=== PATIENT | male | born 1940 | race Caucasian/White ===

== ENCOUNTER → 2017-04-15 | Outpatient (CLI) | payer MEDICARE, BC | END | disposition home or self-care (01) | LOC: LABWHC1 12:54 | PROVIDERS: ATTEND Physical Medicine & Rehabilitation | DX: M48.06 Spinal stenosis, lumbar region (principal); M47.817 Spondylosis without myelopathy or radiculopathy, lumbosacral region; R20.2 Paresthesia of skin; M54.5 Low back pain | CPT/HCPCS: 36415; 82565; 84520 ==

== ENCOUNTER 2017-09-17 17:57 | Inpatient (IN) | payer MEDICARE, BC ==
[2017-09-17] MEDS ORDERED: MORPHINE SULFATE 2 MG/ML SYRINGE IVP STA (18:45)
[2017-09-17] MEDS ORDERED: ONDANSETRON 4 MG/2 ML VIAL IVP STA (18:45)
[2017-09-17] MEDS ORDERED: ASPIRIN 81 MG PO STA (18:45)
[2017-09-17] MEDS ORDERED: NITROGLYCERIN OINT 1 INCH/GM PACKET TOPICAL STA (18:45)
[2017-09-17] MEDS ORDERED: SODIUM CHLORIDE 0.9% 1,000 ML IV STA (18:45)
[2017-09-17 19:10] LABS: Calcium 9.7 mg/dL (8.4-10.2); Magnesium 2.2 mg/dL (1.6-2.3); Potassium 4.5 mmol/L (3.5-5.1); Total Bilirubin 0.5 mg/dL (0.2-1.3)
--- NOTE | 2017-09-17 19:13 | XR ---
EXAMINATION TYPE: XR chest 2V DATE OF EXAM: 09/17/2017 COMPARISON: NONE HISTORY: Chest pain TECHNIQUE: Frontal and lateral views of the chest are obtained. FINDINGS: Heart and mediastinum are within normal limits. There is slight coarsening of interstitial markings. There are no hilar masses. There is no pleural effusion. Bony thorax is intact. There is s ignificant deformity of the right humeral head that could relate to old trauma. IMPRESSION: Mild pulmonary fibrotic changes. No acute lung disease. Normal heart.
[2017-09-17 19:17] LABS: Partial Thromboplastin Time 23.9 sec (22.0-30.0); Prothrombin Time 10.1 sec (9.0-12.0)
[2017-09-17 19:24] LABS: Aty Lym Flag Moderate; CH 31.5; CHCM 33.5; HCT 47.3 % (39.0-53.0); HDW 2.98; HGB 15.4 gm/dL (13.0-17.5); MCH 30.8 pg (25.0-35.0); MCHC 32.6 g/dL (31.0-37.0); MCV 94.5 fL (80.0-100.0); RBC 5.01 m/uL (4.30-5.90); RDW 14.1 % (11.5-15.5); WBC 9.3 k/uL (3.8-10.6); WBC (Perox) 9.08
[2017-09-17 19:36] LABS: Creatine Kinase MB 3.4 ng/mL (0.0-2.4)
[2017-09-17 19:37] LABS: Troponin I 0.042 ng/mL (0.000-0.034)
[2017-09-17 19:43] LABS: Add Differential Manual Differential
[2017-09-17 19:44] LABS: Nucleated Red Blood Cells 0 /100 WBC (0-0); Polychromasia Present; Total Cells Counted 100
--- NOTE | 2017-09-17 20:06 | ED ---
Chest Pain HPI - General Chief Complaint: Chest Pain Stated Complaint: CHEST PAIN Time Seen by Provider: 09/17/17 18:26 Source: patient Mode of arrival: ambulatory Limitations: no limitations - History of Present Illness Initial Comments: 76 years old male had a chest pain episode 9 AM today and it lasted for about 2 hours he went to bed he felt great. This afternoon around 4 PM he had another episode of chest pain him according to the patient he do not have any history of ischemic heart disease no stent placement or any surgeries great nail no shortness of breath no peripheral pleuritic chest pain no fever no chills he is not coughing up any phlegm no abdominal pain no frequency urgency dysuria - Related Data Home Medications Medication Instructions Recorded Confirmed ALPRAZolam [Xanax] 0.25 mg PO BID 06/08/16 09/17/17 Lovastatin [Mevacor] 10 mg PO HS 06/08/16 09/17/17 Multivitamins, Thera [Multivitamin 1 tab PO DAILY 06/08/16 09/17/17 (formulary)] Ranitidine HCl [Zantac] 300 mg PO DAILY 06/08/16 09/17/17 Tamsulosin HCl [Flomax] 0.4 mg PO DAILY 06/08/16 09/17/17 glipiZIDE [Glucotrol] 10 mg PO DAILY 06/08/16 09/17/17 metFORMIN HCL [Glucophage] 1,500 mg PO AC-SUPPER 06/08/16 09/17/17 Aspirin 325 mg PO DAILY 07/25/16 09/17/17 Latanoprost [Xalatan 0.005%] 1 drop BOTH EYES HS 08/04/16 09/17/17 Naproxen Sodium [Aleve] 220 mg PO BID 08/04/16 09/17/17 Fish Oil 1600mg 1,600 mg PO DAILY 09/17/17 09/17/17 Glucosam/Jeffrey-Msm1/C/Everette/Bosw 1 tab PO DAILY 09/17/17 09/17/17 [Glucosamine-Chondroitin Tablet] Linagliptin [Tradjenta] 5 mg PO DAILY 09/17/17 09/17/17 Vitamin B Complex 1 cap PO DAILY 09/17/17 09/17/17 Allergies Allergy/AdvReac Type Severity Reaction Status Date / Time clarithromycin [From Biaxin] AdvReac Nausea & Verified 09/17/17 18:58 Vomiting Review of Systems ROS Statement: Those systems with pertinent positive or pertinent negative responses have been documented in the HPI. ROS Other: All systems not noted in ROS Statement are negative. Past Medical History Past Medical History: Coronary Artery Disease (CAD), Cancer, Diabetes Mellitus Additional Past Medical History / Comment(s): AAA, renal CA with removal of part of kidney and removal of rib, left posterior hernia, chronic pain History of Any Multi-Drug Resistant Organisms: None Reported Past Surgical History: Hernia Repair Additional Past Surgical History / Comment(s): CAROTID END., AAA REPAIR, removal of part of left kidney Past Anesthesia/Blood Transfusion Reactions: Postoperative Nausea & Vomiting ( PONV) Past Psychological History: No Psychological Hx Reported Smoking Status: Former smoker Past Alcohol Use History: Rare Past Drug Use History: None Reported - Past Family History Mother Family Medical History: Diabetes Mellitus Father Family Medical History: COPD, Hypertension Brother(s) Family Medical History: Diabetes Mellitus Sister(s) Family Medical History: Coronary Artery Disease (CAD), Diabetes Mellitus Son(s) Family Medical History: No Reported History Daughter(s) Family Medical History: No Reported History General Exam - General Exam Comments Initial Comments: General: The patient is awake and alert, in no distress, and does not appear acutely ill. Skin: Skin is warm and dry and no rashes or lesions are noted. Eye: Pupils are equal, round and reactive to light, extra-ocular movements are intact; there is normal conjunctiva bilaterally. Ears, nose, mouth and throat: There are moist mucous membranes and no oral lesions. Neck: The neck is supple, there is no tenderness or JVD. Cardiovascular: There is a regular rate and rhythm. No murmur, rub or gallop is appreciated. Respiratory: To auscultation bilateral, no wheezing no rhonchi no distress respiratory rosen noticed Gastrointestinal: Soft, non-distended, non-tender abdomen without masses or organomegaly noted. There is no rebound or guarding present. Bowel sounds are unremarkable. Back: There is no tenderness to palpation in the midline. There is no obvious deformity. Musculoskeletal: Normal ROM, no tenderness, There is no pedal edema. There is no calf tenderness or swelling. No cords were appreciated. Neurological: CN II-XII intact, Cranial nerves III through XII are intact. There are no obvious motor or sensory deficits. Coordination appears grossly intact. Speech is normal. Psychiatric: Cooperative, appropriate mood & affect, normal judgment. Limitations: no limitations Course Vital Signs 09/17/17 09/17/17 09/17/17 18:00 18:17 19:14 Temperature 98.1 F Pulse Rate 76 84 76 Respiratory 18 16 16 Rate Blood Pressure 181/80 159/76 153/86 O2 Sat by Pulse 98 99 98 Oximetry EKG is normal sinus rhythm ventricular rate is 82 CT interval is 170 QRS duration is 96 QT/QTc is 366/4:30 degree of this EKG does not reveal any ST elevation or ST depression Critical Care Time Total Critical Care Time: 45 Critical Care Time: 6 years old male has a history of diabetes hypertension Episodes of chest pain today on arrival he was chest pain-free him EKG is unremarkable but his troponin is elevated considering his age has other risk factors like diabetes hypertension and [facility] go ahead and heparinize him [address] Farrar's croup and cardiology be consulted will be going to [facility] Disposition Clinical Impression: Chest pain, Myocardial infarction Disposition: ADMITTED IP TO THIS HOSP Condition: Good Referrals: Angel Luis Ramon DO [Primary Care Provider] - 1-2 days
[2017-09-17] MEDS ORDERED: ACETAMINOPHEN TAB 325 MG TAB PO PRN (20:09)
[2017-09-17] MEDS ORDERED: MORPHINE SULFATE 10 MG/ML SYRINGE IVP PRN (20:09)
[2017-09-17] MEDS ORDERED: HEPARIN SODIUM,PORCINE 5,000 UNIT/ML 1 ML VIAL IV ONE (20:09)
[2017-09-17] MEDS: HEPARIN SODIUM,PORCINE/D5W PMX 25,000 UNIT in DEXTROSE/WATER 1 500ML.BAG IV SCH (22:04)
[2017-09-17 22:48] VITALS: BMI 25.5
[2017-09-18] MEDS: NITROGLYCERIN OINT 1 INCH/GM PACKET TOPICAL SCH ×4 (00:15→17:38)
[2017-09-18 01:05] LABS: Creatine Kinase MB 3.2 ng/mL (0.0-2.4); Troponin I 0.045 ng/mL (0.000-0.034)
[2017-09-18 05:23] LABS: Creatine Kinase MB 3.4 ng/mL (0.0-2.4); Troponin I 0.052 ng/mL (0.000-0.034)
[2017-09-18 05:57] LABS: Cholesterol 149 mg/dL (<200); HDL Cholesterol 33 mg/dL (40-60)
[2017-09-18 06:14] LABS: Glucose,Whole Blood 163 mg/dL (75-99)
[2017-09-18] MEDS: INSULIN LISPRO (humaLOG) 300 UNIT/3 ML VIAL SQ SCH ×4 (06:14→21:18)
[2017-09-18] MEDS: glipiZIDE 10 MG TAB PO SCH (06:30)
[2017-09-18] MEDS: FISH OIL PO SCH (08:09)
[2017-09-18] MEDS: ALPRAZolam 0.25 MG TAB PO SCH ×2 (08:13→21:12)
[2017-09-18] MEDS: B COMPLEX-VIT C-VIT E-ZINC 1 EACH TAB PO SCH (08:13)
[2017-09-18] MEDS: TAMSULOSIN 0.4 MG CAP.ER.24H PO SCH (08:13)
[2017-09-18] MEDS: FAMOTIDINE 20 MG TAB PO SCH (08:13)
[2017-09-18] MEDS: ASPIRIN 325 MG TAB PO SCH (08:13)
[2017-09-18] MEDS: MULTIVITAMINS, THERA 1 EACH TAB PO SCH (08:13)
[2017-09-18 10:24] LABS: Glucose,Whole Blood 129 mg/dL (75-99)
[2017-09-18 11:27] LABS: Glucose,Whole Blood 135 mg/dL (75-99)
--- NOTE | 2017-09-18 11:55 | ECHOF ---
Referral Reason:Myocardial infarction MEASUREMENTS -------- HEIGHT: 175.3 cm WEIGHT: 75.3 kg BP: 126/87 RVIDd: 2.4 cm (< 3.3) IVSd: 1.0 cm (0.6 - 1.1) LVIDd: 4.4 cm (3.9 - 5.3) LVPWd: 1.3 cm (0.6 - 1.1) IVSs: 1.7 cm LVIDs: 3.0 cm LVPWs: 1.6 cm LA Diam: 3.3 cm (2.7 - 3.8) LAESV Index (A-L): 15.61 ml/m Ao Diam: 3.0 cm (2.0 - 3.7) AV Cusp: 1.5 cm (1.5 - 2.6) MV EXCURSION: 11.714 mm (> 18.000) MV EF SLOPE: 56 mm/s (70 - 150) EPSS: 0.7 cm MV E Mic: 0.96 m/s MV DecT: 190 ms MV A Mic: 1.04 m/s MV E/A Ratio: 0.92 RAP: 5.00 mmHg RVSP: 23.95 mmHg FINDINGS -------- Sinus rhythm. This was a technically difficult study with suboptimal apical views. The left ventricular size is normal. There is mild concentric left ventricular hypertrophy. Overa ll left ventricular systolic function is low-normal with, an EF between 50 - 55 %. The right ventricle is normal in size. Normal LA size by volume 22+/-6 ml/m2. The right atrium is normal in size. 1.5mg of Definity was utilized for enhancement of images There is moderate aortic valve sclerosis. Mild mitral annular calcification present. Mild mitral regurgitation is present. Mild tricuspid regurgitation present. Right ventricular systolic pressure is normal at < 35 mmHg. The pulmonic valve was not well visualized. There is no pulmonic regurgitation present. The aortic root size is normal. Normal inferior vena cava with normal inspiratory collapse consistent with estimated right atrial pre ssure of 5 mmHg. There is no pericardial effusion. CONCLUSIONS -------- 1. Sinus rhythm. 2. This was a technically difficult study with suboptimal apical views. 3. There is mild concentric left ventricular hypertrophy. 4. Overall left ventricular systolic function is low-normal with, an EF between 50 - 55 %. 5. Normal LA size by volume 22+/-6 ml/m2. 6. 1.5mg of Definity was utilized for enhancement of images 7. There is moderate aortic valve sclerosis. 8. Mild mitral annular calcification present. 9. Mild mitral regurgitation is present. 10. Mild tricuspid regurgitation present. 11. Right ventricular systolic pressure is normal at < 35 mmHg. 12. There is no pulmonic regurgitation present. 13. The aortic root size is normal. 14. Normal inferior vena cava with normal inspiratory collapse consistent with estimated right atrial pressure of 5 mmHg. 15. There is no pericardial effusion. CONSTRUCTION EQUIPMENT TECHNICIAN: Dorothy Pichardo RDCS
[2017-09-18] MEDS: LINAGLIPTIN 5 MG TABLET PO SCH (12:37)
[2017-09-18] MEDS ORDERED: ALPRAZolam 0.5 MG TAB PO PRN (12:44)
[2017-09-18] MEDS ORDERED: ALPRAZolam 0.25 MG TAB PO PRN (12:44)
[2017-09-18] MEDS ORDERED: SODIUM CHLORIDE 0.9% 1,000 ML in EMPTY BAG 1 BAG IV ONE (12:44)
[2017-09-18] MEDS ORDERED: ASPIRIN 325 MG TAB PO STA (12:44)
[2017-09-18] MEDS ORDERED: ATORVASTATIN 80 MG TAB PO STA (12:44)
[2017-09-18] MEDS ORDERED: NITROGLYCERIN SL TABS 0.4 MG TAB SUBLINGUAL PRN (12:44)
--- NOTE | 2017-09-18 12:49 | P.CRDCN ---
History of Present Illness Consult date: 09/18/17 Requesting physician: Dora Farrar Reason for Consult (text): This is a pleasant 76-year-old gentleman who follows with Dr. Santoro in the office. Has a known history of diabetes, previous CVA, history of smoking, partial nephrectomy, history of left carotid stenosis status post endarterectomy and subsequent stent grafting. Presented to the emergency department with complaints of chest discomfort. Initially experience chest discomfort after eating breakfast midsternal and radiated to bilateral arms. Patient laid back down and rested for a while and that pain subsided. Shortly after waking the second time, patient experienced the same chest discomfort with radiation to bilateral arms and subsequently presented to the emergency department. EKG on admission shows sinus rhythm with possible old inferior infarct, poor R-wave progression and nonspecific ST-T wave abnormalities, similar to previous. Chest x-ray showed mild pulmonary fibrotic changes, no acute lung disease. Laboratory values showed a BUN of 29 and creatinine 1.5 with previous creatinine of 1.57. A mild troponin elevation of 0.042, 0.045, and 0.052. Upon examination, patient is resting comfortably in bed. He denies further complaints of chest discomfort. He complains of shortness of breath with activity that is stable for him. No complaints of nausea, diaphoresis, dizziness, lightheadedness, palpitations or edema. Past Medical History Past Medical History: Coronary Artery Disease (CAD), Cancer, Diabetes Mellitus Additional Past Medical History / Comment(s): AAA, renal CA with removal of part of kidney and removal of rib, left posterior hernia, chronic pain History of Any Multi-Drug Resistant Organisms: None Reported Past Surgical History: Hernia Repair Additional Past Surgical History / Comment(s): CAROTID END., AAA REPAIR, removal of part of left kidney Past Anesthesia/Blood Transfusion Reactions: Postoperative Nausea & Vomiting ( PONV) Past Psychological History: No Psychological Hx Reported Smoking Status: Former smoker Past Alcohol Use History: Rare Past Drug Use History: None Reported - Past Family History Mother Family Medical History: Diabetes Mellitus Father Family Medical History: COPD, Hypertension Brother(s) Family Medical History: Diabetes Mellitus Sister(s) Family Medical History: Coronary Artery Disease (CAD), Diabetes Mellitus Son(s) Family Medical History: No Reported History Daughter(s) Family Medical History: No Reported History Medications and Allergies Home Medications Medication Instructions Recorded Confirmed Type ALPRAZolam [Xanax] 0.25 mg PO BID 06/08/16 09/17/17 History Lovastatin [Mevacor] 10 mg PO HS 06/08/16 09/17/17 History Multivitamins, Thera [Multivitamin 1 tab PO DAILY 06/08/16 09/17/17 History (formulary)] Ranitidine HCl [Zantac] 300 mg PO DAILY 06/08/16 09/17/17 History Tamsulosin HCl [Flomax] 0.4 mg PO DAILY 06/08/16 09/17/17 History glipiZIDE [Glucotrol] 10 mg PO DAILY 06/08/16 09/17/17 History metFORMIN HCL [Glucophage] 1,500 mg PO AC-SUPPER 06/08/16 09/17/17 History Aspirin 325 mg PO DAILY 07/25/16 09/17/17 History Latanoprost [Xalatan 0.005%] 1 drop BOTH EYES HS 08/04/16 09/17/17 History Naproxen Sodium [Aleve] 220 mg PO BID 08/04/16 09/17/17 History Fish Oil 1600mg 1,600 mg PO DAILY 09/17/17 09/17/17 History Glucosam/Jeffrey-Msm1/C/Everette/Bosw 1 tab PO DAILY 09/17/17 09/17/17 History [Glucosamine-Chondroitin Tablet] Linagliptin [Tradjenta] 5 mg PO DAILY 09/17/17 09/17/17 History Vitamin B Complex 1 cap PO DAILY 09/17/17 09/17/17 History Allergies Allergy/AdvReac Type Severity Reaction Status Date / Time clarithromycin [From Biaxin] AdvReac Nausea & Verified 09/17/17 18:58 Vomiting Physical Exam Vitals: Vital Signs Temp Pulse Pulse Resp BP BP Pulse Ox 09/18/17 08:00 97.5 F L 83 16 160/78 95 09/18/17 04:00 97.1 F L 89 16 126/87 95 09/18/17 00:00 97.0 F L 92 16 145/71 99 09/17/17 21:00 92 16 09/17/17 20:34 96.4 F L 82 16 183/84 98 09/17/17 20:15 70 20 134/73 94 L 09/17/17 19:14 76 16 153/86 98 09/17/17 18:17 84 16 159/76 99 09/17/17 18:00 98.1 F 76 18 181/80 98 Intake and Output 09/17/17 09/18/17 09/18/17 22:59 06:59 14:59 Intake Total 800 1072.358 Balance 800 1072.358 Intake: IV 144 Heparin Sodium,Porcine/ 144 D5w Pmx 25,000 unit In Dextrose/Water 1 500ml. bag @ 12 UNITS/KG/HR 18. 83 mls/hr IV .Q24H [facility] Rx #:[id number] Intake, IV Titration 800 928.358 Amount Heparin Sodium,Porcine/ 128.358 D5w Pmx 25,000 unit In Dextrose/Water 1 500ml. bag @ 12 UNITS/KG/HR 18. 83 mls/hr IV .Q24H [facility] Rx #:[id number] Sodium Chloride 0.9% 1, 800 800 000 ml @ 100 mls/hr IV . Q10H [facility] Rx#:[id number] Other: Voiding Method Toilet Toilet Weight 78.471 kg 75.3 kg PHYSICAL EXAMINATION: HEENT: Head is atraumatic, normocephalic. Pupils equal, round. Neck is supple. There is no elevated jugular venous pressure. HEART EXAMINATION: Heart sounds regular, S1 and S2 normal. No murmur or gallop heard. CHEST EXAMINATION: Lungs reveal diminished air entry bilaterally. No chest wall tenderness is noted on palpation or with deep breathing. ABDOMEN: Soft, nontender. Bowel sounds are heard. No organomegaly noted. EXTREMITIES: 2+ peripheral pulses with no evidence of peripheral edema and no calf tenderness noted. NEUROLOGIC patient is awake, alert and oriented x3. . Results 09/17/17 18:15 09/17/17 18:15 Cardiac Enzymes 09/17/17 09/17/17 09/18/17 Range/Units 18:15 18:15 00:10 AST 29 (17-59) U/L CK-MB (CK-2) 3.4 H* 3.2 H* (0.0-2.4) ng/mL Troponin I 0.042 H* 0.045 H* (0.000-0.034) ng/mL 09/18/17 Range/Units 04:17 AST (17-59) U/L CK-MB (CK-2) 3.4 H* (0.0-2.4) ng/mL Troponin I 0.052 H* (0.000-0.034) ng/mL Coagulation 09/17/17 09/18/17 Range/Units 18:15 04:17 PT 10.1 (9.0-12.0) sec APTT 23.9 44.7 H (22.0-30.0) sec Lipids 09/18/17 Range/Units 04:17 Triglycerides 209 H (<150) mg/dL Cholesterol 149 (<200) mg/dL HDL Cholesterol 33 L (40-60) mg/dL CBC 09/17/17 Range/Units 18:15 WBC 9.3 (3.8-10.6) k/uL RBC 5.01 (4.30-5.90) m/uL Hgb 15.4 (13.0-17.5) gm/dL Hct 47.3 (39.0-53.0) % Plt Count 205 (150-450) k/uL Comprehensive Metabolic Panel 09/17/17 Range/Units 18:15 Sodium 141 (137-145) mmol/L Potassium 4.5 (3.5-5.1) mmol/L Chloride 107 (98-107) mmol/L Carbon Dioxide 21 L (22-30) mmol/L BUN 29 H (9-20) mg/dL Creatinine 1.50 H (0.66-1.25) mg/dL Glucose 184 H (74-99) mg/dL Calcium 9.7 (8.4-10.2) mg/dL AST 29 (17-59) U/L ALT 43 (21-72) U/L Alkaline Phosphatase 75 (38-126) U/L Total Protein 7.0 (6.3-8.2) g/dL Albumin 4.2 (3.5-5.0) g/dL Current Medications Generic Name Dose Route Start Last Admin Trade Name Freq PRN Reason Stop Dose Admin Acetaminophen 650 mg 09/17/17 20:09 Tylenol Tab PO Q4HR PRN Mild Pain Alprazolam 0.25 mg 09/18/17 09:00 09/18/17 08:13 Xanax PO 0.25 mg BID [facility] Administration Aspirin 325 mg 09/18/17 09:00 09/18/17 08:13 Aspirin PO 325 mg DAILY [facility] Administration Atorvastatin Calcium 10 mg 09/18/17 21:00 Lipitor PO HS [facility] Famotidine 40 mg 09/18/17 09:00 09/18/17 08:13 Pepcid PO 40 mg DAILY [facility] Administration Glipizide 10 mg 09/18/17 07:30 09/18/17 06:30 Glucotrol PO 10 mg AC-BRKFST [facility] Administration Heparin Sodium/Dextrose 25,000 500 mls @ 18.83 mls/hr 09/17/17 20:15 04:53 unit/ IV Solution IV 14 units/kg/hr .Q24H [facility] 21.97 mls/hr Protocol Titration 12 UNITS/KG/HR Insulin Human Lispro 0 unit 09/18/17 07:30 09/18/17 06:14 Humalog SQ Not Given ACHS [facility] Protocol Latanoprost 1 drops 09/18/17 21:00 Xalatan 0.005% BOTH EYES HS [facility] Linagliptin 5 mg 09/18/17 09:00 Tradjenta PO DAILY [facility] Morphine Sulfate 2 mg 09/17/17 20:09 Morphine Sulfate (Inj) IVP Q5M PRN Chest Pain Multivitamins 1 each 09/18/17 09:00 09/18/17 08:13 Theragran PO 1 each DAILY [facility] Administration Nitroglycerin 1 inch 09/18/17 00:00 09/18/17 06:12 Nitro-Bid Oint TOPICAL Not Given Q6HR [facility] Non-Formulary Medication 1,600 mg 09/18/17 09:00 09/18/17 08:09 Fish Oil 1600mg PO Not Given DAILY [facility] Tamsulosin HCl 0.4 mg 09/18/17 09:00 09/18/17 08:13 Flomax PO 0.4 mg DAILY [facility] Administration Vitamin B Complex/Vit C/Vit E/Zinc 1 each 09/18/17 09:00 09/18/17 08:13 Z-Bec PO 1 each DAILY [facility] Administration Intake and Output 09/17/17 09/18/17 09/18/17 22:59 06:59 14:59 Intake Total 800 1072.358 Balance 800 1072.358 Intake: IV 144 Heparin Sodium,Porcine/ 144 D5w Pmx 25,000 unit In Dextrose/Water 1 500ml. bag @ 12 UNITS/KG/HR 18. 83 mls/hr IV .Q24H [facility] Rx #:[id number] Intake, IV Titration 800 928.358 Amount Heparin Sodium,Porcine/ 128.358 D5w Pmx 25,000 unit In Dextrose/Water 1 500ml. bag @ 12 UNITS/KG/HR 18. 83 mls/hr IV .Q24H [facility] Rx #:[id number] Sodium Chloride 0.9% 1, 800 800 000 ml @ 100 mls/hr IV . Q10H [facility] Rx#:[id number] Other: Voiding Method Toilet Toilet Weight 78.471 kg 75.3 kg 09/17/17 18:15 09/17/17 18:15 Assessment and Plan Assessment: #1 chest pain with minimally elevated troponins, symptoms concerning for acute coronary syndrome #2 diabetes mellitus type 2 #3 history of left carotid endarterectomy and subsequent stent grafting #4 history of AAA repair #5 renal insufficiency #6 history of partial nephrectomy Plan: From Cardiology's perspective, patient's symptoms are concerning for acute coronary syndrome. We'll obtain a 2-D echo with Doppler. Patient will be scheduled to undergo cardiac catheterization by Dr. Archer in the morning. Further recommendations to follow depending on findings of cardiac catheterization. L[employer]ER note has been reviewed, I agree with a documented findings and plan of care. Patient was seen and examined.
--- NOTE | 2017-09-18 13:48 | P.HPIM ---
History of Present Illness H&P Date: 09/18/17 Chief Complaint: Chest pain This is a 76-year-old pleasant gentleman one of Dr. Ramon with a previous medical history significant for coronary artery disease, hypertension and hypertensive cardio vascular disease, hyperlipidemia, diabetes mellitus type 2, renal cell cancer status post partial nephrectomy on the left, carotid artery disease status post left carotid endarterectomy and restenosis of the left carotid artery status post CT angiography of the carotids that was done in March 2015 and that showed 80% stenosis of the left carotid artery done, history of abdominal aortic aneurysm status post repair patient was brought into the emergency department at [facility] because chest discomfort that occurred a few hours prior to admission. This was resting in nature, midsternal, not accompanied by any regurgitation, no respiratory events. Patient decided to lie down or after the chest discomfort weaned off. When the patient woke up, chest discomfort return again in the spring occurring until his emergency room visits requiring an admission for unstable angina. In emergency room, EKG shows T-wave inversion in the leads V1 through V3, no acute changes were seen, patient had an elevated troponin at 0.042, 0.045 and 0.052. Patient was started on IV heparin, Nitropaste, consult was made with cardiology. Echocardiogram exam was performed showing sinus rhythm with mild concentric LVH , EF of 50-55%, moderate aortic valve sclerosis, mild MR and mild TR, no pericardial effusion, normal right ventricular systolic pressure Cardiology Dr. Archer we will plan on performing a cardiac cath in the morning, creatinine would be closely monitored, patient currently is receiving IV hydration. Metformin on hold since admission, Mucomyst started Review of Systems Constitutional: Reports as per HPI, Denies anorexia, Denies chills, Denies chronic headaches, Denies chronic pain, Denies daytime sleepiness, Denies fatigue, Denies fever, Denies lethargy, Denies malaise, Denies night sweats, Denies poor appetite, Denies sweats, Denies weakness, Denies weight gain, Denies weight loss Ears, nose, mouth and throat: Reports as per HPI Cardiovascular: Reports as per HPI, Reports chest pain, Reports decreased exercise tolerance, Denies claudication, Denies dyspnea on exertion, Denies edema, Denies high blood pressure, Denies irregular heart beat, Denies leg edema , Denies lightheadedness, Denies orthopnea, Denies palpitations, Denies paroxysmal nocturnal dyspnea, Denies phlebitis, Denies rapid heart beat, Denies shortness of breath, Denies syncope Respiratory: Reports as per HPI, Denies congestion, Denies cough, Denies cough with sputum, Denies dyspnea, Denies excessive sputum, Denies hemoptysis, Denies home oxygen, Denies pain, Denies pain on inspiration, Denies pleurisy, Denies respiratory infections, Denies sleep apnea, Denies snoring, Denies wheezing Gastrointestinal: Reports as per HPI, Denies abdominal pain, Denies belching, Denies bloating, Denies BRBPR, Denies change in bowel habits, Denies coffee ground emesis, Denies constipation, Denies diarrhea, Denies dyspepsia, Denies early satiety, Denies excessive gas, Denies heartburn, Denies hematemesis, Denies hematochezia, Denies indigestion, Denies jaundice, Denies lactose intolerance, Denies loss of appetite, Denies melena, Denies nausea, Denies vomiting Genitourinary: Reports as per HPI, Denies decreased libido, Denies difficulties fathering child, Denies discharge, Denies dysuria, Denies erectile dysfunction, Denies flank pain, Denies genital pain, Denies genital sores, Denies hematuria, Denies impotence, Denies incontinence, Denies kidney stones, Denies nocturia, Denies polyuria, Denies testicular lump, Denies testicular pain, Denies urinary frequency, Denies urinary hesitancy, Denies urinary retention Musculoskeletal: Reports as per HPI Integumentary: Reports as per HPI, Denies acne, Denies boils, Denies brittle nails, Denies change in hair/nails, Denies color changes, Denies darkening of skin, Denies depigmentation, Denies dryness, Denies foot/leg ulcers, Denies growths, Denies hirsutism, Denies lesions, Denies onychomycosis, Denies pruritus , Denies rash, Denies sores, Denies striae, Denies unusual bruising, Denies wounds Neurological: Reports as per HPI, Denies aphasia, Denies ataxia, Denies balance difficulties, Denies burning pain, Denies change in mentation, Denies change in smell/taste, Denies change in speech, Denies confusion, Denies convulsions, Denies double vision, Denies gait dysfunction, Denies head injury, Denies headaches, Denies hearing difficulties, Denies lack of coordination, Denies loss of vision, Denies memory loss, Denies migraines, Denies motor disturbance, Denies numbness, Denies paralysis, Denies paresthesias, Denies seizures, Denies sensory deficit, Denies spasticity, Denies syncope, Denies tic, Denies tingling , Denies transient paralysis, Denies tremors, Denies vertigo, Denies weakness, Denies visual changes Psychiatric: Reports as per HPI Endocrine: Reports as per HPI Hematologic/Lymphatic: Reports as per HPI, Denies easy bleeding, Denies easy bruising, Denies lymphadenopathy, Denies lymphedema, Denies thrombophilia Allergic/Immunologic: Reports as per HPI Past Medical History Past Medical History: Coronary Artery Disease (CAD), Cancer, Diabetes Mellitus Additional Past Medical History / Comment(s): AAA, renal CA with removal of part of kidney and removal of rib, left posterior hernia, chronic pain History of Any Multi-Drug Resistant Organisms: None Reported Past Surgical History: Hernia Repair Additional Past Surgical History / Comment(s): CAROTID END., AAA REPAIR, removal of part of left kidney Past Anesthesia/Blood Transfusion Reactions: Postoperative Nausea & Vomiting ( PONV) Past Psychological History: No Psychological Hx Reported Smoking Status: Former smoker Past Alcohol Use History: Rare Past Drug Use History: None Reported - Past Family History Mother Family Medical History: Diabetes Mellitus Father Family Medical History: COPD, Hypertension Brother(s) Family Medical History: Diabetes Mellitus Sister(s) Family Medical History: Coronary Artery Disease (CAD), Diabetes Mellitus Son(s) Family Medical History: No Reported History Daughter(s) Family Medical History: No Reported History Medications and Allergies Home Medications Medication Instructions Recorded Confirmed Type ALPRAZolam [Xanax] 0.25 mg PO BID 06/08/16 09/17/17 History Lovastatin [Mevacor] 10 mg PO HS 06/08/16 09/17/17 History Multivitamins, Thera [Multivitamin 1 tab PO DAILY 06/08/16 09/17/17 History (formulary)] Ranitidine HCl [Zantac] 300 mg PO DAILY 06/08/16 09/17/17 History Tamsulosin HCl [Flomax] 0.4 mg PO DAILY 06/08/16 09/17/17 History glipiZIDE [Glucotrol] 10 mg PO DAILY 06/08/16 09/17/17 History metFORMIN HCL [Glucophage] 1,500 mg PO AC-SUPPER 06/08/16 09/17/17 History Aspirin 325 mg PO DAILY 07/25/16 09/17/17 History Latanoprost [Xalatan 0.005%] 1 drop BOTH EYES HS 08/04/16 09/17/17 History Naproxen Sodium [Aleve] 220 mg PO BID 08/04/16 09/17/17 History Fish Oil 1600mg 1,600 mg PO DAILY 09/17/17 09/17/17 History Glucosam/Jeffrey-Msm1/C/Everette/Bosw 1 tab PO DAILY 09/17/17 09/17/17 History [Glucosamine-Chondroitin Tablet] Linagliptin [Tradjenta] 5 mg PO DAILY 09/17/17 09/17/17 History Vitamin B Complex 1 cap PO DAILY 09/17/17 09/17/17 History Allergies Allergy/AdvReac Type Severity Reaction Status Date / Time clarithromycin [From Biaxin] AdvReac Nausea & Verified 09/17/17 18:58 Vomiting Physical Exam Vitals: Vital Signs Temp Pulse Pulse Resp BP BP Pulse Ox 09/18/17 12:00 97.5 F L 86 16 163/74 98 09/18/17 08:00 97.5 F L 83 16 160/78 95 09/18/17 04:00 97.1 F L 89 16 126/87 95 09/18/17 00:00 97.0 F L 92 16 145/71 99 09/17/17 21:00 92 16 09/17/17 20:34 96.4 F L 82 16 183/84 98 09/17/17 20:15 70 20 134/73 94 L 09/17/17 19:14 76 16 153/86 98 09/17/17 18:17 84 16 159/76 99 09/17/17 18:00 98.1 F 76 18 181/80 98 Intake and Output 09/17/17 09/18/17 09/18/17 22:59 06:59 14:59 Intake Total 800 1072.358 240 Balance 800 1072.358 240 Intake: IV 144 Heparin Sodium,Porcine/ 144 D5w Pmx 25,000 unit In Dextrose/Water 1 500ml. bag @ 12 UNITS/KG/HR 18. 83 mls/hr IV .Q24H [facility] Rx #:[id number] Intake, IV Titration 800 928.358 Amount Heparin Sodium,Porcine/ 128.358 D5w Pmx 25,000 unit In Dextrose/Water 1 500ml. bag @ 12 UNITS/KG/HR 18. 83 mls/hr IV .Q24H [facility] Rx #:[id number] Sodium Chloride 0.9% 1, 800 800 000 ml @ 100 mls/hr IV . Q10H [facility] Rx#:[id number] Oral 240 Other: Voiding Method Toilet Toilet Weight 78.471 kg 75.3 kg - Constitutional General appearance: cooperative, no acute distress - EENT Eyes: anicteric sclerae, EOMI, dentition normal, normal appearance ENT: NA/AT, normal oropharynx - Neck Neck: normal ROM Thyroid: bilateral: normal size - Respiratory Respiratory: bilateral: CTA, negative: diminished, dullness, rales, rhonchi, wheezing - Cardiovascular Rhythm: regular Heart sounds: normal: S1, S2 - Gastrointestinal General gastrointestinal: normal bowel sounds, soft - Integumentary Integumentary: normal, normal turgor - Neurologic Neurologic: CNII-XII intact - Musculoskeletal Musculoskeletal: gait normal, strength equal bilaterally - Psychiatric Psychiatric: A&O x's 3, appropriate affect, intact judgment & insight Results CBC & Chem 7: 09/17/17 18:15 09/17/17 18:15 Labs: Abnormal Lab Results - Last 24 Hours (Table) 09/17/17 09/17/17 09/18/17 Range/Units 18:15 18:15 00:10 APTT (22.0-30.0) sec Carbon Dioxide 21 L (22-30) mmol/L BUN 29 H (9-20) mg/dL Creatinine 1.50 H (0.66-1.25) mg/dL Glucose 184 H (74-99) mg/dL POC Glucose (mg/dL) (75-99) mg/dL CK-MB (CK-2) 3.4 H* 3.2 H* (0.0-2.4) ng/mL Troponin I 0.042 H* 0.045 H* (0.000-0.034) ng/mL Triglycerides (<150) mg/dL HDL Cholesterol (40-60) mg/dL Amylase 148 H (30-110) U/L 09/18/17 09/18/17 09/18/17 Range/Units 04:17 04:17 04:17 APTT 44.7 H (22.0-30.0) sec Carbon Dioxide (22-30) mmol/L BUN (9-20) mg/dL Creatinine (0.66-1.25) mg/dL Glucose (74-99) mg/dL POC Glucose (mg/dL) (75-99) mg/dL CK-MB (CK-2) 3.4 H* (0.0-2.4) ng/mL Troponin I 0.052 H* (0.000-0.034) ng/mL Triglycerides 209 H (<150) mg/dL HDL Cholesterol 33 L (40-60) mg/dL Amylase (30-110) U/L 09/18/17 09/18/17 09/18/17 Range/Units 06:12 10:11 10:34 APTT 60.7 H (22.0-30.0) sec Carbon Dioxide (22-30) mmol/L BUN (9-20) mg/dL Creatinine (0.66-1.25) mg/dL Glucose (74-99) mg/dL POC Glucose (mg/dL) 163 H 129 H (75-99) mg/dL CK-MB (CK-2) (0.0-2.4) ng/mL Troponin I (0.000-0.034) ng/mL Triglycerides (<150) mg/dL HDL Cholesterol (40-60) mg/dL Amylase (30-110) U/L 09/18/17 Range/Units 11:26 APTT (22.0-30.0) sec Carbon Dioxide (22-30) mmol/L BUN (9-20) mg/dL Creatinine (0.66-1.25) mg/dL Glucose (74-99) mg/dL POC Glucose (mg/dL) 135 H (75-99) mg/dL CK-MB (CK-2) (0.0-2.4) ng/mL Troponin I (0.000-0.034) ng/mL Triglycerides (<150) mg/dL HDL Cholesterol (40-60) mg/dL Amylase (30-110) U/L Laboratory Results WBC 9.3 k/uL (3.8-10.6) 09/17/17 18:15 RBC 5.01 m/uL (4.30-5.90) 09/17/17 18:15 Hgb 15.4 gm/dL (13.0-17.5) 09/17/17 18:15 Hct 47.3 % (39.0-53.0) 09/17/17 18:15 MCV 94.5 fL (80.0-100.0) 09/17/17 18:15 MCH 30.8 pg (25.0-35.0) 09/17/17 18:15 MCHC 32.6 g/dL (31.0-37.0) 09/17/17 18:15 RDW 14.1 % (11.5-15.5) 09/17/17 18:15 Plt Count 205 k/uL (150-450) 09/17/17 18:15 Neutrophils % (Manual) 76 % 09/17/17 18:15 Lymphocytes % (Manual) 16 % 09/17/17 18:15 Monocytes % (Manual) 7 % 09/17/17 18:15 Eosinophils % (Manual) 1 % 09/17/17 18:15 Neutrophils # (Manual) 7.07 k/uL (1.3-7.7) 09/17/17 18:15 Lymphocytes # (Manual) 1.49 k/uL (1.0-4.8) 09/17/17 18:15 Monocytes # (Manual) 0.65 k/uL (0-1.0) 09/17/17 18:15 Eosinophils # (Manual) 0.09 k/uL (0-0.7) 09/17/17 18:15 Nucleated RBCs 0 /100 WBC (0-0) 09/17/17 18:15 Polychromasia Present 09/17/17 18:15 PT 10.1 sec (9.0-12.0) 09/17/17 18:15 INR 1.0 (<1.2) 09/17/17 18:15 APTT 60.7 sec (22.0-30.0) H 09/18/17 10:34 Sodium 141 mmol/L (137-145) 09/17/17 18:15 Potassium 4.5 mmol/L (3.5-5.1) 09/17/17 18:15 Chloride 107 mmol/L (98-107) 09/17/17 18:15 Carbon Dioxide 21 mmol/L (22-30) L 09/17/17 18:15 Anion Gap 13 mmol/L 09/17/17 18:15 BUN 29 mg/dL (9-20) H 09/17/17 18:15 Creatinine 1.50 mg/dL (0.66-1.25) H 09/17/17 18:15 Est GFR (MDRD) Af Amer 55 (>60 ml/min/1.73 sqM) 09/17/17 18:15 Est GFR (MDRD) Non-Af 45 (>60 ml/min/1.73 sqM) 09/17/17 18:15 Glucose 184 mg/dL (74-99) H 09/17/17 18:15 POC Glucose (mg/dL) 135 mg/dL (75-99) H 09/18/17 11:26 POC Glu Sleep Manager ID Angela Palafox 09/18/17 11:26 Calcium 9.7 mg/dL (8.4-10.2) 09/17/17 18:15 Magnesium 2.2 mg/dL (1.6-2.3) 09/17/17 18:15 Total Bilirubin 0.5 mg/dL (0.2-1.3) 09/17/17 18:15 AST 29 U/L (17-59) 09/17/17 18:15 ALT 43 U/L (21-72) 09/17/17 18:15 Alkaline Phosphatase 75 U/L (38-126) 09/17/17 18:15 Total Creatine Kinase 76 U/L (55-170) 09/18/17 04:17 CK-MB (CK-2) 3.4 ng/mL (0.0-2.4) H* 09/18/17 04:17 CK-MB (CK-2) Rel Index 4.5 09/18/17 04:17 Troponin I 0.052 ng/mL (0.000-0.034) H* 11/03/17 04:17 Total Protein 7.0 g/dL (6.3-8.2) 09/17/17 18:15 Albumin 4.2 g/dL (3.5-5.0) 09/17/17 18:15 Triglycerides 209 mg/dL (<150) H 09/18/17 04:17 Cholesterol 149 mg/dL (<200) 09/18/17 04:17 LDL Cholesterol, Calc 74 mg/dL (0-99) 09/18/17 04:17 HDL Cholesterol 33 mg/dL (40-60) L 09/18/17 04:17 Amylase 148 U/L (30-110) H 09/17/17 18:15 Lipase 238 U/L (23-300) 09/17/17 18:15 Thrombosis Risk Factor Assmnt - DVT/VTE Prophylaxis DVT/VTE Prophylaxis: Pharmacologic Prophylaxis ordered - Choose All That Apply Any of the Below Risk Factors Present?: Yes Each Factor Represents 1 point: Acute AK Other Risk Factors: No Each Risk Factor Represents 3 Points: Age 75 years or older Other congenital or acquired thrombophilia - If yes, enter type in comment: No Thrombosis Risk Factor Assessment Total Risk Factor Score: 4 Thrombosis Risk Factor Assessment Level: Moderate Risk Assessment and Plan Plan: 1. Unstable angina, with minimal elevation troponins, ruled in for a non-STEMI with significant comorbidities to include diabetes mellitus, hypertension hyperlipidemia, patient is serially monitored for biomarkers troponin, and EKG. Cardiology was consulted, with plans for cardiac cath in the morning. Continue on IV heparin and Nitropaste, patient currently is asymptomatic. Continue an aspirin, Lipitor,, patient needs to be started on low-dose KENNA inhibitor prior to discharge if creat and bp will allow it 2. Hypertension and hypertensive cardiovascular disease. Patient has not taken any medication at this time. 3. Hyperlipidemia. Continue Lipitor 10 mg orally once every day. LDL 74 4. Diabetes mellitus type 2. Continue Glucotrol 10 10 mg before breakfast and metformin is on hold for cardiac cath procedures, Cogentin 5 mg daily BGM before each meal and at bedtime along with a sliding scale insulin. 5. History of CVA/TIA in the past. Continue statin and aspirin 325 mg orally once every day. 6. History of the osteoarthritis. Discontinue Aleve. 7. History of renal cell cancer status post partial nephrectomy. 8. History of abdominal aortic aneurysm status post repair. 9. Remote tobacco use and dependence with COPD. Stable at this time. 10. CK D stage III 2, patient will be hydrated with anticipation of contrast studies, Mucomyst to be given Full code. GERD. Continue Zantac 300 mg orally once every day. DVT prophylaxis. Heparin 5000 units subcutaneously every 8 hours. Admit to inpatient. Estimated length of stay 2 midnights.
[2017-09-18 16:28] LABS: Glucose,Whole Blood 220 mg/dL (75-99)
[2017-09-18] MEDS: ACETYLCYSTEINE 800 MG/4 ML VIAL PO SCH ×2 (17:20→21:12)
[2017-09-18 20:50] LABS: Glucose,Whole Blood 210 mg/dL (75-99)
[2017-09-18] MEDS ORDERED: ATORVASTATIN 10 MG TAB PO SCH (21:00)
[2017-09-18] MEDS: LATANOPROST 0.005% OPHTH DROPS 2.5 ML BTL BOTH EYES SCH (21:10)
[2017-09-18] MEDS: HEPARIN SODIUM,PORCINE/D5W PMX 25,000 UNIT in DEXTROSE/WATER 1 500ML.BAG IV SCH (21:12)
[2017-09-19] MEDS: NITROGLYCERIN OINT 1 INCH/GM PACKET TOPICAL SCH ×2 (01:25→06:36)
[2017-09-19] MEDS: INSULIN LISPRO (humaLOG) 300 UNIT/3 ML VIAL SQ SCH ×4 (06:27→20:33)
[2017-09-19] MEDS: glipiZIDE 10 MG TAB PO SCH (06:27)
[2017-09-19] MEDS: FISH OIL PO SCH (06:28)
[2017-09-19] MEDS: LINAGLIPTIN 5 MG TABLET PO SCH (06:28)
[2017-09-19] MEDS: FAMOTIDINE 20 MG TAB PO SCH (06:36)
[2017-09-19] MEDS: ACETYLCYSTEINE 800 MG/4 ML VIAL PO SCH ×2 (06:36→20:26)
[2017-09-19] MEDS: B COMPLEX-VIT C-VIT E-ZINC 1 EACH TAB PO SCH (06:37)
[2017-09-19] MEDS: ASPIRIN 325 MG TAB PO SCH (06:37)
[2017-09-19] MEDS: TAMSULOSIN 0.4 MG CAP.ER.24H PO SCH (06:37)
[2017-09-19] MEDS: MULTIVITAMINS, THERA 1 EACH TAB PO SCH (06:37)
[2017-09-19 06:39] LABS: Glucose,Whole Blood 166 mg/dL (75-99)
[2017-09-19] MEDS: ALPRAZolam 0.25 MG TAB PO SCH ×2 (06:44→20:26)
[2017-09-19 07:11] LABS: Calcium 9.4 mg/dL (8.4-10.2); Total Bilirubin 0.8 mg/dL (0.2-1.3); Total Protein 7.1 g/dL (6.3-8.2)
[2017-09-19 07:24] LABS: Aty Lym Flag Moderate; CH 30.8; CHCM 32.5; HCT 47.6 % (39.0-53.0); HDW 2.99; HGB 15.2 gm/dL (13.0-17.5); MCH 30.5 pg (25.0-35.0); MCV 95.4 fL (80.0-100.0); Mean Platelet Volume 6.6; RBC 4.99 m/uL (4.30-5.90); RDW 13.9 % (11.5-15.5); WBC 8.9 k/uL (3.8-10.6); WBC (Perox) 8.91
[2017-09-19 07:39] LABS: Add Differential Manual Differential
[2017-09-19 07:41] LABS: Nucleated Red Blood Cells 0 /100 WBC (0-0); Polychromasia Present; Total Cells Counted 100
[2017-09-19] MEDS ORDERED: IV FLUID CONTINUATION 275 ML IV ONE (08:10)
[2017-09-19] MEDS ORDERED: VERAPAMIL 2.5 MG/ML 2 ML AMP ONE (08:12)
[2017-09-19] MEDS ORDERED: LIDOCAINE 2% INJ 20 MG/ML (20 ML MDV) ONE (08:13)
[2017-09-19] MEDS ORDERED: MIDAZOLAM 2 MG/2 ML VIAL ONE (08:18)
[2017-09-19] MEDS ORDERED: MIDAZOLAM 2 MG/2 ML VIAL IVP ONE (08:31)
[2017-09-19] MEDS: LIDOCAINE 2% INJ 20 MG/ML SQ ONE ×2 (08:38→08:46)
[2017-09-19] MEDS ORDERED: HEPARIN SODIUM 1,000 UN/ML (10ML VL) ONE (08:39)
[2017-09-19] MEDS ORDERED: fentaNYL (PF) 50 MCG/ML 2 ML AMP ONE (08:46)
[2017-09-19] MEDS ORDERED: fentaNYL (PF) 50 MCG/ML 2 ML AMP IVP ONE (08:48)
[2017-09-19] MEDS ORDERED: IODIXANOL 320 MG/ML 100 ML INTRAARTER ONE (09:10)
[2017-09-19] MEDS ORDERED: RX INFO: IV CONTRAST WAS GIVEN 1 EACH MISC MISCELLANE PRN (09:15)
[2017-09-19] MEDS ORDERED: SODIUM CHLORIDE 0.9% 1,000 ML IV SCH (09:15)
[2017-09-19 10:09] VITALS: RESP 18
--- NOTE | 2017-09-19 10:34 | LTR ---
September 19, [address] Ramon: Mr. Stephen Crespo presented to the hospital with chest discomfort and ruled in for acute non ST elevation myocardial infarction. He underwent a heart catheterization, which showed intermediate to severe disease involving the proximal right coronary artery. I recommended maximize medical treatment at this point of time. If he continues to be symptomatic, we will consider doing a PCI of the RCA. Thank you for allowing us to participate in his care and please do not hesitate to call if you have any question or concern. MMODL / IJN: [id number] /
[2017-09-19 11:38] LABS: Glucose,Whole Blood 230 mg/dL (75-99)
--- NOTE | 2017-09-19 12:25 | CC ---
CARDIAC CATHETERIZATION REPORT DATE OF SERVICE: September 19, 2017 PERFORMING PHYSICIAN: Austin Archer MD, publishing editor. PROCEDURE PERFORMED: 1. Selective right and left coronary angiogram. 2. Left heart catheterization. INDICATION: This is a pleasant 76-year-old gentleman who sees Dr. Santoro in the office as an outpatient with known history of peripheral arterial disease, diabetes, hypertension, and dyslipidemia, presented to the hospital with chest discomfort and ruled in for acute non-STEMI. Heart catheterization was recommended. APPROACH: Right common femoral artery. COMPLICATION: None. LEVEL OF SEDATION: Moderate with sedation length of 36 minutes. PROCEDURE DESCRIPTION: After obtaining informed consent, the patient was brought to the cardiac cath lab tech. The right common femoral artery was cannulated using micropuncture technique, the micropuncture wire passed easily. Then I placed a 6-Argentine sheath in the right common femoral artery. Subsequently I did selective right and left coronary angiogram using JR4 and JL4 catheters. After that, I did the left heart catheterization using 6-Argentine pigtail catheter. The procedure was completed without any complication. Before I did cannulate the right common femoral artery, we attempted cannulating the right radial artery, but the micropuncture wire will not go through. For that reason I decided to abort the right the transobturator approach, and go from transfemoral approach. SELECTIVE CORONARY ANGIOGRAM: RCA is a large caliber vessel. It is a dominant vessel. The proximal RCA has a lesion appeared to be in the range of 60% to 70%. The mid RCA has 2 tandem lesions appeared to be in the range of 50%. The RCA distally appears to be angiographically normal and bifurcates into PDA and PLV branches. Both are angiographically normal. The left main appeared to be disease in the range of 30%. Bifurcates into the left circumflex and left anterior descending artery. The LEFT circumflex is a medium caliber vessel. It is a nondominant vessel. The proximal left circumflex appeared to have mild disease only. Gives rise into the first obtuse marginal branch which appeared to have a lesion in the mid portion appeared to be in the range of 70%. The mid left circumflex appeared to be angiographically normal and the left circumflex distally appeared to have mild disease only. The LAD. The proximal LAD has eccentric lesion appeared to be in the range of 30-40%. The mid LAD appeared to have mild disease only and gives rise into multiple diagonal branches that seems to be angiographically normal. The LAD distally just close to the apex appeared to have a lesion in the range of 70-80%. HEMODYNAMICS: The left ventricular end-diastolic pressure was 10 mmHg. No gradient was identified across aortic valve. CONCLUSION: 1. Intermediate to severe disease involving the proximal right coronary artery which is a dominant artery. 2. Mild disease involving the left main coronary artery. 3. Severe disease involving the obtuse marginal branch 1 of the left circumflex, but this obtuse marginal branch 1 is a small to medium caliber vessel. 4. Severe disease involving the mid to distal left anterior descending artery close to the apex. POSTPROCEDURE MANAGEMENT: 1. I would recommended maximal medical treatment at this point of time. 2. If the patient continues to be symptomatic, I would consider PCI of the proximal RCA. AUDRA / SONALI: [id number] /
--- NOTE | 2017-09-19 12:33 | P.PN ---
Subjective Progress Note Date: 09/19/17 Principal diagnosis: NSTEMI This is a 76-year-old pleasant gentleman one of Dr. Ramon with a previous medical history significant for coronary artery disease, hypertension and hypertensive cardio vascular disease, hyperlipidemia, diabetes mellitus type 2, renal cell cancer status post partial nephrectomy on the left, carotid artery disease status post left carotid endarterectomy and restenosis of the left carotid artery status post CT angiography of the carotids that was done in March 2015 and that showed 80% stenosis of the left carotid artery done, history of abdominal aortic aneurysm status post repair patient was brought into the emergency department at [facility] because chest discomfort that occurred a few hours prior to admission. This was resting in nature, midsternal, not accompanied by any regurgitation, no respiratory events. Patient decided to lie down or after the chest discomfort weaned off. When the patient woke up, chest discomfort return again in the spring occurring until his emergency room visits requiring an admission for unstable angina. In emergency room, EKG shows T-wave inversion in the leads V1 through V3, no acute changes were seen, patient had an elevated troponin at 0.042, 0.045 and 0.052. Patient was started on IV heparin, Nitropaste, consult was made with cardiology. Echocardiogram exam was performed showing sinus rhythm with mild concentric LVH , EF of 50-55%, moderate aortic valve sclerosis, mild MR and mild TR, no pericardial effusion, normal right ventricular systolic pressure Cardiology Dr. Archer we will plan on performing a cardiac cath in the morning, creatinine would be closely monitored, patient currently is receiving IV hydration. Metformin on hold since admission, Mucomyst started 09/19 patient underwent cardiac catheterization and will be managed medically. Cardiac cath report still pending. Patient started on metoprolol succinate 50 mg orally daily along with increasing the dose of Lipitor from 10 mg to 40 mg daily along with aspirin 325 mg daily. Patient denies any chest pain or shortness of breath, underwent the procedure without any complication through the right groin. Further recommendation pending from cardiology. Objective - Vital Signs Vital signs: Vital Signs Temp 97.5 F L 09/19/17 04:00 Pulse 87 09/19/17 11:25 Resp 18 09/19/17 09:40 BP 134/77 09/19/17 11:25 Pulse Ox 94 L 09/19/17 09:40 Intake & Output 09/18/17 09/19/17 09/19/17 18:59 06:59 18:59 Intake Total 480 358.477 150 Balance 480 358.477 150 Weight 75.1 kg Intake: IV 150 Intake, IV Titration 358.477 Amount Heparin Sodium,Porcine/ 358.477 D5w Pmx 25,000 unit In Dextrose/Water 1 500ml. bag @ 12 UNITS/KG/HR 18. 83 mls/hr IV .Q24H [facility] Rx #:[id number] Oral 480 Other: Voiding Method Toilet Toilet # Voids 1 - Exam - Constitutional General appearance: cooperative, no acute distress - EENT Eyes: anicteric sclerae, EOMI, dentition normal, normal appearance ENT: NA/AT, normal oropharynx - Neck Neck: normal ROM Thyroid: bilateral: normal size - Respiratory Respiratory: bilateral: CTA, negative: diminished, dullness, rales, rhonchi, wheezing - Cardiovascular Rhythm: regular Heart sounds: normal: S1, S2 - Gastrointestinal General gastrointestinal: normal bowel sounds, soft - Integumentary Integumentary: normal, normal turgor, site of catheterization in the right groin appears normal with no sign of hematoma seen - Neurologic Neurologic: CNII-XII intact - Musculoskeletal Musculoskeletal: gait normal, strength equal bilaterally - Psychiatric Psychiatric: A&O x's 3, appropriate affect, intact judgment & insight - Labs CBC & Chem 7: 09/19/17 06:27 09/19/17 06:27 Labs: Abnormal Lab Results - Last 24 Hours (Table) 09/18/17 09/18/17 09/19/17 Range/Units 16:19 20:47 06:23 Lymphocytes # (Manual) (1.0-4.8) k/uL APTT (22.0-30.0) sec Chloride (98-107) mmol/L BUN (9-20) mg/dL Creatinine (0.66-1.25) mg/dL Glucose (74-99) mg/dL POC Glucose (mg/dL) 220 H 210 H 166 H (75-99) mg/dL 09/19/17 09/19/17 09/19/17 Range/Units 06:27 06:27 06:27 Lymphocytes # (Manual) 0.71 L (1.0-4.8) k/uL APTT 49.7 H (22.0-30.0) sec Chloride 109 H (98-107) mmol/L BUN 24 H (9-20) mg/dL Creatinine 1.49 H (0.66-1.25) mg/dL Glucose 182 H (74-99) mg/dL POC Glucose (mg/dL) (75-99) mg/dL 09/19/17 Range/Units 11:36 Lymphocytes # (Manual) (1.0-4.8) k/uL APTT (22.0-30.0) sec Chloride (98-107) mmol/L BUN (9-20) mg/dL Creatinine (0.66-1.25) mg/dL Glucose (74-99) mg/dL POC Glucose (mg/dL) 230 H (75-99) mg/dL Assessment and Plan Plan: 1. Unstable angina, with minimal elevation troponins, ruled in for a non-STEMI with significant comorbidities to include diabetes mellitus, hypertension hyperlipidemia, patient is serially monitored for biomarkers troponin, and EKG. Cardiology was consulted, continue medical management. Nitropaste, patient currently is asymptomatic. Continue an aspirin, Lipitor increased to 40 mg, metoprolol succinate started at 50 mg by mouth daily, further recommendation pending from cardiology. 2. Hypertension and hypertensive cardiovascular disease. Patient has not taken any medication at this time. 3. Hyperlipidemia. Lipitor increased to 40 mg from 10 mg orally once every day. LDL 74 4. Diabetes mellitus type 2. Hold Glucotrol 10 mg before breakfast and metformin , continue sliding scale insulin while in hospital. 5. History of CVA/TIA in the past. Continue statin and aspirin 325 mg orally once every day. 6. History of the osteoarthritis. Discontinue Aleve. 7. History of renal cell cancer status post partial nephrectomy. 8. History of abdominal aortic aneurysm status post repair. 9. Remote tobacco use and dependence with COPD. Stable at this time. 10. CK D stage III 2, patient will be hydrated with anticipation of contrast studies, Mucomyst to be given Full code. GERD. Continue Zantac 300 mg orally once every day. DVT prophylaxis. Heparin 5000 units subcutaneously every 8 hours. Admit to inpatient. Estimated length of stay 2 midnights.
[2017-09-19] MEDS: METOPROLOL SUCCINATE (ER) 50 MG TAB.ER.24H PO SCH (12:51)
[2017-09-19 16:39] LABS: Glucose,Whole Blood 150 mg/dL (75-99)
[2017-09-19] MEDS: LATANOPROST 0.005% OPHTH DROPS 2.5 ML BTL BOTH EYES SCH (20:26)
[2017-09-19 20:33] LABS: Glucose,Whole Blood 233 mg/dL (75-99)
[2017-09-19] MEDS ORDERED: ATORVASTATIN 40 MG TAB PO SCH (21:00)
[2017-09-19 21:40] VITALS: TEMP 97.6
[2017-09-20] MEDS: INSULIN LISPRO (humaLOG) 300 UNIT/3 ML VIAL SQ SCH (06:39)
[2017-09-20 06:45] LABS: Glucose,Whole Blood 179 mg/dL (75-99)
[2017-09-20 07:17] LABS: Calcium 9.1 mg/dL (8.4-10.2); Potassium 4.3 mmol/L (3.5-5.1); Total Bilirubin 0.8 mg/dL (0.2-1.3); Total Protein 6.1 g/dL (6.3-8.2)
[2017-09-20 07:18] LABS: Aty Lym Flag Moderate; CH 31.1; CHCM 32.9; HCT 40.9 % (39.0-53.0); HDW 3.05; HGB 13.1 gm/dL (13.0-17.5); MCH 30.5 pg (25.0-35.0); MCV 95.1 fL (80.0-100.0); Mean Platelet Volume 6.7; RDW 14.1 % (11.5-15.5); WBC 7.5 k/uL (3.8-10.6); WBC (Perox) 7.61
[2017-09-20 07:40] LABS: Add Differential Manual Differential
[2017-09-20 07:41] LABS: Nucleated Red Blood Cells 0 /100 WBC (0-0); Polychromasia Present; Total Cells Counted 100
[2017-09-20] MEDS: METOPROLOL SUCCINATE (ER) 50 MG TAB.ER.24H PO SCH (08:14)
[2017-09-20] MEDS: ALPRAZolam 0.25 MG TAB PO SCH (08:14)
[2017-09-20] MEDS: MULTIVITAMINS, THERA 1 EACH TAB PO SCH (08:14)
[2017-09-20] MEDS: B COMPLEX-VIT C-VIT E-ZINC 1 EACH TAB PO SCH (08:14)
[2017-09-20] MEDS: FAMOTIDINE 20 MG TAB PO SCH (08:14)
[2017-09-20] MEDS: TAMSULOSIN 0.4 MG CAP.ER.24H PO SCH (08:14)
[2017-09-20] MEDS: ASPIRIN 325 MG TAB PO SCH (08:14)
[2017-09-20 08:18] VITALS: BP 173/77; PULSE 84
--- NOTE | 2017-09-20 12:57 | P.PN ---
Subjective Progress Note Date: 09/20/17 Principal diagnosis: Acute non-STEMI This is a pleasant 76-year-old gentleman who follows with Dr. Santoro in the office. Has a known history of diabetes, previous CVA, history of smoking, partial nephrectomy, history of left carotid stenosis status post endarterectomy and subsequent stent grafting. Presented to the emergency department with complaints of chest discomfort. Initially experience chest discomfort after eating breakfast midsternal and radiated to bilateral arms. Patient laid back down and rested for a while and that pain subsided. Shortly after waking the second time, patient experienced the same chest discomfort with radiation to bilateral arms and subsequently presented to the emergency department. EKG on admission shows sinus rhythm with possible old inferior infarct, poor R-wave progression and nonspecific ST-T wave abnormalities, similar to previous. Chest x-ray showed mild pulmonary fibrotic changes, no acute lung disease. Laboratory values showed a BUN of 29 and creatinine 1.5 with previous creatinine of 1.57. A mild troponin elevation of 0.042, 0.045, and 0.052. Upon examination, patient is resting comfortably in bed. He denies further complaints of chest discomfort. He complains of shortness of breath with activity that is stable for him. No complaints of nausea, diaphoresis, dizziness, lightheadedness, palpitations or edema. The patient underwent a heart catheterization and that revealed intermediate to severe disease involving the RCA, severe disease involving OM1 but it is a small caliber vessel and also severe disease involving the distal LAD. I recommended maximize medical treatment at this point of time. The patient continues to be asymptomatic from the cardiovascular standpoint. Objective - Vital Signs Vital signs: Vital Signs Temp 97.6 F 09/20/17 04:00 Pulse 84 09/20/17 08:14 Resp 18 09/20/17 08:14 BP 173/77 09/20/17 08:14 Pulse Ox 96 09/20/17 08:14 Intake & Output 09/19/17 09/20/17 09/20/17 19:59 06:59 18:59 Intake Total 180 Balance 180 Weight Intake: IV Intake, IV Titration Amount Sodium Chloride 0.9% 1, 000 ml @ 100 mls/hr IV . Q10H [facility] Rx#:[id number] Oral 180 Other: Voiding Method Toilet # Voids - Constitutional General appearance: Present: no acute distress - Respiratory Respiratory: bilateral: CTA - Cardiovascular Rhythm: regular Heart sounds: normal: S1, S2 - Labs CBC & Chem 7: 09/20/17 06:28 09/20/17 06:28 Labs: Abnormal Lab Results - Last 24 Hours (Table) 09/18/17 09/19/17 09/19/17 Range/Units 04:17 06:27 16:38 Chloride (98-107) mmol/L BUN (9-20) mg/dL Creatinine (0.66-1.25) mg/dL Glucose (74-99) mg/dL POC Glucose (mg/dL) 150 H (75-99) mg/dL Hemoglobin A1c 6.9 H 7.2 H (4.0-6.0) % Total Protein (6.3-8.2) g/dL 09/19/17 09/20/17 09/20/17 Range/Units 20:32 05:45 06:28 Chloride 109 H (98-107) mmol/L BUN 22 H (9-20) mg/dL Creatinine 1.46 H (0.66-1.25) mg/dL Glucose 183 H (74-99) mg/dL POC Glucose (mg/dL) 233 H 179 H (75-99) mg/dL Hemoglobin A1c (4.0-6.0) % Total Protein 6.1 L (6.3-8.2) g/dL Assessment and Plan Assessment: This is a pleasant 76-year-old gentleman who presented to the hospital with a chest discomfort and ruled in for acute non-ST. He underwent a heart catheterization with the above finding. Maximize medical treatment was recommended. From the cardiac vascular standpoint of view, the patient continues to be asymptomatic. He is going to be discharged home today. He is on dual antiplatelet therapy. He is going to follow-up with Dr. Dr. Santoro in the office.
--- NOTE | 2017-09-20 13:45 | P.DS ---
Providers Date of admission: 09/17/17 20:09 Expected date of discharge: 09/20/17 Attending physician: Dora Farrar Consults: 09/17/17 20:09 Consult Physician Urgent Consulting Provider: Yane Santoro Consult Reason/Comments: Myocardial infarction Do you want consulting provider notified?: Yes Primary care physician: [facility] Course: This is a 76-year-old pleasant gentleman one of Dr. Ramon with a previous medical history significant for coronary artery disease, hypertension and hypertensive cardio vascular disease, hyperlipidemia, diabetes mellitus type 2, renal cell cancer status post partial nephrectomy on the left, carotid artery disease status post left carotid endarterectomy and restenosis of the left carotid artery status post CT angiography of the carotids that was done in March 2015 and that showed 80% stenosis of the left carotid artery done, history of abdominal aortic aneurysm status post repair patient was brought into the emergency department at [facility] because chest discomfort that occurred a few hours prior to admission. This was resting in nature, midsternal, not accompanied by any regurgitation, no respiratory events. Patient decided to lie down or after the chest discomfort weaned off. When the patient woke up, chest discomfort return again in the spring occurring until his emergency room visits requiring an admission for unstable angina. In emergency room, EKG shows T-wave inversion in the leads V1 through V3, no acute changes were seen, patient had an elevated troponin at 0.042, 0.045 and 0.052. Patient was started on IV heparin, Nitropaste, consult was made with cardiology. Echocardiogram exam was performed showing sinus rhythm with mild concentric LVH , EF of 50-55%, moderate aortic valve sclerosis, mild MR and mild TR, no pericardial effusion, normal right ventricular systolic pressure Cardiology Dr. Archer we will plan on performing a cardiac cath in the morning, creatinine would be closely monitored, patient currently is receiving IV hydration. Metformin on hold since admission, Mucomyst started 09/19 patient underwent cardiac catheterization and will be managed medically as recommended by cardiology. Cardiac cath suggested intermediate to severe disease involving the proximal right coronary artery about 50-60% occlusion which is a dominant artery. Mild disease seen in the left main coronary artery. Severe disease involving the obtuse marginal branch of the left circumflex which is a small to medium caliber vessel on 70%. Severe disease involving the mid to distal left anterior descending artery closer to the apex is seen.still pending. Patient started on metoprolol succinate 50 mg orally daily along with increasing the dose of Lipitor from 10 mg to 40 mg daily along with aspirin 81 mg daily and Plavix 75 mg daily. Patient also started on Imdur 30 mg orally daily. Patient denies any chest pain or shortness of breath, underwent the procedure without any complication through the right groin. Patient will follow with Dr. Santoro as outpatient for further recommendation. Discharge plan- home Discharge diagnosis- non-ST elevation UT Patient Condition at Discharge: Good Plan - Discharge Summary Discharge Rx Participant: No New Discharge Prescriptions: New Clopidogrel Bisulfate [Plavix] 75 mg PO DAILY #30 tab Isosorbide Mononitrate ER [Imdur] 30 mg PO DAILY #30 tab Atorvastatin [Lipitor] 40 mg PO HS #30 tab Metoprolol Succinate (ER) [Toprol XL] 50 mg PO DAILY #30 tab.er.24h Nitroglycerin Sl Tabs [Nitrostat] 0.4 mg SUBLINGUAL Q5M PRN #20 tab PRN Reason: Chest Pain Aspirin EC [Ecotrin Low Dose] 81 mg PO DAILY #30 tablet.dr Day Multivitamins, Thera [Multivitamin (formulary)] 1 tab PO DAILY metFORMIN HCL [Glucophage] 1,500 mg PO AC-SUPPER glipiZIDE [Glucotrol] 10 mg PO DAILY Tamsulosin HCl [Flomax] 0.4 mg PO DAILY Ranitidine HCl [Zantac] 300 mg PO DAILY ALPRAZolam [Xanax] 0.25 mg PO BID Latanoprost [Xalatan 0.005%] 1 drop BOTH EYES HS Vitamin B Complex 1 cap PO DAILY Linagliptin [Tradjenta] 5 mg PO DAILY Glucosam/Jeffrey-Msm1/C/Everette/Bosw [Glucosamine-Chondroitin Tablet] 1 tab PO DAILY Discontinued Lovastatin [Mevacor] 10 mg PO HS Aspirin 325 mg PO DAILY Naproxen Sodium [Aleve] 220 mg PO BID Fish Oil 1600mg 1,600 mg PO DAILY Discharge Medication List ALPRAZolam [Xanax] 0.25 mg PO BID 06/08/16 [History] Multivitamins, Thera [Multivitamin (formulary)] 1 tab PO DAILY 06/08/16 [History ] Ranitidine HCl [Zantac] 300 mg PO DAILY 06/08/16 [History] Tamsulosin HCl [Flomax] 0.4 mg PO DAILY 06/08/16 [History] glipiZIDE [Glucotrol] 10 mg PO DAILY 06/08/16 [History] metFORMIN HCL [Glucophage] 1,500 mg PO AC-SUPPER 06/08/16 [History] Latanoprost [Xalatan 0.005%] 1 drop BOTH EYES HS 08/04/16 [History] Glucosam/Jeffrey-Msm1/C/Everette/Bosw [Glucosamine-Chondroitin Tablet] 1 tab PO DAILY 09/17/17 [History] Linagliptin [Tradjenta] 5 mg PO DAILY 09/17/17 [History] Vitamin B Complex 1 cap PO DAILY 09/17/17 [History] Aspirin EC [Ecotrin Low Dose] 81 mg PO DAILY #30 tablet.dr 09/20/17 [Rx] Atorvastatin [Lipitor] 40 mg PO HS #30 tab 09/20/17 [Rx] Clopidogrel Bisulfate [Plavix] 75 mg PO DAILY #30 tab 09/20/17 [Rx] Isosorbide Mononitrate ER [Imdur] 30 mg PO DAILY #30 tab 09/20/17 [Rx] Metoprolol Succinate (ER) [Toprol XL] 50 mg PO DAILY #30 tab.er.24h 09/20/17 [Rx ] Nitroglycerin Sl Tabs [Nitrostat] 0.4 mg SUBLINGUAL Q5M PRN #20 tab 09/20/17 [Rx ] Follow up Appointment(s)/Referral(s): Angel Luis Ramon DO [Primary Care Provider] - 1 Week Yane Santoro MD [STAFF PHYSICIAN] - 1 Week Patient Instructions/Handouts: *Surgery [facility] - After Heart Catheterization - Project Eng Instructions Discharge Disposition: HOME SELF-CARE
== END 2017-09-20 12:15 | disposition home or self-care (01) | DRG 282 ==
LOC: EC 17:57 → 6SEL 20:09
PROVIDERS: ADMIT Family Medicine; ATTEND Family Medicine
PROC: 4A023N7 Measurement of Cardiac Sampling and Pressure, Left Heart, Percutaneous Approach (ICD-10-PCS; principal; 2017-09-19 07:30)
PROC: B2151ZZ Fluoroscopy of Left Heart using Low Osmolar Contrast (ICD-10-PCS; principal; 2017-09-19 07:30)
PROC: B2111ZZ Fluoroscopy of Multiple Coronary Arteries using Low Osmolar Contrast (ICD-10-PCS; principal; 2017-09-19 07:30)
DX: I21.4 Non-ST elevation (NSTEMI) myocardial infarction (principal); E11.22 Type 2 diabetes mellitus with diabetic chronic kidney disease; E11.51 Type 2 diabetes mellitus with diabetic peripheral angiopathy without gangrene; E78.5 Hyperlipidemia, unspecified; I25.110 Atherosclerotic heart disease of native coronary artery with unstable angina pectoris; I35.8 Other nonrheumatic aortic valve disorders; J44.9 Chronic obstructive pulmonary disease, unspecified; K21.9 Gastro-esophageal reflux disease without esophagitis; I12.9 Hypertensive chronic kidney disease with stage 1 through stage 4 chronic kidney disease, or unspecified chronic kidney disease; N18.3 Chronic kidney disease, stage 3 (moderate); Z79.02 Long term (current) use of antithrombotics/antiplatelets; Z79.82 Long term (current) use of aspirin; Z79.84 Long term (current) use of oral hypoglycemic drugs; Z79.899 Other long term (current) drug therapy; Z82.49 Family history of ischemic heart disease and other diseases of the circulatory system; Z82.5 Family history of asthma and other chronic lower respiratory diseases; Z83.3 Family history of diabetes mellitus; Z85.528 Personal history of other malignant neoplasm of kidney; Z86.73 Personal history of transient ischemic attack (TIA), and cerebral infarction without residual deficits; Z86.79 Personal history of other diseases of the circulatory system; Z87.891 Personal history of nicotine dependence; Z90.5 Acquired absence of kidney
CPT/HCPCS: 36415; 71020; 80053; 80061; 82150; 82550; 82553; 83036; 83690; 83735; 84484; 85025; 85610; 85730; 93005; 93306; 93458; 99291

== ENCOUNTER → 2017-09-21 | Outpatient (CLI) | payer MEDICARE, BC ==
--- NOTE | 2017-09-21 11:49 | FL ---
ESOPHOGRAM. HISTORY: Dysphagia Esophagram was performed per the air contrast technique. The patient swallowed barium and effervesce nt crystals without difficulty or delay. Esophageal peristalsis and motility appear to be within normal limits. There is no evidence for filling defect, mass or diverticulum. No hiatal hernia seen. Subsequently single contrast cervical esophagram was performed which fails demonstrate evidence for a spiration penetration or mass. There appears to be extrinsic mass effect at the level of the thoracic inlet from right to left. Consider CT for further evaluation. IMPRESSION: There appears to be extrinsic mass effect at the level of the thoracic inlet from right to left. Cons ider CT for further evaluation.
== END | disposition home or self-care (01) ==
LOC: RADFLWHC 10:41
PROVIDERS: ATTEND Family Medicine
DX: R13.10 Dysphagia, unspecified (principal)
CPT/HCPCS: 74220

== ENCOUNTER → 2017-11-03 | Outpatient (CLI) | payer MEDICARE, BC ==
[2017-11-03 07:12] LABS: Bilirubin, Delta 0.3 mg/dL (0.0-0.2); Total Bilirubin 0.8 mg/dL (0.2-1.3); Total Protein 6.9 g/dL (6.3-8.2)
== END | disposition home or self-care (01) ==
LOC: LABWHC1 06:33
PROVIDERS: ATTEND Internal Medicine Cardiovascular Disease
DX: E78.5 Hyperlipidemia, unspecified (principal); I25.10 Atherosclerotic heart disease of native coronary artery without angina pectoris
CPT/HCPCS: 36415; 80061; 80076

== ENCOUNTER → 2017-11-24 | Outpatient (CLI) | payer MEDICARE, BC ==
[2017-11-24 12:27] LABS: Calcium 10.1 mg/dL (8.4-10.2)
[2017-11-24 12:50] LABS: Partial Thromboplastin Time 22.4 sec (22.0-30.0); Prothrombin Time 9.6 sec (9.0-12.0)
[2017-11-24 12:54] LABS: HCT 43.6 % (39.0-53.0); HGB 13.7 gm/dL (13.0-17.5); Hypochromasia Slight; MCH 29.9 pg (25.0-35.0); MCHC 31.4 g/dL (31.0-37.0); MCV 95.3 fL (80.0-100.0); Platelet Count 213 k/uL (150-450); RBC 4.57 m/uL (4.30-5.90); RDW 15.8 % (11.5-15.5); WBC 6.6 k/uL (3.8-10.6)
[2017-11-24 13:09] LABS: Appearance,Urine Clear (Clear); Bacteria,Urine Rare /hpf; Bilirubin,Urine Negative (Negative); Blood,Urine Negative (Negative); Color,Urine Yellow; Glucose,Urine (UA) 3+ (Negative); Hyaline Casts,Urine 11 /lpf (0-2); Ketones,Urine Trace (Negative); Leukocyte Esterase,Urine Negative (Negative); Mucus,Urine Occasional /hpf; Nitrite,Urine Negative (Negative); Protein,Urine 1+ (Negative); RBC,Urine <1 /hpf (0-5); Specific Gravity,Urine 1.021 (1.001-1.035); Squamous Epithelial Cell,Urine 1 /hpf (0-4); Urobilinogen,Urine <2.0 mg/dL (<2.0); WBC,Urine 1 /hpf (0-5)
[2017-11-24 14:44] LABS: Anisocytosis (M) Present; Band Neutrophils % 1 %; Eosinophils # (M) 0.13 k/uL (0-0.7); Lymphocytes # (M) 0.46 k/uL (1.0-4.8); Neutrophils % (M) 87 %; Nucleated Red Blood Cells 0 /100 WBC (0-0); Total Cells Counted 100
--- NOTE | 2017-11-24 16:01 | XR ---
EXAMINATION TYPE: XR chest 2V DATE OF EXAM: 11/24/2017 COMPARISON: Prior chest x-ray 11/06/2017 HISTORY: Preop TECHNIQUE: Frontal and lateral views of the chest are obtained. FINDINGS: There is no focal air space opacity, pleural effusion, or pneumothorax seen. The cardiac silhouette size is within normal limits. The osseous structures are stable, previous fracture noted at the proximal right humerus is chronic. Apical pleural thickening is stable. Flowing anterior oste ophytes in the thoracic spine may be indicative of diffuse idiopathic hyperostosis. Prominent lung vo lumes could be indicative of COPD. IMPRESSION: No acute cardiopulmonary process.
== END | disposition home or self-care (01) ==
LOC: LABWHC1 10:50
PROVIDERS: ATTEND Orthopaedic Surgery Orthopaedic Surgery of the Spine
DX: Z01.818 Encounter for other preprocedural examination (principal); M48.00 Spinal stenosis, site unspecified; Z01.812 Encounter for preprocedural laboratory examination
CPT/HCPCS: 36415; 71046; 80048; 81001; 85025; 85610; 85730

== ENCOUNTER 2017-12-08 06:52 | Day surgery (SDC) | payer MEDICARE, BC ==
[~2017-12-08 06:52] MED LIST: ALPRAZolam 0.25 MG TAB PO PRN; ALPRAZolam 0.5 MG TAB PO PRN; ASPIRIN 325 MG TAB PO STA; NITROGLYCERIN SL TABS 0.4 MG TAB SUBLINGUAL PRN; SODIUM CHLORIDE 0.9% 1,000 ML in EMPTY BAG 1 BAG IV ONE
[2017-12-08 07:39] LABS: Glucose,Whole Blood 196 mg/dL (75-99)
[2017-12-08] MEDS: METOPROLOL SUCCINATE (ER) 50 MG TAB.ER.24H PO SCH ×2 (08:31→11:06)
[2017-12-08] MEDS ORDERED: LIDOCAINE 2% INJ 20 MG/ML (20 ML MDV) ONE (09:16)
[2017-12-08] MEDS ORDERED: MIDAZOLAM 2 MG/2 ML VIAL ONE (09:27)
[2017-12-08] MEDS ORDERED: MIDAZOLAM 2 MG/2 ML VIAL IV ONE (09:46)
[2017-12-08] MEDS ORDERED: LIDOCAINE 2% INJ 20 MG/ML SQ ONE (09:53)
[2017-12-08] MEDS ORDERED: BIVALIRUDIN 250 MG in SODIUM CHLORIDE 0.9% 50 ML IV ONE (09:57)
[2017-12-08] MEDS ORDERED: BIVALIRUDIN BOLUS 250 MG/50 ML IV ONE (09:57)
[2017-12-08] MEDS: NITROGLYCERIN 1000MCG/10ML SYRINGE INTRACORON ONE ×3 (09:59→10:16)
[2017-12-08] MEDS ORDERED: niCARdipine 25 MG/10 ML VIAL ONE (10:14)
[2017-12-08] MEDS ORDERED: niCARdipine Syringe (1,000 mcg/10 mL) INTRACORON ONE (10:16)
[2017-12-08] MEDS ORDERED: IODIXANOL 320 MG/ML 100 ML INTRAARTER ONE (10:33)
[2017-12-08] MEDS ORDERED: CLOPIDOGREL 75 MG TAB ONE (10:37)
[2017-12-08] MEDS ORDERED: CLOPIDOGREL 75 MG TAB PO ONE (10:39)
[2017-12-08] MEDS ORDERED: NITROGLYCERIN SL TABS 0.4 MG TAB SUBLINGUAL PRN ×2 (10:40→10:41)
[2017-12-08] MEDS ORDERED: ATROPINE SULFATE 0.1 MG/ML 10ML SYRINGE IV PRN (10:41)
[2017-12-08] MEDS ORDERED: MAG HYDROX/AL HYDROX/SIMETH 30 ML CUP PO PRN (10:41)
[2017-12-08] MEDS ORDERED: RX INFO: IV CONTRAST WAS GIVEN 1 EACH MISC MISCELLANE PRN (10:41)
[2017-12-08] MEDS ORDERED: ZOLPIDEM 5 MG TAB PO PRN (10:41)
[2017-12-08] MEDS ORDERED: SODIUM CHLORIDE 0.9% 1,000 ML IV SCH (10:45)
--- NOTE | 2017-12-08 11:43 | LTR ---
DATE OF SERVICE: 12/08/[address] Ramon: Mr. Stephen Crespo underwent successful stenting of the left circumflex as well as LAD with good angiographic results and without any complication. Thank you for allowing us to participate in his care and please do not hesitate to call if you have any questions or concerns. Sincerely, MMTERESITAL / IJN: [id number] /
[2017-12-08 12:26] LABS: Glucose,Whole Blood 228 mg/dL (75-99)
[2017-12-08] MEDS: INSULIN ASPART 100 UNIT/ML 1 ML 10 ML VIAL SQ SCH ×3 (12:48→21:52)
--- NOTE | 2017-12-08 14:40 | PTCA ---
PERCUTANEOUSTRANS CORORONARY ANGIOGRAPHY DATE OF SERVICE: 12/08/2017 PERFORMING PHYSICIAN: Austin Archer MD, Family Preservation Worker. PROCEDURE PERFORMED: 1. Successful stenting of the first obtuse marginal branch of the left circumflex using 2.0 x 12 mm Vision BMS with good angiographic results. 2. Successful stenting of the distal LAD using 2.25 x 15 mm Vision BMS with a good angiographic results. INDICATION: This is a pleasant 77-year-old gentleman who sees Dr. Santoro as an outpatient, who was admitted to the hospital recently with chest pain and underwent a heart catheterization that showed severe disease involving the distal LAD as well as severe disease involving a small to medium caliber first obtuse marginal branch of the left circumflex. Maximized medical treatment was recommended. The patient was discharged home and underwent a stress test which showed ischemia in the lateral wall of the LV. He was brought today to undergo an intervention. APPROACH: Right common femoral artery. COMPLICATION: None. LEVEL OF SEDATION: Moderate with sedation length of 46 minutes. PROCEDURE DESCRIPTION: After obtaining an informed consent, the patient was brought to Cardiac Composition Floor Setter. The right common femoral artery was cannulated using micropuncture technique and then I placed a 6-Malay sheath in the right common femoral artery. After that, I did start anticoagulation with Angiomax. Subsequently, we did engage the left main using an XB3.5 LAD guide. Subsequently, I did wire the first OM using a whisper wire. Then I did balloon angioplasty using 2.0 mm balloon and subsequently I deployed 2.0 x 12 mm Vision BMS where the stent was positioned under fluoroscopy guidance and our stent was deployed under 10 atmospheres for 20 seconds. The following angiogram showed good angiographic results of the stented area, but distal to the stent the artery was still spasming down. Subsequently, the wire was directed toward the LAD. After that, I did balloon angioplasty of the distal LAD using 2.0 x 12 mm balloon and then I deployed 2.25 x 15 mm another Vision BMS where the stent was positioned under fluoroscopy guidance and deployed under 12 atmospheres for 20 seconds. The following angiogram showed good angiographic results as well without perforation and without dissection with good flow. POSTPROCEDURE MANAGEMENT: 1. Dual anti-platelet therapy. 2. Risk factors modifications. 3. Follow up with the patient. MMODL / IJN: [id number] /
[2017-12-08 16:57] LABS: Glucose,Whole Blood 189 mg/dL (75-99)
[2017-12-08 20:56] LABS: Glucose,Whole Blood 183 mg/dL (75-99)
[2017-12-08] MEDS ORDERED: ALPRAZolam 0.5 MG TAB PO SCH (21:00)
[2017-12-08] MEDS ORDERED: CALCIUM CARB-VIT D 500MG-200UN 1 EACH TAB PO SCH (21:00)
[2017-12-08] MEDS ORDERED: ATORVASTATIN 40 MG TAB PO SCH (21:00)
[2017-12-08] MEDS ORDERED: LATANOPROST 0.005% OPHTH DROPS 2.5 ML BTL BOTH EYES SCH (21:00)
[2017-12-08] MEDS ORDERED: LINAGLIPTIN 5 MG TABLET PO SCH (21:00)
[2017-12-08] MEDS: TAMSULOSIN 0.4 MG CAP.ER.24H PO SCH (21:51)
[2017-12-08] MEDS: SYMBICORT 160-4.5 MCG INHALER INHALATION SCH (22:09)
[2017-12-09 05:56] LABS: Glucose,Whole Blood 190 mg/dL (75-99)
[2017-12-09 06:24] LABS: HCT 42.1 % (39.0-53.0); HGB 13.4 gm/dL (13.0-17.5); MCH 29.8 pg (25.0-35.0); MCHC 31.8 g/dL (31.0-37.0); MCV 93.8 fL (80.0-100.0); Mean Platelet Volume 7.4; Platelet Count 170 k/uL (150-450); RBC 4.49 m/uL (4.30-5.90); RDW 15.7 % (11.5-15.5); WBC 6.4 k/uL (3.8-10.6)
[2017-12-09 06:45] LABS: Anion Gap 12 mmol/L; Blood Urea Nitrogen 19 mg/dL (9-20); Calcium 9.4 mg/dL (8.4-10.2); Carbon Dioxide 22 mmol/L (22-30); Chloride 107 mmol/L (98-107); Glucose 191 mg/dL (74-99); Potassium 3.9 mmol/L (3.5-5.1); Sodium 141 mmol/L (137-145)
[2017-12-09] MEDS: INSULIN ASPART 100 UNIT/ML 1 ML 10 ML VIAL SQ SCH ×2 (07:08→12:09)
[2017-12-09] MEDS ORDERED: glipiZIDE 10 MG TAB PO SCH (07:30)
[2017-12-09 08:05] LABS: Lymphocytes # (M) 1.15 k/uL (1.0-4.8); Monocytes # (M) 0.45 k/uL (0-1.0); Neutrophils % (M) 75 %; Nucleated Red Blood Cells 0 /100 WBC (0-0); Total Cells Counted 100
[2017-12-09 08:06] LABS: Poikilocytosis (M) Present
[2017-12-09] MEDS: METOPROLOL SUCCINATE (ER) 50 MG TAB.ER.24H PO SCH (08:41)
[2017-12-09] MEDS: TAMSULOSIN 0.4 MG CAP.ER.24H PO SCH (08:41)
[2017-12-09 08:52] VITALS: RESP 18; TEMP 96.6
[2017-12-09] MEDS: SYMBICORT 160-4.5 MCG INHALER INHALATION SCH (08:54)
[2017-12-09] MEDS ORDERED: ISOSORBIDE MONONITRATE ER 30 MG TAB.ER.24H PO SCH (09:00)
[2017-12-09] MEDS ORDERED: NON-FORMULARY DRUG (Glucosam/Chon-Msm1/C/Mang/Bosw [Glucosamine-Chondroitin Tablet] 1 TAB) PO SCH (09:00)
[2017-12-09] MEDS ORDERED: ASPIRIN 325 MG TAB PO SCH (09:00)
[2017-12-09] MEDS ORDERED: NON-FORMULARY DRUG (Aspirin Ec 81 MG) PO SCH (09:00)
[2017-12-09] MEDS ORDERED: FAMOTIDINE 20 MG TAB PO SCH (09:00)
[2017-12-09] MEDS ORDERED: CLOPIDOGREL 75 MG TAB PO SCH ×2 (09:00→10:42)
[2017-12-09] MEDS ORDERED: METOPROLOL SUCCINATE (ER) 50 MG TAB.ER.24H PO SCH (09:00)
[2017-12-09 11:45] LABS: Glucose,Whole Blood 163 mg/dL (75-99)
[2017-12-09 11:47] VITALS: BP 136/77; PULSE 86
[2017-12-09] MEDS ORDERED: MULTIVITAMINS, THERA 1 EACH TAB PO SCH (12:00)
[2017-12-09 13:42] VITALS: BMI 23.2
--- NOTE | 2017-12-10 08:53 | DS ---
DISCHARGE SUMMARY ADMISSION DATE: December 08, 2017. DISCHARGE DATE: December 09, 2017. BRIEF HISTORY: This is a pleasant 77-year-old gentleman who sees Dr. Santoro as an outpatient who was admitted to the hospital yesterday and underwent successful stenting of the first obtuse marginal branch of the left circumflex and also successful stenting of the distal LAD with good angiographic results and without any complication. On follow up with the patient today, he seems to be asymptomatic and denies having any chest pain or discomfort or difficulty in breathing. The right groin is soft and nontender and without any bruises. The patient is going to be discharged home and follow up with Dr. Santoro in the office as an outpatient. MMODL / IJN: [id number] /
== END 2017-12-09 13:45 | disposition home or self-care (01) ==
LOC: CATHCVL 06:52 → 6SEL 10:36 → CATHCVL 12-09 13:45
PROVIDERS: ATTEND Internal Medicine Interventional Cardiology
DX: I25.10 Atherosclerotic heart disease of native coronary artery without angina pectoris (principal); Z87.891 Personal history of nicotine dependence; Z86.73 Personal history of transient ischemic attack (TIA), and cerebral infarction without residual deficits; Z95.828 Presence of other vascular implants and grafts; E11.9 Type 2 diabetes mellitus without complications; E78.00 Pure hypercholesterolemia, unspecified; Z79.84 Long term (current) use of oral hypoglycemic drugs; Z79.02 Long term (current) use of antithrombotics/antiplatelets; Z79.82 Long term (current) use of aspirin; Z79.899 Other long term (current) drug therapy; Z88.1 Allergy status to other antibiotic agents; Z88.5 Allergy status to narcotic agent
CPT/HCPCS: 94640 ×2; 92928 ×2; 80048; 85025; 83036; C1769 ×3; C1876 ×2; C1725; C1887; C1894; C1760; J2001; J2250; Q9967; J0583; 92920

== ENCOUNTER → 2018-07-05 | Outpatient (CLI) | payer MEDICARE, BC ==
[2018-07-05 09:59] LABS: Potassium 5.3 mmol/L (3.5-5.1)
[2018-07-05 10:02] LABS: Appearance,Urine Clear (Clear); Bilirubin,Urine Negative (Negative); Blood,Urine Negative (Negative); Color,Urine Light Yellow; Glucose,Urine (UA) 4+ (Negative); Ketones,Urine Negative (Negative); Leukocyte Esterase,Urine Negative (Negative); Nitrite,Urine Negative (Negative); Protein,Urine Negative (Negative); Specific Gravity,Urine 1.018 (1.001-1.035); Urobilinogen,Urine <2.0 mg/dL (<2.0)
[2018-07-05 10:04] LABS: Partial Thromboplastin Time 23.7 sec (22.0-30.0); Prothrombin Time 9.9 sec (9.0-12.0)
[2018-07-05 10:14] LABS: HCT 45.7 % (39.0-53.0); HGB 15.3 gm/dL (13.0-17.5); MCH 30.1 pg (25.0-35.0); MCHC 33.4 g/dL (31.0-37.0); Mean Platelet Volume 6.7; Platelet Count 143 k/uL (150-450); RBC 5.08 m/uL (4.30-5.90); RDW 14.6 % (11.5-15.5); WBC 6.2 k/uL (3.8-10.6)
[2018-07-05 10:55] LABS: Band Neutrophils % 1 %; Eosinophils # (M) 0.12 k/uL (0-0.7); Lymphocytes # (M) 0.99 k/uL (1.0-4.8); Monocytes # (M) 0.19 k/uL (0-1.0); Neutrophils % (M) 78 %; Nucleated Red Blood Cells 0 /100 WBC (0-0); Total Cells Counted 100
--- NOTE | 2018-07-05 13:01 | XR ---
EXAMINATION TYPE: XR chest 2V DATE OF EXAM: 07/05/2018 COMPARISON: Prior chest x-ray 11/24/2017 HISTORY: Preadmission testing TECHNIQUE: Frontal and lateral views of the chest are obtained. FINDINGS: There is no focal air space opacity, pleural effusion, or pneumothorax seen. The cardiac silhouette size is within normal limits. The osseous structures are unchanged, deformity the proxim al right humerus again noted compatible with old fracture. Apical pleural thickening is stable. Coron [place] artery calcification suspected. IMPRESSION: No acute cardiopulmonary process.
== END | disposition home or self-care (01) ==
LOC: LABPAT 08:57
PROVIDERS: ATTEND Orthopaedic Surgery Orthopaedic Surgery of the Spine
DX: Z01.818 Encounter for other preprocedural examination (principal); M48.061 Spinal stenosis, lumbar region without neurogenic claudication; Z01.812 Encounter for preprocedural laboratory examination; Z51.81 Encounter for therapeutic drug level monitoring; Z79.01 Long term (current) use of anticoagulants
CPT/HCPCS: 36415; 71046; 80048; 81003; 85025; 85610; 85730; 87070

== ENCOUNTER 2018-07-14 10:25 | Inpatient (IN) | payer MEDICARE, BC ==
[2018-07-09 11:57] VITALS: BMI 24.3
[~2018-07-14 10:25] MED LIST changes: -ALPRAZolam 0.25 MG TAB PO PRN; -ALPRAZolam 0.5 MG TAB PO PRN; -ASPIRIN 325 MG TAB PO STA; +BACITRACIN 50,000 UNIT, POLYMYXIN B 500,000 UNIT in SODIUM CHLORIDE 0.9% IRRIGATIO 1,00... IRRIGATION ONE; +DEXAMETHASONE SOD PHOSPHATE 10 MG/ML 1 ML VIAL IV ONE; +LIDOCAINE 1% 20 ML VIAL (10MG/ML) FOR IV START INTRADERMA PRN; +MIDAZOLAM 2 MG/2 ML VIAL IV PRN; -NITROGLYCERIN SL TABS 0.4 MG TAB SUBLINGUAL PRN; +ONDANSETRON 4 MG/2 ML VIAL IVP ONE; -SODIUM CHLORIDE 0.9% 1,000 ML in EMPTY BAG 1 BAG IV ONE; +ceFAZolin IN SWFI 2 GM/20 ML SYRINGE IVP ONE; +fentaNYL (PF) 50 MCG/ML 2 ML AMP IV PRN
[2018-07-14 11:01] LABS: Glucose,Whole Blood 165 mg/dL (75-99)
[2018-07-14] MEDS ORDERED: ONDANSETRON 4 MG/2 ML VIAL ONE (11:09)
[2018-07-14] MEDS: LACTATED RINGERS 1,000 ML IV SCH ×2 (11:10→16:04)
[2018-07-14] MEDS ORDERED: THROMBIN (BOVINE) 5,000 UNIT VIAL TOPICAL ONE (13:35)
[2018-07-14] MEDS ORDERED: GELATIN SPONGE,ABSORB (LARGE) 1 EACH SPONGE TOPICAL ONE (13:35)
[2018-07-14] MEDS ORDERED: LIDOCAINE 0.5%-EPI 1:200,000 50 ML VIAL SQ ONE (13:35)
[2018-07-14] MEDS ORDERED: methylPREDNISolone ACETATE 40 MG/ML 1 ML VIAL MISCELLANE ONE (13:35)
[2018-07-14] MEDS ORDERED: KETOROLAC 30 MG/ML 1 ML VIAL IVP PRN (14:56)
[2018-07-14] MEDS ORDERED: MAGNESIUM HYDROXIDE 2,400 MG/10 ML CUP PO PRN (14:56)
[2018-07-14] MEDS ORDERED: BENZOCAINE/MENTHOL LOZENG 1 EACH LOZENGE MUCOUS MEM PRN (14:56)
[2018-07-14] MEDS ORDERED: HYDROmorphone 0.5 MG/0.5 ML SYRINGE IVP PRN (14:56)
[2018-07-14] MEDS ORDERED: NITROGLYCERIN SL TABS 0.4 MG TAB SUBLINGUAL PRN (14:58)
--- NOTE | 2018-07-14 14:59 | FL ---
Fluoroscopy HISTORY: Lumbar laminectomy 1 seconds fluoroscopy time supplied to the referring clinician. 1 intraoperative C-arm images docume nt the procedure. See dictated report from orthopedic surgery.
--- NOTE | 2018-07-14 15:04 | P.OP ---
Date of Procedure: 07/14/18 Preoperative Diagnosis: Severe spinal stenosis L3 4 L4 5 Neurogenic claudication bilateral lower extremities Low back pain Lower extremity radiculopathy Postoperative Diagnosis: Same Anesthesia: GETA Pathology: none sent Condition: stable Disposition: PACU Description of Procedure: BRIEF OPERATIVE NOTE Preoperative Diagnosis: Severe spinal stenosis L3 4 L4 5, degenerative disc disease L3 4 L4 5, neurogenic claudication, lower extremity radiculopathy Postoperative Diagnosis: Same Procedure: Laminectomy and decompression with wide bilateral foraminotomies L3 4 and L4 5 Placement of the interlaminar stabilization device, Coflex device at L3 4 L4 5 Surgeon: Dr. [facility] [employer] Operator: Abelardo Mcdonnell is present throughout the entire the case persistence during positioning, dissection, exposure, visualization, and all crucial elements of the case as well as closure. Anesthesia: General anesthesia per Dr. Dr. Brizuela Estimated blood loss: approximately 50 mL Complications: None apparent Components implanted: Coflex interlaminar stabilization device L3 4 and L4-5, each measuring 12 mm Disposition: To recovery room in good stable condition. OPERATIVE INDICATIONS The patient has been having issues in their lower back and lower extremities. he is having severe claudication symptoms due to her severe spinal stenosis at her lumbar spine particularly at L3 4 and L4 5. We discussed various treatment options. The patient has been through conservative treatment. she is not having any prolonged benefit despite aggressive conservative treatment We discussed various treatment options including surgery, ranging from laminectomy alone to the possibility of decompression with stabilization as well as the decompression and fusion. We felt that the patient could benefit with decompression and interlaminar stabilization,and the patient wishes to proceed with surgery We discussed the risk, patient's alternatives and benefits of surgery including but not limited to, risk of bleeding risk of infection, risk of need for further surgery, risk of decreased, loss of motion, loss of function, nerve damage, paralysis, heart attack, blindness and . The patient has a number of comorbidities issues with severe coronary artery disease and underwent recent cardiac stenting. In fact he was scheduled to undergo this surgical procedure several weeks ago but this had been canceled due to his cardiac workup and subsequent cardiac treatment. He has needed to be on blood thinners for his coronary artery disease and stenting and has been at increased risk with the surgery which she understands. Postoperatively we need to have him observe closely in the hospital with full admit and medical management. OPERATIVE SUMMARY After discussing all the risks, patient alternatives and benefits at length, the patient elected to proceed with surgical intervention, signed informed consent, and presented for their procedure. The patient was seen and examined in the preoperative holding area and the surgical site was marked. The patient was given antibiotics and brought to the operating room. The patient was sedated and intubated by anesthesia in standard fashion. The patient was positioned on to the operating room table in a prone position on the appropriate frame which was well-padded and well molded. We were careful to pad any bony prominences and pressure points. We were careful to maintain the patient's cervical spine and good neutral alignment and position throughout. The patient was prepped and draped in a normal standard fashion. An appropriate timeout and keystone protocol performed. We were able to proceed with the surgery. Fluoroscopy was utilized to establish the appropriate level. The local wound area was infiltrated with local anesthetic. An incision was made at the midline longitudinally over the appropriate levels at L3 4 and L4 5. Dissection was taken down subcutaneously to the level of the fascia which was split midline. Dissection was taken over the lamina. Intraoperative fluoroscopy was taken which showed a marker at the appropriate level at L3 4 . With the appropriate level positively confirmed, we were able to proceed with laminectomy. The wound was copiously irrigated and suctioned dry as had been done periodically throughout the case. I performed a laminectomy with a combination of curettes and a high-speed bur and Kerrison rongeurs. A small medial facetectomy was performed again further access. A partial foraminotomy was also performed. Portions of the ligamentum flavum were taken down to expose the dura and traversing nerve root. There is severe thickening of the ligamentum flavum and significant facet hypertrophy with osteophytes causing severe central and bilateral foraminal stenosis. This was remedied with the decompression.There is no evidence of dural tear or leak. Good hemostasis maintained. The wound was copiously irrigated and suctioned dry. Good decompression was noted. This was done first at L34 and L4 5. I was unable to measure the appropriate size interlaminar stabilizing device. I was able get good alignment at the intralaminar spaces. I was able to trial with the appropriate size device and get gentle distraction at each level. I chose he is appropriate size interlaminar stabilizer with a 12 mm stabilizer each level.. The Coflex device was positioned and malleted in place and good alignment good position with good fixation at each level. The construct was checked and found to be stable. There is good decompression without any evidence of dural tear or leak. There is no evidence of fracture. We were able to proceed with closure. The fascia was closed for a watertight closure. The subcuticular tissue was closed with absorbable suture. The wound was cleaned and dried and dressed with the appropriate dressing. The drapes were broken down. The patient was gently rolled back onto their hospital bed being careful to maintain their cervical spine and good neutral alignment and position. They were woken up by anesthesia, extubated, and brought to the recovery room in good stable condition. The patient will be admitted to the hospital for observation and for appropriate postoperative care, medical management and monitoring. We will continue to follow them closely about the postoperative course.
--- NOTE | 2018-07-14 15:12 | XR ---
Limited lumbar spine HISTORY: Lumbar laminectomy Single lateral view of the lumbar spine documents the procedure from intraoperative C-arm.
[2018-07-14 15:32] LABS: Glucose,Whole Blood 133 mg/dL (75-99)
[2018-07-14] MEDS ORDERED: PROMETHAZINE INJ 25 MG/ML 1 ML VIAL IVPB ONE (16:20)
[2018-07-14] MEDS: SODIUM CHLORIDE 0.9% 1,000 ML IV SCH (16:59)
[2018-07-14 17:04] LABS: Glucose,Whole Blood 158 mg/dL (75-99)
[2018-07-14 20:26] LABS: Glucose,Whole Blood 248 mg/dL (75-99)
[2018-07-14] MEDS ORDERED: LINAGLIPTIN 5 MG TABLET PO SCH (21:00)
[2018-07-14] MEDS ORDERED: metFORMIN 500 MG TAB PO SCH (21:00)
[2018-07-14] MEDS ORDERED: ATORVASTATIN 40 MG TAB PO SCH (21:00)
[2018-07-14] MEDS ORDERED: LATANOPROST 0.005% OPHTH DROPS 2.5 ML BTL BOTH EYES SCH (21:00)
[2018-07-14] MEDS ORDERED: CALCIUM CARBONATE 500 MG CHEWABLE PO SCH (21:00)
[2018-07-14] MEDS: ceFAZolin IN SWFI 2 GM/20 ML SYRINGE IVP SCH (21:47)
[2018-07-14] MEDS: HYDROcodone/APAP 5-325MG 1 EACH TAB PO PRN (22:37)
[2018-07-15] MEDS: SODIUM CHLORIDE 0.9% 1,000 ML IV SCH (04:14)
[2018-07-15] MEDS: ceFAZolin IN SWFI 2 GM/20 ML SYRINGE IVP SCH (06:02)
[2018-07-15] MEDS: HYDROcodone/APAP 5-325MG 1 EACH TAB PO PRN (06:09)
[2018-07-15 06:18] VITALS: BP 134/75; PULSE 100; RESP 16; TEMP 98.2
[2018-07-15 06:57] LABS: Glucose,Whole Blood 173 mg/dL (75-99)
[2018-07-15] MEDS ORDERED: glipiZIDE 10 MG TAB PO SCH (07:30)
[2018-07-15] MEDS: NON-FORMULARY DRUG (Canagliflozin [Invokana] 300 MG) PO SCH ×2 (08:26→09:58)
[2018-07-15] MEDS ORDERED: FAMOTIDINE 20 MG TAB PO SCH (09:00)
[2018-07-15] MEDS ORDERED: NON-FORMULARY DRUG (Glucosam/Chon-Msm1/C/Mang/Bosw [Glucosamine-Chondroitin Tablet] 1 TAB) PO SCH (09:00)
[2018-07-15] MEDS ORDERED: ISOSORBIDE MONONITRATE ER 15 MG TAB PO SCH (09:00)
[2018-07-15] MEDS ORDERED: TAMSULOSIN 0.4 MG CAP.ER.24H PO SCH (09:00)
[2018-07-15] MEDS ORDERED: ASPIRIN 81 MG PO SCH (09:00)
[2018-07-15] MEDS ORDERED: METOPROLOL SUCCINATE (ER) 50 MG TAB.ER.24H PO SCH (09:00)
--- NOTE | 2018-07-15 09:35 | P.DS ---
Providers Date of admission: 07/14/18 10:30 Attending physician: Lisa Leal Consults: 07/14/18 14:56 Consult Physician Routine Consulting Provider: Dora Farrar Consult Reason/Comments: Medical management Do you want consulting provider notified?: Already Contacted Primary care physician: Angel Luis [facility] Course: The patient presented on the day of admission as per his operative note. The patient had severe spinal stenosis with severe neurogenic claudication and lower extremity radiculopathy. He feels he is doing well with his surgery and already feels better at his legs which he has not felt in years he says. He is amatory in his room. His pain in his back is controlled with oral medications. Physical Exam The incision site is clean dry and intact. There is no erythema no drainage. There is no purulence no evidence of infection.There is some bloody drainage on the dressing but there is no active drainage now. Abdomen soft and nontender. Chest has good excursion with deep inspiration and expiration. The patient has active and passive range of motion intact at the upper and lower extremities. There is no acute change in neurologic status.He has sustained dorsal flexion plantar flexion and EHL in his bilateral lower extremities. Hospital Course postoperative day 1 status post laminectomy decompression at L34 L4 5 with placement of interlaminar stabilization/Coflex device for his severe spinal stenosis and neurogenic claudication at L3 4 L4 5 The patient has been making good progress postoperatively. he feels that his legs are doing better than they have in years. They have completed the prophylactic antibiotics without any signs or symptoms of infection. The patient has been able to advance their diet, and is tolerating diet adequately. The pain was initially controlled with IV medications and is now controlled appropriately with oral medications. The patient has been able to increase their mobilization. The patient has significant medical history and significant cardiac history and had to undergo cardiac stenting disc several weeks ago for his coronary artery disease. Given his advanced age and his significant cardiac history of felt that it was not severe for him to be admitted to the hospital postoperatively for appropriate management and monitoring. He is made good progress postoperatively and is very happy his with his results thus far. The patient has progressed appropriately. I think they are in good stable condition for discharge today. They will be sent home with appropriate prescriptions. I answered their questions to the best of my ability in a language that they can understand and they are agreeable with the plan. They will follow up as directed. Patient Condition at Discharge: Good Plan - Discharge Summary Discharge Rx Participant: Yes New Discharge Prescriptions: New HYDROcodone/APAP 5-325MG [[place] 5] 1 each PO Q6HR PRN #28 tab PRN Reason: Severe Pain No Action Multivitamins, Thera [Multivitamin (formulary)] 1 tab PO DAILY metFORMIN HCL [Glucophage] 500 mg PO HS glipiZIDE [Glucotrol] 10 mg PO DAILY Tamsulosin HCl [Flomax] 0.4 mg PO DAILY Ranitidine HCl [Zantac] 300 mg PO DAILY ALPRAZolam [Xanax] 0.25 mg PO DAILY Latanoprost [Xalatan 0.005%] 1 drop BOTH EYES HS Linagliptin [Tradjenta] 5 mg PO HS Glucosam/Jeffrey-Msm1/C/Everette/Bosw [Glucosamine-Chondroitin Tablet] 1 tab PO DAILY Clopidogrel Bisulfate [Plavix] 75 mg PO DAILY #30 tab Atorvastatin [Lipitor] 40 mg PO HS #30 tab Metoprolol Succinate (ER) [Toprol XL] 50 mg PO DAILY #30 tab.er.24h Nitroglycerin Sl Tabs [Nitrostat] 0.4 mg SUBLINGUAL Q5M PRN #20 tab PRN Reason: Chest Pain Aspirin EC [Ecotrin Low Dose] 81 mg PO DAILY #30 tablet.dr Calcium Carbonate [Calcium] 600 mg PO HS Isosorbide Mononitrate ER [Imdur] 15 mg PO DAILY Canagliflozin [Invokana] 300 mg PO DAILY Discharge Medication List ALPRAZolam [Xanax] 0.25 mg PO DAILY 06/08/16 [History] Multivitamins, Thera [Multivitamin (formulary)] 1 tab PO DAILY 06/08/16 [History ] Ranitidine HCl [Zantac] 300 mg PO DAILY 06/08/16 [History] Tamsulosin HCl [Flomax] 0.4 mg PO DAILY 06/08/16 [History] glipiZIDE [Glucotrol] 10 mg PO DAILY 06/08/16 [History] metFORMIN HCL [Glucophage] 500 mg PO HS 06/08/16 [History] Latanoprost [Xalatan 0.005%] 1 drop BOTH EYES HS 08/04/16 [History] Glucosam/Jeffrey-Msm1/C/Everette/Bosw [Glucosamine-Chondroitin Tablet] 1 tab PO DAILY 09/17/17 [History] Linagliptin [Tradjenta] 5 mg PO HS 09/17/17 [History] Aspirin EC [Ecotrin Low Dose] 81 mg PO DAILY #30 tablet.dr 09/20/17 [Rx] Atorvastatin [Lipitor] 40 mg PO HS #30 tab 09/20/17 [Rx] Clopidogrel Bisulfate [Plavix] 75 mg PO DAILY #30 tab 09/20/17 [Rx] Metoprolol Succinate (ER) [Toprol XL] 50 mg PO DAILY #30 tab.er.24h 09/20/17 [Rx ] Nitroglycerin Sl Tabs [Nitrostat] 0.4 mg SUBLINGUAL Q5M PRN #20 tab 09/20/17 [Rx ] Calcium Carbonate [Calcium] 600 mg PO HS 11/07/17 [History] Canagliflozin [Invokana] 300 mg PO DAILY 07/09/18 [History] Isosorbide Mononitrate ER [Imdur] 15 mg PO DAILY 07/09/18 [History] HYDROcodone/APAP 5-325MG [[place] 5] 1 each PO Q6HR PRN #28 tab 07/15/18 [Rx] Patient Instructions/Handouts: *Surgery [facility] - ([facility]) Lumbar Surgery Discharge Instructions Activity/Diet/Wound Care/Special Instructions: Keep site clean. May shower with waterproof Tegaderm intact. Do not soak in a tub On Thursday May shower with area uncovered, but leave Steri-Strips intact and allow them to fray off on their own. May ambulate to tolerance. Avoid heavy or rigorous activity. No repetitive bending twisting or lifting. Discharge Disposition: HOME SELF-CARE
[2018-07-15] MEDS ORDERED: MULTIVITAMINS, THERA 1 EACH TAB PO SCH (12:00)
[2018-07-15 13:59] LABS: Hemoglobin A1C 6.6 % (4.0-6.0)
== END 2018-07-15 10:40 | disposition home or self-care (01) | DRG 518 ==
LOC: 2ORMAIN 10:30 → 5MS5E 15:26
PROVIDERS: ADMIT Orthopaedic Surgery Orthopaedic Surgery of the Spine; ATTEND Orthopaedic Surgery Orthopaedic Surgery of the Spine
PROC: 01NB0ZZ Release Lumbar Nerve, Open Approach (ICD-10-PCS; 2018-07-14)
PROC: 00NY0ZZ Release Lumbar Spinal Cord, Open Approach (ICD-10-PCS; 2018-07-14)
PROC: 0SH00BZ Insertion of Interspinous Process Spinal Stabilization Device into Lumbar Vertebral Joint, Open Approach (ICD-10-PCS; principal; 2018-07-14 12:40)
DX: M48.062 Spinal stenosis, lumbar region with neurogenic claudication (principal); M51.16 Intervertebral disc disorders with radiculopathy, lumbar region; M43.16 Spondylolisthesis, lumbar region; M51.26 Other intervertebral disc displacement, lumbar region; M51.17 Intervertebral disc disorders with radiculopathy, lumbosacral region; M51.27 Other intervertebral disc displacement, lumbosacral region; M51.37 Other intervertebral disc degeneration, lumbosacral region; E78.00 Pure hypercholesterolemia, unspecified; E78.5 Hyperlipidemia, unspecified; H91.90 Unspecified hearing loss, unspecified ear; H40.9 Unspecified glaucoma; I25.10 Atherosclerotic heart disease of native coronary artery without angina pectoris; K21.9 Gastro-esophageal reflux disease without esophagitis; Z79.84 Long term (current) use of oral hypoglycemic drugs; Z79.02 Long term (current) use of antithrombotics/antiplatelets; Z79.82 Long term (current) use of aspirin; Z79.899 Other long term (current) drug therapy; Z95.5 Presence of coronary angioplasty implant and graft; Z87.891 Personal history of nicotine dependence; Z85.528 Personal history of other malignant neoplasm of kidney; Z86.73 Personal history of transient ischemic attack (TIA), and cerebral infarction without residual deficits; Z98.42 Cataract extraction status, left eye; Z98.41 Cataract extraction status, right eye; Z90.5 Acquired absence of kidney; Z83.3 Family history of diabetes mellitus; Z82.49 Family history of ischemic heart disease and other diseases of the circulatory system
CPT/HCPCS: 72020; 83036; 84132; 86850; 86900; 86901

== ENCOUNTER 2018-11-27 21:45 | Emergency (ER) | payer MEDICARE, BC ==
--- NOTE | 2018-11-27 22:28 | ED ---
Abdominal Pain HPI - General Chief Complaint: Abdominal Pain Stated Complaint: Abd pain Time Seen by Provider: 11/27/18 22:05 Source: patient Mode of arrival: ambulatory Limitations: no limitations - History of Present Illness Initial Comments: This patient is 78-year-old man comes in to be evaluated for abdominal pain that started after he had eaten his dinner tonight probably around 6:30 PM. The patient indicates that it was in the lower abdomen. He states that it felt like constant, severe, cramping pain. He states that he had taken an antacid that didn't seem to do much. He states that he tried taking a shot of Coca- [employer]a that didn't seem to do much. The patient had a bowel movement. He was not feeling much better so he decided to come here. Patient was also experiencing some nausea but no vomiting. Patient states that after he decided to come here the symptoms started to resolve and now he feels pretty well. Currently there is no pain. States the nausea has resolved. He has had no fever or chills. No change in urination. No pain to the scrotum or testicles. MD Complaint: abdominal pain Onset/Timin -: hour(s) Location: LLQ, RLQ Radiation: none Severity: severe Quality: aching Consistency: now resolved Improves With: bowel movement Worsens With: nothing Associated Symptoms: denies other symptoms Treatments Prior to Arrival: antacids, other (Coca-Cola) - Related Data Home Medications Medication Instructions Recorded Confirmed ALPRAZolam [Xanax] 0.75 mg PO DAILY 06/08/16 11/27/18 Multivitamins, Thera [Multivitamin 1 tab PO DAILY 06/08/16 11/27/18 (formulary)] Ranitidine HCl [Zantac] 300 mg PO DAILY 06/08/16 11/27/18 Tamsulosin HCl [Flomax] 0.4 mg PO BID 06/08/16 11/27/18 Latanoprost [Xalatan 0.005%] 1 drop BOTH EYES HS 08/04/16 11/27/18 Linagliptin [Tradjenta] 5 mg PO HS 09/17/17 11/27/18 Calcium Carbonate [Calcium] 600 mg PO HS 11/07/17 11/27/18 Canagliflozin [Invokana] 300 mg PO DAILY 07/09/18 11/27/18 Isosorbide Mononitrate ER [Imdur] 15 mg PO DAILY 07/09/18 11/27/18 glipiZIDE [Glucotrol] 10 mg PO QAM 11/27/18 11/27/18 Previous Rx's Medication Instructions Recorded Aspirin EC [Ecotrin Low Dose] 81 mg PO DAILY #30 tablet. 09/20/17 Atorvastatin [Lipitor] 40 mg PO HS #30 tab 09/20/17 Clopidogrel Bisulfate [Plavix] 75 mg PO DAILY #30 tab 09/20/17 Metoprolol Succinate (ER) [Toprol 50 mg PO DAILY #30 tab.er.24h 09/20/17 XL] Nitroglycerin Sl Tabs [Nitrostat] 0.4 mg SUBLINGUAL Q5M PRN #20 tab 09/20/17 Allergies Allergy/AdvReac Type Severity Reaction Status Date / Time clarithromycin [From Biaxin] AdvReac Nausea & Verified 11/27/18 22:33 Vomiting Review of Systems ROS Statement: Those systems with pertinent positive or pertinent negative responses have been documented in the HPI. ROS Other: All systems not noted in ROS Statement are negative. Constitutional: Denies: fever, chills Respiratory: Denies: cough, dyspnea Cardiovascular: Denies: chest pain, palpitations, edema Gastrointestinal: Reports: abdominal pain, nausea, constipation (For past few weeks). Denies: vomiting, diarrhea, melena, hematochezia Genitourinary: Denies: dysuria, hematuria, testicular pain, testicular mass Musculoskeletal: Denies: back pain Skin: Denies: rash Neurological: Denies: headache, weakness, numbness Past Medical History Past Medical History: Diabetes Mellitus Additional Past Medical History / Comment(s): , renal CA with removal of part of kidney and removal of rib, History of Any Multi-Drug Resistant Organisms: None Reported Past Surgical History: Heart Catheterization, Hernia Repair Additional Past Surgical History / Comment(s): AAA repair, 1/2 left kidney removed Past Anesthesia/Blood Transfusion Reactions: Previous Problems w/ Anesthesia, Motion Sickness, Postoperative Nausea & Vomiting (PONV) Date of Last Stent Placement:: 09/19/17 Past Psychological History: Anxiety Smoking Status: Former smoker Past Alcohol Use History: Rare Past Drug Use History: None Reported - Past Family History Mother Family Medical History: No Reported History Father Family Medical History: COPD, Hypertension Brother(s) Family Medical History: Diabetes Mellitus Sister(s) Family Medical History: Coronary Artery Disease (CAD), Diabetes Mellitus Son(s) Family Medical History: No Reported History Daughter(s) Family Medical History: No Reported History General Exam Limitations: no limitations General appearance: alert, in no apparent distress Head exam: Present: atraumatic, normocephalic Eye exam: Present: normal appearance. Absent: scleral icterus, conjunctival injection ENT exam: Present: normal oropharynx Neck exam: Present: normal inspection, full ROM Respiratory exam: Present: normal lung sounds bilaterally. Absent: respiratory distress, wheezes, rales, rhonchi, stridor Cardiovascular Exam: Present: regular rate, normal rhythm, normal heart sounds. Absent: systolic murmur, diastolic murmur, rubs, gallop GI/Abdominal exam: Present: soft, distended, hyperactive bowel sounds. Absent: tenderness, guarding, rebound, rigid, mass, pulsatile mass, hernia Extremities exam: Present: normal inspection, normal capillary refill. Absent: pedal edema, calf tenderness Back exam: Present: normal inspection. Absent: CVA tenderness (R), CVA tenderness (L) Neurological exam: Present: alert Skin exam: Present: warm, dry, intact, normal color. Absent: rash Course Vital Signs 11/27/18 21:53 Temperature 97.4 F L Pulse Rate 86 Respiratory 18 Rate Blood Pressure 137/76 O2 Sat by Pulse 99 Oximetry Medical Decision Making - Medical Decision Making Patient is 78-year-old man with episode of abdominal pain that has recurred. His studies have returned and did not reveal obvious etiology. We discussed imaging, and at this point the patient feels well and would prefer to go home. We discussed that if any symptoms recur he must return for the imaging study. Discussed further care and follow-up as well as return parameters. - Lab Data Result diagrams: 11/27/18 23:10 11/27/18 23:10 Lab Results 11/27/18 11/27/18 11/27/18 Range/Units 23:10 23:10 23:10 WBC 11.7 H (3.8-10.6) k/uL RBC 5.27 (4.30-5.90) m/uL Hgb 15.7 (13.0-17.5) gm/dL Hct 47.1 (39.0-53.0) % MCV 89.4 (80.0-100.0) fL MCH 29.8 (25.0-35.0) pg MCHC 33.4 (31.0-37.0) g/dL RDW 14.8 (11.5-15.5) % Plt Count 172 (150-450) k/uL Neutrophils % (Manual) 72 % Band Neutrophils % 8 % Lymphocytes % (Manual) 10 % Monocytes % (Manual) 8 % Eosinophils % (Manual) 2 % Neutrophils # (Manual) 9.30 H (1.3-7.7) k/uL Lymphocytes # (Manual) 1.17 (1.0-4.8) k/uL Monocytes # (Manual) 0.94 (0-1.0) k/uL Eosinophils # (Manual) 0.23 (0-0.7) k/uL Nucleated RBCs 0 (0-0) /100 WBC Manual Slide Review Performed Polychromasia Present Anisocytosis (manual) Present Sodium 140 (137-145) mmol/L Potassium 5.1 (3.5-5.1) mmol/L Chloride 107 (98-107) mmol/L Carbon Dioxide 22 (22-30) mmol/L Anion Gap 11 mmol/L BUN 34 H (9-20) mg/dL Creatinine 1.77 H (0.66-1.25) mg/dL Est GFR (CKD-EPI)AfAm 41 (>60 ml/min/1.73 sqM) Est GFR (CKD-EPI)NonAf 36 (>60 ml/min/1.73 sqM) Glucose 184 H (74-99) mg/dL Calcium 9.8 (8.4-10.2) mg/dL Total Bilirubin 1.3 (0.2-1.3) mg/dL AST 44 (17-59) U/L ALT 33 (21-72) U/L Alkaline Phosphatase 81 (38-126) U/L Total Protein 7.5 (6.3-8.2) g/dL Albumin 4.6 (3.5-5.0) g/dL Amylase 122 H (30-110) U/L Lipase 207 (23-300) U/L Urine Color Light Yellow Urine Appearance Clear (Clear) Urine pH 5.0 (5.0-8.0) Ur Specific [place] 1.022 (1.001-1.035) Urine Protein Negative (Negative) Urine Glucose (UA) 4+ H (Negative) Urine Ketones Negative (Negative) Urine Blood Negative (Negative) Urine Nitrite Negative (Negative) Urine Bilirubin Negative (Negative) Urine Urobilinogen <2.0 (<2.0) mg/dL Ur Leukocyte Esterase Negative (Negative) - EKG Data -: EKG Interpreted by Dc EKG shows normal: sinus rhythm (Rate approximately 90 bpm there is PVC), axis ( Left axis deviation), intervals (Normal), ST-T waves (Normal) Rate: normal Interpretation: other (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
[2018-11-27 23:26] LABS: HCT 47.1 % (39.0-53.0); HGB 15.7 gm/dL (13.0-17.5); MCH 29.8 pg (25.0-35.0); MCHC 33.4 g/dL (31.0-37.0); MCV 89.4 fL (80.0-100.0); Mean Platelet Volume 6.9; Platelet Count 172 k/uL (150-450); RBC 5.27 m/uL (4.30-5.90); RDW 14.8 % (11.5-15.5); WBC 11.7 k/uL (3.8-10.6)
[2018-11-27 23:32] LABS: Appearance,Urine Clear (Clear); Bilirubin,Urine Negative (Negative); Blood,Urine Negative (Negative); Color,Urine Light Yellow; Glucose,Urine (UA) 4+ (Negative); Ketones,Urine Negative (Negative); Leukocyte Esterase,Urine Negative (Negative); Nitrite,Urine Negative (Negative); Protein,Urine Negative (Negative); Specific Gravity,Urine 1.022 (1.001-1.035); Urobilinogen,Urine <2.0 mg/dL (<2.0)
--- NOTE | 2018-11-27 23:33 | XR ---
EXAMINATION TYPE: XR KUB DATE OF EXAM: 11/27/2018 COMPARISON: NONE HISTORY: Abdominal pain TECHNIQUE: 2 views upright FINDINGS: There is no sign of intestinal obstruction or pneumoperitoneum. Fecal pattern is normal. Maral ng bases are clear. There are no pathologic calcifications. IMPRESSION: Nonacute abdomen.
[2018-11-27 23:37] LABS: Albumin 4.6 g/dL (3.5-5.0); Calcium 9.8 mg/dL (8.4-10.2); Total Bilirubin 1.3 mg/dL (0.2-1.3); Total Protein 7.5 g/dL (6.3-8.2)
[2018-11-27 23:49] LABS: Potassium 5.1 mmol/L (3.5-5.1)
[2018-11-28 00:58] LABS: Band Neutrophils % 8 %; Eosinophils # (M) 0.23 k/uL (0-0.7); Lymphocytes # (M) 1.17 k/uL (1.0-4.8); Monocytes # (M) 0.94 k/uL (0-1.0); Neutrophils % (M) 72 %; Nucleated Red Blood Cells 0 /100 WBC (0-0); Total Cells Counted 100
[2018-11-28 00:59] LABS: Anisocytosis (M) Present; Polychromasia Present
[2018-11-28 02:19] VITALS: BP 143/78; PULSE 80; RESP 16; TEMP 98
== END 2018-11-28 02:19 | disposition home or self-care (01) ==
LOC: EC 21:45
DX: R10.32 Left lower quadrant pain (principal); R10.31 Right lower quadrant pain; R11.0 Nausea; F41.9 Anxiety disorder, unspecified; E11.9 Type 2 diabetes mellitus without complications; Z79.84 Long term (current) use of oral hypoglycemic drugs; Z79.899 Other long term (current) drug therapy; Z88.1 Allergy status to other antibiotic agents; Z85.528 Personal history of other malignant neoplasm of kidney; Z90.5 Acquired absence of kidney; Z87.891 Personal history of nicotine dependence
CPT/HCPCS: 36415; 74018; 80053; 81003; 82150; 83690; 85025; 99284

== ENCOUNTER 2018-12-15 10:33 | Emergency (ER) | payer MEDICARE, BC ==
[2018-12-15] MEDS ORDERED: DIPH,PERTUS(ACELL)TETVAC-LF 0.5 ML VIAL IM ONE (10:53)
--- NOTE | 2018-12-15 11:25 | XR ---
EXAMINATION TYPE: XR hand complete RT DATE OF EXAM: 12/15/2018 COMPARISON: NONE HISTORY: 78-year-old male with pain after fall TECHNIQUE: 3 views FINDINGS: Osteopenia. Scattered mild osteoarthritic spurring throughout the fingers and base of the thumb. No a cute fracture, subluxation, or dislocation is seen. IMPRESSION: Osteopenia and scattered osteoarthritic changes. No acute osseous abnormality seen.
--- NOTE | 2018-12-15 11:40 | ED ---
Fall HPI - General Chief Complaint: Fall Stated Complaint: fall, facial injury Time Seen by Provider: 12/15/18 10:49 Source: patient, RN notes reviewed Mode of arrival: ambulatory Limitations: no limitations - History of Present Illness Initial Comments: 78-year-old male presents emergency Department chief complaint trip and fall. Patient states she was going up one step in his house states he fell forward. He did strike his head. Patient states he has an abrasion of his nose and his right forehead region. There is no loss conscious. He did feel dazed. Patient has a mild headache denies any epistaxis, neck or back pain. Does complain of mild right hand pain. No other complaints. Patient is unsure when his last tetanus was. Patient currently takes Plavix no other blood thinners. - Related Data Home Medications Medication Instructions Recorded Confirmed ALPRAZolam [Xanax] 0.75 mg PO DAILY 06/08/16 12/15/18 Multivitamins, Thera [Multivitamin 1 tab PO DAILY 06/08/16 12/15/18 (formulary)] Ranitidine HCl [Zantac] 300 mg PO DAILY 06/08/16 12/15/18 Tamsulosin HCl [Flomax] 0.4 mg PO BID 06/08/16 12/15/18 Latanoprost [Xalatan 0.005%] 1 drop BOTH EYES HS 08/04/16 12/15/18 Linagliptin [Tradjenta] 5 mg PO HS 09/17/17 12/15/18 Calcium Carbonate [Calcium] 600 mg PO HS 11/07/17 12/15/18 glipiZIDE [Glucotrol] 10 mg PO QAM 11/27/18 12/15/18 Acetaminophen [Tylenol Extra 500 mg PO Q6H PRN 12/15/18 12/15/18 Strength] Previous Rx's Medication Instructions Recorded Aspirin EC [Ecotrin Low Dose] 81 mg PO DAILY #30 tablet. 09/20/17 Atorvastatin [Lipitor] 40 mg PO HS #30 tab 09/20/17 Clopidogrel Bisulfate [Plavix] 75 mg PO DAILY #30 tab 09/20/17 Metoprolol Succinate (ER) [Toprol 50 mg PO DAILY #30 tab.er.24h 09/20/17 XL] Nitroglycerin Sl Tabs [Nitrostat] 0.4 mg SUBLINGUAL Q5M PRN #20 tab 09/20/17 Allergies Allergy/AdvReac Type Severity Reaction Status Date / Time clarithromycin [From Biaxin] AdvReac Nausea & Verified 12/15/18 11:16 Vomiting Review of Systems ROS Statement: Those systems with pertinent positive or pertinent negative responses have been documented in the HPI. ROS Other: All systems not noted in ROS Statement are negative. Past Medical History Past Medical History: Diabetes Mellitus Additional Past Medical History / Comment(s): , renal CA with removal of part of kidney and removal of rib, History of Any Multi-Drug Resistant Organisms: None Reported Past Surgical History: Heart Catheterization, Hernia Repair Additional Past Surgical History / Comment(s): AAA repair, 1/2 left kidney removed Past Anesthesia/Blood Transfusion Reactions: Previous Problems w/ Anesthesia, Motion Sickness, Postoperative Nausea & Vomiting (PONV) Date of Last Stent Placement:: 09/19/17 Past Psychological History: Anxiety Smoking Status: Former smoker Past Alcohol Use History: Rare Past Drug Use History: None Reported - Past Family History Mother Family Medical History: No Reported History Father Family Medical History: COPD, Hypertension Brother(s) Family Medical History: Diabetes Mellitus Sister(s) Family Medical History: Coronary Artery Disease (CAD), Diabetes Mellitus Son(s) Family Medical History: No Reported History Daughter(s) Family Medical History: No Reported History General Exam Limitations: no limitations General appearance: alert, in no apparent distress Head exam: Present: atraumatic, normocephalic. Absent: normal inspection ( Hematoma noted on the right side of the forehead) Eye exam: Present: normal appearance, PERRL, EOMI. Absent: scleral icterus, conjunctival injection, periorbital swelling ENT exam: Present: normal oropharynx, mucous membranes moist, TM's normal bilaterally, normal external ear exam. Absent: normal exam (Abrasion noted across the nasal bridge.) Neck exam: Present: normal inspection, full ROM. Absent: tenderness, meningismus, lymphadenopathy Respiratory exam: Present: normal lung sounds bilaterally. Absent: respiratory distress, wheezes, rales, rhonchi, stridor Cardiovascular Exam: Present: regular rate, normal rhythm, normal heart sounds. Absent: systolic murmur, diastolic murmur, rubs, gallop, clicks GI/Abdominal exam: Present: soft, normal bowel sounds. Absent: distended, tenderness, guarding, rebound, rigid Extremities exam: Present: other (Tenderness of the right hand no obvious deformity remaining extremity exam within normal limits) Neurological exam: Present: alert, oriented X3, CN II-XII intact, reflexes normal. Absent: motor sensory deficit Skin exam: Present: warm, dry, intact, normal color. Absent: rash Course Vital Signs 12/15/18 10:38 Temperature 97.3 F L Pulse Rate 87 Respiratory 16 Rate Blood Pressure 122/80 O2 Sat by Pulse 97 Oximetry Medical Decision Making - Medical Decision Making 78-year-old male present emergency department for fall. Patient had CT of his C -spine and brain. There are no acute findings are chronic cervical degenerative changes and stenosis. Patient had negative x-ray of his hand. Patient will be discharged with head injury instructions return parameters were discussed. We did discuss chances of delayed bleed. Disposition Clinical Impression: Fall, Head injury, Contusion of right hand, Facial abrasion Disposition: HOME SELF-CARE Condition: Stable Instructions (If sedation given, give patient instructions): Head Injury (ED) Additional Instructions: Please return to the Emergency Department if symptoms worsen or any other concerns. Is patient prescribed a controlled substance at d/c from ED?: No Referrals: Angel Luis Ramon DO [Primary Care Provider] - 1-2 days Time of Disposition: 12:04
--- NOTE | 2018-12-15 11:50 | CT ---
EXAMINATION TYPE: CT brain will wo con DATE OF EXAM: 12/15/2018 COMPARISON: 11/06/2017 HISTORY: Fall today with Left orbtial injury. Facial abrasions CT DLP: 1331.9 mGycm, Automated exposure control for dose reduction was used. CONTRAST: Patient injected with 0 mL of Isovue 300. CT of the brain is performed utilizing 3 mm thick sections through the posterior fossa and 3 mm thick sections through the remaining calvarium. Study is performed within 24 hours of arrival to the hospital. No abnormal hyperdensity is present to suggest an acute intracranial hemorrhage. No mass lesion is evident. No acute infarcts are evident. Ventricles and sulci are prominent for the patient age. Paranasal sinuses and mastoid air cells within the [id number] are clear. There is soft tissue swelling over the right supraorbital region. No acute fractures are evident. IMPRESSIONS: 1. Atrophy, stable from comparison. 2. Superficial soft tissue swelling right supraorbital region CT cervical spine. COMPARISON: None CT of the cervical spine is performed in the axial plane at 2 mm thick sections. Reconstructed image s in the coronal, and sagittal plane are reviewed on the computer. No acute fractures are evident. There is a scoliosis through the cervical spine with convexity to left centered at approximately C5. There is diffuse loss of disc height throughout the cervical spine. This may be greatest at C4-5 leve l. Posterior endplate spurring is present central and right paracentral regions. Vertebral body heights are preserved. No spinal canal stenosis is evident. Severe Right foraminal stenosis is present C3-4 C4-5 from uncovertebral joint hypertrophy. Moderate f oraminal stenosis C5-6 and C6-7 from uncovertebral joint hypertrophy is present. Emphysematous changes are present within the lung apices. IMPRESSIONS: 1. Severe foraminal stenosis right C3-4 C4-5 foramen secondary to uncovertebral joint hypertrophy. 2. Scoliosis. 3. Degenerative disc changes greatest at C4-5. 4. No acute fractures evident
[2018-12-15 12:19] VITALS: BP 120/79; PULSE 85; RESP 18; TEMP 98.2
== END 2018-12-15 12:13 | disposition home or self-care (01) ==
LOC: EC 10:33
DX: S00.31XA Abrasion of nose, initial encounter (principal); S60.221A Contusion of right hand, initial encounter; S00.83XA Contusion of other part of head, initial encounter; M48.02 Spinal stenosis, cervical region; M47.812 Spondylosis without myelopathy or radiculopathy, cervical region; E11.9 Type 2 diabetes mellitus without complications; F41.9 Anxiety disorder, unspecified; Z87.891 Personal history of nicotine dependence; Z88.1 Allergy status to other antibiotic agents; Z79.02 Long term (current) use of antithrombotics/antiplatelets; Z79.84 Long term (current) use of oral hypoglycemic drugs; Z79.899 Other long term (current) drug therapy; Z85.528 Personal history of other malignant neoplasm of kidney; Z90.5 Acquired absence of kidney; Z90.89 Acquired absence of other organs; Z95.818 Presence of other cardiac implants and grafts; Z23 Encounter for immunization; W01.0XXA Fall on same level from slipping, tripping and stumbling without subsequent striking against object, initial encounter; Y93.89 Activity, other specified; Y92.009 Unspecified place in unspecified non-institutional (private) residence as the place of occurrence of the external cause
CPT/HCPCS: 70450; 72125; 90471; 90715; 99284

== ENCOUNTER 2019-11-21 12:18 | Emergency (ER) | payer MEDICARE, BC ==
[2019-11-21 12:25] VITALS: TEMP 97.6
[2019-11-21] MEDS ORDERED: SODIUM CHLORIDE 0.9% 1,000 ML IV ONE (12:38)
--- NOTE | 2019-11-21 12:40 | ED ---
General Adult HPI - General Chief complaint: Weakness Stated complaint: cough, diarrhea Time Seen by Provider: 11/21/19 12:20 Source: patient, RN notes reviewed, old records reviewed Mode of arrival: ambulatory Limitations: no limitations - History of Present Illness Initial comments: This is an 79-year-old male who presents to the emergency department complaining of 5 day history of diarrhea. Patient also states he has a chronic cough that he can't seem to get over. Patient denies being short of breath or having chest pain. Patient denies any fever chills. Patient denies any vomiting. Patient states he occasionally does have some lower abdominal pain on both sides but it is intermittent in nature. Patient denies any lightheadedness or dizziness per patient states he is able to tolerate food and liquids. Patient denies any headache patient denies numbness or weakness. Patient denies any antibiotics recently. Patient also complains of generalized fatigue - Related Data Home Medications Medication Instructions Recorded Confirmed ALPRAZolam [Xanax] 0.5 mg PO DAILY 06/08/16 11/21/19 Multivitamins, Thera [Multivitamin 1 tab PO DAILY 06/08/16 11/21/19 (formulary)] Tamsulosin HCl [Flomax] 0.4 mg PO DAILY 06/08/16 11/21/19 Latanoprost [Xalatan 0.005%] 1 drop BOTH EYES HS 08/04/16 11/21/19 Calcium Carbonate [Calcium] 600 mg PO HS 11/07/17 11/21/19 glipiZIDE [Glucotrol] 10 mg PO PC-BRKFST 11/27/18 11/21/19 Acetaminophen [Tylenol Extra 500 mg PO Q6H PRN 12/15/18 11/21/19 Strength] Canagliflozin [Invokana] 300 mg PO DAILY 11/21/19 11/21/19 Isosorbide Mononitrate ER [Imdur] 15 mg PO DAILY 11/21/19 11/21/19 Omeprazole [PriLOSEC] 20 mg PO AC-BRKFST 11/21/19 11/21/19 metFORMIN HCL [Glucophage] 500 mg PO PC-SUPPER 11/21/19 11/21/19 Previous Rx's Medication Instructions Recorded Aspirin EC [Ecotrin Low Dose] 81 mg PO DAILY #30 tablet. 09/20/17 Atorvastatin [Lipitor] 40 mg PO HS #30 tab 09/20/17 Metoprolol Succinate (ER) [Toprol 50 mg PO DAILY #30 tab.er.24h 09/20/17 XL] Nitroglycerin Sl Tabs [Nitrostat] 0.4 mg SUBLINGUAL Q5M PRN #20 tab 09/20/17 Allergies Allergy/AdvReac Type Severity Reaction Status Date / Time clarithromycin [From Biaxin] AdvReac Nausea & Verified 11/21/19 14:10 Vomiting & Diarrhea Review of Systems ROS Statement: Those systems with pertinent positive or pertinent negative responses have been documented in the HPI. ROS Other: All systems not noted in ROS Statement are negative. Past Medical History Past Medical History: Diabetes Mellitus Additional Past Medical History / Comment(s): , renal CA with removal of part of kidney and removal of rib, History of Any Multi-Drug Resistant Organisms: None Reported Past Surgical History: Heart Catheterization, Hernia Repair Additional Past Surgical History / Comment(s): AAA repair, 1/2 left kidney removed Past Anesthesia/Blood Transfusion Reactions: Previous Problems w/ Anesthesia, Motion Sickness, Postoperative Nausea & Vomiting (PONV) Date of Last Stent Placement:: 09/19/17 Past Psychological History: Anxiety Smoking Status: Former smoker Past Alcohol Use History: Rare Past Drug Use History: None Reported - Past Family History Mother Family Medical History: No Reported History Father Family Medical History: COPD, Hypertension Brother(s) Family Medical History: Diabetes Mellitus Sister(s) Family Medical History: Coronary Artery Disease (CAD), Diabetes Mellitus Son(s) Family Medical History: No Reported History Daughter(s) Family Medical History: No Reported History General Exam - General Exam Comments Initial Comments: GENERAL: Patient is well-developed and well-nourished. Patient is nontoxic and well- hydrated and is in mild distress. ENT: Neck is soft and supple. No significant lymphadenopathy is noted. Oropharynx is clear. Moist mucous membranes. Neck has full range of motion without eliciting any pain. EYES: The sclera were anicteric and conjunctiva were pink and moist. Extraocular movements were intact and pupils were equal round and reactive to light. Eyelids were unremarkable. PULMONARY: Unlabored respirations. Good breath sounds bilaterally. No audible rales rhonchi or wheezing was noted. CARDIOVASCULAR: There is a regular rate and rhythm without any murmurs gallops or rubs. ABDOMEN: Soft and nontender with normal bowel sounds. No palpable organomegaly was noted. There is no palpable pulsatile mass. SKIN: Skin is clear with no lesions or rashes and otherwise unremarkable. NEUROLOGIC: Patient is alert and oriented x3. Cranial nerves II through XII are grossly intact. Motor and sensory are also intact. Normal speech, volume and content. Symmetrical smile. MUSCULOSKELETAL: Normal extremities with adequate strength and full range of motion. No lower extremity swelling or edema. No calf tenderness. LYMPHATICS: No significant lymphadenopathy is noted PSYCHIATRIC: Normal psychiatric evaluation. Limitations: no limitations Course Vital Signs 11/21/19 11/21/19 12:20 13:57 Temperature 97.6 F Pulse Rate 119 H 98 Respiratory 20 18 Rate Blood Pressure 105/72 118/71 O2 Sat by Pulse 98 98 Oximetry Medical Decision Making - Medical Decision Making EKG shows sinus tachycardia with occasional PVCs at 110 bpm MA interval 154 QRS is 90 QT interval 342 QTC is 462. Patient's EKG shows no ST segment elevation or depression. Patient received a liter of fluid and labs were repeated patient showed improvement and by car from -18 and patient has had no diarrhea while in the emergency department. Patient was feeling considerably better after a 2 L total bolus. Chest x-ray showed no acute abnormality - Lab Data Result diagrams: 11/21/19 12:45 11/21/19 15:19 Lab Results 11/21/19 11/21/19 11/21/19 Range/Units 12:45 12:45 12:45 WBC 7.0 (3.8-10.6) k/uL RBC 5.37 (4.30-5.90) m/uL Hgb 15.6 (13.0-17.5) gm/dL Hct 48.2 (39.0-53.0) % MCV 89.7 (80.0-100.0) fL MCH 29.0 (25.0-35.0) pg MCHC 32.3 (31.0-37.0) g/dL RDW 14.2 (11.5-15.5) % Plt Count 212 (150-450) k/uL Neutrophils % (Manual) 67 % Band Neutrophils % 4 % Lymphocytes % (Manual) 16 % Monocytes % (Manual) 12 % Eosinophils % (Manual) 1 % Neutrophils # (Manual) 4.90 (1.3-7.7) k/uL Lymphocytes # (Manual) 1.12 (1.0-4.8) k/uL Monocytes # (Manual) 0.84 (0-1.0) k/uL Eosinophils # (Manual) 0.07 (0-0.7) k/uL Nucleated RBCs 0 (0-0) /100 WBC Manual Slide Review Performed Poikilocytosis Slight Anisocytosis (manual) Present Sodium 139 (137-145) mmol/L Potassium 4.2 (3.5-5.1) mmol/L Chloride 109 H (98-107) mmol/L Carbon Dioxide 13 L (22-30) mmol/L Anion Gap 17 mmol/L BUN 34 H (9-20) mg/dL Creatinine 1.69 H (0.66-1.25) mg/dL Est GFR (CKD-EPI)AfAm 44 (>60 ml/min/1.73 sqM) Est GFR (CKD-EPI)NonAf 38 (>60 ml/min/1.73 sqM) Glucose 181 H (74-99) mg/dL POC Glucose (mg/dL) (75-99) mg/dL POC Glu Squad Boss ID Plasma Lactic Acid Sajan (0.7-2.0) mmol/L Calcium 9.7 (8.4-10.2) mg/dL Total Bilirubin 1.7 H (0.2-1.3) mg/dL AST 35 (17-59) U/L ALT 20 (4-49) U/L Alkaline Phosphatase 92 (38-126) U/L Total Protein 7.1 (6.3-8.2) g/dL Albumin 4.2 (3.5-5.0) g/dL Urine Color Yellow Urine Appearance Clear (Clear) Urine pH 5.0 (5.0-8.0) Ur Specific [place] 1.022 (1.001-1.035) Urine Protein Negative (Negative) Urine Glucose (UA) 4+ H (Negative) Urine Ketones Trace H (Negative) Urine Blood Negative (Negative) Urine Nitrite Negative (Negative) Urine Bilirubin Negative (Negative) Urine Urobilinogen <2.0 (<2.0) mg/dL Ur Leukocyte Esterase Negative (Negative) 11/21/19 11/21/19 11/21/19 Range/Units 15:19 15:19 15:25 WBC (3.8-10.6) k/uL RBC (4.30-5.90) m/uL Hgb (13.0-17.5) gm/dL Hct (39.0-53.0) % MCV (80.0-100.0) fL MCH (25.0-35.0) pg MCHC (31.0-37.0) g/dL RDW (11.5-15.5) % Plt Count (150-450) k/uL Neutrophils % (Manual) % Band Neutrophils % % Lymphocytes % (Manual) % Monocytes % (Manual) % Eosinophils % (Manual) % Neutrophils # (Manual) (1.3-7.7) k/uL Lymphocytes # (Manual) (1.0-4.8) k/uL Monocytes # (Manual) (0-1.0) k/uL Eosinophils # (Manual) (0-0.7) k/uL Nucleated RBCs (0-0) /100 WBC Manual Slide Review Poikilocytosis Anisocytosis (manual) Sodium 139 (137-145) mmol/L Potassium 4.2 (3.5-5.1) mmol/L Chloride 109 H (98-107) mmol/L Carbon Dioxide 18 L (22-30) mmol/L Anion Gap 12 mmol/L BUN 34 H (9-20) mg/dL Creatinine 1.56 H (0.66-1.25) mg/dL Est GFR (CKD-EPI)AfAm 48 (>60 ml/min/1.73 sqM) Est GFR (CKD-EPI)NonAf 41 (>60 ml/min/1.73 sqM) Glucose 160 H (74-99) mg/dL POC Glucose (mg/dL) 160 H (75-99) mg/dL POC Glu Squad Boss ID Nahomi Jasmine Plasma Lactic Acid Sajan 1.1 (0.7-2.0) mmol/L Calcium 8.8 (8.4-10.2) mg/dL Total Bilirubin 1.4 H (0.2-1.3) mg/dL AST 32 (17-59) U/L ALT 18 (4-49) U/L Alkaline Phosphatase 70 (38-126) U/L Total Protein 6.1 L (6.3-8.2) g/dL Albumin 3.6 (3.5-5.0) g/dL Urine Color Urine Appearance (Clear) Urine pH (5.0-8.0) Ur Specific [place] (1.001-1.035) Urine Protein (Negative) Urine Glucose (UA) (Negative) Urine Ketones (Negative) Urine Blood (Negative) Urine Nitrite (Negative) Urine Bilirubin (Negative) Urine Urobilinogen (<2.0) mg/dL Ur Leukocyte Esterase (Negative) Disposition Clinical Impression: Acute diarrhea, Cough Disposition: HOME SELF-CARE Instructions (If sedation given, give patient instructions): Acute Diarrhea (ED) Is patient prescribed a controlled substance at d/c from ED?: No Referrals: Angel Luis Ramon DO [Primary Care Provider] - 1-2 days Time of Disposition: 15:48
[2019-11-21 13:13] LABS: HCT 48.2 % (39.0-53.0); HGB 15.6 gm/dL (13.0-17.5); MCHC 32.3 g/dL (31.0-37.0); MCV 89.7 fL (80.0-100.0); Mean Platelet Volume 7.3; Platelet Count 212 k/uL (150-450); Poikilocytosis Slight; RBC 5.37 m/uL (4.30-5.90); RDW 14.2 % (11.5-15.5)
[2019-11-21 13:16] LABS: Albumin 4.2 g/dL (3.5-5.0); Calcium 9.7 mg/dL (8.4-10.2); Total Bilirubin 1.7 mg/dL (0.2-1.3); Total Protein 7.1 g/dL (6.3-8.2)
--- NOTE | 2019-11-21 13:28 | XR ---
EXAMINATION TYPE: XR chest 2V DATE OF EXAM: 11/21/2019 COMPARISON: 07/05/2018 TECHNIQUE: PA and lateral views submitted. HISTORY: Difficulty breathing FINDINGS: The lungs are clear and there is no pneumothorax, pleural effusion, or focal pneumonia. Arthropathy of the shoulders. Biapical pleural thickening. Chronic appearing deformity of the right first rib. N o overt failure. Hyperinflation suggests COPD. Hypertrophic and degenerative change of the spine. No overt failure. IMPRESSION: 1. No acute process.
[2019-11-21 13:34] LABS: Potassium 4.2 mmol/L (3.5-5.1)
[2019-11-21 13:39] LABS: Band Neutrophils % 4 %; Eosinophils # (M) 0.07 k/uL (0-0.7); Lymphocytes # (M) 1.12 k/uL (1.0-4.8); Monocytes # (M) 0.84 k/uL (0-1.0); Neutrophils % (M) 67 %; Nucleated Red Blood Cells 0 /100 WBC (0-0); Total Cells Counted 100
[2019-11-21 13:40] LABS: Anisocytosis (M) Present
[2019-11-21 14:00] VITALS: RESP 18
[2019-11-21 14:13] LABS: Appearance,Urine Clear (Clear); Bilirubin,Urine Negative (Negative); Blood,Urine Negative (Negative); Color,Urine Yellow; Glucose,Urine (UA) 4+ (Negative); Ketones,Urine Trace (Negative); Leukocyte Esterase,Urine Negative (Negative); Nitrite,Urine Negative (Negative); Protein,Urine Negative (Negative); Specific Gravity,Urine 1.022 (1.001-1.035); Urobilinogen,Urine <2.0 mg/dL (<2.0)
[2019-11-21 15:26] LABS: Glucose,Whole Blood 160 mg/dL (75-99)
[2019-11-21] MEDS ORDERED: SODIUM CHLORIDE 0.9% 500 ML 500 ML IV ONE (15:30)
[2019-11-21 15:43] LABS: Albumin 3.6 g/dL (3.5-5.0); Calcium 8.8 mg/dL (8.4-10.2); Total Bilirubin 1.4 mg/dL (0.2-1.3); Total Protein 6.1 g/dL (6.3-8.2)
[2019-11-21 15:44] LABS: Potassium 4.2 mmol/L (3.5-5.1)
[2019-11-21] MEDS ORDERED: DIPHENOX-ATROP STARTER PACK 8 TAB BTL PO STA (15:49)
[2019-11-21 16:10] VITALS: BP 120/72; PULSE 58
== END 2019-11-21 16:10 | disposition home or self-care (01) ==
LOC: EC 12:18
DX: R19.7 Diarrhea, unspecified (principal); R05 Cough; R53.1 Weakness; I49.3 Ventricular premature depolarization; E11.9 Type 2 diabetes mellitus without complications; F41.9 Anxiety disorder, unspecified; Z79.84 Long term (current) use of oral hypoglycemic drugs; Z79.899 Other long term (current) drug therapy; Z88.1 Allergy status to other antibiotic agents; Z87.891 Personal history of nicotine dependence; Z85.528 Personal history of other malignant neoplasm of kidney
CPT/HCPCS: 36415; 71046; 80053; 81003; 83605; 85025; 87045; 87046; 87324; 93005; 96360; 96361; 99285

== ENCOUNTER → 2020-09-03 | Outpatient (CLI) | payer MEDICARE, BC ==
--- NOTE | 2020-09-03 17:19 | CT ---
EXAMINATION TYPE: CT abdomen pelvis wo con DATE OF EXAM: 09/03/2020 HISTORY: Generalized abdominal pain per order. Diarrhea for [address] DLP: 509 mGycm. Automated Exposure Control for Dose Reduction was Utilized. TECHNIQUE: CT scan of the abdomen and pelvis is performed with oral but without IV contrast. COMPARISON: CT abdomen and pelvis August 22, 2015 FINDINGS: Within the limitations of a non-contrast study, the following observations are made. LUNG BASES: Some emphysematous change in visualized lung bases. Large thin-walled cyst or bleb anteri or left lower lobe redemonstrated. Moderate to severe three-vessel coronary artery calcification and/ or stents are in LIVER/GB: Dependent small hyperdense gallstones in gallbladder. No surrounding inflammatory change. O ccasional thin-walled cyst scattered throughout the liver redemonstrated. PANCREAS: No significant abnormality is seen. SPLEEN: No significant abnormality is seen. ADRENALS: No significant abnormality is seen. KIDNEYS: Some cortical thinning with a few thin-walled cysts scattered throughout both kidneys is red emonstrated. Findings consistent with product of chronic medical renal disease. There is a single 5 t o 6 mm calculus mid pole level left kidney coronal image 64 redemonstrated. No hydronephrosis noted b ilaterally. BOWEL: The oral contrast does not reach level terminal ileum making evaluation of distal bowel subopt imal. No suspicious small or large bowel dilatation. Normal-appearing appendix from base of cecum in the right upper pelvis. Few diverticula in the left and sigmoid colon. No CT evidence for acute diver ticulitis. GENITAL ORGANS: Enlarged prostate gland consistent with BPH. LYMPH NODES: No greater than 1cm abdominal or pelvic lymph nodes are appreciated. OSSEOUS STRUCTURES: Multilevel spurring in the thoracic spine. Facet arthropathy lower lumbar levels. OTHER: Surgical changes with graft in the mid to distal abdominal aorta are redemonstrated. Occasional scattered soft tissue in the anterior abdominal wall presumed product of subcutaneous inje ctions and/or scarring. Persistent eventration of the posterior left lateral fat only partially imaged on this study mid abdo neelima level for reference coronal image 80App. IMPRESSION: No new or acute findings evident.
== END | disposition home or self-care (01) ==
LOC: RADCTMAIN 14:43
PROVIDERS: ATTEND Internal Medicine Geriatric Medicine
DX: R10.84 Generalized abdominal pain (principal)
CPT/HCPCS: 74176

== ENCOUNTER 2020-10-04 09:04 | Day surgery (SDC) | payer MEDICARE, BC ==
[2020-10-02 15:34] VITALS: BMI 24.3
[~2020-10-04 09:04] MED LIST changes: -BACITRACIN 50,000 UNIT, POLYMYXIN B 500,000 UNIT in SODIUM CHLORIDE 0.9% IRRIGATIO 1,00... IRRIGATION ONE; -DEXAMETHASONE SOD PHOSPHATE 10 MG/ML 1 ML VIAL IV ONE; +LACTATED RINGERS 1,000 ML IV SCH; -LIDOCAINE 1% 20 ML VIAL (10MG/ML) FOR IV START INTRADERMA PRN; -MIDAZOLAM 2 MG/2 ML VIAL IV PRN; -ONDANSETRON 4 MG/2 ML VIAL IVP ONE; -ceFAZolin IN SWFI 2 GM/20 ML SYRINGE IVP ONE; -fentaNYL (PF) 50 MCG/ML 2 ML AMP IV PRN
[2020-10-04] MEDS ORDERED: LIDOCAINE 1% (10MG/ML) FOR IV START INTRADERMA ONE (09:48)
[2020-10-04 09:53] LABS: Glucose,Whole Blood 190 mg/dL (75-99)
[2020-10-04] MEDS ORDERED: PROPOFOL 10 MG/ML 20 ML VIAL IV ONE (10:17)
[2020-10-04] MEDS ORDERED: LIDOCAINE 1% INJ 10MG/ML (20 ML MDV) ONE (10:17)
--- NOTE | 2020-10-04 10:30 | P.PCN ---
Date of Procedure: 10/04/20 Procedure(s) Performed: BRIEF HISTORY: Patient is a 79-year-old, pleasant, 8 scheduled for an upper endoscopy as part of evaluation of epigastric pain and dysphagia for the last few months duration.. PROCEDURE PERFORMED: Esophagogastroduodenoscopy with biopsy. PREOPERATIVE DIAGNOSIS: Epigastric Abdominal pain and dysphagia. IV sedation per anesthesia. PROCEDURE: After informed consent was obtained, the patient was brought into the endoscopy unit. IV sedation was administered by Anesthesia under continuous monitoring. Initially the Olympus GIF-140 video endoscope was inserted into the mouth. Esophagus intubated without any difficulty. It was gradually advanced into the stomach and duodenum and carefully examined. The bulb and the second part of the duodenum appeared normal. The scope at this time was withdrawn to the stomach, adequately insufflated with air, and upon careful examination, mucosa of the antrum had mild patchy areas of erythema noted and biopsies were done from this area. The, body, cardia and the fundus appeared normal. The scope was then withdrawn into the esophagus. The GE junction was located at 39 cm from the incisors. A small sliding type hiatal hernia noted. The esophagus appeared normal. There were no erosions or ulcerations seen, biopsies were done from the distal esophagus and the patient tolerated the procedure well. IMPRESSION: 1. Mild antral gastritis. 2. Small sliding Hiatal hernia but no evidence of esophagitis or esophageal stricture. RECOMMENDATIONS: The findings of this examination were discussed with the patient as well as his family. He will follow with the biopsy results. He was advised to continue with Protonix 40 mg daily and follow antireflux measures..
[2020-10-04 10:49] VITALS: RESP 16
[2020-10-04 10:53] VITALS: BP 123/74; PULSE 85
== END 2020-10-04 11:28 | disposition home or self-care (01) ==
LOC: ORWHC2ENDO 09:04
PROVIDERS: ATTEND Internal Medicine Gastroenterology
DX: K21.00 Gastro-esophageal reflux disease with esophagitis, without bleeding (principal); K29.70 Gastritis, unspecified, without bleeding; K44.9 Diaphragmatic hernia without obstruction or gangrene; N40.0 Benign prostatic hyperplasia without lower urinary tract symptoms; E11.9 Type 2 diabetes mellitus without complications; I71.4 Abdominal aortic aneurysm, without rupture; Z87.891 Personal history of nicotine dependence; Z88.1 Allergy status to other antibiotic agents; Z79.82 Long term (current) use of aspirin; Z79.899 Other long term (current) drug therapy; Z95.828 Presence of other vascular implants and grafts
CPT/HCPCS: 88305; 43239; J2001; J2704

== ENCOUNTER 2020-11-23 06:41 | Day surgery (SDC) | payer MEDICARE, BC ==
[2020-11-21 15:48] VITALS: BMI 24.0
[2020-11-23] MEDS ORDERED: LIDOCAINE 1% (10MG/ML) FOR IV START INTRADERMA ONE (07:10)
[2020-11-23 07:23] LABS: Glucose,Whole Blood 160 mg/dL (75-99)
[2020-11-23 07:24] VITALS: TEMP 97.9
[2020-11-23] MEDS ORDERED: PROPOFOL 10 MG/ML 20 ML VIAL IV ONE (07:40)
--- NOTE | 2020-11-23 07:58 | P.PCN ---
Date of Procedure: 11/23/20 Procedure(s) Performed: BRIEF HISTORY: Patient is a 80-year-old pleasant white male was made scheduled for an elective colonoscopy as a part of chronic diarrhea for the last 6 months duration. He has not was anywhere from 3-4 a day which are loose to watery in consistency. He denies any blood or mucus in the stool. PROCEDURE PERFORMED: Colonoscopy with biopsy. PREOPERATIVE DIAGNOSIS: Chronic diarrhea of 6 months duration. IV sedation per Anesthesia. PROCEDURE: After informed consent was obtained, the patient, was brought into the endoscopy unit. IV sedation was administered by Anesthesia under continuous monitoring. Digital rectal examination was normal. Initially the Olympus CF-160 flexible video colonoscope was then inserted in the rectum, gradually advanced into the cecum without any difficulty. Careful examination was performed as the scope was gradually being withdrawn. Ileocecal valve and the appendiceal orifice were visualized and appeared normal. Prep was excellent. Mucosa of the cecum, ascending colon, transverse colon, descending colon, sigmoid colon, and rectum appeared normal. Scattered sigmoidal reticulosis seen. Random biopsies were done from ascending and descending colon to rule out metastatic/collagenous colitis. Retroflexion was performed in the rectum and no lesions were seen. The patient tolerated the procedure well. IMPRESSION: Normal-appearing colon from rectum to cecum with no evidence of colorectal neoplasia. Scattered sigmoid diverticulosis. RECOMMENDATIONS: Findings of this examination were discussed with the patient as well as his family. He was advised to follow with the biopsy result. He will be seen in office in one to 2 weeks..
[2020-11-23 08:09] VITALS: RESP 16
[2020-11-23 08:54] VITALS: BP 112/66; PULSE 79
== END 2020-11-23 09:22 | disposition home or self-care (01) ==
LOC: ORWHC2ENDO 06:41
PROVIDERS: ATTEND Internal Medicine Gastroenterology
DX: K52.89 Other specified noninfective gastroenteritis and colitis (principal); K57.30 Diverticulosis of large intestine without perforation or abscess without bleeding; I10 Essential (primary) hypertension; E11.9 Type 2 diabetes mellitus without complications; N40.0 Benign prostatic hyperplasia without lower urinary tract symptoms; K21.9 Gastro-esophageal reflux disease without esophagitis; F41.9 Anxiety disorder, unspecified; Z97.2 Presence of dental prosthetic device (complete) (partial); Z79.84 Long term (current) use of oral hypoglycemic drugs; Z79.899 Other long term (current) drug therapy; Z88.1 Allergy status to other antibiotic agents
CPT/HCPCS: 88305; 45380; J2704

== ENCOUNTER 2020-11-28 09:51 | Inpatient (IN) | payer MEDICARE, BC ==
[2020-11-28] MEDS ORDERED: NITROGLYCERIN SL TABS 0.4 MG TAB SUBLINGUAL STA (10:05)
[2020-11-28] MEDS ORDERED: ASPIRIN 81 MG PO STA (10:05)
--- NOTE | 2020-11-28 10:06 | ED ---
Chest Pain HPI - General Source: patient Mode of arrival: ambulatory Limitations: no limitations <Julee Dawkins - Last Filed: 11/28/20 13:00> <Harman Hein - Last Filed: 11/28/20 13:23> - General Chief Complaint: Chest Pain Stated Complaint: chest pain/CITLALI Time Seen by Provider: 11/28/20 10:01 - History of Present Illness Initial Comments: 80-year-old male with history of coronary artery disease with stent, DM, renal carcinoma with nephrectomy, AAA repair--patient states that for the past 3 days has had substernal chest pressure. He states it worsened and radiated to the back. He denied jaw pain and arm pain, pain with deep inspiration, leg swelling, he states he feel slightly short of breath. Denies abdominal pain. Pt denies nausea, vomiting, cough, congestion or known fevers. patient febrile on arrival, HR elevated. Patient does not appear toxic but HR is elevated. BP stable. Patient denies history of heart failure. Patient has no additional complaints and upon arrival he appears well nontoxic, stating that the pain is not present. (Julee Dawkins) - Related Data Home Medications Medication Instructions Recorded Confirmed ALPRAZolam [Xanax] 0.25 mg PO DAILY 06/08/16 11/28/20 Multivitamins, Thera [Multivitamin 1 tab PO DAILY 06/08/16 11/28/20 (formulary)] Tamsulosin HCl [Flomax] 0.4 mg PO QAM 06/08/16 11/28/20 Calcium Carbonate [Calcium] 600 mg PO HS 11/07/17 11/28/20 glipiZIDE [Glucotrol] 10 mg PO BID 11/27/18 11/28/20 Isosorbide Mononitrate ER [Imdur] 15 mg PO QAM 11/21/19 11/28/20 Pantoprazole Sodium [Protonix] 40 mg PO QAM 10/02/20 11/28/20 Repaglinide [Prandin] 4 mg PO BID 10/02/20 11/28/20 Ascorbic Acid [Vitamin C] 1,000 mg PO DAILY 11/21/20 11/28/20 Cholecalciferol [Vitamin D3] 1,000 unit PO DAILY 11/21/20 11/28/20 Metoprolol Succinate (ER) [Toprol 50 mg PO QAM 11/21/20 11/28/20 XL] Semaglutide [Ozempic] 5 mg SQ MO 11/21/20 11/28/20 Zinc 50 mg PO DAILY 11/21/20 11/28/20 Latanoprost/Pf [Latanoprost 0.005% 1 drop BOTH EYES HS 11/28/20 11/28/20 Eye Drop] Previous Rx's Medication Instructions Recorded Aspirin EC [Ecotrin Low Dose] 81 mg PO DAILY #30 tablet. 09/20/17 Atorvastatin [Lipitor] 40 mg PO HS #30 tab 09/20/17 Allergies Allergy/AdvReac Type Severity Reaction Status Date / Time clarithromycin [From Biaxin] AdvReac Nausea & Verified 11/28/20 10:55 Vomiting & Diarrhea Review of Systems ROS Other: All systems not noted in ROS Statement are negative. <Julee Dawkins - Last Filed: 11/28/20 13:00> ROS Other: All systems not noted in ROS Statement are negative. <Harman Hein - Last Filed: 11/28/20 13:23> ROS Statement: Those systems with pertinent positive or pertinent negative responses have been documented in the HPI. EKG Findings - EKG Comments: EKG Findings:: #1: Ventricular rate 1 23 bpm, DC interval 160 ms, QRS gnosticism 90 ms, QT/QTC 316/452 ms. Sinus tachycardia left axis noted. There are some nonspecific ST changes in V1 and V2 slightly changed from previous EKG on 11/21/2020 no reciprocal changes. #2: Ventricular rate 119 bpm, DC interval 164 ms, QRS duration 102 ms, QT/QTc 312/438 ms. Sinus tachycardia left axis redemonstrated. Serum resolution of the artifact noted in previous EKG necessary changes in V1 and V2 again no reciprocal changes. Both EKG #1 and 2 were reviewed by my attending provider Dr. Hein <Julee Dawkins - Last Filed: 11/28/20 13:00> Past Medical History Past Medical History: Cancer, Diabetes Mellitus, GERD/Reflux, Hearing Disorder / Deafness, Skin Disorder Additional Past Medical History / Comment(s): HX RENAL CANCER WITH PART OF KIDNEY REMOVED (2006)., LUMBAR STENOSIS , HX OF AAA WITH REPAIR., ENLARGED PROSTATE., HX OF FALLS., HEARING AIDS, PSORIASIS, DIARRHEA. History of Any Multi-Drug Resistant Organisms: None Reported Past Surgical History: Heart Catheterization With Stent, Hernia Repair Additional Past Surgical History / Comment(s): AAA repair , 1/2 left kidney removed (2006)., CAROTID SURGERY (06/11/16), BACK SURGERY , HX OF HEART CATH WITH STENTS (09/19/17 & 12/08/17) Past Anesthesia/Blood Transfusion Reactions: Previous Problems w/ Anesthesia, Motion Sickness, Postoperative Nausea & Vomiting (PONV) Additional Past Anesthesia/Blood Transfusion Reaction / Comment(s): no hx blood transfusion Date of Last Stent Placement:: 12/08/2017 Past Psychological History: Anxiety Smoking Status: Former smoker Past Alcohol Use History: Rare Past Drug Use History: None Reported - Past Family History Mother Family Medical History: No Reported History Father Family Medical History: COPD, Hypertension Brother(s) Family Medical History: Diabetes Mellitus Sister(s) Family Medical History: Coronary Artery Disease (CAD), Diabetes Mellitus Son(s) Family Medical History: No Reported History Daughter(s) Family Medical History: No Reported History <Julee Dawkins L - Last Filed: 11/28/20 13:00> General Exam Limitations: no limitations <Julee Dawkins - Last Filed: 11/28/20 13:00> - General Exam Comments Initial Comments: General: The patient is awake and alert, in no distress Eye: Pupils are equal, round and reactive to light, extra-ocular movements are intact. No nystagmus. There is normal conjunctiva bilaterally. No signs of icterus. Ears, nose, mouth and throat: There are moist mucous membranes and no oral lesions. Neck: The neck is supple, there is no tenderness or JVD. Cardiovascular: There is a regular rate and rhythm. No murmur, rub or gallop is appreciated. Respiratory: Lungs are clear to auscultation, respirations are non-labored, breath sounds are equal. No wheezes, stridor, rales, or rhonchi. Gastrointestinal: Soft, non-distended, No epigastric tenderness, some mild tenderness to deep palpation of the RUQ, abdomen without masses or organomegaly noted. There is no rebound or guarding present. Musculoskeletal: Normal ROM, no tenderness. Strength 5/5. Sensation intact. Radial and DP pulses equal bilaterally 2+. Neurological: A&O x 3. CN II-XII intact grossly, There are no obvious motor or sensory deficits. Coordination appears grossly intact. Speech is normal. Skin: Skin is warm and dry and no rashes or lesions are noted. No calf pain, no LE edema. Psychiatric: Cooperative, appropriate mood & affect, normal judgment. (Julee Dawkins) Course <Harman Hein - Last Filed: 11/28/20 13:23> Vital Signs 11/28/20 11/28/20 11/28/20 09:55 10:36 12:18 Temperature 97.9 F 100.3 F H 98.1 F Pulse Rate 124 H 124 H 120 H Respiratory 18 18 Rate Blood Pressure 117/69 115/67 O2 Sat by Pulse 98 98 Oximetry 11/28/20 12:34 Temperature Pulse Rate 112 H Respiratory 18 Rate Blood Pressure 119/66 O2 Sat by Pulse 98 Oximetry - Reevaluation(s) Reevaluation #1: 11/28/20 13:21 PA supervision: I personally evaluate this patient [id number] and did present with complaints of chest pain but he also had some upper abdominal discomfort. The workup demonstrated pain to these areas on palpation stress of the abdomen. Ultrasound does show evidence of a dilated common bile duct he does have evidence of a stone and biliary tract with elevated liver enzymes and bilirubin. Patient be admitted with GI consultation. I do agree with the assessment and plan (Harman Hein) Chest Pain MDM <Julee Dawkins - Last Filed: 11/28/20 13:00> - MDM 80yo male presenting for cc of chest pain. RUQ Pain on exam. US stone with enzymes concerning for ascending cholangitis. pt initiated on rocephin i nitiatially after US results began pt on flagyll, zosyn combination. pt appears well, BPs stable. hR remains elevated. pt will be admitted for GI/General Surgery consultation. Dr. Briseno agreeable to care plan and admission. Dr. Hein agreeable to care plan and admission. (Julee Dawkins) Disposition Is patient prescribed a controlled substance at d/c from ED?: No Time of Disposition: 12:54 Decision to Admit Reason: Admit from EC Decision Date: 11/28/20 Decision Time: 12:54 <Julee Dawkins - Last Filed: 11/28/20 13:00> <Harman Hein - Last Filed: 11/28/20 13:23> Clinical Impression: Common bile duct (CBD) obstruction, Back pain, Pancreatitis, Lactic acidosis, Fever, Tachycardia, Chest discomfort, RUQ pain, Leukocytosis Disposition: ADMITTED IP TO THIS [facility] Condition: Stable
[2020-11-28] MEDS ORDERED: MORPHINE SULFATE 2 MG/ML SYRINGE IVP STA (10:12)
[2020-11-28 10:19] LABS: HCT 43.8 % (39.0-53.0); HGB 14.6 gm/dL (13.0-17.5); MCH 31.2 pg (25.0-35.0); MCHC 33.4 g/dL (31.0-37.0); MCV 93.2 fL (80.0-100.0); Mean Platelet Volume 7.1; Platelet Count 169 k/uL (150-450); RDW 14.3 % (11.5-15.5); WBC 10.9 k/uL (3.8-10.6)
[2020-11-28 10:35] LABS: Albumin 3.8 g/dL (3.5-5.0); Calcium 9.1 mg/dL (8.4-10.2); Magnesium 1.6 mg/dL (1.6-2.3); Total Bilirubin 4.1 mg/dL (0.2-1.3); Total Protein 6.3 g/dL (6.3-8.2)
[2020-11-28] MEDS ORDERED: ACETAMINOPHEN TAB 325 MG TAB PO STA (10:41)
[2020-11-28] MEDS ORDERED: INSULIN REGULAR 100 UNIT/ML VIAL IV ONE (10:43)
[2020-11-28 10:45] LABS: Potassium 4.4 mmol/L (3.5-5.1)
[2020-11-28] MEDS ORDERED: SODIUM CHLORIDE 0.9% 1,000 ML IV SCH (10:45)
[2020-11-28 10:47] LABS: Partial Thromboplastin Time 22.2 sec (22.0-30.0); Prothrombin Time 10.6 sec (9.0-12.0)
[2020-11-28 10:51] LABS: Band Neutrophils % 12 %; Lymphocytes # (M) 0.65 k/uL (1.0-4.8); Metamyelocytes # (M) 0.11 k/uL (0); Metamyelocytes % 1 %; Monocytes # (M) 0.44 k/uL (0-1.0); Neutrophils % (M) 78 %; Nucleated Red Blood Cells 0 /100 WBC (0-0); Total Cells Counted 200
--- NOTE | 2020-11-28 10:52 | XR ---
EXAMINATION TYPE: XR chest 2V DATE OF EXAM: 11/28/2020 COMPARISON: NONE TECHNIQUE: PA and lateral views submitted. HISTORY: Chest pain FINDINGS: The lungs are clear and there is no pneumothorax, pleural effusion, or focal pneumonia. Hypertrophi c and degenerative change of the spine. Hyperinflation suggests COPD. Patchy perihilar interstitial c hanges. Underlying chronic interstitial lung disease suspected. Arthropathy of the shoulders. IMPRESSION: 1. 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 Patchy perihilar interstitial infiltrates noted on today's exam..
[2020-11-28 10:53] LABS: Poikilocytosis (M) Present
[2020-11-28] MEDS ORDERED: SODIUM CHLORIDE 0.9% 500 ML 500 ML IV ONE (10:56)
[2020-11-28] MEDS ORDERED: SODIUM CHLORIDE 0.9% 1,000 ML IV ONE ×2 (11:37→12:51)
--- NOTE | 2020-11-28 12:14 | US ---
EXAMINATION TYPE: US abdomen limited DATE OF EXAM: 11/28/2020 COMPARISON: NONE CLINICAL HISTORY: bilirubin increased/fever. Pain and nausea EXAM MEASUREMENTS: Liver Length: 16 cm Gallbladder Wall: .2 cm CBD: 1.0 cm Right Kidney: 11.0 x 4.9 x 3. cm Pancreas: Prominant duct seen 4mm. Liver: Increased attenuation Gallbladder: Multiple stones seen. Evidence for sonographic Cano's sign: No CBD: Appears to be a stone within 1cm. Right Kidney: Cystic area upper pole 2.9 x 3.2 x 2.8cm. IMPRESSION: 1. Cholelithiasis. There does appear to be a obstructing calcification within the common bile duct. C orrelate for CBD obstruction with the CBD markedly dilated at 1 cm. 2. Nonspecific pattern of liver can be seen with hepatic steatosis or hepatitis. 3. Right renal cyst.
[2020-11-28] MEDS ORDERED: NALOXONE 0.4 MG/ML 1 ML VIAL IV PRN (12:20)
[2020-11-28] MEDS ORDERED: metroNIDAZOLE-NS PMX 500 MG in SALINE 1 100ML.BAG IVPB STA (12:52)
[2020-11-28] MEDS: SODIUM CHLORIDE 0.9% 1,000 ML IV SCH ×2 (12:53→15:51)
[2020-11-28] MEDS: PIPERACILLIN-TAZOBACTAM 3.375 GM in SODIUM CHLORIDE 0.9% 100 ML IVPB SCH (15:51)
[2020-11-28 16:45] LABS: Glucose,Whole Blood 210 mg/dL (75-99)
[2020-11-28] MEDS: INSULIN ASPART (NovoLOG) 100 UNIT/ML VIAL SQ SCH ×2 (16:58→22:04)
[2020-11-28] MEDS ORDERED: ONDANSETRON 4 MG/2 ML VIAL IVP PRN (18:26)
[2020-11-28 19:55] LABS: Glucose,Whole Blood 218 mg/dL (75-99)
--- NOTE | 2020-11-28 21:55 | P.HPIM ---
History of Present Illness H&P Date: 11/28/20 Chief Complaint: Chest Pain, abdominal pain, acute pancreatitis, ascending c holangitis and 80-year-old male one of my office patient with multiple medical problem was known to have history of CAD post heart catheter and stent placement in the past, history of diabetes, hypertension and hyperlipidemia was also known to have history of renal cancer with partial nephrectomy also had long-standing history of spinal stenosis of the lumbar spine with generalized weakness of the lower extremity. Post AAA repair, he presented to the emergency department in the afternoon today with concern of substernal chest pressure and pain with worsening dyspepsia and abdominal discomfort with nausea his symptoms become much worse with certain food he denies any increased pain with exertion at the time. Patient was seen and evaluated CK with troponin was negative, surprisingly patient had very high abnormal liver function tests with AST and ALT in the [id number], lipase was 2924. Patient also was in acute kidney injury with creatinine of 1.55 GFR of 41 only. Abdominal ultrasound showed cholelithiasis with obstructing calcification within the common duct correlate with, Dr. pollock with common duct markedly dilated at 1 cm. With mildly elevated white blood cell significantly high temperature patient also was diagnosed with ascending cholangitis. We'll consult gastroenterology for possible ERCP also general surgery for possible cholecystectomy patient will be admitted to the hospital on gram-negative coverage and pending culture to change antibiotics. Review of Systems CONSTITUTIONAL: Well-developed no acute respiratory distress. EYES: No icterus sclerae, no conjunctivitis. EARS, NOSE, MOUTH, THROAT, and FACE: No sore throat, lymphadenopathy, carotid bruits or deformity. RESPIRATORY: Mild shortness of breath with cough and wheezes. CARDIOVASCULAR: Positive PND or troponin palpitation and questionable of angina. GASTROINTESTINAL: Positive abdominal pain with nausea and vomiting no diarrhea. GENITOURINARY: Negative for Hematuria or UTI, no kidney stones. INTEGUMENT/BREAST: Negative for any muscular injury with mild osteoarthritis.. HEMATOLOGIC/LYMPHATIC: Negative for bleed or purpura. MUSCULOSKELTAL: Negative for Myalgia or arthralgia. NEURLOGICAL: No LOC, Sz or syncope, blurred vision dizziness or abnormality.. BEHAVIORAL/PSYCH: Negative. ENDOCRINE: Negative. Social history: He quit smoking in 2010 he started smoking at age 12 with total smoking history of from 50 years, likely abuse, no marijuana use. Family history: Positive for CAD, diabetes and chronic kidney disease. Past Medical History Past Medical History: Cancer, Diabetes Mellitus, GERD/Reflux, Hearing Disorder / Deafness, Skin Disorder Additional Past Medical History / Comment(s): HX RENAL CANCER WITH PART OF KIDNEY REMOVED (2006)., LUMBAR STENOSIS , HX OF AAA WITH REPAIR., ENLARGED PROS JENKINS., HX OF FALLS., HEARING AIDS, PSORIASIS, DIARRHEA. History of Any Multi-Drug Resistant Organisms: None Reported Past Surgical History: Heart Catheterization With Stent, Hernia Repair Additional Past Surgical History / Comment(s): AAA repair , 1/2 left kidney removed (2006)., CAROTID SURGERY (06/11/16), BACK SURGERY , HX OF HEART CATH WITH STENTS (09/19/17 & 12/08/17) Past Anesthesia/Blood Transfusion Reactions: Previous Problems w/ Anesthesia, Motion Sickness, Postoperative Nausea & Vomiting (PONV) Additional Past Anesthesia/Blood Transfusion Reaction / Comment(s): no hx blood transfusion Date of Last Stent Placement:: 12/08/2017 Past Psychological History: Anxiety Smoking Status: Former smoker Past Alcohol Use History: Rare Past Drug Use History: None Reported - Past Family History Mother Family Medical History: No Reported History Father Family Medical History: COPD, Hypertension Brother(s) Family Medical History: Diabetes Mellitus Sister(s) Family Medical History: Coronary Artery Disease (CAD), Diabetes Mellitus Son(s) Family Medical History: No Reported History Daughter(s) Family Medical History: No Reported History Medications and Allergies Home Medications Medication Instructions Recorded Confirmed Type ALPRAZolam [Xanax] 0.25 mg PO DAILY 06/08/16 11/28/20 History Multivitamins, Thera [Multivitamin 1 tab PO DAILY 06/08/16 11/28/20 History (formulary)] Tamsulosin HCl [Flomax] 0.4 mg PO QAM 06/08/16 11/28/20 History Aspirin EC [Ecotrin Low Dose] 81 mg PO DAILY #30 tablet. 09/20/17 11/28/20 Rx Atorvastatin [Lipitor] 40 mg PO HS #30 tab 09/20/17 11/28/20 Rx Calcium Carbonate [Calcium] 600 mg PO HS 11/07/17 11/28/20 History glipiZIDE [Glucotrol] 10 mg PO BID 11/27/18 11/28/20 History Isosorbide Mononitrate ER [Imdur] 15 mg PO QAM 11/21/19 11/28/20 History Pantoprazole Sodium [Protonix] 40 mg PO QAM 10/02/20 11/28/20 History Repaglinide [Prandin] 4 mg PO BID 10/02/20 11/28/20 History Ascorbic Acid [Vitamin C] 1,000 mg PO DAILY 11/21/20 11/28/20 History Cholecalciferol [Vitamin D3] 1,000 unit PO DAILY 11/21/20 11/28/20 History Metoprolol Succinate (ER) [Toprol 50 mg PO QAM 11/21/20 11/28/20 History XL] Semaglutide [Ozempic] 5 mg SQ MO 11/21/20 11/28/20 History Zinc 50 mg PO DAILY 11/21/20 11/28/20 History Latanoprost/Pf [Latanoprost 0.005% 1 drop BOTH EYES HS 11/28/20 11/28/20 History Eye Drop] Allergies Allergy/AdvReac Type Severity Reaction Status Date / Time clarithromycin [From Biaxin] AdvReac Nausea & Verified 11/28/20 10:55 Vomiting & Diarrhea Physical Exam Vitals: Vital Signs Temp Pulse Resp BP Pulse Ox 11/28/20 14:39 98 18 126/68 98 11/28/20 12:34 112 H 18 119/66 98 11/28/20 12:18 98.1 F 120 H 11/28/20 10:36 100.3 F H 124 H 18 115/67 98 11/28/20 09:55 97.9 F 124 H 18 117/69 98 Intake and Output 11/28/20 11/28/20 11/28/20 06:59 14:59 22:59 Other: Weight 74.843 kg General Appearance: Alert, cooperative, no distress, appears stated age. Neck HEENT: Supple, no lymphadenopathy, no thyroid enlargement, no carotid bruits. Lungs: Decreased for some bilateral rhonchi has mild expiratory wheezes with crackles in the bases. Chest Wall: Decrease expansion with deep inspiration no tenderness and no deformity was found on exam, no costochondral pain or discomfort. Heart: Regular rate and rhythm, S1, S2 positive history normal, no murmur, rub or gallop. Back: Symmetric, no curvature, ROM normal, no CVA tenderness. Abdomen: Soft slightly distended significant discomfort in the epigastric area and mid abdominal region no rebound or rigidity. Extremities: Extremities normal, atraumatic, no cyanosis or edema. Pulses: 2+ and symmetric. Skin: Skin color, texture, tugor normal, no rashes or lesions. Neurologic: Alert oriented x3 cranial nerves II through XII intact, no motor deficit, no abnormal balance or gait. Results CBC & Chem 7: 11/28/20 10:05 11/28/20 10:05 Labs: Abnormal Lab Results - Last 24 Hours (Table) 11/28/20 11/28/20 11/28/20 Range/Units 10:05 10:05 12:11 WBC 10.9 H (3.8-10.6) k/uL Neutrophils # (Manual) 9.80 H (1.3-7.7) k/uL Lymphocytes # (Manual) 0.65 L (1.0-4.8) k/uL Metamyelocytes # (Man) 0.11 H (0) k/uL Sodium 136 L (137-145) mmol/L BUN 26 H (9-20) mg/dL Creatinine 1.55 H (0.66-1.25) mg/dL Glucose 451 H (74-99) mg/dL Plasma Lactic Acid Sajan 4.9 H* (0.7-2.0) mmol/L Total Bilirubin 4.1 H (0.2-1.3) mg/dL AST 3347 H (17-59) U/L ALT 2029 H (4-49) U/L Alkaline Phosphatase 362 H (38-126) U/L Lipase 2924 H (23-300) U/L Thrombosis Risk Factor Assmnt - DVT/VTE Prophylaxis DVT/VTE Prophylaxis: Pharmacologic Prophylaxis ordered, Mechanical Prophylaxis ordered Assessment and Plan Assessment: 1 atypical chest pain: Most likely noncardiac in origin no change in EKG and troponin was negative. 2 acute pancreatitis: Most likely from common duct gallstone, continue pain management and fluid resuscitation will consult gastroenterology patient might need an ERCP. 3 ascending cholangitis: Secondary to common duct stone significant dilatation patient was started on Zosyn and Flagyl and continue current medication management. 4 acute cholecystitis and cholelithiasis: Patient will require gallbladder surgery after been stable specially after ERCP. 5 atherosclerotic heart disease: Post angioplasty and stent placement has been seeing cardiology regular basis. 6 diabetes Type 2 on insulin: Resume patient on Prandin 4 mg twice a day, glipizide 10 mg twice a day continue Accu-Chek with sliding scales coverage bolus formula if possible. 7 acute kidney injury: Continue hydration repeat BUN/creatinine 24 hours if needed ultrasound of the kidney can be done as well. 8 hypertension: Remain on metoprolol. 9 BPH: Is still able to void no obstruction remain on tamsulosin 0.4 mg daily. 10 mild arrhythmia: Continue metoprolol patient is doing well. 11 GI prophylaxis: Patient will be continue on pantoprazole 40 mg daily. 12 DVT prophylaxis: Consider use subcutaneous heparin as needed CODE STATUS: Full code. Admit patient to the inpatient service for more than 2 night stay.
[2020-11-28 21:56] LABS: Hepatitis A Antibody IgM Non-Reactive (Non-Reactive); Hepatitis B Core IgM Non-Reactive (Non-Reactive); Hepatitis B Surface Antigen Non-Reactive (Non-Reactive); Hepatitis C IgG Antibody Non-Reactive (Non-Reactive)
[2020-11-28] MEDS: ATORVASTATIN 40 MG TAB PO SCH (22:04)
[2020-11-28] MEDS: LATANOPROST 0.005% OPHTH DROPS 2.5 ML BTL BOTH EYES SCH (22:06)
[2020-11-29] MEDS: PIPERACILLIN-TAZOBACTAM 3.375 GM in SODIUM CHLORIDE 0.9% 100 ML IVPB SCH ×3 (00:14→17:54)
[2020-11-29 06:07] LABS: Glucose,Whole Blood 126 mg/dL (75-99)
[2020-11-29] MEDS: SODIUM CHLORIDE 0.9% 1,000 ML IV SCH ×3 (06:26→18:33)
[2020-11-29] MEDS: INSULIN ASPART (NovoLOG) 100 UNIT/ML VIAL SQ SCH ×4 (06:27→21:40)
[2020-11-29 07:45] LABS: Calcium 8.3 mg/dL (8.4-10.2); Potassium 3.5 mmol/L (3.5-5.1); Total Bilirubin 6.1 mg/dL (0.2-1.3); Total Protein 5.3 g/dL (6.3-8.2)
[2020-11-29 08:00] LABS: HCT 37.9 % (39.0-53.0); HGB 12.6 gm/dL (13.0-17.5); MCH 30.6 pg (25.0-35.0); MCHC 33.3 g/dL (31.0-37.0); MCV 91.7 fL (80.0-100.0); Mean Platelet Volume 7.3; Platelet Count 132 k/uL (150-450); RBC 4.13 m/uL (4.30-5.90); RDW 14.4 % (11.5-15.5)
--- NOTE | 2020-11-29 08:21 | P.GSCN ---
History of Present Illness Consult date: 11/29/20 History of present illness: CHIEF COMPLAINT: Epigastric abdominal pain with choledocholithiasis HISTORY OF PRESENT ILLNESS: The patient is a 80 year old male seen and e valuated. He reports acute epigastric radiating directly to the back sharp pain that began yesterday of severe intensity. He denies any previous epidsodes. He also came in jaundiced. Since admission abdominal pain has improved. I personally reviewed his ultrasound with sludge and gallstones. Total bilirubin and LFTs are worse today since admission. His pre-existing heart disease. As a result of abnormal gallbladder ultrasound including elevated liver enzymes, he is admitted for choledocholithiasis. Lactate on admission was also elevated. General surgery is consulted for choledocholithiasis and symptomatic gallstones. PAST MEDICAL HISTORY: See list and reviewed PAST SURGICAL HISTORY: See list and reviewed MEDICATIONS: See list and reviewed ALLERGIES: See list and reviewed SOCIAL HISTORY: See list and reviewed FAMILY HISTORY: See list and reviewed REVIEW OF ORGAN SYSTEMS: CONSTITUTIONAL: No fevers or chills. EYES: Has trouble with vision. No glasses. Has glaucoma. HEENT: No nosebleeds. No difficulty swallowing. Hard of hearing with hearing aids. RESPIRATORY: Denies pneumonia. Denies any troubles with breathing or dyspnea on exertion. CARDIOVASCULAR: Past chest pain, palpitations, or recent heart attacks. Has congestive heart failure. Has abdominal aortic aneurysm. GASTROINTESTINAL: Denies fatty food intolerance. Denies change in bowel habits and gas bloat. Has gastroesophageal reflux disease. GENITOURINARY: Denies any blood in urine. Has increased urinary frequency. History of renal cell cancer NEUROLOGICAL: Denies any numbness or tingling along the distal extremities. No seizure disorders or headaches. MUSCULOSKELETAL: Denies any back pain, stiffness or joint arthritis. SKIN: No current skin cancer. Has psoriasis. PSYCHIATRIC: Denies current depression or suicidal thoughts. Has anxiety disorder ENDOCRINE: Denies current thyroid disorders. Has blood sugar glucose intolerance. HEME/LYMPHATIC: Denies any lumps and bumps around the neck. No recent deep venous thrombosis. ALLERGY/IMMUNOLOGY: No immunoglobulin therapy. No immune deficiencies. BREAST: Denies current breast lumps, pain or nipple discharge. PHYSICAL EXAM: VITALS: Reviewed CONSTITUTIONAL: Well developed and in no acute distress. EYES: Conjuctivae with sclera icterus. Pupils are equally round and reactive to light. Extraocular movements grossly intact. HEAD, EARS, NOSE, THROAT: Moist buccal mucosa. Head is atraumatic, normocephalic. Very hard of hearing. No nasal drainage. NECK: Supple. No JV distention. No thyroidomegaly. RESPIRATORY: Non-labored respirations and equal bilateral excursions. No gross wheezes. CARDIOVASCULAR: Regular rate and rhythm. Extremities without moderate edema. Palpable 2+ radial pulses. ABDOMEN: Soft. Non-tender. Nondistended. LYMPH: No neck lymphadenopathy. MUSCULOSKELETAL: Nail and fingers with good capillary refill. SKIN: Warm and well perfused with good skin turgor. NEUROLOGIC: Cranial nerves II through XII grossly intact. Sensation upper and extremities intact. No focal or lateralizing signs. PSYCH: Appropriate affect. Alert and oriented to person, place and time. Displays appropriate insight. CLINCAL LABS: Reviewed. Total bilirubin on admission 4.1 now elevated to 6.1. AST elevated over 3300 down to over 600. ALT elevated over 2000 now down to 1000. Alkaline phosphatase decreased from over 300 to over 200. Troponin elevated since admission from 0.019 to 0.226. Creatinine elevated 1.55 on admission IMAGING: Independently reviewed ultrasound of the gallbladder and moderate gallbladder sludge including gallstones. This is my independent interpretation. RADIOLOGY: Report reviewed. Ultrasound of the gallbladder with common bile duct stone identified. ASSESSMENT: 1. Choledocholithiasis with jaundice 2. Elevated liver enzymes due to choledocholithiasis 3. Symptomatic gallstones 4. Lactic acidosis 5. Chronic renal insufficiency, stage III due to hypertension 6. Diabetes type 2, [id number] PLAN: 1. Agree with GI consultation for choledocholithiasis. May need ERCP with findings of choledocholithiasis. 2. Will need cardiac clearance prior to surgical intervention. 3. Nothing by mouth at this time 4. Patient's elevated risk for complications with pre-existing congestive heart failure as well as chronic renal insufficiency Thank you for this kind consultation. Past Medical History Past Medical History: Cancer, Diabetes Mellitus, GERD/Reflux, Hearing Disorder / Deafness, Skin Disorder Additional Past Medical History / Comment(s): HX RENAL CANCER WITH PART OF KIDNEY REMOVED (2006)., LUMBAR STENOSIS , HX OF AAA WITH REPAIR., ENLARGED PROSTATE., HX OF FALLS., HEARING AIDS, PSORIASIS, DIARRHEA. History of Any Multi-Drug Resistant Organisms: None Reported Past Surgical History: Heart Catheterization With Stent, Hernia Repair Additional Past Surgical History / Comment(s): AAA repair , 1/2 left kidney oly barrios (2006)., CAROTID SURGERY (06/11/16), BACK SURGERY , HX OF HEART CATH WITH STENTS (09/19/17 & 12/08/17) Past Anesthesia/Blood Transfusion Reactions: Previous Problems w/ Anesthesia, Motion Sickness, Postoperative Nausea & Vomiting (PONV) Additional Past Anesthesia/Blood Transfusion Reaction / Comm: no hx blood transfusion Date of Last Stent Placement:: 12/08/2017 Past Psychological History: Anxiety Smoking Status: Former smoker Past Alcohol Use History: Rare Past Drug Use History: None Reported - Past Family History Mother Family Medical History: No Reported History Father Family Medical History: COPD, Hypertension Brother(s) Family Medical History: Diabetes Mellitus Sister(s) Family Medical History: Coronary Artery Disease (CAD), Diabetes Mellitus Son(s) Family Medical History: No Reported History Daughter(s) Family Medical History: No Reported History Medications and Allergies Home Medications Medication Instructions Recorded Confirmed Type ALPRAZolam [Xanax] 0.25 mg PO DAILY 06/08/16 11/28/20 History Multivitamins, Thera [Multivitamin 1 tab PO DAILY 06/08/16 11/28/20 History (formulary)] Tamsulosin HCl [Flomax] 0.4 mg PO QAM 06/08/16 11/28/20 History Aspirin EC [Ecotrin Low Dose] 81 mg PO DAILY #30 tablet. 09/20/17 11/28/20 Rx Atorvastatin [Lipitor] 40 mg PO HS #30 tab 09/20/17 11/28/20 Rx Calcium Carbonate [Calcium] 600 mg PO HS 11/07/17 11/28/20 History glipiZIDE [Glucotrol] 10 mg PO BID 11/27/18 11/28/20 History Isosorbide Mononitrate ER [Imdur] 15 mg PO QAM 11/21/19 11/28/20 History Pantoprazole Sodium [Protonix] 40 mg PO QAM 10/02/20 11/28/20 History Repaglinide [Prandin] 4 mg PO BID 10/02/20 11/28/20 History Ascorbic Acid [Vitamin C] 1,000 mg PO DAILY 11/21/20 11/28/20 History Cholecalciferol [Vitamin D3] 1,000 unit PO DAILY 11/21/20 11/28/20 History Metoprolol Succinate (ER) [Toprol 50 mg PO QAM 11/21/20 11/28/20 History XL] Semaglutide [Ozempic] 5 mg SQ MO 11/21/20 11/28/20 History Zinc 50 mg PO DAILY 11/21/20 11/28/20 History Latanoprost/Pf [Latanoprost 0.005% 1 drop BOTH EYES HS 11/28/20 11/28/20 History Eye Drop] Allergies Allergy/AdvReac Type Severity Reaction Status Date / Time clarithromycin [From Biaxin] AdvReac Nausea & Verified 11/28/20 10:55 Vomiting & Diarrhea Surgical - Exam Vital Signs Temp Pulse Resp BP Pulse Ox 97.9 F 124 H 18 117/69 98 11/28/20 09:55 11/28/20 09:55 11/28/20 09:55 11/28/20 09:55 11/28/20 09:55 Results - Labs 11/29/20 06:42 11/29/20 06:42 Abnormal Lab Results - Last 24 Hours (Table) 11/28/20 11/28/20 11/28/20 Range/Units 10:05 10:05 12:11 WBC 10.9 H (3.8-10.6) k/uL RBC (4.30-5.90) m/uL Hgb (13.0-17.5) gm/dL Hct (39.0-53.0) % Plt Count (150-450) k/uL Neutrophils # (Manual) 9.80 H (1.3-7.7) k/uL Lymphocytes # (Manual) 0.65 L (1.0-4.8) k/uL Metamyelocytes # (Man) 0.11 H (0) k/uL Sodium 136 L (137-145) mmol/L Chloride (98-107) mmol/L Carbon Dioxide (22-30) mmol/L BUN 26 H (9-20) mg/dL Creatinine 1.55 H (0.66-1.25) mg/dL Glucose 451 H (74-99) mg/dL POC Glucose (mg/dL) (75-99) mg/dL Plasma Lactic Acid Sajan 4.9 H* (0.7-2.0) mmol/L Calcium (8.4-10.2) mg/dL Total Bilirubin 4.1 H (0.2-1.3) mg/dL AST 3347 H (17-59) U/L ALT 2029 H (4-49) U/L Alkaline Phosphatase 362 H (38-126) U/L Troponin I (0.000-0.034) ng/mL Total Protein (6.3-8.2) g/dL Albumin (3.5-5.0) g/dL Lipase 2924 H (23-300) U/L 11/28/20 11/28/20 11/29/20 Range/Units 16:44 19:45 06:05 WBC (3.8-10.6) k/uL RBC (4.30-5.90) m/uL Hgb (13.0-17.5) gm/dL Hct (39.0-53.0) % Plt Count (150-450) k/uL Neutrophils # (Manual) (1.3-7.7) k/uL Lymphocytes # (Manual) (1.0-4.8) k/uL Metamyelocytes # (Man) (0) k/uL Sodium (137-145) mmol/L Chloride (98-107) mmol/L Carbon Dioxide (22-30) mmol/L BUN (9-20) mg/dL Creatinine (0.66-1.25) mg/dL Glucose (74-99) mg/dL POC Glucose (mg/dL) 210 H 218 H 126 H (75-99) mg/dL Plasma Lactic Acid Sajan (0.7-2.0) mmol/L Calcium (8.4-10.2) mg/dL Total Bilirubin (0.2-1.3) mg/dL AST (17-59) U/L ALT (4-49) U/L Alkaline Phosphatase (38-126) U/L Troponin I (0.000-0.034) ng/mL Total Protein (6.3-8.2) g/dL Albumin (3.5-5.0) g/dL Lipase (23-300) U/L 11/29/20 11/29/20 11/29/20 Range/Units 06:42 06:42 06:42 WBC (3.8-10.6) k/uL RBC 4.13 L (4.30-5.90) m/uL Hgb 12.6 L (13.0-17.5) gm/dL Hct 37.9 L (39.0-53.0) % Plt Count 132 L (150-450) k/uL Neutrophils # (Manual) (1.3-7.7) k/uL Lymphocytes # (Manual) (1.0-4.8) k/uL Metamyelocytes # (Man) (0) k/uL Sodium (137-145) mmol/L Chloride 114 H (98-107) mmol/L Carbon Dioxide 19 L (22-30) mmol/L BUN (9-20) mg/dL Creatinine 1.49 H (0.66-1.25) mg/dL Glucose 119 H (74-99) mg/dL POC Glucose (mg/dL) (75-99) mg/dL Plasma Lactic Acid Sajan (0.7-2.0) mmol/L Calcium 8.3 L (8.4-10.2) mg/dL Total Bilirubin 6.1 H (0.2-1.3) mg/dL AST 642 H (17-59) U/L ALT 1172 H (4-49) U/L Alkaline Phosphatase 229 H (38-126) U/L Troponin I 0.226 H* (0.000-0.034) ng/mL Total Protein 5.3 L (6.3-8.2) g/dL Albumin 3.0 L (3.5-5.0) g/dL Lipase (23-300) U/L Microbiology - Last 24 Hours (Table) 11/28/20 11:58 Blood Culture - Final Blood 11/28/20 11:43 Blood Culture - Final Blood Diabetes panel 11/28/20 11/29/20 Range/Units 10:05 06:42 Sodium 136 L 143 (137-145) mmol/L Potassium 4.4 3.5 (3.5-5.1) mmol/L Chloride 104 114 H (98-107) mmol/L Carbon Dioxide 22 19 L (22-30) mmol/L BUN 26 H 16 (9-20) mg/dL Creatinine 1.55 H 1.49 H (0.66-1.25) mg/dL Glucose 451 H 119 H (74-99) mg/dL Calcium 9.1 8.3 L (8.4-10.2) mg/dL AST 3347 H 642 H (17-59) U/L ALT 2029 H 1172 H (4-49) U/L Alkaline Phosphatase 362 H 229 H (38-126) U/L Total Protein 6.3 5.3 L (6.3-8.2) g/dL Albumin 3.8 3.0 L (3.5-5.0) g/dL Calcium panel 11/28/20 11/29/20 Range/Units 10:05 06:42 Calcium 9.1 8.3 L (8.4-10.2) mg/dL Albumin 3.8 3.0 L (3.5-5.0) g/dL Pituitary panel 11/28/20 11/29/20 Range/Units 10:05 06:42 Sodium 136 L 143 (137-145) mmol/L Potassium 4.4 3.5 (3.5-5.1) mmol/L Chloride 104 114 H (98-107) mmol/L Carbon Dioxide 22 19 L (22-30) mmol/L BUN 26 H 16 (9-20) mg/dL Creatinine 1.55 H 1.49 H (0.66-1.25) mg/dL Glucose 451 H 119 H (74-99) mg/dL Calcium 9.1 8.3 L (8.4-10.2) mg/dL Adrenal panel 11/28/20 11/29/20 Range/Units 10:05 06:42 Sodium 136 L 143 (137-145) mmol/L Potassium 4.4 3.5 (3.5-5.1) mmol/L Chloride 104 114 H (98-107) mmol/L Carbon Dioxide 22 19 L (22-30) mmol/L BUN 26 H 16 (9-20) mg/dL Creatinine 1.55 H 1.49 H (0.66-1.25) mg/dL Glucose 451 H 119 H (74-99) mg/dL Calcium 9.1 8.3 L (8.4-10.2) mg/dL Total Bilirubin 4.1 H 6.1 H (0.2-1.3) mg/dL AST 3347 H 642 H (17-59) U/L ALT 2029 H 1172 H (4-49) U/L Alkaline Phosphatase 362 H 229 H (38-126) U/L Total Protein 6.3 5.3 L (6.3-8.2) g/dL Albumin 3.8 3.0 L (3.5-5.0) g/dL Assessment and Plan (1) Jaundice Current Visit: Yes Status: Acute Code(s): R17 - UNSPECIFIED JAUNDICE SNOMED Code(s): 82506293 (2) Common bile duct (CBD) obstruction Current Visit: Yes Status: Acute Code(s): K83.1 - OBSTRUCTION OF BILE DUCT SNOMED Code(s): 130136046 (3) Elevated bilirubin Current Visit: Yes Status: Acute Code(s): R17 - UNSPECIFIED JAUNDICE SNOMED Code(s): 83210448 (4) Lactic acidosis Current Visit: Yes Status: Acute Code(s): E87.2 - ACIDOSIS SNOMED Code(s): 12407384 (5) Leukocytosis Current Visit: Yes Status: Acute Code(s): D72.829 - ELEVATED WHITE BLOOD CELL COUNT, UNSPECIFIED SNOMED Code(s): 061935061 (6) History of AAA (abdominal aortic aneurysm) repair Current Visit: No Status: Acute Code(s): Z98.89 - OTHER SPECIFIED POSTPROCEDURAL STATES * DO NOT USE * SNOMED Code(s): 020354806 (7) Hx of renal cell cancer Current Visit: No Status: Acute Code(s): Z85.528 - PERSONAL HISTORY OF OTHER MALIGNANT NEOPLASM OF KIDNEY SNOMED Code(s): 330975509
[2020-11-29] MEDS: PANTOPRAZOLE 40 MG TABLET PO SCH (08:42)
[2020-11-29] MEDS: ALPRAZolam 0.25 MG TAB PO SCH (08:42)
[2020-11-29] MEDS: METOPROLOL SUCCINATE (ER) 50 MG TAB.ER.24H PO SCH (08:42)
[2020-11-29] MEDS: ASPIRIN 81 MG PO SCH (08:42)
[2020-11-29] MEDS: TAMSULOSIN 0.4 MG CAP.ER.24H PO SCH (08:42)
[2020-11-29] MEDS: ISOSORBIDE MONONITRATE ER 15 MG TAB PO SCH (08:44)
[2020-11-29 09:09] LABS: Eosinophils # (M) 0.07 k/uL (0-0.7); Lymphocytes # (M) 2.52 k/uL (1.0-4.8); Monocytes # (M) 0.42 k/uL (0-1.0); Neutrophils # (M) 3.99 k/uL (1.3-7.7); Neutrophils % (M) 57 %; Nucleated Red Blood Cells 0 /100 WBC (0-0); Total Cells Counted 100
[2020-11-29 09:15] LABS: Poikilocytosis (M) Present
[2020-11-29 11:38] LABS: Glucose,Whole Blood 138 mg/dL (75-99)
--- NOTE | 2020-11-29 13:41 | P.PN ---
Subjective Progress Note Date: 11/29/20 HISTORY OF PRESENT ILLNESS 80-year-old male one of my office patient with multiple medical problem was known to have history of CAD post heart catheter and stent placement in the [facility], history of diabetes, hypertension and hyperlipidemia was also known to have history of renal cancer with partial nephrectomy also had long-standing history of spinal stenosis of the lumbar spine with generalized weakness of the lower extremity. Post AAA repair, he presented to the emergency department in the afternoon today with concern of substernal chest pressure and pain with worsening dyspepsia and abdominal discomfort with nausea his symptoms become much worse with certain food he denies any increased pain with exertion at the time. Patient was seen and evaluated CK with troponin was negative, surprisingly patient had very high abnormal liver function tests with AST and ALT in the 5095-1518, lipase was 2924. Patient also was in acute kidney injury with creatinine of 1.55 GFR of 41 only. Abdominal ultrasound showed cholelithiasis with obstructing calcification within the common duct correlate with, Dr. pollock with common duct markedly dilated at 1 cm. With mildly elevated white blood cell significantly high temperature patient also was diagnosed with ascending cholangitis. We'll consult gastroenterology for possible ERCP also general surgery for possible cholecystectomy patient will be admitted to the hospital on gram-negative coverage and pending culture to change antibiotics. 11/29: Patient has been afebrile, heart rate 110, blood pressure 134/64, pulse ox 94% on room air. WBC 7.0, hemoglobin 12.6, platelet count 132. CO2 19, BUN 16 creatinine 1.49. Troponin 0.2-6 and 0.377. Total bilirubin 6.1, AST 642, ALT 1172, alkaline phosphatase 229. Lipase 169. Blood culture positive for gram- negative bacilli. Patient is currently covered with Zosyn. He is scheduled for ERCP today. Cardiology has evaluated and cleared patient for procedure. REVIEW OF SYSTEMS CONSTITUTIONAL: Well-developed no acute respiratory distress. Denies fever. EYES: No icterus sclerae, no conjunctivitis. EARS, NOSE, MOUTH, THROAT, and FACE: No sore throat, lymphadenopathy, carotid bruits or deformity. RESPIRATORY: Mild shortness of breath with cough and wheezes. CARDIOVASCULAR: Positive PND or troponin palpitation and questionable of angina. GASTROINTESTINAL: Positive abdominal pain with nausea and vomiting no diarrhea. GENITOURINARY: Negative for Hematuria or UTI, no kidney stones. INTEGUMENT/BREAST: Negative for any muscular injury with mild osteoarthritis.. HEMATOLOGIC/LYMPHATIC: Negative for bleed or purpura. MUSCULOSKELTAL: Negative for Myalgia or arthralgia. NEURLOGICAL: No LOC, Sz or syncope, blurred vision dizziness or abnormality.. BEHAVIORAL/PSYCH: Negative. ENDOCRINE: Negative. PHYSICAL EXAMINATION General Appearance: Alert, cooperative, no distress, appears stated age. Resting in chair and appears to be comfortable. Neck HEENT: Supple, no lymphadenopathy, no thyroid enlargement, no carotid bruits. Lungs: Decreased for some bilateral rhonchi has mild expiratory wheezes with crackles in the bases. Chest Wall: Decrease expansion with deep inspiration no tenderness and no deformity was found on exam, no costochondral pain or discomfort. Heart: Regular rate and rhythm, S1, S2 positive history normal, no murmur, rub or gallop. Back: Symmetric, no curvature, ROM normal, no CVA tenderness. Abdomen: Soft slightly distended significant discomfort in the epigastric area and mid abdominal region no rebound or rigidity. Extremities: Extremities normal, atraumatic, no cyanosis or edema. Pulses: 2+ and symmetric. Skin: Skin color, texture, tugor normal, no rashes or lesions. Neurologic: Alert oriented x3 cranial nerves II through XII intact, no motor deficit, no abnormal balance or gait. ASSESSMENT AND PLAN 1 atypical chest pain and elevated troponins, acute coronary syndrome ruled out. Cardiology consult appreciated.. 2 acute pancreatitis: Most likely from common duct gallstone, continue pain management and fluid resuscitation will consult gastroenterology scheduled for ERCP. 3 ascending cholangitis with gram-negative bacteremia: Secondary to common duct stone significant dilatation patient was started on Zosyn and Flagyl and continue current medication management. 4 acute cholecystitis and cholelithiasis: Patient will require gallbladder shay lewis after been stable and ERCP. 5 atherosclerotic heart disease: Post angioplasty and stent placement has been seeing cardiology regular basis. 6 diabetes Type 2 on insulin: Resume patient on Prandin 4 mg twice a day, glipizide 10 mg twice a day continue Accu-Chek with sliding scales coverage errol us formula if possible. 7 chronic kidney disease stage III. 8 hypertension: Remain on metoprolol. 9 BPH: Is still able to void no obstruction remain on tamsulosin 0.4 mg daily. 10 mild arrhythmia: Continue metoprolol patient is doing well. 11 GI prophylaxis: Patient will be continue on pantoprazole 40 mg daily. 12 DVT prophylaxis: Consider use subcutaneous heparin as needed CODE STATUS: Full code. DISCHARGE PLAN To be determined. Impression and plan of care have been directed as dictated by the signing physician. Whitney Batista nurse practitioner acting as scribe for signing physician. Objective - Vital Signs Vital signs: Vital Signs Temp 98.5 F 11/29/20 08:20 Pulse 110 H 11/29/20 08:20 Resp 18 11/29/20 08:20 BP 134/64 11/29/20 08:20 Pulse Ox 94 L 11/29/20 08:20 Intake & Output 11/28/20 11/29/20 11/29/20 18:59 06:59 18:59 Intake Total 240 100 Balance 240 100 Weight 74.843 kg 76.4 kg Intake: Intake, IV Titration 100 Amount Piperacillin-Tazobactam 3 100 .375 gm In Sodium Chloride 0.9% 100 ml @ 25 mls/hr IVPB Q8HR [facility] Rx# :[id number] Oral 240 Other: # Voids 2 1 1 # Bowel Movements 1 - Labs CBC & Chem 7: 11/29/20 06:42 11/29/20 06:42 Labs: Abnormal Lab Results - Last 24 Hours (Table) 11/28/20 11/28/20 11/28/20 Range/Units 10:05 10:05 12:11 WBC 10.9 H (3.8-10.6) k/uL RBC (4.30-5.90) m/uL Hgb (13.0-17.5) gm/dL Hct (39.0-53.0) % Plt Count (150-450) k/uL Neutrophils # (Manual) 9.80 H (1.3-7.7) k/uL Lymphocytes # (Manual) 0.65 L (1.0-4.8) k/uL Metamyelocytes # (Man) 0.11 H (0) k/uL Sodium 136 L (137-145) mmol/L Chloride (98-107) mmol/L Carbon Dioxide (22-30) mmol/L BUN 26 H (9-20) mg/dL Creatinine 1.55 H (0.66-1.25) mg/dL Glucose 451 H (74-99) mg/dL POC Glucose (mg/dL) (75-99) mg/dL Plasma Lactic Acid Sajan 4.9 H* (0.7-2.0) mmol/L Calcium (8.4-10.2) mg/dL Total Bilirubin 4.1 H (0.2-1.3) mg/dL AST 3347 H (17-59) U/L ALT 2029 H (4-49) U/L Alkaline Phosphatase 362 H (38-126) U/L Troponin I (0.000-0.034) ng/mL Total Protein (6.3-8.2) g/dL Albumin (3.5-5.0) g/dL Lipase 2924 H (23-300) U/L 11/28/20 11/28/20 11/29/20 Range/Units 16:44 19:45 06:05 WBC (3.8-10.6) k/uL RBC (4.30-5.90) m/uL Hgb (13.0-17.5) gm/dL Hct (39.0-53.0) % Plt Count (150-450) k/uL Neutrophils # (Manual) (1.3-7.7) k/uL Lymphocytes # (Manual) (1.0-4.8) k/uL Metamyelocytes # (Man) (0) k/uL Sodium (137-145) mmol/L Chloride (98-107) mmol/L Carbon Dioxide (22-30) mmol/L BUN (9-20) mg/dL Creatinine (0.66-1.25) mg/dL Glucose (74-99) mg/dL POC Glucose (mg/dL) 210 H 218 H 126 H (75-99) mg/dL Plasma Lactic Acid Sajan (0.7-2.0) mmol/L Calcium (8.4-10.2) mg/dL Total Bilirubin (0.2-1.3) mg/dL AST (17-59) U/L ALT (4-49) U/L Alkaline Phosphatase (38-126) U/L Troponin I (0.000-0.034) ng/mL Total Protein (6.3-8.2) g/dL Albumin (3.5-5.0) g/dL Lipase (23-300) U/L 11/29/20 11/29/2011/29/21 Range/Units 06:42 06:42 06:42 WBC (3.8-10.6) k/uL RBC 4.13 L (4.30-5.90) m/uL Hgb 12.6 L (13.0-17.5) gm/dL Hct 37.9 L (39.0-53.0) % Plt Count 132 L (150-450) k/uL Neutrophils # (Manual) (1.3-7.7) k/uL Lymphocytes # (Manual) (1.0-4.8) k/uL Metamyelocytes # (Man) (0) k/uL Sodium (137-145) mmol/L Chloride 114 H (98-107) mmol/L Carbon Dioxide 19 L (22-30) mmol/L BUN (9-20) mg/dL Creatinine 1.49 H (0.66-1.25) mg/dL Glucose 119 H (74-99) mg/dL POC Glucose (mg/dL) (75-99) mg/dL Plasma Lactic Acid Sajan (0.7-2.0) mmol/L Calcium 8.3 L (8.4-10.2) mg/dL Total Bilirubin 6.1 H (0.2-1.3) mg/dL AST 642 H (17-59) U/L ALT 1172 H (4-49) U/L Alkaline Phosphatase 229 H (38-126) U/L Troponin I 0.226 H* (0.000-0.034) ng/mL Total Protein 5.3 L (6.3-8.2) g/dL Albumin 3.0 L (3.5-5.0) g/dL Lipase (23-300) U/L Microbiology - Last 24 Hours (Table) 11/28/20 11:58 Blood Culture - Final Blood 11/28/20 11:43 Blood Culture - Final Blood
[2020-11-29] MEDS ORDERED: PROPOFOL 10 MG/ML 20 ML VIAL IV ONE (13:54)
[2020-11-29] MEDS ORDERED: LIDOCAINE 1% INJ 10MG/ML (20 ML MDV) ONE (13:54)
[2020-11-29] MEDS ORDERED: SUCCINYLCHOLINE CHLORIDE 100 MG/5 ML SYR IV ONE (13:54)
[2020-11-29] MEDS ORDERED: PHENYLEPHRINE 10 MG/ML VIAL ONE (13:54)
[2020-11-29] MEDS ORDERED: fentaNYL (PF) 50 MCG/ML 2 ML AMP ONE (13:54)
[2020-11-29] MEDS ORDERED: IV FLUID CONTINUATION 1,000 ML IV ONE (13:59)
--- NOTE | 2020-11-29 14:14 | P.CRDCN ---
History of Present Illness History of present illness: HISTORY OF PRESENTING ILLNESS This is a pleasant 80-year-old male past medical history significant for coronary artery disease status post PCI, diabetes mellitus, hypertension, hyperlipidemia, reported carotid intervention, renal cancer with partial nephrectomy, AAA status post repair and spinal stenosis who presents yesterday with epigastric pain and pressure radiating to his back. Patient still admits to some back pain however his epigastric pain has predominantly improved. He does call a chest pain however appears mainly below his xiphoid process and more epigastric in nature. Patient is a somewhat poor historian and cannot recall all of his medical problems and cannot recall the events leading to his PCI in the past. Patient did however have stenting of his LAD and obtuse marginal branch in November 2017. At the time it was reported that he was having chest pain. Patient was found to have common bile duct dilation, elevated AST ALTs in the 2000 3000 range, elevated lipase and blood cultures positive for gram- negative bacilli concerning for ascending cholangitis. Patient denies any further chest pain or more epigastric pain however his troponins have been mildly elevated. DIAGNOSTICS EKG reveals sinus tachycardia, left axis deviation, poor R-wave progression, nonspecific ST-T wave abnormalities. Chest xray COPD with suspected pulmonary fibrosis. Abdominal ultrasound shows cholelithiasis with obstructing calcification within the common bowel duct with common bile duct dilation at 1 cm. Laboratory reviewed, white blood cell count 7.0, hemoglobin 12.6, platelets 132, bicarb 19, creatinine 1.49, total bilirubin 6.1, AST 642, ALTs 1172, alk phos 229, troponin negative, 0.019, 0.226, 0.377. Initial white count 10.9, initial creatinine 1.55, initial AST 3347 and ALTs 2029 with a lipase of 2924. ProBNP 200, blood culture preliminary result of gram-negative bacilli Current cardiac medications include aspirin 81 mg daily, Lipitor 40 mg daily, Imdur 15 mg daily, Toprol 50 mg daily. REVIEW OF SYSTEMS At the time of my exam: CONSTITUTIONAL: Denies fever or chills. CARDIOVASCULAR: +chest pain, no shortness of breath, orthopnea, PND or palpitations. RESPIRATORY: Denies cough. GASTROINTESTINAL: + abdominal pain, no diarrhea, constipation, +nausea no vomiting. MUSCULOSKELETAL: Denies myalgias. NEUROLOGIC: Denies numbness, tingling or weakness. ENDOCRINE: Denies fatigue, weight change, polydipsia or polyurina. GENITOURINARY: Denies burning, hematuria or urgency with micturation. HEMATOLOGIC: Denies history of anemia or bleeding. PHYSICAL EXAMINATION Blood pressure 116/55 heart rate 104 afebrile and maintaining oxygen saturation on room air. CONSTITUTIONAL: No apparent distress, somewhat poor historian. HEENT: Head is normocephalic. Pupils are equal, round. Sclerae anicteric. Mucous membranes of the mouth are moist. No JVD. No carotid bruit. CHEST EXAMINATION: Lungs are clear to auscultation. No chest wall tenderness is noted on palpation or with deep breathing. HEART EXAMINATION: Regular rate and rhythm. S1, S2 heard. No murmurs, gallops or rub. ABDOMEN: Soft, nontender. Positive bowel sounds. EXTREMITIES: 2+ peripheral pulses, no lower extremity edema and no calf tenderness. NEUROLOGIC EXAMINATION: Patient is awake, alert and oriented x3. ASSESSMENT 1. Ascending cholangitis 2. Reported chest pain however appears more epigastric in nature and likely related to his ascending cholangitis 3. Mildly elevated troponins, suspect type II mechanism from his sepsis and cholangitis. Preliminary echo report shows ejection fraction 50% without wall motion abnormalities. 4. History of coronary artery disease with prior PCI in 2018 5. Hypertension 6. Hyperlipidemia 7. Diabetes mellitus 8. Reported history of carotid disease status post intervention 9. Abdominal aortic aneurysm status post repair 10. Sinus tachycardia related to cholangitis, sepsis PLAN Patient has been reporting chest pain however upon further questioning it appears more like an epigastric pain which is likely related to his ascending cholangitis. His troponins are mildly elevated however suspect type II mechanism secondary to sepsis, bacteremia. Preliminary echo shows ejection fraction 50% without wall motion abnormalities. He does have a history of prior PCI and would continue aspirin throughout intervention. Patient has multiple me dical comorbidities and is at least moderate risk for proposed ERCP however benefits outweigh the risks and patient is clear from a cardiology standpoint to proceed with ERCP. Continue with supportive care and would continue treatment medically. May consider further ischemic workup if patient has recurrent chest pain however does not appear that his current chest pain is anginal in nature. Past Medical History Past Medical History: Cancer, Diabetes Mellitus, GERD/Reflux, Hearing Disorder / Deafness, Skin Disorder Additional Past Medical History / Comment(s): HX RENAL CANCER WITH PART OF KIDNEY REMOVED (2006)., LUMBAR STENOSIS , HX OF AAA WITH REPAIR., ENLARGED PROSTATE., HX OF FALLS., HEARING AIDS, PSORIASIS, DIARRHEA. History of Any Multi-Drug Resistant Organisms: None Reported Past Surgical History: Heart Catheterization With Stent, Hernia Repair Additional Past Surgical History / Comment(s): AAA repair , 1/2 left kidney removed (2006)., CAROTID SURGERY (06/11/16), BACK SURGERY , HX OF HEART CATH WITH STENTS (09/19/17 & 12/08/17) Past Anesthesia/Blood Transfusion Reactions: Previous Problems w/ Anesthesia, Motion Sickness, Postoperative Nausea & Vomiting (PONV) Additional Past Anesthesia/Blood Transfusion Reaction / Comment(s): no hx blood transfusion Date of Last Stent Placement:: 12/08/2017 Past Psychological History: Anxiety Smoking Status: Former smoker Past Alcohol Use History: Rare Past Drug Use History: None Reported - Past Family History Mother Family Medical History: No Reported History Father Family Medical History: COPD, Hypertension Brother(s) Family Medical History: Diabetes Mellitus Sister(s) Family Medical History: Coronary Artery Disease (CAD), Diabetes Mellitus Son(s) Family Medical History: No Reported History Daughter(s) Family Medical History: No Reported History Medications and Allergies Home Medications Medication Instructions Recorded Confirmed Type ALPRAZolam [Xanax] 0.25 mg PO DAILY 06/08/16 11/28/20 History Multivitamins, Thera [Multivitamin 1 tab PO DAILY 06/08/16 11/28/20 History (formulary)] Tamsulosin HCl [Flomax] 0.4 mg PO QAM 06/08/16 11/28/20 History Aspirin EC [Ecotrin Low Dose] 81 mg PO DAILY #30 tablet. 09/20/17 11/28/20 Rx Atorvastatin [Lipitor] 40 mg PO HS #30 tab 09/20/17 11/28/20 Rx Calcium Carbonate [Calcium] 600 mg PO HS 11/07/17 11/28/20 History glipiZIDE [Glucotrol] 10 mg PO BID 11/27/18 11/28/20 History Isosorbide Mononitrate ER [Imdur] 15 mg PO QAM 11/21/19 11/28/20 History Pantoprazole Sodium [Protonix] 40 mg PO QAM 10/02/20 11/28/20 History Repaglinide [Prandin] 4 mg PO BID 10/02/20 11/28/20 History Ascorbic Acid [Vitamin C] 1,000 mg PO DAILY 11/21/20 11/28/20 History Cholecalciferol [Vitamin D3] 1,000 unit PO DAILY 11/21/20 11/28/20 History Metoprolol Succinate (ER) [Toprol 50 mg PO QAM 11/21/20 11/28/20 History XL] Semaglutide [Ozempic] 5 mg SQ MO 11/21/20 11/28/20 History Zinc 50 mg PO DAILY 11/21/20 11/28/20 History Latanoprost/Pf [Latanoprost 0.005% 1 drop BOTH EYES HS 11/28/20 11/28/20 History Eye Drop] Allergies Allergy/AdvReac Type Severity Reaction Status Date / Time clarithromycin [From Biaxin] AdvReac Nausea & Verified 11/28/20 10:55 Vomiting & Diarrhea Physical Exam Vitals: Vital Signs Temp Pulse Pulse Resp BP BP Pulse Ox 11/29/20 11:50 98.7 F 104 H 16 116/55 95 11/29/20 08:20 98.5 F 110 H 18 134/64 94 L 11/29/20 04:00 98.4 F 103 H 18 121/63 96 11/29/20 01:36 107 H 18 11/29/20 00:00 98.6 F 107 H 18 99/53 94 L 11/28/20 20:15 117 H 18 11/28/20 20:00 98 F 117 H 18 122/56 92 L 11/28/20 15:37 97.7 F 74 18 124/78 99 11/28/20 14:39 98 18 126/68 98 Intake and Output 11/28/20 11/29/20 11/29/20 22:59 06:59 14:59 Intake Total 240 100 Output Total 100 Balance 240 100 -100 Intake: Intake, IV Titration 100 Amount Piperacillin-Tazobactam 3 100 .375 gm In Sodium Chloride 0.9% 100 ml @ 25 mls/hr IVPB Q8HR [facility] Rx# :[id number] Oral 240 Output: Urine 100 Other: # Voids 2 1 1 # Bowel Movements 1 Weight 76.4 kg Results 11/29/20 06:42 11/29/20 06:42 Cardiac Enzymes 11/28/20 11/29/20 11/29/20 Range/Units 23:00 06:42 06:42 AST 642 H (17-59) U/L Troponin I 0.019 0.226 H* (0.000-0.034) ng/mL 11/29/20 Range/Units 10:54 AST (17-59) U/L Troponin I 0.377 H* (0.000-0.034) ng/mL CBC 11/29/20 Range/Units 06:42 WBC 7.0 (3.8-10.6) k/uL RBC 4.13 L (4.30-5.90) m/uL Hgb 12.6 L (13.0-17.5) gm/dL Hct 37.9 L (39.0-53.0) % Plt Count 132 L (150-450) k/uL Comprehensive Metabolic Panel 11/29/20 Range/Units 06:42 Sodium 143 (137-145) mmol/L Potassium 3.5 (3.5-5.1) mmol/L Chloride 114 H (98-107) mmol/L Carbon Dioxide 19 L (22-30) mmol/L BUN 16 (9-20) mg/dL Creatinine 1.49 H (0.66-1.25) mg/dL Glucose 119 H (74-99) mg/dL Calcium 8.3 L (8.4-10.2) mg/dL AST 642 H (17-59) U/L ALT 1172 H (4-49) U/L Alkaline Phosphatase 229 H (38-126) U/L Total Protein 5.3 L (6.3-8.2) g/dL Albumin 3.0 L (3.5-5.0) g/dL Current Medications Generic Name Dose Route Start Last Admin Trade Name Freq PRN Reason Stop Dose Admin Alprazolam 0.25 mg 11/29/20 09:00 11/29/20 08:42 Alprazolam 0.25 Mg Tab PO 0.25 mg DAILY [facility] Administration Aspirin 81 mg 11/29/20 09:00 11/29/20 08:42 Aspirin 81 Mg PO 81 mg DAILY [facility] Administration Atorvastatin Calcium 40 mg 11/28/20 21:00 11/28/20 22:04 Atorvastatin 40 Mg Tab PO 40 mg HS [facility] Administration Sodium Chloride 1,000 mls @ 150 mls/hr 11/28/20 11:45 11/29/20 06:26 Saline 0.9% IV Not Given .[id number] [facility] Piperacillin Sod/Tazobactam 100 mls @ 25 mls/hr 11/28/20 16:00 11/29/20 08:32 Sod 3.375 gm/ Sodium Chloride IVPB 25 mls/hr Q8HR [facility] Administration Insulin Aspart 0 unit 11/28/20 17:30 11/29/20 12:09 Insulin Aspart (Novolog) 100 Unit/Ml Vial SQ Not Given ACHS [facility] Protocol Isosorbide Mononitrate 15 mg 11/29/20 09:00 11/29/20 08:44 Isosorbide Mononitrate Er 15 Mg Tab PO 15 mg QAM [facility] Administration Latanoprost 1 drops 11/28/20 21:00 11/28/20 22:06 Latanoprost 0.005% Ophth Drops 2.5 Ml Btl BOTH EYES 1 drops HS [facility] Administration Metoprolol Succinate 50 mg 11/29/20 09:00 11/29/20 08:42 Metoprolol Succinate (Er) 50 Mg Tab.Er.24h PO 50 mg QAM [facility] Administration Naloxone HCl 0.2 mg 11/28/20 12:20 Naloxone 0.4 Mg/Ml 1 Ml Vial IV Q2M PRN Opioid Reversal Ondansetron HCl 4 mg 11/28/20 18:26 Ondansetron 4 Mg/2 Ml Vial IVP Q6HR PRN Nausea And Vomiting Pantoprazole Sodium 40 mg 11/29/20 07:30 11/29/20 08:42 Pantoprazole 40 Mg Tablet PO 40 mg DAILY@0730 [facility] Administration Tamsulosin HCl 0.4 mg 11/29/20 09:00 11/29/20 08:42 Tamsulosin 0.4 Mg Cap.Er.24h PO 0.4 mg QAM [facility] Administration Intake and Output 11/28/20 11/29/20 11/29/20 22:59 06:59 14:59 Intake Total 240 100 Output Total 100 Balance 240 100 -100 Intake: Intake, IV Titration 100 Amount Piperacillin-Tazobactam 3 100 .375 gm In Sodium Chloride 0.9% 100 ml @ 25 mls/hr IVPB Q8HR [facility] Rx# :[id number] Oral 240 Output: Urine 100 Other: # Voids 2 1 1 # Bowel Movements 1 Weight 76.4 kg 11/29/20 06:42 11/29/20 06:42
[2020-11-29] MEDS ORDERED: IOPAMIDOL-300 50ML BTL MISCELLANE ONE (14:30)
[2020-11-29] MEDS ORDERED: EPINEPHrine 10 ML SYRINGE (0.1 MG/ML) MISCELLANE ONE (14:45)
[2020-11-29] MEDS ORDERED: LACTATED RINGERS 1,000 ML IV ONE (15:06)
--- NOTE | 2020-11-29 15:14 | P.CONS ---
History of Present Illness - Reason for Consult Consult date: 11/28/20 CBD stone Requesting physician: Eric Briseno - Chief Complaint Chest and abdominal pain - History of Present Illness 80-year-old male with multiple medical comorbidities including prior AAA status post repair, partial nephrectomy for renal cancer , GERD, diabetes mellitus, hypertension and dyslipidemia who presented to the hospital with complaints of chest and abdominal pain. He has been experiencing the symptoms intermittently over the past few months however the pain worsened prior to presentation. No prior history of known gallstones. The patient presented to the hospital was found to have markedly elevated lipase at 2924 with marked elevation in liver enzymes including bilirubin 4.1 suggestive of gallstone pancreatitis. The patient underwent ultrasound of the abdomen with findings of cholelithiasis, and 1 cm dilated CBD and suggestive of a distal CBD stone. Currently he is reporting that abdominal pain is improved with medication in the emergency depa rtment. He denies any nausea and vomiting at this time. Review of Systems REVIEW OF SYSTEMS: CONSTITUTIONAL: Denies any fevers, chills, weight change or fatigue. CARDIOVASCULAR: Denies any chest pain, palpitations high or low blood pressures RESPIRATORY: Denies any shortness of breath, hemoptysis or cough. GENITOURINARY: No dysuria or hematuria. MUSCULOSKELETAL: No weakness reported. SKIN: Denies any new rashes or lesions, jaundice or pallor. PSYCHIATRIC: Denies any depression or anxiety. NEUROLOGY: Denies headache, denies any new focal deficits. EARS/NOSE/THROAT: No recent hearing change, congestion, nasal discharge or sore throat. EYES: No pain in eyes, discharge or change in vision. GASTROINTESTINAL: As per HPI. Past Medical History Past Medical History: Cancer, Diabetes Mellitus, GERD/Reflux, Hearing Disorder / Deafness, Skin Disorder Additional Past Medical History / Comment(s): HX RENAL CANCER WITH PART OF KIDNEY REMOVED (2006)., LUMBAR STENOSIS , HX OF AAA WITH REPAIR., ENLARGED PROSTATE., HX OF FALLS., HEARING AIDS, PSORIASIS, DIARRHEA. History of Any Multi-Drug Resistant Organisms: None Reported Past Surgical History: Heart Catheterization With Stent, Hernia Repair Additional Past Surgical History / Comment(s): AAA repair , 1/2 left kidney removed (2006)., CAROTID SURGERY (06/11/16), BACK SURGERY , HX OF HEART CATH WITH STENTS (09/19/17 & 1/23/18) Past Anesthesia/Blood Transfusion Reactions: Previous Problems w/ Anesthesia, Motion Sickness, Postoperative Nausea & Vomiting (PONV) Additional Past Anesthesia/Blood Transfusion Reaction / Comm: no hx blood transfusion Date of Last Stent Placement:: 12/08/2017 Past Psychological History: Anxiety Smoking Status: Former smoker Past Alcohol Use History: Rare Past Drug Use History: None Reported - Past Family History Mother Family Medical History: No Reported History Father Family Medical History: COPD, Hypertension Brother(s) Family Medical History: Diabetes Mellitus Sister(s) Family Medical History: Coronary Artery Disease (CAD), Diabetes Mellitus Son(s) Family Medical History: No Reported History Daughter(s) Family Medical History: No Reported History Medications and Allergies Home Medications Medication Instructions Recorded Confirmed Type ALPRAZolam [Xanax] 0.25 mg PO DAILY 06/08/16 11/28/20 History Multivitamins, Thera [Multivitamin 1 tab PO DAILY 06/08/16 11/28/20 History (formulary)] Tamsulosin HCl [Flomax] 0.4 mg PO QAM 06/08/16 11/28/20 History Aspirin EC [Ecotrin Low Dose] 81 mg PO DAILY #30 tablet.dr 09/20/17 11/28/20 Rx Atorvastatin [Lipitor] 40 mg PO HS #30 tab 09/20/17 11/28/20 Rx Calcium Carbonate [Calcium] 600 mg PO HS 11/07/17 11/28/20 History glipiZIDE [Glucotrol] 10 mg PO BID 11/27/18 11/28/20 History Isosorbide Mononitrate ER [Imdur] 15 mg PO QAM 11/21/19 11/28/20 History Pantoprazole Sodium [Protonix] 40 mg PO QAM 10/02/20 11/28/20 History Repaglinide [Prandin] 4 mg PO BID 10/02/20 11/28/20 History Ascorbic Acid [Vitamin C] 1,000 mg PO DAILY 11/21/20 11/28/20 History Cholecalciferol [Vitamin D3] 1,000 unit PO DAILY 11/21/20 11/28/20 History Metoprolol Succinate (ER) [Toprol 50 mg PO QAM 11/21/20 11/28/20 History XL] Semaglutide [Ozempic] 5 mg SQ MO 11/21/20 11/28/20 History Zinc 50 mg PO DAILY 11/21/20 11/28/20 History Latanoprost/Pf [Latanoprost 0.005% 1 drop BOTH EYES HS 11/28/20 11/28/20 History Eye Drop] Allergies Allergy/AdvReac Type Severity Reaction Status Date / Time clarithromycin [From Biaxin] AdvReac Nausea & Verified 11/28/20 10:55 Vomiting & Diarrhea Physical Exam Vitals: Vital Signs Temp Pulse Resp BP Pulse Ox 11/28/20 12:34 112 H 18 119/66 98 11/28/20 12:18 98.1 F 120 H 11/28/20 10:36 100.3 F H 124 H 18 115/67 98 11/28/20 09:55 97.9 F 124 H 18 117/69 98 Intake and Output 11/27/20 11/28/20 11/28/20 22:59 06:59 14:59 Other: Weight 74.843 kg On physical examination, patient appears comfortable in no apparent distress. HEAD: Normocephalic, atraumatic. EYES: No scleral icterus. No conjunctival injection. MOUTH: No lesions, tongue midline. NECK: Trachea midline, no gross abnormalities. CHEST: Clear to auscultation with no wheezing or rhonchi appreciated. HEART: S1-S2 appreciated. ABDOMEN: Soft, mildly tender to palpation. Bowel sounds are positive. No organomegaly. No guarding or rigidity. EXTREMITIES: No pedal edema. SKIN: No rashes, no jaundice. NEUROLOGIC: Alert and oriented x3. No focal deficits. Results CBC & Chem 7: 11/29/20 06:42 11/29/20 06:42 Labs: Abnormal Lab Results - Last 24 Hours (Table) 11/28/20 11/28/20 11/28/20 Range/Units 10:05 10:05 12:11 WBC 10.9 H (3.8-10.6) k/uL Neutrophils # (Manual) 9.80 H (1.3-7.7) k/uL Lymphocytes # (Manual) 0.65 L (1.0-4.8) k/uL Metamyelocytes # (Man) 0.11 H (0) k/uL Sodium 136 L (137-145) mmol/L BUN 26 H (9-20) mg/dL Creatinine 1.55 H (0.66-1.25) mg/dL Glucose 451 H (74-99) mg/dL Plasma Lactic Acid Sajan 4.9 H* (0.7-2.0) mmol/L Total Bilirubin 4.1 H (0.2-1.3) mg/dL AST 3347 H (17-59) U/L ALT 2029 H (4-49) U/L Alkaline Phosphatase 362 H (38-126) U/L Lipase 2924 H (23-300) U/L US - abdomen: report reviewed (Ultrasound of the abdomen with cholelithiasis, dilated CBD with possible distal CBD stone and suggestion of hepatic steatosis and a renal cyst.) Assessment and Plan (1) Common bile duct (CBD) obstruction Narrative/Plan: 80-year-old male with multiple medical comorbidities presenting with chest and abdominal pain and found to have elevated lipase and liver enzymes suggestive of gallstone pancreatitis and possible CBD obstruction. Ultrasound of the abdomen showed a 1 cm CBD with multiple stones in the gallbladder and suggestion of a di stal CBD stone. Total bilirubin 4.1 with marked elevation of AST and ALT and lipase. Concern is for choledocholithiasis. Current Visit: Yes Status: Acute Code(s): K83.1 - OBSTRUCTION OF BILE DUCT SNOMED Code(s): 446826715 (2) Elevated bilirubin Current Visit: Yes Status: Acute Code(s): R17 - UNSPECIFIED JAUNDICE SNOMED Code(s): 25697695 (3) Pancreatitis Current Visit: Yes Status: Acute Code(s): K85.90 - ACUTE PANCREATITIS WITHOUT NECROSIS OR INFECTION, UNSP SNOMED Code(s): 81207084 Plan: Supportive care Clear liquid diet Nothing by mouth after midnight Continue broad-spectrum antibiotic therapy Plan for ERCP tomorrow for further evaluation All of the risks, benefits and possible complications of the procedure discussed with the patient at length as well as with his with all their questions answered to their satisfaction Surgical service consulted Cardiology consult for clearance Thank you for allowing us to participate in the care of the patient
--- NOTE | 2020-11-29 15:17 | P.PCN ---
Date of Procedure: 11/29/20 Description of Procedure: Brief history: 80-year-old male with multiple medical comorbidities presenting with chest and abdominal pain and found to have elevated lipase and liver enzymes suggestive of gallstone pancreatitis and possible CBD obstruction. Ultrasound of the abdomen showed a 1 cm CBD with multiple stones in the gallbladder and suggestion of a distal CBD stone. Total bilirubin 4.1 with marked elevation of AST and ALT and lipase. Concern is for choledocholithiasis. Procedure performed: ERCP with sphincterotomy, cholangiogram, balloon sweep of the bile duct and epinephrine injection Preoperative diagnoses: Choledocholithiasis, elevated bilirubin, gallstone pancreatitis IV sedation per anesthesia: Estimated blood loss: Minimal. Procedure: After informed consent was obtained from the patient and after the risks benefits and complications including bleeding perforation and pancreatitis explained in detail the patient was brought into the endoscopy unit. The patient was placed in prone position and IV conscious sedation was administered by anesthesia under continuous monitoring. The Olympus side-viewing duodenoscope was then inserted into the mouth and esophagus intubated without any difficulty. The scope was gradually advanced into the stomach and duodenum. The major papilla was identified without any difficulty. The common bile duct was cannulated and a wire was passed into the CBD. Dye was injected into the common bile duct with findings of a diffusely enlarged common bile duct with multiple filling defects suggestive of choledocholithiasis, the intrahepatics were visualized. An 8 mm sphincterotomy was then performed and the sphincterotome was then exchanged over the wire for a balloon extractor. Multiple passes with the balloon inflated to 11.5 mm were performed productive of 3 large stones. There was minimal bleeding around the sphincterotomy site and 5 mL of epinephrine were injected for hemostasis. The pancreatic duct was not cannulated or injected. The patient tolerated the procedure well. Impression: Choledocholithiasis. ERCP with cholangiogram, sphincterotomy, and balloon sweep of the bile duct productive of 3 CBD stones. Recommendations: The findings of this examination were discussed with the patient. Okay for full liquid diet. Continue to monitor CBC, BMP, LFTs. Continue broad-spectrum antibiotic therapy. Surgical service following the patient.
[2020-11-29 16:41] LABS: Glucose,Whole Blood 187 mg/dL (75-99)
[2020-11-29 20:53] LABS: Glucose,Whole Blood 217 mg/dL (75-99)
[2020-11-29] MEDS: ATORVASTATIN 40 MG TAB PO SCH (21:40)
[2020-11-29] MEDS: LATANOPROST 0.005% OPHTH DROPS 2.5 ML BTL BOTH EYES SCH (21:41)
[2020-11-30] MEDS: PIPERACILLIN-TAZOBACTAM 3.375 GM in SODIUM CHLORIDE 0.9% 100 ML IVPB SCH ×4 (00:51→23:21)
[2020-11-30] MEDS: SODIUM CHLORIDE 0.9% 1,000 ML IV SCH ×5 (04:58→23:22)
[2020-11-30] MEDS: INSULIN ASPART (NovoLOG) 100 UNIT/ML VIAL SQ SCH ×4 (06:26→20:41)
[2020-11-30 06:35] LABS: Glucose,Whole Blood 139 mg/dL (75-99)
[2020-11-30 06:50] LABS: HCT 37.5 % (39.0-53.0); HGB 12.1 gm/dL (13.0-17.5); MCH 30.1 pg (25.0-35.0); MCHC 32.2 g/dL (31.0-37.0); MCV 93.6 fL (80.0-100.0); Mean Platelet Volume 7.1; Platelet Count 135 k/uL (150-450); RBC 4.01 m/uL (4.30-5.90); RDW 14.6 % (11.5-15.5); WBC 5.3 k/uL (3.8-10.6)
[2020-11-30 07:06] LABS: Albumin 2.7 g/dL (3.5-5.0); Calcium 8.2 mg/dL (8.4-10.2); Potassium 3.7 mmol/L (3.5-5.1); Total Bilirubin 5.9 mg/dL (0.2-1.3); Total Protein 4.8 g/dL (6.3-8.2)
[2020-11-30 07:27] LABS: Band Neutrophils % 1 %; Eosinophils # (M) 0.05 k/uL (0-0.7); Lymphocytes # (M) 0.27 k/uL (1.0-4.8); Monocytes # (M) 0.64 k/uL (0-1.0); Neutrophils % (M) 81 %; Nucleated Red Blood Cells 0 /100 WBC (0-0); Total Cells Counted 100
--- NOTE | 2020-11-30 08:25 | FL ---
EXAMINATION TYPE: FL ERCP DATE OF EXAM: 11/29/2020 FLUOROSCOPY Fluoroscopy time of 16 seconds was used during ERCP. 2 image/s document/s the procedure.
--- NOTE | 2020-11-30 09:04 | P.PN ---
Subjective Progress Note Date: 11/30/20 CHIEF COMPLAINT: Epigastric abdominal pain with choledocholithiasis HISTORY OF PRESENT ILLNESS: The patient is a 80 year old male admitted with choledocholithiasis and symptomatic gallstones. He presented with ascending cholangitis. He is status post ERCP yesterday with removal of stones from the common bile duct. He also had elevated troponins for which cardiology is following. He is tolerated full liquid diet. No nausea. Patient was seen and evaluated with admitting medicine team. REVIEW OF ORGAN SYSTEMS: He is hard of hearing. Denies chest pain today. No shortness of breath. PHYSICAL EXAM: VITALS: Reviewed CONSTITUTIONAL: Well developed and in no acute distress. EYES: Conjuctivae with sclera icterus. Pupils are equally round and reactive to light. Extraocular movements grossly intact. HEAD, EARS, NOSE, THROAT: Moist buccal mucosa. Head is atraumatic, normocephalic. Very hard of hearing. No nasal drainage. NECK: Supple. No JV distention. No thyroidomegaly. RESPIRATORY: Non-labored respirations and equal bilateral excursions. No gross wheezes. CARDIOVASCULAR: Regular rate and rhythm. Extremities without moderate edema. Palpable 2+ radial pulses. ABDOMEN: Soft. Non-tender. Nondistended. MUSCULOSKELETAL: Nail and fingers with good capillary refill. SKIN: Warm and well perfused with good skin turgor. NEUROLOGIC: Cranial nerves II through XII grossly intact. Sensation upper and extremities intact. No focal or lateralizing signs. PSYCH: Appropriate affect. Alert and oriented to person, place and time. Displays appropriate insight. CLINCAL LABS: Reviewed. LFTs improving and trending down but still moderately elevated. Total bilirubin is down to 5.9 from 6.1 yesterday REPORT: Reviewed with choledocholithiasis. ERCP with cholangiogram, sphincterotomy, and balloon sweep of the bile duct productive of 3 CBD stones. MICROBIOLOGY: Positive gram negative bacilli ASSESSMENT: 1. Choledocholithiasis with jaundice and ascending cholangitis with positive bl ood cultures and fevers on admission 2. Elevated liver enzymes due to choledocholithiasis 3. Symptomatic gallstones 4. Lactic acidosis 5. Chronic renal insufficiency, stage III due to hypertension 6. Diabetes type 2, [id number] PLAN: 1. Continue IV antibiotics for ascending cholangitis 2. Surgical intervention deferred pending medical clearance. 3. Patient is high surgical risk with Stage III renal insufficiency and cardiac disease 4. Will follow. 5. Repeat CMP for liver function improvement. Objective - Vital Signs Vital signs: Vital Signs Temp 98.5 F 11/29/20 20:50 Pulse 99 11/30/20 03:59 Resp 18 11/30/20 03:59 BP 147/66 11/30/20 03:59 Pulse Ox 90 L 11/30/20 03:59 Intake & Output 11/29/20 11/30/20 11/30/20 18:59 06:59 18:59 Intake Total 650 1200 Output Total 450 Balance 200 1200 Weight 81.4 kg Intake: IV 650 Intake, IV Titration 1200 Amount Piperacillin-Tazobactam 3 100 .375 gm In Sodium Chloride 0.9% 100 ml @ 25 mls/hr IVPB Q8HR [facility] Rx# :[id number] Sodium Chloride 0.9% 1, 1100 000 ml @ 150 mls/hr IV . Q6H40M [facility] Rx#:[id number] Output: Urine 450 Other: # Voids 1 3 - Labs CBC & Chem 7: 11/30/20 06:05 11/30/20 06:05 Labs: Abnormal Lab Results - Last 24 Hours (Table) 11/29/20 11/29/20 11/29/20 Range/Units 10:54 11:37 16:39 RBC (4.30-5.90) m/uL Hgb (13.0-17.5) gm/dL Hct (39.0-53.0) % Plt Count (150-450) k/uL Lymphocytes # (Manual) (1.0-4.8) k/uL Chloride (98-107) mmol/L Carbon Dioxide (22-30) mmol/L Creatinine (0.66-1.25) mg/dL Glucose (74-99) mg/dL POC Glucose (mg/dL) 138 H 187 H (75-99) mg/dL Calcium (8.4-10.2) mg/dL Total Bilirubin (0.2-1.3) mg/dL AST (17-59) U/L ALT (4-49) U/L Alkaline Phosphatase (38-126) U/L Troponin I 0.377 H* (0.000-0.034) ng/mL Total Protein (6.3-8.2) g/dL Albumin (3.5-5.0) g/dL Amylase (30-110) U/L 11/29/20 11/30/20 11/30/20 Range/Units 20:18 06:05 06:05 RBC 4.01 L (4.30-5.90) m/uL Hgb 12.1 L (13.0-17.5) gm/dL Hct 37.5 L (39.0-53.0) % Plt Count 135 L (150-450) k/uL Lymphocytes # (Manual) 0.27 L (1.0-4.8) k/uL Chloride 115 H (98-107) mmol/L Carbon Dioxide 21 L (22-30) mmol/L Creatinine 1.64 H (0.66-1.25) mg/dL Glucose 166 H (74-99) mg/dL POC Glucose (mg/dL) 217 H (75-99) mg/dL Calcium 8.2 L (8.4-10.2) mg/dL Total Bilirubin 5.9 H (0.2-1.3) mg/dL AST 261 H (17-59) U/L ALT 726 H (4-49) U/L Alkaline Phosphatase 231 H (38-126) U/L Troponin I (0.000-0.034) ng/mL Total Protein 4.8 L (6.3-8.2) g/dL Albumin 2.7 L (3.5-5.0) g/dL Amylase 111 H (30-110) U/L 11/30/20 Range/Units 06:23 RBC (4.30-5.90) m/uL Hgb (13.0-17.5) gm/dL Hct (39.0-53.0) % Plt Count (150-450) k/uL Lymphocytes # (Manual) (1.0-4.8) k/uL Chloride (98-107) mmol/L Carbon Dioxide (22-30) mmol/L Creatinine (0.66-1.25) mg/dL Glucose (74-99) mg/dL POC Glucose (mg/dL) 139 H (75-99) mg/dL Calcium (8.4-10.2) mg/dL Total Bilirubin (0.2-1.3) mg/dL AST (17-59) U/L ALT (4-49) U/L Alkaline Phosphatase (38-126) U/L Troponin I (0.000-0.034) ng/mL Total Protein (6.3-8.2) g/dL Albumin (3.5-5.0) g/dL Amylase (30-110) U/L Microbiology - Last 24 Hours (Table) 11/28/20 11:43 Blood Culture Gram Stain - Preliminary Blood Blood Culture - Preliminary Gram Neg Bacilli 11/28/20 11:58 Blood Culture Gram Stain - Preliminary Blood Blood Culture - Preliminary Gram Neg Bacilli 11/28/20 11:58 Blood Culture - Final Blood 11/28/20 11:43 Blood Culture - Final Blood Assessment and Plan (1) Jaundice Current Visit: Yes Status: Acute Code(s): R17 - UNSPECIFIED JAUNDICE SNOMED Code(s): 08810713 (2) Common bile duct (CBD) obstruction Current Visit: Yes Status: Acute Code(s): K83.1 - OBSTRUCTION OF BILE DUCT SNOMED Code(s): 643680041 (3) Elevated bilirubin Current Visit: Yes Status: Acute Code(s): R17 - UNSPECIFIED JAUNDICE SNOMED Code(s): 64115281 (4) Lactic acidosis Current Visit: Yes Status: Acute Code(s): E87.2 - ACIDOSIS SNOMED Code(s): 60779985 (5) Leukocytosis Current Visit: Yes Status: Acute Code(s): D72.829 - ELEVATED WHITE BLOOD CELL COUNT, UNSPECIFIED SNOMED Code(s): 080490540 (6) History of AAA (abdominal aortic aneurysm) repair Current Visit: No Status: Acute Code(s): Z98.89 - OTHER SPECIFIED POSTPROCEDURAL STATES * DO NOT USE * SNOMED Code(s): 437192241 (7) Hx of renal cell cancer Current Visit: No Status: Acute Code(s): Z85.528 - PERSONAL HISTORY OF OTHER MALIGNANT NEOPLASM OF KIDNEY SNOMED Code(s): 643692802 (8) Ascending cholangitis Current Visit: Yes Status: Acute Code(s): K83.09 - OTHER CHOLANGITIS SN OMED Code(s): 94998374
--- NOTE | 2020-11-30 09:30 | ECHOF ---
Referral Reason:LV function MEASUREMENTS -------- HEIGHT: 175.3 cm WEIGHT: 76.2 kg BP: 134/64 RVIDd: 4.8 cm (< 3.3) IVSd: 1.5 cm (0.6 - 1.1) LVIDd: 3.7 cm (3.9 - 5.3) LVPWd: 1.5 cm (0.6 - 1.1) IVSs: 1.5 cm LVIDs: 2.8 cm LVPWs: 2.0 cm LAESV Index (A-L): 21.67 ml/m Ao Diam: 3.2 cm (2.0 - 3.7) AV Cusp: 1.7 cm (1.5 - 2.6) LA Diam: 3.6 cm (2.7 - 3.8) MV EXCURSION: 12.973 mm (> 18.000) MV EF SLOPE: 27 mm/s (70 - 150) EPSS: 0.7 cm MV E Mic: 0.99 m/s MV DecT: 99 ms MV A Mic: 1.40 m/s MV E/A Ratio: 0.71 RAP: 5.00 mmHg RVSP: 34.43 mmHg FINDINGS -------- Sinus rhythm. This was a technically difficult study with suboptimal views. The left ventricular size is normal. There is moderate concentric left ventricular hypertrophy. O verall left ventricular systolic function is mildly impaired with, an EF between 45 - 50 %. The right ventricle is moderate to severely enlarged. Normal LA size by volume 22+/-6 ml/m2. The right atrium was not well visualized. 5.0mg of Lumason was utilized for enhancement of images Interatrial and interventricular septum intact. There is mild aortic valve sclerosis. There is no evidence of aortic regurgitation. There is no e vidence of aortic stenosis. There is trace to mild mitral regurgitation. Mild tricuspid regurgitation present. There is borderline pulmonary artery hypertension. The righ t ventricular systolic pressure, as measured by Doppler, is 34.43mmHg. There is no pulmonic regurgitation present. The aortic root size is normal. IVC Not well visulized. There is no pericardial effusion. CONCLUSIONS -------- 1. The left ventricular size is normal. 2. There is moderate concentric left ventricular hypertrophy. 3. Overall left ventricular systolic function is mildly impaired with, an EF between 45 - 50 %. 4. The right ventricle is moderate to severely enlarged. 5. There is mild aortic valve sclerosis. 6. There is trace to mild mitral regurgitation. 7. Mild tricuspid regurgitation present. 8. There is borderline pulmonary artery hypertension. 9. The right ventricular systolic pressure, as measured by Doppler, is 34.43mmHg. NATURAL SCIENCE MANAGER: Maryuri Peoples RDCS
[2020-11-30] MEDS: TAMSULOSIN 0.4 MG CAP.ER.24H PO SCH (09:36)
[2020-11-30] MEDS: METOPROLOL SUCCINATE (ER) 50 MG TAB.ER.24H PO SCH (09:36)
[2020-11-30] MEDS: ASPIRIN 81 MG PO SCH (09:36)
[2020-11-30] MEDS: PANTOPRAZOLE 40 MG TABLET PO SCH (09:36)
[2020-11-30] MEDS: ALPRAZolam 0.25 MG TAB PO SCH (09:37)
[2020-11-30] MEDS: ISOSORBIDE MONONITRATE ER 15 MG TAB PO SCH (09:38)
--- NOTE | 2020-11-30 11:16 | P.PN ---
Subjective Progress Note Date: 11/30/20 HISTORY OF PRESENT ILLNESS 80-year-old male one of my office patient with multiple medical problem was known to have history of CAD post heart catheter and stent placement in the [facility], history of diabetes, hypertension and hyperlipidemia was also known to have history of renal cancer with partial nephrectomy also had long-standing history of spinal stenosis of the lumbar spine with generalized weakness of the lower extremity. Post AAA repair, he presented to the emergency department in the afternoon today with concern of substernal chest pressure and pain with worsening dyspepsia and abdominal discomfort with nausea his symptoms become much worse with certain food he denies any increased pain with exertion at the time. Patient was seen and evaluated CK with troponin was negative, surprisingly patient had very high abnormal liver function tests with AST and ALT in the [id number], lipase was 2924. Patient also was in acute kidney injury with creatinine of 1.55 GFR of 41 only. Abdominal ultrasound showed cholelithiasis with obstructing calcification within the common duct correlate with, Dr. pollock with common duct markedly dilated at 1 cm. With mildly elevated white blood cell significantly high temperature patient also was diagnosed with ascending cholangitis. We'll consult gastroenterology for possible ERCP also general surgery for possible cholecystectomy patient will be admitted to the hospital on gram-negative coverage and pending culture to change antibiotics. 11/29: Patient has been afebrile, heart rate 110, blood pressure 134/64, pulse ox 94% on room air. WBC 7.0, hemoglobin 12.6, platelet count 132. CO2 19, BUN 16 creatinine 1.49. Troponin 0.2-6 and 0.377. Total bilirubin 6.1, AST 642, ALT 1172, alkaline phosphatase 229. Lipase 169. Blood culture positive for gram- negative bacilli. Patient is currently covered with Zosyn. He is scheduled for ERCP today. Cardiology has evaluated and cleared patient for procedure. 11/30: Patient underwent ERCP, sphincterotomy and balloon sweep the bile duct of 3 CVD stones. Plan is for cholecystectomy with Dr. Shaikh on Thursday. Discussed case with Dr. Zavaleta for clearance for surgery. The patient states that his abdominal pain is much improved. He denies any nausea vomiting and is hungry. He is requesting a regular diet. This will need to be addressed by general surgery. He has been afebrile, heart rate 96, blood pressure 132/72, pulse ox 93% on room air. CBC 5.3, hemoglobin 12.1, platelet count 135. Sodium 141, potassium 3.7, chloride 115, CO2 21, BUN 16 and creatinine 1.64. Calcium 8.2, total bilirubin 5.9, AST 261, ALT 726, alkaline phosphatase 231. Amylase 111, lipase 245. REVIEW OF SYSTEMS CONSTITUTIONAL: Well-developed no acute respiratory distress. Denies fever. Denies chills EYES: No icterus sclerae, no conjunctivitis. EARS, NOSE, MOUTH, THROAT, and FACE: No sore throat, lymphadenopathy, carotid bruits or deformity. RESPIRATORY: Mild shortness of breath with cough and wheezes. CARDIOVASCULAR: Positive PND or troponin palpitation and questionable of angina. GASTROINTESTINAL: Positive abdominal pain improved. No nausea, no vomiting, no diarrhea. GENITOURINARY: Negative for Hematuria or UTI, no kidney stones. INTEGUMENT/BREAST: Negative for any muscular injury with mild osteoarthritis.. HEMATOLOGIC/LYMPHATIC: Negative for bleed or purpura. MUSCULOSKELTAL: Negative for Myalgia or arthralgia. NEURLOGICAL: No LOC, Sz or syncope, blurred vision dizziness or abnormality.. BEHAVIORAL/PSYCH: Negative. ENDOCRINE: Negative. PHYSICAL EXAMINATION General Appearance: Alert, cooperative, no distress, appears stated age. Resting in bed eating breakfast of clear liquids. He appears to be comfortable. Neck HEENT: Supple, no lymphadenopathy, no thyroid enlargement, no carotid bruits. Lungs: Decreased for some bilateral rhonchi has mild expiratory wheezes with crackles in the bases. Chest Wall: Decrease expansion with deep inspiration no tenderness and no deformity was found on exam, no costochondral pain or discomfort. Heart: Regular rate and rhythm, S1, S2 positive history normal, no murmur, rub or gallop. Back: Symmetric, no curvature, ROM normal, no CVA tenderness. Abdomen: Soft slightly distended significant discomfort in the epigastric area and mid abdominal region no rebound or rigidity. Extremities: Extremities normal, atraumatic, no cyanosis or edema. Pulses: 2+ and symmetric. Skin: Skin color, texture, tugor normal, no rashes or lesions. Neurologic: Alert oriented x3 cranial nerves II through XII intact, no motor deficit, no abnormal balance or gait. ASSESSMENT AND PLAN 1 atypical chest pain and elevated troponins, acute coronary syndrome ruled out. Cardiology consult appreciated. Cardiology to give clearance for cholec ystectomy planned for Thursday. 2 acute pancreatitis: Most likely from common duct gallstone, continue pain management and fluid resuscitation will consult gastroenterology status post ERCP. 3 ascending cholangitis with gram-negative bacteremia: Secondary to common duct stone significant dilatation patient was started on Zosyn and Flagyl and continue current medication management. 4 acute cholecystitis and cholelithiasis: Patient will require gallbladder surgery Thursday 5 atherosclerotic heart disease: Post angioplasty and stent placement has been seeing cardiology regular basis. 6 diabetes Type 2 on insulin: Resume patient on Prandin 4 mg twice a day, glipizide 10 mg twice a day continue Accu-Chek with sliding scales coverage bolus formula if possible. 7 chronic kidney disease stage III. 8 hypertension: Remain on metoprolol. 9 BPH: Is still able to void no obstruction remain on tamsulosin 0.4 mg daily. 10 mild arrhythmia: Continue metoprolol patient is doing well. 11 GI prophylaxis: Patient will be continue on pantoprazole 40 mg daily. 12 DVT prophylaxis: Consider use subcutaneous heparin as needed CODE STATUS: Full code. DISCHARGE PLAN Home early next week Impression and plan of care have been directed as dictated by the signing physician. Whitney Batista nurse practitioner acting as scribe for signing physician. Objective - Vital Signs Vital signs: Vital Signs Temp 98.5 F 11/29/20 20:50 Pulse 99 11/30/20 03:59 Resp 18 11/30/20 03:59 BP 147/66 11/30/20 03:59 Pulse Ox 90 L 11/30/20 03:59 Intake & Output 11/29/20 11/30/20 11/30/20 18:59 06:59 18:59 Intake Total 650 1200 Output Total 450 Balance 200 1200 Weight 81.4 kg Intake: IV 650 Intake, IV Titration 1200 Amount Piperacillin-Tazobactam 3 100 .375 gm In Sodium Chloride 0.9% 100 ml @ 25 mls/hr IVPB Q8HR [facility] Rx# :[id number] Sodium Chloride 0.9% 1, 1100 000 ml @ 150 mls/hr IV . Q6H40M [facility] Rx#:[id number] Output: Urine 450 Other: # Voids 1 3 - Labs CBC & Chem 7: 11/30/20 06:05 11/30/20 06:05 Labs: Abnormal Lab Results - Last 24 Hours (Table) 11/29/20 11/29/20 11/29/20 Range/Units 10:54 11:37 16:39 RBC (4.30-5.90) m/uL Hgb (13.0-17.5) gm/dL Hct (39.0-53.0) % Plt Count (150-450) k/uL Lymphocytes # (Manual) (1.0-4.8) k/uL Chloride (98-107) mmol/L Carbon Dioxide (22-30) mmol/L Creatinine (0.66-1.25) mg/dL Glucose (74-99) mg/dL POC Glucose (mg/dL) 138 H 187 H (75-99) mg/dL Calcium (8.4-10.2) mg/dL Total Bilirubin (0.2-1.3) mg/dL AST (17-59) U/L ALT (4-49) U/L Alkaline Phosphatase (38-126) U/L Troponin I 0.377 H* (0.000-0.034) ng/mL Total Protein (6.3-8.2) g/dL Albumin (3.5-5.0) g/dL Amylase (30-110) U/L 11/29/20 11/30/20 11/30/20 Range/Units 20:18 06:05 06:05 RBC 4.01 L (4.30-5.90) m/uL Hgb 12.1 L (13.0-17.5) gm/dL Hct 37.5 L (39.0-53.0) % Plt Count 135 L (150-450) k/uL Lymphocytes # (Manual) 0.27 L (1.0-4.8) k/uL Chloride 115 H (98-107) mmol/L Carbon Dioxide 21 L (22-30) mmol/L Creatinine 1.64 H (0.66-1.25) mg/dL Glucose 166 H (74-99) mg/dL POC Glucose (mg/dL) 217 H (75-99) mg/dL Calcium 8.2 L (8.4-10.2) mg/dL Total Bilirubin 5.9 H (0.2-1.3) mg/dL AST 261 H (17-59) U/L ALT 726 H (4-49) U/L Alkaline Phosphatase 231 H (38-126) U/L Troponin I (0.000-0.034) ng/mL Total Protein 4.8 L (6.3-8.2) g/dL Albumin 2.7 L (3.5-5.0) g/dL Amylase 111 H (30-110) U/L 11/30/20 Range/Units 06:23 RBC (4.30-5.90) m/uL Hgb (13.0-17.5) gm/dL Hct (39.0-53.0) % Plt Count (150-450) k/uL Lymphocytes # (Manual) (1.0-4.8) k/uL Chloride (98-107) mmol/L Carbon Dioxide (22-30) mmol/L Creatinine (0.66-1.25) mg/dL Glucose (74-99) mg/dL POC Glucose (mg/dL) 139 H (75-99) mg/dL Calcium (8.4-10.2) mg/dL Total Bilirubin (0.2-1.3) mg/dL AST (17-59) U/L ALT (4-49) U/L Alkaline Phosphatase (38-126) U/L Troponin I (0.000-0.034) ng/mL Total Protein (6.3-8.2) g/dL Albumin (3.5-5.0) g/dL Amylase (30-110) U/L Microbiology - Last 24 Hours (Table) 11/28/20 11:43 Blood Culture Gram Stain - Preliminary Blood Blood Culture - Preliminary Gram Neg Bacilli 11/28/20 11:58 Blood Culture Gram Stain - Preliminary Blood Blood Culture - Preliminary Gram Neg Bacilli 11/28/20 11:58 Blood Culture - Final Blood 11/28/20 11:43 Blood Culture - Final Blood
[2020-11-30 11:58] LABS: Glucose,Whole Blood 268 mg/dL (75-99)
[2020-11-30] MEDS: LACTATED RINGERS 1,000 ML IV SCH ×2 (12:36→20:48)
--- NOTE | 2020-11-30 13:22 | P.PN ---
Subjective Progress Note Date: 11/30/20 Principal diagnosis: Transaminitis, CBD dilation This patient was seen and examined lying in bed. States he is overall feeling very well. He denies any abdominal pain, nausea, or vomiting. He states he is hungry and would like to advance his diet. Patient states he is not scheduled until Thursday for his cholecystectomy. He denies any acute changes through the night. He is status post ERCP yesterday with a 3 stone extraction. Objective - Vital Signs Vital signs: Vital Signs Temp 98.6 F 11/30/20 12:00 Pulse 95 11/30/20 12:00 Resp 18 11/30/20 13:07 BP 138/71 11/30/20 12:00 Pulse Ox 89 L 11/30/20 12:00 Intake & Output 11/29/20 11/30/20 11/30/20 18:59 06:59 18:59 Intake Total 650 1200 1240 Output Total 450 Balance 200 1200 1240 Weight 81.4 kg Intake: IV 650 Intake, IV Titration 1200 700 Amount Piperacillin-Tazobactam 3 100 100 .375 gm In Sodium Chloride 0.9% 100 ml @ 25 mls/hr IVPB Q8HR [facility] Rx# :[id number] Sodium Chloride 0.9% 1, 1100 600 000 ml @ 150 mls/hr IV . Q6H40M [facility] Rx#:[id number] Oral 540 Output: Urine 450 Other: # Voids 1 3 2 - Exam General appearance: The patient is alert, oriented, in no acute distress. HET: Head is normocephalic and atraumatic. Conjunctiva pink. Sclera anicteric. Neck: Supple without lymphadenopathy. Abdomen: Soft, nontender, nondistended with bowel sounds. No guarding or rigidity. Extremities: Normal skin color and turgor. No pedal edema Neurological: No focal deficits. Alert and oriented 3. - Labs CBC & Chem 7: 11/30/20 06:05 11/30/20 06:05 Labs: Abnormal Lab Results - Last 24 Hours (Table) 11/29/20 11/29/20 11/30/20 Range/Units 16:39 20:18 06:05 RBC 4.01 L (4.30-5.90) m/uL Hgb 12.1 L (13.0-17.5) gm/dL Hct 37.5 L (39.0-53.0) % Plt Count 135 L (150-450) k/uL Lymphocytes # (Manual) 0.27 L (1.0-4.8) k/uL Chloride (98-107) mmol/L Carbon Dioxide (22-30) mmol/L Creatinine (0.66-1.25) mg/dL Glucose (74-99) mg/dL POC Glucose (mg/dL) 187 H 217 H (75-99) mg/dL Calcium (8.4-10.2) mg/dL Total Bilirubin (0.2-1.3) mg/dL AST (17-59) U/L ALT (4-49) U/L Alkaline Phosphatase (38-126) U/L Total Protein (6.3-8.2) g/dL Albumin (3.5-5.0) g/dL Amylase (30-110) U/L 11/30/20 11/30/20 11/30/20 Range/Units 06:05 06:23 11:57 RBC (4.30-5.90) m/uL Hgb (13.0-17.5) gm/dL Hct (39.0-53.0) % Plt Count (150-450) k/uL Lymphocytes # (Manual) (1.0-4.8) k/uL Chloride 115 H (98-107) mmol/L Carbon Dioxide 21 L (22-30) mmol/L Creatinine 1.64 H (0.66-1.25) mg/dL Glucose 166 H (74-99) mg/dL POC Glucose (mg/dL) 139 H 268 H (75-99) mg/dL Calcium 8.2 L (8.4-10.2) mg/dL Total Bilirubin 5.9 H (0.2-1.3) mg/dL AST 261 H (17-59) U/L ALT 726 H (4-49) U/L Alkaline Phosphatase 231 H (38-126) U/L Total Protein 4.8 L (6.3-8.2) g/dL Albumin 2.7 L (3.5-5.0) g/dL Amylase 111 H (30-110) U/L Microbiology - Last 24 Hours (Table) 11/28/20 11:43 Blood Culture Gram Stain - Preliminary Blood Blood Culture - Preliminary Gram Neg Bacilli 11/28/20 11:58 Blood Culture Gram Stain - Preliminary Blood Blood Culture - Preliminary Gram Neg Bacilli Assessment and Plan (1) Common bile duct (CBD) obstruction Narrative/Plan: 80-year-old male with multiple medical comorbidities presenting with chest and abdominal pain and found to have elevated lipase and liver enzymes suggestive of gallstone pancreatitis and possible CBD obstruction. Ultrasound of the abdomen showed a 1 cm CBD with multiple stones in the gallbladder and suggestion of a distal CBD stone. Total bilirubin 4.1 with marked elevation of AST and ALT and lipase. Concern is for choledocholithiasis. He is status post ERCP with cholangiogram, sphincterectomy and balloon sweep of the bile duct productive of 3 CBD stones. Repeat total bilirubin 5.9, alkaline phosphatase 231, AST 261, ALT 726, lipase 245 He is scheduled for cholecystectomy on Thursday with general surgery. Current Visit: Yes Status: Acute Code(s): K83.1 - OBSTRUCTION OF BILE DUCT SNOMED Code(s): 031548307 (2) Elevated bilirubin Current Visit: Yes Status: Acute Code(s): R17 - UNSPECIFIED JAUNDICE SNOMED Code(s): 13146710 (3) Pancreatitis Current Visit: Yes Status: Acute Code(s): K85.90 - ACUTE PANCREATITIS WITHOUT NECROSIS OR INFECTION, UNSP SNOMED Code(s): 11813592 Plan: Supportive care Full liquid diet, advance per surgical recommendations Continue broad-spectrum antibiotic therapy Patient is status post ERCP with 3 CBD stone extraction Repeat CMP in morning It is scheduled for cholecystectomy Thursday with Dr. Kumar Thank you for this consultation, we will sign off at this time Dr. Gillespie I agree with the dictator's note, documented as a scribe by Rohini Hicks.
--- NOTE | 2020-11-30 15:21 | P.PN ---
Subjective Progress Note Date: 11/30/20 HISTORY OF PRESENT ILLNESS: Patient is status post ERCP. Patient examined this morning at the bedside. He denies chest pain or pressure. Denies short of breath. He reports abdominal pain at the time of examination. Echocardiogram completed revealed ejection fraction 45-50%, trace to mild mitral regurgitation, and mild tricuspid regurgitation. PHYSICAL EXAM: VITAL SIGNS: Reviewed. GENERAL: Well-developed in no acute distress. NECK: Supple. No JVD or thyromegaly LUNGS: Respirations even and unlabored. Lungs essentially clear to auscultation bilaterally. HEART: Regular rate and rhythm. S1 and S2 heard. EXTREMITIES: Normal range of motion. No clubbing or cyanosis. Peripheral pulses intact. No lower extremity edema ASSESSMENT: 1. Ascending cholangitis 2. Reported chest pain however appears more epigastric in nature and likely related to his ascending cholangitis 3. Mildly elevated troponins, suspect type II mechanism from his sepsis and cholangitis 4. History of coronary artery disease with prior PCI in 2018 5. Hypertension 6. Hyperlipidemia 7. Diabetes mellitus 8. Reported history of carotid disease status post intervention 9. Abdominal aortic aneurysm status post repair 10. Sinus tachycardia related to cholangitis, sepsis PLAN: Continue current cardiac medications Patient scheduled for cholecystectomy on Thursday with Dr. Shaikh Patient at moderate risk to undergo cholecystectomy from a cardiac standpoint however there are no absolute contraindications to undergo surgical intervention and is cleared to proceed with surgery from a cardiac perspective We will continue to follow along with patient during his hospitalization Nurse practitioner note has been reviewed by physician. Signing provider agrees with the documented findings, assessment, and plan of care. Objective - Vital Signs Vital signs: Vital Signs Temp 98.6 F 11/30/20 12:00 Pulse 95 11/30/20 12:00 Resp 18 11/30/20 13:07 BP 138/71 11/30/20 12:00 Pulse Ox 89 L 11/30/20 12:00 Intake & Output 11/29/20 11/30/20 11/30/20 18:59 06:59 18:59 Intake Total 650 1200 1480 Output Total 450 Balance 200 1200 1480 Weight 81.4 kg Intake: IV 650 Intake, IV Titration 1200 700 Amount Piperacillin-Tazobactam 3 100 100 .375 gm In Sodium Chloride 0.9% 100 ml @ 25 mls/hr IVPB Q8HR [facility] Rx# :[id number] Sodium Chloride 0.9% 1, 1100 600 000 ml @ 150 mls/hr IV . Q6H40M [facility] Rx#:[id number] Oral 780 Output: Urine 450 Other: # Voids 1 3 2 - Labs CBC & Chem 7: 11/30/20 06:05 11/30/20 06:05 Labs: Abnormal Lab Results - Last 24 Hours (Table) 11/29/20 11/29/20 11/30/20 Range/Units 16:39 20:18 06:05 RBC 4.01 L (4.30-5.90) m/uL Hgb 12.1 L (13.0-17.5) gm/dL Hct 37.5 L (39.0-53.0) % Plt Count 135 L (150-450) k/uL Lymphocytes # (Manual) 0.27 L (1.0-4.8) k/uL Chloride (98-107) mmol/L Carbon Dioxide (22-30) mmol/L Creatinine (0.66-1.25) mg/dL Glucose (74-99) mg/dL POC Glucose (mg/dL) 187 H 217 H (75-99) mg/dL Calcium (8.4-10.2) mg/dL Total Bilirubin (0.2-1.3) mg/dL AST (17-59) U/L ALT (4-49) U/L Alkaline Phosphatase (38-126) U/L Total Protein (6.3-8.2) g/dL Albumin (3.5-5.0) g/dL Amylase (30-110) U/L 11/30/20 11/30/20 11/30/20 Range/Units 06:05 06:23 11:57 RBC (4.30-5.90) m/uL Hgb (13.0-17.5) gm/dL Hct (39.0-53.0) % Plt Count (150-450) k/uL Lymphocytes # (Manual) (1.0-4.8) k/uL Chloride 115 H (98-107) mmol/L Carbon Dioxide 21 L (22-30) mmol/L Creatinine 1.64 H (0.66-1.25) mg/dL Glucose 166 H (74-99) mg/dL POC Glucose (mg/dL) 139 H 268 H (75-99) mg/dL Calcium 8.2 L (8.4-10.2) mg/dL Total Bilirubin 5.9 H (0.2-1.3) mg/dL AST 261 H (17-59) U/L ALT 726 H (4-49) U/L Alkaline Phosphatase 231 H (38-126) U/L Total Protein 4.8 L (6.3-8.2) g/dL Albumin 2.7 L (3.5-5.0) g/dL Amylase 111 H (30-110) U/L Microbiology - Last 24 Hours (Table) 11/28/20 11:43 Blood Culture Gram Stain - Preliminary Blood Blood Culture - Preliminary Gram Neg Bacilli 11/28/20 11:58 Blood Culture Gram Stain - Preliminary Blood Blood Culture - Preliminary Gram Neg Bacilli
[2020-11-30 16:59] LABS: Glucose,Whole Blood 227 mg/dL (75-99)
[2020-11-30] MEDS: ATORVASTATIN 40 MG TAB PO SCH (20:41)
[2020-11-30] MEDS: LATANOPROST 0.005% OPHTH DROPS 2.5 ML BTL BOTH EYES SCH (20:47)
[2020-11-30 20:58] LABS: Glucose,Whole Blood 209 mg/dL (75-99)
[2020-12-01 06:19] LABS: Glucose,Whole Blood 168 mg/dL (75-99)
[2020-12-01] MEDS: SODIUM CHLORIDE 0.9% 1,000 ML IV SCH ×3 (06:38→15:57)
[2020-12-01] MEDS: INSULIN ASPART (NovoLOG) 100 UNIT/ML VIAL SQ SCH ×4 (06:44→20:11)
[2020-12-01] MEDS: PANTOPRAZOLE 40 MG TABLET PO SCH (06:44)
[2020-12-01] MEDS: PIPERACILLIN-TAZOBACTAM 3.375 GM in SODIUM CHLORIDE 0.9% 100 ML IVPB SCH ×3 (09:08→23:01)
[2020-12-01] MEDS: ASPIRIN 81 MG PO SCH (09:08)
[2020-12-01] MEDS: ISOSORBIDE MONONITRATE ER 15 MG TAB PO SCH (09:08)
[2020-12-01] MEDS: TAMSULOSIN 0.4 MG CAP.ER.24H PO SCH (09:08)
[2020-12-01] MEDS: ALPRAZolam 0.25 MG TAB PO SCH (09:08)
[2020-12-01] MEDS: METOPROLOL SUCCINATE (ER) 50 MG TAB.ER.24H PO SCH (09:08)
--- NOTE | 2020-12-01 10:24 | P.PN ---
Subjective Progress Note Date: 12/01/20 HISTORY OF PRESENT ILLNESS 80-year-old male one of my office patient with multiple medical problem was known to have history of CAD post heart catheter and stent placement in the pas t, history of diabetes, hypertension and hyperlipidemia was also known to have history of renal cancer with partial nephrectomy also had long-standing history of spinal stenosis of the lumbar spine with generalized weakness of the lower extremity. Post AAA repair, he presented to the emergency department in the afternoon today with concern of substernal chest pressure and pain with worsening dyspepsia and abdominal discomfort with nausea his symptoms become much worse with certain food he denies any increased pain with exertion at the time. Patient was seen and evaluated CK with troponin was negative, surprisingly patient had very high abnormal liver function tests with AST and ALT in the 9816-1986, lipase was 2924. Patient also was in acute kidney injury with creatinine of 1.55 GFR of 41 only. Abdominal ultrasound showed cholelithiasis with obstructing calcification within the common duct correlate with, Dr. pollock with common duct markedly dilated at 1 cm. With mildly elevated white blood cell significantly high temperature patient also was diagnosed with ascending cholangitis. We'll consult gastroenterology for possible ERCP also general surgery for possible cholecystectomy patient will be admitted to the hospital on gram-negative coverage and pending culture to change antibiotics. 11/29: Patient has been afebrile, heart rate 110, blood pressure 134/64, pulse ox 94% on room air. WBC 7.0, hemoglobin 12.6, platelet count 132. CO2 19, BUN 16 creatinine 1.49. Troponin 0.2-6 and 0.377. Total bilirubin 6.1, AST 642, ALT 1172, alkaline phosphatase 229. Lipase 169. Blood culture positive for gram- negative bacilli. Patient is currently covered with Zosyn. He is scheduled for ERCP today. Cardiology has evaluated and cleared patient for procedure. 11/30: Patient underwent ERCP, sphincterotomy and balloon sweep the bile duct of 3 CVD stones. Plan is for cholecystectomy with Dr. Shaikh on Thursday. Discussed case with Dr. Zavaleta for clearance for surgery. The patient states that his abdominal pain is much improved. He denies any nausea vomiting and is hungry. He is requesting a regular diet. This will need to be addressed by general surgery. He has been afebrile, heart rate 96, blood pressure 132/72, pulse ox 93% on room air. CBC 5.3, hemoglobin 12.1, platelet count 135. Sodium 141, potassium 3.7, chloride 115, CO2 21, BUN 16 and creatinine 1.64. Calcium 8.2, total bilirubin 5.9, AST 261, ALT 726, alkaline phosphatase 231. Amylase 111, lipase 245. 12/01: Patient is scheduled for cholecystectomy on Thursday. At this time he is found in the bathroom getting ready to shower. Patient is still slightly jaundiced. He is complaining of some nausea but no vomiting. Patient is ambulatory without any distress. Patient remained afebrile, heart rate 94, respirations 16, blood pressure 134/72 pulse ox 95% on room air. REVIEW OF SYSTEMS CONSTITUTIONAL: Well-developed no acute respiratory distress. Denies fever. Denies chills EYES: No icterus sclerae, no conjunctivitis. EARS, NOSE, MOUTH, THROAT, and FACE: No sore throat, lymphadenopathy, carotid bruits or deformity. RESPIRATORY: Mild shortness of breath with cough and wheezes. CARDIOVASCULAR: Positive PND or troponin palpitation and questionable of angina. GASTROINTESTINAL: Positive abdominal pain improved. No nausea, no vomiting, no diarrhea. GENITOURINARY: Negative for Hematuria or UTI, no kidney stones. INTEGUMENT/BREAST: Negative for any muscular injury with mild osteoarthritis.. HEMATOLOGIC/LYMPHATIC: Negative for bleed or purpura. MUSCULOSKELTAL: Negative for Myalgia or arthralgia. NEURLOGICAL: No LOC, Sz or syncope, blurred vision dizziness or abnormality.. BEHAVIORAL/PSYCH: Negative. ENDOCRINE: Negative. PHYSICAL EXAMINATION General Appearance: Alert, cooperative, no distress, appears stated age. Resting in bed eating breakfast of clear liquids. He appears to be comfortable. Neck HEENT: Supple, no lymphadenopathy, no thyroid enlargement, no carotid bruits. Lungs: Decreased for some bilateral rhonchi has mild expiratory wheezes with crackles in the bases. Chest Wall: Decrease expansion with deep inspiration no tenderness and no deformity was found on exam, no costochondral pain or discomfort. Heart: Regular rate and rhythm, S1, S2 positive history normal, no murmur, rub or gallop. Back: Symmetric, no curvature, ROM normal, no CVA tenderness. Abdomen: Soft slightly distended significant discomfort in the epigastric area and mid abdominal region no rebound or rigidity. Extremities: Extremities normal, atraumatic, no cyanosis or edema. Pulses: 2+ and symmetric. Skin: Skin color, texture, tugor normal, no rashes or lesions. Neurologic: Alert oriented x3 cranial nerves II through XII intact, no motor deficit, no abnormal balance or gait. ASSESSMENT AND PLAN 1 atypical chest pain and elevated troponins, acute coronary syndrome ruled out. Cardiology consult appreciated. Cardiology to give clearance for cholecystectomy planned for Thursday. 2 acute pancreatitis: Most likely from common duct gallstone, continue pain management and fluid resuscitation will consult gastroenterology status post ERCP. 3 ascending cholangitis with gram-negative bacteremia: Secondary to common duct stone significant dilatation patient was started on Zosyn and Flagyl and continue current medication management. 4 acute cholecystitis and cholelithiasis: Patient will require gallbladder surgery Thursday 5 atherosclerotic heart disease: Post angioplasty and stent placement has been seeing cardiology regular basis. 6 diabetes Type 2 on insulin: Resume patient on Prandin 4 mg twice a day, glipizide 10 mg twice a day continue Accu-Chek with sliding scales coverage bolus formula if possible. 7 chronic kidney disease stage III. 8 hypertension: Remain on metoprolol. 9 BPH: Is still able to void no obstruction remain on tamsulosin 0.4 mg daily. 10 mild arrhythmia: Continue metoprolol patient is doing well. 11 GI prophylaxis: Patient will be continue on pantoprazole 40 mg daily. 12 DVT prophylaxis: Consider use subcutaneous heparin as needed CODE STATUS: Full code. DISCHARGE PLAN Home early next week Impression and plan of care have been directed as dictated by the signing physician. Michelle Batres nurse practitioner acting as scribe for signing physician. Objective - Vital Signs Vital signs: Vital Signs Temp 98.5 F 12/01/20 00:00 Pulse 94 12/01/20 09:05 Resp 16 12/01/20 09:05 BP 134/72 12/01/20 09:05 Pulse Ox 95 12/01/20 09:05 Intake & Output 11/30/20 12/01/20 12/01/20 18:59 06:59 18:59 Intake Total 2019 940 600 Balance 2019 940 600 Weight 76.8 kg Intake: Intake, IV Titration 700 700 Amount Piperacillin-Tazobactam 3 100 100 .375 gm In Sodium Chloride 0.9% 100 ml @ 25 mls/hr IVPB Q8HR [facility] Rx# :[id number] Sodium Chloride 0.9% 1, 600 600 000 ml @ 150 mls/hr IV . Q6H40M [facility] Rx#:[id number] Oral 1320 240 600 Other: # Voids 2 5 - Labs CBC & Chem 7: 11/30/20 06:05 11/30/20 06:05 Labs: Abnormal Lab Results - Last 24 Hours (Table) 11/30/20 11/30/20 11/30/20 Range/Units 11:57 16:57 20:33 POC Glucose (mg/dL) 268 H 227 H 209 H (75-99) mg/dL 12/01/20 Range/Units 06:14 POC Glucose (mg/dL) 168 H (75-99) mg/dL Microbiology - Last 24 Hours (Table) 11/28/20 11:43 Blood Culture Gram Stain - Final Blood Blood Culture - Final Klebsiella oxytoca 11/28/20 11:58 Blood Culture Gram Stain - Final Blood Blood Culture - Final Klebsiella oxytoca
[2020-12-01 11:38] LABS: Glucose,Whole Blood 236 mg/dL (75-99)
--- NOTE | 2020-12-01 13:27 | P.PN ---
Subjective Progress Note Date: 12/01/20 CHIEF COMPLAINT: Ascending cholangitis HISTORY OF PRESENT ILLNESS: The patient is a 80 year old male admitted with choledocholithiasis and symptomatic gallstones and ascending cholangitis. Patient presented with elevated troponins including elevated total bilirubin and LFTs. He status post ERCP. He is on a full liquid diet. He denies any new chest pain or abdominal pain. REVIEW OF ORGAN SYSTEMS: He is hard of hearing. Denies chest pain today. No shortness of breath. PHYSICAL EXAM: VITALS: Reviewed CONSTITUTIONAL: Well developed and in no acute distress. EYES: Conjuctivae with sclera icterus. Pupils are equally round and reactive to light. Extraocular movements grossly intact. HEAD, EARS, NOSE, THROAT: Moist buccal mucosa. Head is atraumatic, normocephalic. Very hard of hearing. No nasal drainage. NECK: Supple. No JV distention. No thyroidomegaly. RESPIRATORY: Non-labored respirations and equal bilateral excursions. No gross wheezes. CARDIOVASCULAR: Regular rate and rhythm. Extremities without moderate edema. Palpable 2+ radial pulses. ABDOMEN: Soft. Non-tender. Nondistended. Well healed midline incision along abdomen. No gross hernias. MUSCULOSKELETAL: Nail and fingers with good capillary refill. SKIN: Warm and well perfused with good skin turgor. NEUROLOGIC: Cranial nerves II through XII grossly intact. Sensation upper and extremities intact. No focal or lateralizing signs. PSYCH: Appropriate affect. Alert and oriented to person, place and time. Displays appropriate insight. CLINCAL LABS: Reviewed. Blood sugar is 229. WBC and CMP pending ASSESSMENT: 1. Choledocholithiasis with jaundice and ascending cholangitis with positive blood cultures and fevers on admission 2. Elevated liver enzymes due to choledocholithiasis 3. Symptomatic gallstones 4. Lactic acidosis 5. Chronic renal insufficiency, stage III due to hypertension 6. Diabetes type 2, [id number] PLAN: 1. Patient presents with moderate risk from a cardiac standpoint however no absolute contraindications. 2. Repeat CBC and CMP prior improvement 3. Continue antibiotics for ascending cholangitis 4. Additionally, patient is elevated risk with previous open abdominal surgery Objective - Vital Signs Vital signs: Vital Signs Temp 98.5 F 12/01/20 00:00 Pulse 94 12/01/20 09:05 Resp 16 12/01/20 09:05 BP 134/72 12/01/20 09:05 Pulse Ox 95 12/01/20 09:05 Intake & Output 11/30/20 12/01/20 12/01/20 18:59 06:59 18:59 Intake Total 2019 940 600 Balance 2019 940 600 Weight 76.8 kg Intake: Intake, IV Titration 700 700 Amount Piperacillin-Tazobactam 3 100 100 .375 gm In Sodium Chloride 0.9% 100 ml @ 25 mls/hr IVPB Q8HR [facility] Rx# :[id number] Sodium Chloride 0.9% 1, 600 600 000 ml @ 150 mls/hr IV . Q6H40M [facility] Rx#:[id number] Oral 1320 240 600 Other: # Voids 2 5 - Labs CBC & Chem 7: 11/30/20 06:05 11/30/20 06:05 Labs: Abnormal Lab Results - Last 24 Hours (Table) 11/30/20 11/30/20 11/30/20 Range/Units 11:57 16:57 20:33 POC Glucose (mg/dL) 268 H 227 H 209 H (75-99) mg/dL 12/01/20 Range/Units 06:14 POC Glucose (mg/dL) 168 H (75-99) mg/dL Microbiology - Last 24 Hours (Table) 11/28/20 11:43 Blood Culture Gram Stain - Final Blood Blood Culture - Final Klebsiella oxytoca 11/28/20 11:58 Blood Culture Gram Stain - Final Blood Blood Culture - Final Klebsiella oxytoca Assessment and Plan (1) Jaundice Current Visit: Yes Status: Acute Code(s): R17 - UNSPECIFIED JAUNDICE SNOMED Code(s): 25540882 (2) Common bile duct (CBD) obstruction Current Visit: Yes Status: Acute Code(s): K83.1 - OBSTRUCTION OF BILE DUCT SNOMED Code(s): 828695657 (3) Elevated bilirubin Current Visit: Yes Status: Acute Code(s): R17 - UNSPECIFIED JAUNDICE SNOMED Code(s): 20715908 (4) Lactic acidosis Current Visit: Yes Status: Acute Code(s): E87.2 - ACIDOSIS SNOMED Code(s): 02644248 (5) Leukocytosis Current Visit: Yes Status: Acute Code(s): D72.829 - ELEVATED WHITE BLOOD CELL COUNT, UNSPECIFIED SNOMED Code(s): 843605119 (6) History of AAA (abdominal aortic aneurysm) repair Current Visit: No Status: Acute Code(s): Z98.89 - OTHER SPECIFIED POSTPROCEDURAL STATES * DO NOT USE * SNOMED Code(s): 498898760 (7) Hx of renal cell cancer Current Visit: No Status: Acute Code(s): Z85.528 - PERSONAL HISTORY OF OTHER MALIGNANT NEOPLASM OF KIDNEY SNOMED Code(s): 118179765 (8) Ascending cholangitis Current Visit: Yes Status: Acute Code(s): K83.09 - OTHER CHOLANGITIS SNOMED Code(s): 65957386
--- NOTE | 2020-12-01 14:12 | P.PN ---
Subjective This is a pleasant 80-year-old male past medical history significant for coronary artery disease status post PCI, diabetes mellitus, hypertension, d yslipidemia, renal carcinoma status post partial nephrectomy, abdominal aortic aneurysm status post repair and spinal stenosis. He follows in the office with Dr. Santoro. Patient is seen and examined in no acute distress. He has no symptoms of chest pain or shortness of breath. He continues to have abdominal discomfort. Blood pressure 135/65 heart rate 88 afebrile maintaining oxygen saturation on room air. GENERAL: Well-appearing, well-nourished and in no acute distress. NECK: Supple without JVD or thyromegaly. LUNGS: Breath sounds clear to auscultation bilaterally. Respiration equal and unlabored. No wheezes, rales or rhonchi. HEART: Regular rate and rhythm without murmurs, rubs or gallops. S1 and S2 heard. EXTREMITIES: Normal range of motion, no edema. No clubbing or cyanosis. Peripheral pulses intact. ASSESSMENT Ascending cholangitis Epigastric pain Mildly elevated troponins, suspect type II mechanism from sepsis and cholangitis History of coronary artery disease status post PCI in 2018 Hypertension Dyslipidemia Diabetes mellitus PLAN Clinically stable from a cardiac perspective. He has no symptoms of angina and is clinically euvolemic. He is an acceptable risk to undergo surgical intervention on Thursday. Recommend cautious fluid administration and optimal blo od pressure control intraoperatively. Nurse Practitioner note has been reviewed, I agree with a documented findings and plan of care. Patient was seen and examined. Objective - Vital Signs Vital signs: Vital Signs Temp 98.3 F 12/01/20 11:21 Pulse 88 12/01/20 13:10 Resp 16 12/01/20 13:10 BP 135/65 12/01/20 11:21 Pulse Ox 96 12/01/20 11:21 Intake & Output 11/30/20 12/01/20 12/01/20 18:59 06:59 18:59 Intake Total 2019 940 1500 Balance 2019 940 1500 Weight 76.8 kg Intake: Intake, IV Titration 700 700 900 Amount Piperacillin-Tazobactam 3 100 100 100 .375 gm In Sodium Chloride 0.9% 100 ml @ 25 mls/hr IVPB Q8HR [facility] Rx# :[id number] Sodium Chloride 0.9% 1, 600 600 800 000 ml @ 150 mls/hr IV . Q6H40M [facility] Rx#:[id number] Oral 1320 240 600 Other: # Voids 2 5 1 - Labs CBC & Chem 7: 11/30/20 06:05 11/30/20 06:05 Labs: Abnormal Lab Results - Last 24 Hours (Table) 11/30/20 11/30/20 12/01/20 Range/Units 16:57 20:33 06:14 POC Glucose (mg/dL) 227 H 209 H 168 H (75-99) mg/dL 12/01/20 Range/Units 11:36 POC Glucose (mg/dL) 236 H (75-99) mg/dL Microbiology - Last 24 Hours (Table) 11/28/20 11:43 Blood Culture Gram Stain - Final Blood Blood Culture - Final Klebsiella oxytoca 11/28/20 11:58 Blood Culture Gram Stain - Final Blood Blood Culture - Final Klebsiella oxytoca
[2020-12-01 16:46] LABS: Glucose,Whole Blood 262 mg/dL (75-99)
[2020-12-01] MEDS: LACTATED RINGERS 1,000 ML IV SCH (19:56)
[2020-12-01 20:03] LABS: Glucose,Whole Blood 239 mg/dL (75-99)
[2020-12-01] MEDS: ATORVASTATIN 40 MG TAB PO SCH (20:11)
[2020-12-01] MEDS: LATANOPROST 0.005% OPHTH DROPS 2.5 ML BTL BOTH EYES SCH (22:03)
[2020-12-02] MEDS: SODIUM CHLORIDE 0.9% 1,000 ML IV SCH ×4 (05:22→23:58)
[2020-12-02 06:10] LABS: Glucose,Whole Blood 159 mg/dL (75-99)
[2020-12-02] MEDS: PANTOPRAZOLE 40 MG TABLET PO SCH (06:40)
[2020-12-02] MEDS: INSULIN ASPART (NovoLOG) 100 UNIT/ML VIAL SQ SCH ×4 (06:40→20:19)
[2020-12-02] MEDS: METOPROLOL SUCCINATE (ER) 50 MG TAB.ER.24H PO SCH (08:35)
[2020-12-02] MEDS: TAMSULOSIN 0.4 MG CAP.ER.24H PO SCH (08:36)
[2020-12-02] MEDS: ALPRAZolam 0.25 MG TAB PO SCH (08:36)
[2020-12-02] MEDS: ASPIRIN 81 MG PO SCH (08:36)
[2020-12-02] MEDS: ISOSORBIDE MONONITRATE ER 15 MG TAB PO SCH (08:36)
[2020-12-02] MEDS: PIPERACILLIN-TAZOBACTAM 3.375 GM in SODIUM CHLORIDE 0.9% 100 ML IVPB SCH ×3 (08:36→23:57)
[2020-12-02 08:47] LABS: HCT 41.6 % (39.0-53.0); HGB 13.3 gm/dL (13.0-17.5); MCH 29.7 pg (25.0-35.0); MCV 92.8 fL (80.0-100.0); Mean Platelet Volume 7.6; Platelet Count 134 k/uL (150-450); RBC 4.48 m/uL (4.30-5.90); RDW 14.5 % (11.5-15.5)
[2020-12-02 08:50] LABS: Albumin 3.3 g/dL (3.5-5.0); Calcium 8.4 mg/dL (8.4-10.2); Potassium 3.6 mmol/L (3.5-5.1); Total Bilirubin 3.7 mg/dL (0.2-1.3); Total Protein 5.8 g/dL (6.3-8.2)
[2020-12-02 09:17] LABS: Lymphocytes # (M) 0.85 k/uL (1.0-4.8); Monocytes # (M) 0.15 k/uL (0-1.0); Neutrophils % (M) 76 %; Nucleated Red Blood Cells 0 /100 WBC (0-0); Total Cells Counted 100
--- NOTE | 2020-12-02 10:27 | P.PN ---
Subjective Progress Note Date: 12/02/20 HISTORY OF PRESENT ILLNESS 80-year-old male one of my office patient with multiple medical problem was known to have history of CAD post heart catheter and stent placement in the pas t, history of diabetes, hypertension and hyperlipidemia was also known to have history of renal cancer with partial nephrectomy also had long-standing history of spinal stenosis of the lumbar spine with generalized weakness of the lower extremity. Post AAA repair, he presented to the emergency department in the afternoon today with concern of substernal chest pressure and pain with worsening dyspepsia and abdominal discomfort with nausea his symptoms become much worse with certain food he denies any increased pain with exertion at the time. Patient was seen and evaluated CK with troponin was negative, surprisingly patient had very high abnormal liver function tests with AST and ALT in the [id number], lipase was 2924. Patient also was in acute kidney injury with creatinine of 1.55 GFR of 41 only. Abdominal ultrasound showed cholelithiasis with obstructing calcification within the common duct correlate with, Dr. pollock with common duct markedly dilated at 1 cm. With mildly elevated white blood cell significantly high temperature patient also was diagnosed with ascending cholangitis. We'll consult gastroenterology for possible ERCP also general surgery for possible cholecystectomy patient will be admitted to the hospital on gram-negative coverage and pending culture to change antibiotics. 11/29: Patient has been afebrile, heart rate 110, blood pressure 134/64, pulse ox 94% on room air. WBC 7.0, hemoglobin 12.6, platelet count 132. CO2 19, BUN 16 creatinine 1.49. Troponin 0.2-6 and 0.377. Total bilirubin 6.1, AST 642, ALT 1172, alkaline phosphatase 229. Lipase 169. Blood culture positive for gram- negative bacilli. Patient is currently covered with Zosyn. He is scheduled for ERCP today. Cardiology has evaluated and cleared patient for procedure. 11/30: Patient underwent ERCP, sphincterotomy and balloon sweep the bile duct of 3 CVD stones. Plan is for cholecystectomy with Dr. Shaikh on Thursday. Discussed case with Dr. Zavaleta for clearance for surgery. The patient states that his abdominal pain is much improved. He denies any nausea vomiting and is hungry. He is requesting a regular diet. This will need to be addressed by general surgery. He has been afebrile, heart rate 96, blood pressure 132/72, pulse ox 93% on room air. CBC 5.3, hemoglobin 12.1, platelet count 135. Sodium 141, potassium 3.7, chloride 115, CO2 21, BUN 16 and creatinine 1.64. Calcium 8.2, total bilirubin 5.9, AST 261, ALT 726, alkaline phosphatase 231. Amylase 111, lipase 245. 12/01: Patient is scheduled for cholecystectomy on Thursday. At this time he is found in the bathroom getting ready to shower. Patient is still slightly jaundiced. He is complaining of some nausea but no vomiting. Patient is ambulatory without any distress. Patient remained afebrile, heart rate 94, respirations 16, blood pressure 134/72 pulse ox 95% on room air. 12/02: Patient is found resting comfortably in bed without any complaints or concerns at this time. Patient's jaundice seems to be improving compared to yesterday. He is scheduled for cholecystectomy on Thursday. He is not complaining of any nausea or vomiting at this time. He is ambulatory without any distress. Patient remains afebrile, pulse rate 95, respirations 16, blood pressure 162/69 pulse ox 96% on room air. REVIEW OF SYSTEMS CONSTITUTIONAL: Well-developed no acute respiratory distress. Denies fever. Denies chills EYES: No icterus sclerae, no conjunctivitis. EARS, NOSE, MOUTH, THROAT, and FACE: No sore throat, lymphadenopathy, carotid bruits or deformity. RESPIRATORY: Mild shortness of breath with cough and wheezes. CARDIOVASCULAR: Positive PND or troponin palpitation and questionable of angina. GASTROINTESTINAL: Positive abdominal pain improved. No nausea, no vomiting, no diarrhea. GENITOURINARY: Negative for Hematuria or UTI, no kidney stones. INTEGUMENT/BREAST: Negative for any muscular injury with mild osteoarthritis.. HEMATOLOGIC/LYMPHATIC: Negative for bleed or purpura. MUSCULOSKELTAL: Negative for Myalgia or arthralgia. NEURLOGICAL: No LOC, Sz or syncope, blurred vision dizziness or abnormality.. BEHAVIORAL/PSYCH: Negative. ENDOCRINE: Negative. PHYSICAL EXAMINATION General Appearance: Alert, cooperative, no distress, appears stated age. Resting in bed eating breakfast of clear liquids. He appears to be comfortable. Neck HEENT: Supple, no lymphadenopathy, no thyroid enlargement, no carotid bruits. Lungs: Decreased for some bilateral rhonchi has mild expiratory wheezes with crackles in the bases. Chest Wall: Decrease expansion with deep inspiration no tenderness and no deformity was found on exam, no costochondral pain or discomfort. Heart: Regular rate and rhythm, S1, S2 positive history normal, no murmur, rub or gallop. Back: Symmetric, no curvature, ROM normal, no CVA tenderness. Abdomen: Soft slightly distended significant discomfort in the epigastric area and mid abdominal region no rebound or rigidity. Extremities: Extremities normal, atraumatic, no cyanosis or edema. Pulses: 2+ and symmetric. Skin: Skin color, texture, tugor normal, no rashes or lesions. Neurologic: Alert oriented x3 cranial nerves II through XII intact, no motor deficit, no abnormal balance or gait. ASSESSMENT AND PLAN 1 atypical chest pain and elevated troponins, acute coronary syndrome ruled out. Cardiology consult appreciated. Cardiology to give clearance for cholecystectomy planned for Thursday. 2 acute pancreatitis: Most likely from common duct gallstone, continue pain man agement and fluid resuscitation will consult gastroenterology status post ERCP. 3 ascending cholangitis with gram-negative bacteremia: Secondary to common duct stone significant dilatation patient was started on Zosyn and Flagyl and continue current medication management. 4 acute cholecystitis and cholelithiasis: Patient will require gallbladder surgery Thursday 5 atherosclerotic heart disease: Post angioplasty and stent placement has been seeing cardiology regular basis. 6 diabetes Type 2 on insulin: Resume patient on Prandin 4 mg twice a day, glipizide 10 mg twice a day continue Accu-Chek with sliding scales coverage bolus formula if possible. 7 chronic kidney disease stage III. 8 hypertension: Remain on metoprolol. 9 BPH: Is still able to void no obstruction remain on tamsulosin 0.4 mg daily. 10 mild arrhythmia: Continue metoprolol patient is doing well. 11 GI prophylaxis: Patient will be continue on pantoprazole 40 mg daily. 12 DVT prophylaxis: Consider use subcutaneous heparin as needed CODE STATUS: Full code. DISCHARGE PLAN Home early next week Impression and plan of care have been directed as dictated by the signing physician. Michelle Batres nurse practitioner acting as scribe for signing physician. Objective - Vital Signs Vital signs: Vital Signs Temp 98.1 F 12/02/20 08:34 Pulse 95 12/02/20 08:34 Resp 16 12/02/20 08:34 BP 162/69 12/02/20 08:34 Pulse Ox 96 12/02/20 08:34 Intake & Output 12/01/20 12/02/20 12/02/20 18:59 06:59 18:59 Intake Total 2100 700 480 Output Total 150 Balance 1950 700 480 Weight 76 kg Intake: Intake, IV Titration 900 700 Amount Piperacillin-Tazobactam 3 100 .375 gm In Sodium Chloride 0.9% 100 ml @ 25 mls/hr IVPB Q8HR [facility] Rx# :[id number] Sodium Chloride 0.9% 1, 800 700 000 ml @ 150 mls/hr IV . Q6H40M [facility] Rx#:[id number] Oral 1200 480 Output: Urine 150 Other: # Voids 2 5 1 # Bowel Movements 1 2 - Labs CBC & Chem 7: 12/02/20 08:05 12/02/20 08:05 Labs: Abnormal Lab Results - Last 24 Hours (Table) 12/01/20 12/01/20 12/01/20 Range/Units 11:36 16:44 20:00 Plt Count (150-450) k/uL Lymphocytes # (Manual) (1.0-4.8) k/uL Chloride (98-107) mmol/L Creatinine (0.66-1.25) mg/dL Glucose (74-99) mg/dL POC Glucose (mg/dL) 236 H 262 H 239 H (75-99) mg/dL Total Bilirubin (0.2-1.3) mg/dL AST (17-59) U/L ALT (4-49) U/L Alkaline Phosphatase (38-126) U/L Troponin I (0.000-0.034) ng/mL Total Protein (6.3-8.2) g/dL Albumin (3.5-5.0) g/dL 12/02/20 12/02/20 12/02/20 Range/Units 06:09 08:05 08:05 Plt Count 134 L (150-450) k/uL Lymphocytes # (Manual) 0.85 L (1.0-4.8) k/uL Chloride 108 H (98-107) mmol/L Creatinine 1.50 H (0.66-1.25) mg/dL Glucose 184 H (74-99) mg/dL POC Glucose (mg/dL) 159 H (75-99) mg/dL Total Bilirubin 3.7 H (0.2-1.3) mg/dL AST 137 H (17-59) U/L ALT 470 H (4-49) U/L Alkaline Phosphatase 448 H (38-126) U/L Troponin I (0.000-0.034) ng/mL Total Protein 5.8 L (6.3-8.2) g/dL Albumin 3.3 L (3.5-5.0) g/dL 12/02/20 Range/Units 08:05 Plt Count (150-450) k/uL Lymphocytes # (Manual) (1.0-4.8) k/uL Chloride (98-107) mmol/L Creatinine (0.66-1.25) mg/dL Glucose (74-99) mg/dL POC Glucose (mg/dL) (75-99) mg/dL Total Bilirubin (0.2-1.3) mg/dL AST (17-59) U/L ALT (4-49) U/L Alkaline Phosphatase (38-126) U/L Troponin I 0.114 H* (0.000-0.034) ng/mL Total Protein (6.3-8.2) g/dL Albumin (3.5-5.0) g/dL
--- NOTE | 2020-12-02 10:55 | P.PN ---
Subjective Progress Note Date: 12/02/20 CHIEF COMPLAINT: Ascending cholangitis HISTORY OF PRESENT ILLNESS: The patient is a 80 year old male admitted with choledocholithiasis and symptomatic gallstones and ascending cholangitis. He denies new abdominal pain this morning. No reports of nausea or vomiting. He is seeking more food for diet. REVIEW OF ORGAN SYSTEMS: Denies chest pain today. No shortness of breath. No productive sputum PHYSICAL EXAM: VITALS: Reviewed CONSTITUTIONAL: Well developed and in no acute distress. EYES: Conjuctivae with sclera icterus. Pupils are equally round and reactive to light. Extraocular movements grossly intact. HEAD, EARS, NOSE, THROAT: Moist buccal mucosa. Head is atraumatic, normocephalic. Very hard of hearing. No nasal drainage. RESPIRATORY: Non-labored respirations and equal bilateral excursions. No gross wheezes. CARDIOVASCULAR: Regular rate and rhythm. Extremities without moderate edema. Palpable 2+ radial pulses. ABDOMEN: Soft. Non-tender. Nondistended. Well healed midline incision along abdomen. No gross hernias. MUSCULOSKELETAL: Nail and fingers with good capillary refill. SKIN: Warm and well perfused with good skin turgor. NEUROLOGIC: Cranial nerves II through XII grossly intact. Sensation upper and extremities intact. No focal or lateralizing signs. PSYCH: Appropriate affect. Alert and oriented to person, place and time. Displays appropriate insight. CLINCAL LABS: Reviewed. WBC normal at 5.0. Platelets low 134. Total bilirubin decreased to 3.7. Troponin decreased to 0.114 from 0.377 ASSESSMENT: 1. Choledocholithiasis with jaundice and ascending cholangitis with positive blood cultures and fevers on admission 2. Elevated liver enzymes due to choledocholithiasis 3. Symptomatic gallstones 4. Lactic acidosis 5. Chronic renal insufficiency, stage III due to hypertension 6. Diabetes type 2, [id number] 7. Thrombocytopenia PLAN: 1. His troponins are improving and he denies any chest pain. Will continue to monitor. 2. His platelets are lower with thrombocytopenia that puts him at elevated risk for bleeding. Type and Screen ordered. 3. He is tolerating full liquid diet. May have low fat diet in the interim. 4. Will proceed with robotic cholecystectomy tomorrow for which he is high surgical risk. Objective - Vital Signs Vital signs: Vital Signs Temp 98.1 F 12/02/20 08:34 Pulse 95 01/17/21 08:34 Resp 16 12/02/20 08:34 BP 162/69 12/02/20 08:34 Pulse Ox 96 12/02/20 08:34 Intake & Output 12/01/20 12/02/20 12/02/20 18:59 06:59 18:59 Intake Total 2100 700 480 Output Total 150 Balance 1950 700 480 Weight 76 kg Intake: Intake, IV Titration 900 700 Amount Piperacillin-Tazobactam 3 100 .375 gm In Sodium Chloride 0.9% 100 ml @ 25 mls/hr IVPB Q8HR [facility] Rx# :[id number] Sodium Chloride 0.9% 1, 800 700 000 ml @ 150 mls/hr IV . Q6H40M [facility] Rx#:[id number] Oral 1200 480 Output: Urine 150 Other: # Voids 2 5 1 # Bowel Movements 1 2 - Labs CBC & Chem 7: 12/02/20 08:05 12/02/20 08:05 Labs: Abnormal Lab Results - Last 24 Hours (Table) 12/01/20 12/01/20 12/01/20 Range/Units 11:36 16:44 20:00 Plt Count (150-450) k/uL Lymphocytes # (Manual) (1.0-4.8) k/uL Chloride (98-107) mmol/L Creatinine (0.66-1.25) mg/dL Glucose (74-99) mg/dL POC Glucose (mg/dL) 236 H 262 H 239 H (75-99) mg/dL Total Bilirubin (0.2-1.3) mg/dL AST (17-59) U/L ALT (4-49) U/L Alkaline Phosphatase (38-126) U/L Troponin I (0.000-0.034) ng/mL Total Protein (6.3-8.2) g/dL Albumin (3.5-5.0) g/dL 12/02/20 12/02/20 12/02/20 Range/Units 06:09 08:05 08:05 Plt Count 134 L (150-450) k/uL Lymphocytes # (Manual) 0.85 L (1.0-4.8) k/uL Chloride 108 H (98-107) mmol/L Creatinine 1.50 H (0.66-1.25) mg/dL Glucose 184 H (74-99) mg/dL POC Glucose (mg/dL) 159 H (75-99) mg/dL Total Bilirubin 3.7 H (0.2-1.3) mg/dL AST 137 H (17-59) U/L ALT 470 H (4-49) U/L Alkaline Phosphatase 448 H (38-126) U/L Troponin I (0.000-0.034) ng/mL Total Protein 5.8 L (6.3-8.2) g/dL Albumin 3.3 L (3.5-5.0) g/dL 12/02/20 Range/Units 08:05 Plt Count (150-450) k/uL Lymphocytes # (Manual) (1.0-4.8) k/uL Chloride (98-107) mmol/L Creatinine (0.66-1.25) mg/dL Glucose (74-99) mg/dL POC Glucose (mg/dL) (75-99) mg/dL Total Bilirubin (0.2-1.3) mg/dL AST (17-59) U/L ALT (4-49) U/L Alkaline Phosphatase (38-126) U/L Troponin I 0.114 H* (0.000-0.034) ng/mL Total Protein (6.3-8.2) g/dL Albumin (3.5-5.0) g/dL Assessment and Plan (1) Jaundice Current Visit: Yes Status: Acute Code(s): R17 - UNSPECIFIED JAUNDICE SNOMED Code(s): 94732850 (2) Common bile duct (CBD) obstruction Current Visit: Yes Status: Acute Code(s): K83.1 - OBSTRUCTION OF BILE DUCT SNOMED Code(s): 750133518 (3) Elevated bilirubin Current Visit: Yes Status: Acute Code(s): R17 - UNSPECIFIED JAUNDICE SNOMED Code(s): 32658905 (4) Lactic acidosis Current Visit: Yes Status: Acute Code(s): E87.2 - ACIDOSIS SNOMED Code(s): 99325775 (5) Leukocytosis Current Visit: Yes Status: Acute Code(s): D72.829 - ELEVATED WHITE BLOOD CELL COUNT, UNSPECIFIED SNOMED Code(s): 220033645 (6) History of AAA (abdominal aortic aneurysm) repair Current Visit: No Status: Acute Code(s): Z98.89 - OTHER SPECIFIED POSTPROCEDURAL STATES * DO NOT USE * SNOMED Code(s): 047785597 (7) Hx of renal cell cancer Current Visit: No Status: Acute Code(s): Z85.528 - PERSONAL HISTORY OF OTHER MALIGNANT NEOPLASM OF KIDNEY SNOMED Code(s): 356945657 (8) Ascending cholangitis Current Visit: Yes Status: Acute Code(s): K83.09 - OTHER CHOLANGITIS SNOMED Code(s): 68546384 (9) Thrombocytopenia Current Visit: Yes Status: Acute Code(s): D69.6 - THROMBOCYTOPENIA, UNSPECIFIED SNOMED Code(s): 568969626
[2020-12-02 11:41] LABS: Glucose,Whole Blood 219 mg/dL (75-99)
--- NOTE | 2020-12-02 12:49 | P.PN ---
Subjective This is a pleasant 80-year-old male past medical history significant for coronary artery disease status post PCI, diabetes mellitus, hypertension, d yslipidemia, renal carcinoma status post partial nephrectomy, abdominal aortic aneurysm status post repair and spinal stenosis. He follows in the office with Dr. Santoro. Patient is seen and examined laying flat resting comfortably in bed in no acute distress. He has no symptoms of chest pain, shortness of breath, dizziness or palpitations. He continues to have intermittent episodes of abdominal discomfort. Blood pressure 162/69 heart rate 95 afebrile maintaining oxygen saturation on room air. Laboratory data reviewed, WBC 5.0, hemoglobin 13.3, platelets 134, sodium 139, potassium 3.6, creatinine 1.5 and troponin 0.114. Currently maintained on aspirin 81 mg daily, atorvastatin 40 mg at bedtime, Imdur 15 mg daily and Toprol 50 mg daily. GENERAL: Well-appearing, well-nourished and in no acute distress. NECK: Supple without JVD or thyromegaly. LUNGS: Breath sounds clear to auscultation bilaterally. Respiration equal and unlabored. No wheezes, rales or rhonchi. HEART: Regular rate and rhythm without murmurs, rubs or gallops. S1 and S2 heard. EXTREMITIES: Normal range of motion, no edema. No clubbing or cyanosis. Peripheral pulses intact. ASSESSMENT Ascending cholangitis Epigastric pain Mildly elevated troponins, suspect type II mechanism from sepsis and cholangitis History of coronary artery disease status post PCI in 2018 Hypertension Dyslipidemia Diabetes mellitus PLAN Clinically stable from a cardiac perspective. He has no symptoms of angina and is clinically euvolemic. He is an acceptable risk to undergo surgical intervention on Thursday. Recommend cautious fluid administration and optimal blood pressure control intraoperatively. Nurse Practitioner note has been reviewed, I agree with a documented findings and plan of care. Patient was seen and examined. Objective - Vital Signs Vital signs: Vital Signs Temp 98.1 F 12/02/20 08:34 Pulse 95 12/02/20 08:34 Resp 16 12/02/20 08:34 BP 162/69 12/02/20 08:34 Pulse Ox 96 12/02/20 08:34 Intake & Output 12/01/20 12/02/20 12/02/20 18:59 06:59 18:59 Intake Total 2100 700 Output Total 150 Balance 1950 700 Weight 76 kg Intake: Intake, IV Titration 900 700 Amount Piperacillin-Tazobactam 3 100 .375 gm In Sodium Chloride 0.9% 100 ml @ 25 mls/hr IVPB Q8HR [facility] Rx# :[id number] Sodium Chloride 0.9% 1, 800 700 000 ml @ 150 mls/hr IV . Q6H40M [facility] Rx#:[id number] Oral 1200 Output: Urine 150 Other: # Voids 2 5 1 # Bowel Movements 1 2 - Labs CBC & Chem 7: 12/02/20 08:05 12/02/20 08:05 Labs: Abnormal Lab Results - Last 24 Hours (Table) 12/01/20 12/01/20 12/01/20 Range/Units 11:36 16:44 20:00 Plt Count (150-450) k/uL Lymphocytes # (Manual) (1.0-4.8) k/uL Chloride (98-107) mmol/L Creatinine (0.66-1.25) mg/dL Glucose (74-99) mg/dL POC Glucose (mg/dL) 236 H 262 H 239 H (75-99) mg/dL Total Bilirubin (0.2-1.3) mg/dL AST (17-59) U/L ALT (4-49) U/L Alkaline Phosphatase (38-126) U/L Troponin I (0.000-0.034) ng/mL Total Protein (6.3-8.2) g/dL Albumin (3.5-5.0) g/dL 12/02/20 12/02/20 12/02/20 Range/Units 06:09 08:05 08:05 Plt Count 134 L (150-450) k/uL Lymphocytes # (Manual) 0.85 L (1.0-4.8) k/uL Chloride 108 H (98-107) mmol/L Creatinine 1.50 H (0.66-1.25) mg/dL Glucose 184 H (74-99) mg/dL POC Glucose (mg/dL) 159 H (75-99) mg/dL Total Bilirubin 3.7 H (0.2-1.3) mg/dL AST 137 H (17-59) U/L ALT 470 H (4-49) U/L Alkaline Phosphatase 448 H (38-126) U/L Troponin I (0.000-0.034) ng/mL Total Protein 5.8 L (6.3-8.2) g/dL Albumin 3.3 L (3.5-5.0) g/dL 12/02/20 Range/Units 08:05 Plt Count (150-450) k/uL Lymphocytes # (Manual) (1.0-4.8) k/uL Chloride (98-107) mmol/L Creatinine (0.66-1.25) mg/dL Glucose (74-99) mg/dL POC Glucose (mg/dL) (75-99) mg/dL Total Bilirubin (0.2-1.3) mg/dL AST (17-59) U/L ALT (4-49) U/L Alkaline Phosphatase (38-126) U/L Troponin I 0.114 H* (0.000-0.034) ng/mL Total Protein (6.3-8.2) g/dL Albumin (3.5-5.0) g/dL
[2020-12-02 16:38] LABS: Glucose,Whole Blood 135 mg/dL (75-99)
[2020-12-02] MEDS: LACTATED RINGERS 1,000 ML IV SCH (17:01)
[2020-12-02 20:15] LABS: Glucose,Whole Blood 282 mg/dL (75-99)
[2020-12-02] MEDS: ATORVASTATIN 40 MG TAB PO SCH (20:19)
[2020-12-02] MEDS: LATANOPROST 0.005% OPHTH DROPS 2.5 ML BTL BOTH EYES SCH (20:20)
[2020-12-03] MEDS ORDERED: GABAPENTIN 300 MG CAP PO STA (05:17)
[2020-12-03] MEDS ORDERED: ACETAMINOPHEN TAB 500 MG TAB PO STA (05:17)
[2020-12-03 06:04] LABS: Glucose,Whole Blood 140 mg/dL (75-99)
[2020-12-03] MEDS: INSULIN ASPART (NovoLOG) 100 UNIT/ML VIAL SQ SCH ×4 (07:02→21:06)
[2020-12-03] MEDS: PANTOPRAZOLE 40 MG TABLET PO SCH (07:11)
[2020-12-03 07:47] LABS: HGB 13.9 gm/dL (13.0-17.5); MCH 29.9 pg (25.0-35.0); MCHC 32.3 g/dL (31.0-37.0); MCV 92.6 fL (80.0-100.0); Mean Platelet Volume 7.2; Platelet Count 150 k/uL (150-450); RBC 4.64 m/uL (4.30-5.90); RDW 14.3 % (11.5-15.5); WBC 5.3 k/uL (3.8-10.6)
[2020-12-03 08:02] LABS: Albumin 3.2 g/dL (3.5-5.0); Calcium 8.7 mg/dL (8.4-10.2); Potassium 4.1 mmol/L (3.5-5.1); Total Bilirubin 2.7 mg/dL (0.2-1.3); Total Protein 5.8 g/dL (6.3-8.2)
[2020-12-03] MEDS: METOPROLOL SUCCINATE (ER) 50 MG TAB.ER.24H PO SCH (09:05)
[2020-12-03] MEDS: HEPARIN SODIUM,PORCINE 5,000 UNIT/ML 1 ML VIAL SQ SCH ×3 (09:05→23:39)
[2020-12-03] MEDS: TAMSULOSIN 0.4 MG CAP.ER.24H PO SCH (09:05)
[2020-12-03] MEDS: ALPRAZolam 0.25 MG TAB PO SCH (09:05)
[2020-12-03] MEDS: ASPIRIN 81 MG PO SCH (09:05)
--- NOTE | 2020-12-03 09:19 | P.HPADDEND ---
H&P Addendum H&P Addendum Date: 12/03/20 He reports his abdominal pain is resolved. I personally spoke to cardiology team for which he is cleared to proceed with surgery. Patient is elevated risk for bleeding with low platelets. Type and screen sent. All questions addressed. Will proceed with robotic cholecystectomy.
[2020-12-03 09:27] LABS: Basophils # (M) 0.05 k/uL (0-0.2); Eosinophils # (M) 0.21 k/uL (0-0.7); Monocytes # (M) 0.27 k/uL (0-1.0); Myelocytes # (M) 0.05 k/uL (0); Myelocytes % 1 %; Neutrophils # (M) 4.03 k/uL (1.3-7.7); Neutrophils % (M) 76 %; Nucleated Red Blood Cells 0 /100 WBC (0-0); Poikilocytosis (M) Present; Total Cells Counted 200
[2020-12-03] MEDS ORDERED: IV FLUID CONTINUATION 950 ML IV ONE (10:45)
[2020-12-03] MEDS ORDERED: INDOCYANINE GREEN 25 MG VIAL IV STA (11:02)
[2020-12-03] MEDS ORDERED: LIDOCAINE 1% (10MG/ML) FOR IV START INTRADERMA ONE (11:05)
[2020-12-03] MEDS ORDERED: INDOCYANINE GREEN 25 MG VIAL IV ONE (11:10)
[2020-12-03] MEDS ORDERED: ROCURONIUM 10 MG/ML (10 ML VIAL) IV ONE (11:10)
[2020-12-03] MEDS ORDERED: SUCCINYLCHOLINE CHLORIDE 100 MG/5 ML SYR IV ONE (11:10)
[2020-12-03] MEDS ORDERED: fentaNYL (PF) 50 MCG/ML 2 ML AMP ONE (11:10)
[2020-12-03] MEDS ORDERED: LIDOCAINE 1% INJ 10MG/ML (20 ML MDV) ONE (11:10)
[2020-12-03] MEDS ORDERED: GLYCOPYRROLATE 0.2 MG/ML 2 ML VIAL ONE (11:10)
[2020-12-03] MEDS ORDERED: PROPOFOL 10 MG/ML 20 ML VIAL IV ONE (11:10)
[2020-12-03] MEDS ORDERED: NEOSTIGMINE 1 MG/ML 10 ML VIAL ONE (11:10)
[2020-12-03] MEDS ORDERED: ONDANSETRON 4 MG/2 ML VIAL IVP ONE (11:10)
[2020-12-03] MEDS ORDERED: DEXAMETHASONE SOD PHOSPHATE 4 MG/ML 1 ML VIAL IV ONE (11:11)
[2020-12-03 11:19] LABS: Glucose,Whole Blood 132 mg/dL (75-99)
--- NOTE | 2020-12-03 11:30 | P.PN ---
Subjective Progress Note Date: 12/03/20 HISTORY OF PRESENT ILLNESS 80-year-old male one of my office patient with multiple medical problem was known to have history of CAD post heart catheter and stent placement in the [facility], history of diabetes, hypertension and hyperlipidemia was also known to have history of renal cancer with partial nephrectomy also had long-standing history of spinal stenosis of the lumbar spine with generalized weakness of the lower extremity. Post AAA repair, he presented to the emergency department in the afternoon today with concern of substernal chest pressure and pain with worsening dyspepsia and abdominal discomfort with nausea his symptoms become much worse with certain food he denies any increased pain with exertion at the time. Patient was seen and evaluated CK with troponin was negative, surprisingly patient had very high abnormal liver function tests with AST and ALT in the 4147-3023, lipase was 2924. Patient also was in acute kidney injury with creatinine of 1.55 GFR of 41 only. Abdominal ultrasound showed cholelithiasis with obstructing calcification within the common duct correlate with, Dr. pollock with common duct markedly dilated at 1 cm. With mildly elevated white blood cell significantly high temperature patient also was diagnosed with ascending cholangitis. We'll consult gastroenterology for possible ERCP also general surgery for possible cholecystectomy patient will be admitted to the hospital on gram-negative coverage and pending culture to change antibiotics. 11/29: Patient has been afebrile, heart rate 110, blood pressure 134/64, pulse ox 94% on room air. WBC 7.0, hemoglobin 12.6, platelet count 132. CO2 19, BUN 16 creatinine 1.49. Troponin 0.2-6 and 0.377. Total bilirubin 6.1, AST 642, ALT 1172, alkaline phosphatase 229. Lipase 169. Blood culture positive for gram- negative bacilli. Patient is currently covered with Zosyn. He is scheduled for ERCP today. Cardiology has evaluated and cleared patient for procedure. 11/30: Patient underwent ERCP, sphincterotomy and balloon sweep the bile duct of 3 CVD stones. Plan is for cholecystectomy with Dr. Shaikh on Thursday. Discussed case with Dr. Zavaleta for clearance for surgery. The patient states that his abdominal pain is much improved. He denies any nausea vomiting and is hungry. He is requesting a regular diet. This will need to be addressed by general surgery. He has been afebrile, heart rate 96, blood pressure 132/72, pulse ox 93% on room air. CBC 5.3, hemoglobin 12.1, platelet count 135. Sodium 141, potassium 3.7, chloride 115, CO2 21, BUN 16 and creatinine 1.64. Calcium 8.2, total bilirubin 5.9, AST 261, ALT 726, alkaline phosphatase 231. Amylase 111, lipase 245. 12/01: Patient is scheduled for cholecystectomy on Thursday. At this time he is found in the bathroom getting ready to shower. Patient is still slightly jaundiced. He is complaining of some nausea but no vomiting. Patient is ambulatory without any distress. Patient remained afebrile, heart rate 94, respirations 16, blood pressure 134/72 pulse ox 95% on room air. 12/02: Patient is found resting comfortably in bed without any complaints or concerns at this time. Patient's jaundice seems to be improving compared to yesterday. He is scheduled for cholecystectomy on Thursday. He is not complaining of any nausea or vomiting at this time. He is ambulatory without any distress. Patient remains afebrile, pulse rate 95, respirations 16, blood pressure 162/69 pulse ox 96% on room air. 12/03: Patient states that he is scheduled for cholecystectomy this afternoon. He is currently nothing by mouth. He has been afebrile, heart rate 80, blood pressure 139/82, pulse ox 97% on room air. CBC is unremarkable. BUN 13 and creatinine 1.54. Total bilirubin 2.7, AST 83, ALT 336, alkaline phosphatase 382. Blood sugars running between 130 and 282. REVIEW OF SYSTEMS CONSTITUTIONAL: Well-developed no acute respiratory distress. Denies fever. Denies chills EYES: No icterus sclerae, no conjunctivitis. EARS, NOSE, MOUTH, THROAT, and FACE: No sore throat, lymphadenopathy, carotid bruits or deformity. RESPIRATORY: Mild shortness of breath with cough and wheezes. CARDIOVASCULAR: Positive PND or troponin palpitation and questionable of angina. GASTROINTESTINAL: Denies abdominal pain improved. No nausea, no vomiting, no diarrhea. GENITOURINARY: Negative for Hematuria or UTI, no kidney stones. INTEGUMENT/BREAST: Negative for any muscular injury with mild osteoarthritis.. HEMATOLOGIC/LYMPHATIC: Negative for bleed or purpura. MUSCULOSKELTAL: Negative for Myalgia or arthralgia. NEURLOGICAL: No LOC, Sz or syncope, blurred vision dizziness or abnormality.. BEHAVIORAL/PSYCH: Negative. ENDOCRINE: Negative. PHYSICAL EXAMINATION General Appearance: Alert, cooperative, no distress, appears stated age. He appears to be comfortable. Neck HEENT: Supple, no lymphadenopathy, no thyroid enlargement, no carotid bruits. Lungs: Decreased for some bilateral rhonchi has mild expiratory wheezes with crackles in the bases. Chest Wall: Decrease expansion with deep inspiration no tenderness and no deformity was found on exam, no costochondral pain or discomfort. Heart: Regular rate and rhythm, S1, S2 positive history normal, no murmur, rub or gallop. Back: Symmetric, no curvature, ROM normal, no CVA tenderness. Abdomen: Soft slightly distended significant discomfort in the epigastric area and mid abdominal region no rebound or rigidity. Extremities: Extremities normal, atraumatic, no cyanosis or edema. Pulses: 2+ and symmetric. Skin: Skin color, texture, tugor normal, no rashes or lesions. Neurologic: Alert oriented x3 cranial nerves II through XII intact, no motor deficit, no abnormal balance or gait. ASSESSMENT AND PLAN 1 atypical chest pain and elevated troponins, acute coronary syndrome ruled out. Cardiology consult appreciated. Cardiology to give clearance for cholecys tectomy planned for Thursday. 2 acute pancreatitis: Most likely from common duct gallstone, continue pain management and fluid resuscitation will consult gastroenterology status post ERCP. 3 ascending cholangitis with gram-negative bacteremia: Secondary to common duct stone significant dilatation patient was started on Zosyn. Scheduled for laparoscopic cholecystectomy today. 4 acute cholecystitis and cholelithiasis: Patient will require gallbladder surgery Thursday 5 atherosclerotic heart disease: Post angioplasty and stent placement has been seeing cardiology regular basis. 6 diabetes Type 2 on insulin: Resume patient on Prandin 4 mg twice a day, glipizide 10 mg twice a day continue Accu-Chek with sliding scales coverage bolus formula if possible. 7 chronic kidney disease stage III. 8 hypertension: Remain on metoprolol. 9 BPH: Is still able to void no obstruction remain on tamsulosin 0.4 mg daily. 10 mild arrhythmia: Continue metoprolol patient is doing well. 11 GI prophylaxis: Patient will be continue on pantoprazole 40 mg daily. 12 DVT prophylaxis: Consider use subcutaneous heparin as needed CODE STATUS: Full code. DISCHARGE PLAN Home early this week Impression and plan of care have been directed as dictated by the signing physician. Whitney Batista nurse practitioner acting as scribe for signing physician. Objective - Vital Signs Vital signs: Vital Signs Temp 98.2 F 12/02/20 20:45 Pulse 83 12/03/20 04:00 Resp 18 12/03/20 04:00 BP 128/79 12/03/20 04:00 Pulse Ox 96 12/03/20 04:00 Intake & Output 12/02/20 12/03/20 12/03/20 18:59 06:59 18:59 Intake Total 2810 Balance 2810 Weight 75.5 kg Intake: IV 800 Sodium Chloride 0.9% 1, 800 000 ml @ 150 mls/hr IV . Q6H40M [facility] Rx#:[id number] Intake, IV Titration 200 Amount Piperacillin-Tazobactam 3 200 .375 gm In Sodium Chloride 0.9% 100 ml @ 25 mls/hr IVPB Q8HR [facility] Rx# :[id number] Oral 1810 Other: # Voids 3 1 # Bowel Movements 1 - Labs CBC & Chem 7: 12/03/20 07:22 12/03/20 07:22 Labs: Abnormal Lab Results - Last 24 Hours (Table) 12/02/20 12/02/20 12/02/20 Range/Units 08:05 08:05 08:05 Plt Count 134 L (150-450) k/uL Lymphocytes # (Manual) 0.85 L (1.0-4.8) k/uL Chloride 108 H (98-107) mmol/L Creatinine 1.50 H (0.66-1.25) mg/dL Glucose 184 H (74-99) mg/dL POC Glucose (mg/dL) (75-99) mg/dL Total Bilirubin 3.7 H (0.2-1.3) mg/dL AST 137 H (17-59) U/L ALT 470 H (4-49) U/L Alkaline Phosphatase 448 H (38-126) U/L Troponin I 0.114 H* (0.000-0.034) ng/mL Total Protein 5.8 L (6.3-8.2) g/dL Albumin 3.3 L (3.5-5.0) g/dL 12/02/20 12/02/20 12/02/20 Range/Units 11:40 16:36 20:13 Plt Count (150-450) k/uL Lymphocytes # (Manual) (1.0-4.8) k/uL Chloride (98-107) mmol/L Creatinine (0.66-1.25) mg/dL Glucose (74-99) mg/dL POC Glucose (mg/dL) 219 H 135 H 282 H (75-99) mg/dL Total Bilirubin (0.2-1.3) mg/dL AST (17-59) U/L ALT (4-49) U/L Alkaline Phosphatase (38-126) U/L Troponin I (0.000-0.034) ng/mL Total Protein (6.3-8.2) g/dL Albumin (3.5-5.0) g/dL 12/03/20 12/03/20 Range/Units 06:02 07:22 Plt Count (150-450) k/uL Lymphocytes # (Manual) (1.0-4.8) k/uL Chloride 109 H (98-107) mmol/L Creatinine 1.54 H (0.66-1.25) mg/dL Glucose 130 H (74-99) mg/dL POC Glucose (mg/dL) 140 H (75-99) mg/dL Total Bilirubin 2.7 H (0.2-1.3) mg/dL AST 83 H (17-59) U/L ALT 336 H (4-49) U/L Alkaline Phosphatase 382 H (38-126) U/L Troponin I (0.000-0.034) ng/mL Total Protein 5.8 L (6.3-8.2) g/dL Albumin 3.2 L (3.5-5.0) g/dL
[2020-12-03] MEDS ORDERED: LIDOCAINE 1%-EPI 1:100,000 20 ML VIAL SQ ONE ×2 (11:35→12:16)
[2020-12-03] MEDS ORDERED: HYDROmorphone 0.5 MG/0.5 ML SYRINGE IVP PRN (12:34)
--- NOTE | 2020-12-03 12:46 | P.OP ---
Date of Procedure: 12/03/20 Description of Procedure: SURGEON: ACE URIARTE MD PREOPERATIVE DIAGNOSES: 1. Ascending cholangitis due to gallstone 2. Elevated liver enzymes with hyperbilirubinemia 3. Diabetes type 2, poorly controlled 4. Congestive heart failure 5. Ischemic cardiomyopathy 6. Generalized anxiety disorder 7. Gastroesophageal reflux disease 8. Hyperlipidemia 9. History of open AAA repair 10. History of renal cell cancer 11. Coronary artery disease with cardiac stent placement 12. Status post ERCP 13. Sensorineural hearing loss POSTOPERATIVE DIAGNOSES: 1. Ascending cholangitis due to gallstone 2. Elevated liver enzymes with hyperbilirubinemia 3. Diabetes type 2, poorly controlled 4. Congestive heart failure 5. Ischemic cardiomyopathy 6. Generalized anxiety disorder 7. Gastroesophageal reflux disease 8. Hyperlipidemia 9. History of open AAA repair 10. History of renal cell cancer 11. Coronary artery disease with cardiac stent placement 12. Status post ERCP 13. Intra-abdominal peritoneal adhesions from previous open surgery 14. Cirrhosis of the liver 15. Sensorineural hearing loss OPERATION: 1. Robotic-assisted da Amelia Xi laparoscopic lysis of adhesions 2. Robotic-assisted da Amelia Xi laparoscopic cholecystectomy, multiport with FIREFLY ESTIMATED BLOOD LOSS: 5 mL. SPECIMENS REMOVED: Gallbladder. COMPLICATIONS: None. OPERATIVE FINDINGS: 1. Severe epigastric and midline adhesions from multiple abdominal surgeries requiring lysis of adhesions to vessel sealer 2. Cobblestone serosa of the liver consistent with cirrhosis of the liver INDICATIONS: The patient is a 80-year-old male who presents with recent ascending cholangitis including hyperbilirubinemia, elevated liver enzymes and recent status post ERCP for removal of choledocholithiasis. Robotic assisted laparoscopic approach was described. Benefits and risks of the procedure including but not limited to bleeding, infection, injury to the biliary tree was described. Informed consent was obtained. DESCRIPTION OF PROCEDURE: Patient was brought to the operating room, placed in supine position. After general induction, the abdomen had been prepped and draped in standard sterile fashion. The robotic da Amelia XI system was primed. After a timeout protocol was performed, the patient had been prepped and draped in standard sterile fashion. The patient was injected with indocyanine green. A 5 mm 0 degrees laparoscopic trocar entry was performed along the left upper quadrant. The abdomen insufflated to 15 mmHg pressure which was tolerated well. Diagnostic laparoscopy demonstrated no injury to bowel viscera or mesentery. severe midline adhesions was identified involving greater omentum to the abdominal wall requiring additional dissection. The liver surface was unremarkable. Next, two 8 mm robotic ports were placed along the right upper abdomen. The camera 8-mm port was maintained along the epigastrium. Another 8 mm port was placed along the left upper abdominal wall after exchanging the 5 mm port. Please note that the ports were placed at least 10 to 15 cm away from the target anatomy of the gallbladder. The robot was docked along the left lateral abdomen. The patient was repositioned in reverse Trendelenburg position. Using a grasper for arm 3, a grasper for arm 4, including hook cautery for arm 1, the robotic system was docked and primed as described. Instruments were interchanged by the dental assistant including hook cautery, Bovie c autery and clip appliers. I had sat at the console. Attention was brought to the midline vessel sealer was used to dissect free the greater omentum from the abdominal wall and allow for visualization of the gallbladder to proceed with surgery. once all adhesions were addressed, attention was brought to the infundibulum and cystic structures. The infundibulum and cystic duct were dissected free from surrounding tissues. The cystic duct was isolated. FIREFLY was used to identify the cystic artery and cystic structures. A critical view of safety was obtained. Large PLASTIC clips were used throughout the entire case. Using a clip senior climate advisor, 2 clips were placed at the junction of the infundibulum and cystic duct. The cystic duct was divided between clips. Next, the cystic artery was similarly clipped and cauterized. Electro-Bovie cautery was used to remove the gallbladder from the hepatic fossa. Hemostasis was checked and found to be adequate. The robot was undocked. I re-scrubbed into the case. Using a 10 mm Endo Catch bag via the left upper quadrant incision, the specimen was removed from the abdominal cavity. All pneumoperitoneum instruments were evacuated from the abdominal cavity. The incisions were reapproximated using 4-0 Monocryl in an interrupted subcuticular fashion. Fascial defects were less than 8 mm in size. Please note along the trocar sites, local anesthetic was placed as a field block prior to insertion of all instruments. Liquid glue was applied to the skin. At the end of the procedure needle, sponge, and instrument count had been verified correct by the surgical processor. The patient was transferred to postanesthesia care unit in stable condition.
--- NOTE | 2020-12-03 12:55 | P.PN ---
Subjective Progress Note Date: 12/03/20 HISTORY OF PRESENT ILLNESS: Patient examined this morning at the bedside. He denies chest pain or pressure. Denies short of breath. He denies abdominal pain. He is scheduled for cholecystectomy today with Dr. Shaikh. Echocardiogram completed revealed ejection fraction 45-50%, trace to mild mitral regurgitation, and mild tricuspid regurgitation. Vital signs are stable. PHYSICAL EXAM: VITAL SIGNS: Reviewed. GENERAL: Well-developed in no acute distress. NECK: Supple. No JVD or thyromegaly LUNGS: Respirations even and unlabored. Lungs essentially clear to auscultation bilaterally. HEART: Regular rate and rhythm. S1 and S2 heard. EXTREMITIES: Normal range of motion. No clubbing or cyanosis. Peripheral pulses intact. No lower extremity edema ASSESSMENT: Ascending cholangitis Epigastric pain Mildly elevated troponin, suspect type II mechanism from sepsis and cholangitis History of coronary artery disease, status post PCI in 2018 Hypertension Hyperlipidemia Diabetes mellitus PLAN: Continue current cardiac medications Patient scheduled for cholecystectomy today with Dr. Shaikh Patient at moderate risk to undergo cholecystectomy from a cardiac standpoint however there are no absolute contraindications to undergo surgical intervention and is cleared to proceed with surgery from a cardiac perspective We will continue to follow along with patient during his hospitalization Nurse practitioner note has been reviewed by physician. Signing provider agrees with the documented findings, assessment, and plan of care. Objective - Vital Signs Vital signs: Vital Signs Temp 97.2 F L 12/03/20 12:38 Pulse 90 12/03/20 12:45 Resp 14 12/03/20 12:45 BP 148/65 12/03/20 12:45 Pulse Ox 100 12/03/20 12:45 Intake & Output 12/02/20 12/03/20 12/03/20 18:59 06:59 18:59 Intake Total 2810 800 Output Total 5 Balance 2810 795 Weight 75.5 kg Intake: IV 800 800 Sodium Chloride 0.9% 1, 800 000 ml @ 150 mls/hr IV . Q6H40M [facility] Rx#:[id number] Intake, IV Titration 200 Amount Piperacillin-Tazobactam 3 200 .375 gm In Sodium Chloride 0.9% 100 ml @ 25 mls/hr IVPB Q8HR [facility] Rx# :[id number] Oral 1810 0 Output: Estimated Blood Loss 5 Other: # Voids 3 1 2 # Bowel Movements 1 - Labs CBC & Chem 7: 12/03/20 07:22 12/03/20 07:22 Labs: Abnormal Lab Results - Last 24 Hours (Table) 12/02/20 12/02/20 12/03/20 Range/Units 16:36 20:13 06:02 Lymphocytes # (Manual) (1.0-4.8) k/uL Myelocytes # (Manual) (0) k/uL Chloride (98-107) mmol/L Creatinine (0.66-1.25) mg/dL Glucose (74-99) mg/dL POC Glucose (mg/dL) 135 H 282 H 140 H (75-99) mg/dL Total Bilirubin (0.2-1.3) mg/dL AST (17-59) U/L ALT (4-49) U/L Alkaline Phosphatase (38-126) U/L Total Protein (6.3-8.2) g/dL Albumin (3.5-5.0) g/dL 12/03/20 12/03/20 12/03/20 Range/Units 07:22 07:22 11:03 Lymphocytes # (Manual) 0.80 L (1.0-4.8) k/uL Myelocytes # (Manual) 0.05 H (0) k/uL Chloride 109 H (98-107) mmol/L Creatinine 1.54 H (0.66-1.25) mg/dL Glucose 130 H (74-99) mg/dL POC Glucose (mg/dL) 132 H (75-99) mg/dL Total Bilirubin 2.7 H (0.2-1.3) mg/dL AST 83 H (17-59) U/L ALT 336 H (4-49) U/L Alkaline Phosphatase 382 H (38-126) U/L Total Protein 5.8 L (6.3-8.2) g/dL Albumin 3.2 L (3.5-5.0) g/dL
[2020-12-03] MEDS ORDERED: ACETAMINOPHEN IV (For NPO) 1,000 MG in EMPTY BAG 1 BAG IVPB ONE (13:00)
[2020-12-03 13:23] LABS: Glucose,Whole Blood 204 mg/dL (75-99)
[2020-12-03] MEDS: SODIUM CHLORIDE 0.9% 1,000 ML IV SCH ×2 (13:48→17:55)
[2020-12-03] MEDS: PIPERACILLIN-TAZOBACTAM 3.375 GM in SODIUM CHLORIDE 0.9% 100 ML IVPB SCH ×4 (14:04→23:39)
[2020-12-03 17:48] LABS: Glucose,Whole Blood 185 mg/dL (75-99)
[2020-12-03] MEDS: ISOSORBIDE MONONITRATE ER 15 MG TAB PO SCH (17:54)
[2020-12-03] MEDS: LACTATED RINGERS 1,000 ML IV SCH (17:55)
[2020-12-03 21:01] LABS: Glucose,Whole Blood 342 mg/dL (75-99)
[2020-12-03] MEDS: ATORVASTATIN 40 MG TAB PO SCH (21:06)
[2020-12-03] MEDS: LATANOPROST 0.005% OPHTH DROPS 2.5 ML BTL BOTH EYES SCH (21:17)
[2020-12-04 06:40] LABS: Glucose,Whole Blood 233 mg/dL (75-99)
[2020-12-04] MEDS: PANTOPRAZOLE 40 MG TABLET PO SCH (06:51)
[2020-12-04] MEDS: INSULIN ASPART (NovoLOG) 100 UNIT/ML VIAL SQ SCH ×2 (06:51→12:51)
[2020-12-04 07:59] LABS: HCT 42.3 % (39.0-53.0); HGB 13.6 gm/dL (13.0-17.5); MCH 30.3 pg (25.0-35.0); MCHC 32.2 g/dL (31.0-37.0); MCV 94.3 fL (80.0-100.0); Mean Platelet Volume 7.5; Platelet Count 190 k/uL (150-450); RBC 4.49 m/uL (4.30-5.90); RDW 14.3 % (11.5-15.5)
[2020-12-04 08:08] LABS: Albumin 3.5 g/dL (3.5-5.0); Calcium 8.7 mg/dL (8.4-10.2); Potassium 4.1 mmol/L (3.5-5.1); Total Bilirubin 1.9 mg/dL (0.2-1.3); Total Protein 6.3 g/dL (6.3-8.2)
[2020-12-04] MEDS: ALPRAZolam 0.25 MG TAB PO SCH (08:34)
[2020-12-04] MEDS: ASPIRIN 81 MG PO SCH (08:34)
[2020-12-04] MEDS: HEPARIN SODIUM,PORCINE 5,000 UNIT/ML 1 ML VIAL SQ SCH (08:34)
[2020-12-04] MEDS: ISOSORBIDE MONONITRATE ER 15 MG TAB PO SCH (08:34)
[2020-12-04] MEDS: METOPROLOL SUCCINATE (ER) 50 MG TAB.ER.24H PO SCH (08:34)
[2020-12-04] MEDS: PIPERACILLIN-TAZOBACTAM 3.375 GM in SODIUM CHLORIDE 0.9% 100 ML IVPB SCH (08:34)
[2020-12-04] MEDS: TAMSULOSIN 0.4 MG CAP.ER.24H PO SCH (08:34)
[2020-12-04 08:52] VITALS: BP 166/75; PULSE 87; RESP 16; TEMP 98
[2020-12-04 08:58] LABS: Eosinophils # (M) 0.09 k/uL (0-0.7); Lymphocytes # (M) 0.81 k/uL (1.0-4.8); Monocytes # (M) 0.45 k/uL (0-1.0); Neutrophils # (M) 7.65 k/uL (1.3-7.7); Neutrophils % (M) 85 %; Nucleated Red Blood Cells 0 /100 WBC (0-0); Poikilocytosis (M) Present; Total Cells Counted 100
--- NOTE | 2020-12-04 09:25 | P.PN ---
Subjective Progress Note Date: 12/04/20 CHIEF COMPLAINT: Ascending cholangitis HISTORY OF PRESENT ILLNESS: The patient is a 80 year old male admitted with choledocholithiasis and symptomatic gallstones status post ERCP followed by robotic cholecystectomy, 12/03/20. He feels great! He tolerated regular diet. REVIEW OF ORGAN SYSTEMS: Denies chest pain today. No shortness of breath. No productive sputum PHYSICAL EXAM: VITALS: Reviewed CONSTITUTIONAL: Well developed and in no acute distress. EYES: Conjuctivae with sclera icterus. Pupils are equally round and reactive to light. Extraocular movements grossly intact. HEAD, EARS, NOSE, THROAT: Moist buccal mucosa. Head is atraumatic, normocephalic. Very hard of hearing. No nasal drainage. RESPIRATORY: Non-labored respirations and equal bilateral excursions. No gross wheezes. CARDIOVASCULAR: Regular rate and rhythm. Extremities without moderate edema. Palpable 2+ radial pulses. ABDOMEN: Incisions are clean, dry and intact. MUSCULOSKELETAL: Nail and fingers with good capillary refill. SKIN: Warm and well perfused with good skin turgor. NEUROLOGIC: Cranial nerves II through XII grossly intact. Sensation upper and extremities intact. No focal or lateralizing signs. PSYCH: Appropriate affect. Alert and oriented to person, place and time. Displays appropriate insight. CLINCAL LABS: Reviewed. WBC normal. Platelets normal. LFTs trending down. IMAGES: Intraoperative images reviewed and given to him ASSESSMENT: 1. Choledocholithiasis with jaundice and ascending cholangitis with positive blood cultures and fevers on admission 2. Elevated liver enzymes due to choledocholithiasis 3. Symptomatic gallstones 4. Lactic acidosis 5. Chronic renal insufficiency, stage III due to hypertension 6. Diabetes type 2, [id number] 7. Thrombocytopenia, now improved 8. Status post cholecystectomy PLAN: 1. He is doing well. 2. Stable for discharge 3. Discharge instructions reviewed. Objective - Vital Signs Vital signs: Vital Signs Temp 98 F 12/04/20 08:30 Pulse 87 12/04/20 08:30 Resp 16 12/04/20 08:30 BP 166/75 12/04/20 08:30 Pulse Ox 94 L 12/04/20 08:30 Intake & Output 12/03/20 12/04/20 12/04/20 18:59 06:59 18:59 Intake Total 1999 480 Output Total 5 Balance 1995 480 Weight 75.7 kg Intake: IV 1800 Sodium Chloride 0.9% 1, 1000 000 ml @ 150 mls/hr IV . Q6H40M [facility] Rx#:[id number] Intake, IV Titration 200 Amount Piperacillin-Tazobactam 3 100 .375 gm In Sodium Chloride 0.9% 100 ml @ 25 mls/hr IVPB Q8HR [facility] Rx# :[id number] ceFAZolin 2 gm In Sodium 100 Chloride 0.9% 50 ml @ 100 mls/hr IVPB [facility] Rx# :[id number] Oral 0 480 Output: Estimated Blood Loss 5 Other: # Voids 0 3 # Bowel Movements 0 - Labs CBC & Chem 7: 12/04/20 07:32 12/04/20 07:32 Labs: Abnormal Lab Results - Last 24 Hours (Table) 12/03/20 12/03/20 12/03/20 Range/Units 07:22 11:03 13:21 Lymphocytes # (Manual) 0.80 L (1.0-4.8) k/uL Myelocytes # (Manual) 0.05 H (0) k/uL BUN (9-20) mg/dL Creatinine (0.66-1.25) mg/dL Glucose (74-99) mg/dL POC Glucose (mg/dL) 132 H 204 H (75-99) mg/dL Total Bilirubin (0.2-1.3) mg/dL AST (17-59) U/L ALT (4-49) U/L Alkaline Phosphatase (38-126) U/L 12/03/20 12/03/20 12/04/20 Range/Units 17:46 20:59 06:21 Lymphocytes # (Manual) (1.0-4.8) k/uL Myelocytes # (Manual) (0) k/uL BUN (9-20) mg/dL Creatinine (0.66-1.25) mg/dL Glucose (74-99) mg/dL POC Glucose (mg/dL) 185 H 342 H 233 H (75-99) mg/dL Total Bilirubin (0.2-1.3) mg/dL AST (17-59) U/L ALT (4-49) U/L Alkaline Phosphatase (38-126) U/L 12/04/20 12/04/20 Range/Units 07:32 07:32 Lymphocytes # (Manual) 0.81 L (1.0-4.8) k/uL Myelocytes # (Manual) (0) k/uL BUN 22 H (9-20) mg/dL Creatinine 1.72 H (0.66-1.25) mg/dL Glucose 206 H (74-99) mg/dL POC Glucose (mg/dL) (75-99) mg/dL Total Bilirubin 1.9 H (0.2-1.3) mg/dL AST 96 H (17-59) U/L ALT 247 H (4-49) U/L Alkaline Phosphatase 370 H (38-126) U/L Assessment and Plan (1) Jaundice Current Visit: Yes Status: Acute Code(s): R17 - UNSPECIFIED JAUNDICE SN OMED Code(s): 51056574 (2) Common bile duct (CBD) obstruction Current Visit: Yes Status: Acute Code(s): K83.1 - OBSTRUCTION OF BILE DUCT SNOMED Code(s): 561092000 (3) Elevated bilirubin Current Visit: Yes Status: Acute Code(s): R17 - UNSPECIFIED JAUNDICE SNOMED Code(s): 42504487 (4) Lactic acidosis Current Visit: Yes Status: Acute Code(s): E87.2 - ACIDOSIS SNOMED Code(s): 46225132 (5) Leukocytosis Current Visit: Yes Status: Acute Code(s): D72.829 - ELEVATED WHITE BLOOD CELL COUNT, UNSPECIFIED SNOMED Code(s): 170625422 (6) History of AAA (abdominal aortic aneurysm) repair Current Visit: No Status: Acute Code(s): Z98.89 - OTHER SPECIFIED POSTPROCEDURAL STATES * DO NOT USE * SNOMED Code(s): 999949308 (7) Hx of renal cell cancer Current Visit: No Status: Acute Code(s): Z85.528 - PERSONAL HISTORY OF OTHER MALIGNANT NEOPLASM OF KIDNEY SNOMED Code(s): 853568297 (8) Ascending cholangitis Current Visit: Yes Status: Acute Code(s): K83.09 - OTHER CHOLANGITIS SNOMED Code(s): 53108016 (9) Thrombocytopenia Current Visit: Yes Status: Acute Code(s): D69.6 - THROMBOCYTOPENIA, UNSPECIFIED SNOMED Code(s): 161061751
--- NOTE | 2020-12-04 09:51 | P.DS ---
Providers Date of admission: 11/28/20 13:17 Expected date of discharge: 12/04/20 Attending physician: Eric Briseno Consults: 11/28/20 12:22 Consult Physician Routine Consulting Provider: Janelle Shaikh Consult Reason/Comments: CBD dilation due to stone subsequent pancreatitis Do you want consulting provider notified?: Yes 11/29/20 08:14 Consult Physician Routine Consulting Provider: Girish Zavaleta Consult Reason/Comments: positive troponin Do you want consulting provider notified?: Yes 12/03/20 05:15 Consult Physician Routine Consulting Provider: [facility] Consult Reason/Comments: [facility] Do you want consulting provider notified?: Yes Primary care physician: Eric Briseno [facility] Course: HISTORY OF PRESENT ILLNESS 80-year-old male one of my office patient with multiple medical problem was known to have history of CAD post heart catheter and stent placement in the past, history of diabetes, hypertension and hyperlipidemia was also known to have history of renal cancer with partial nephrectomy also had long-standing history of spinal stenosis of the lumbar spine with generalized weakness of the lower extremity. Post AAA repair, he presented to the emergency department in the afternoon today with concern of substernal chest pressure and pain with worsening dyspepsia and abdominal discomfort with nausea his symptoms become much worse with certain food he denies any increased pain with exertion at the time. Patient was seen and evaluated CK with troponin was negative, surprisingly patient had very high abnormal liver function tests with AST and ALT in the [id number], lipase was 2924. Patient also was in acute kidney injury with creatinine of 1.55 GFR of 41 only. Abdominal ultrasound showed cholelithiasis with obstructing calcification within the common duct correlate with, Dr. pollock with common duct markedly dilated at 1 cm. With mildly elevated white blood cell significantly high temperature patient also was diagnosed with ascending cholangitis. We'll consult gastroenterology for possible ERCP also general surgery for possible cholecystectomy patient will be admitted to the hospital on gram-negative coverage and pending culture to change antibiotics. 11/29: Patient has been afebrile, heart rate 110, blood pressure 134/64, pulse ox 94% on room air. WBC 7.0, hemoglobin 12.6, platelet count 132. CO2 19, BUN 16 creatinine 1.49. Troponin 0.2-6 and 0.377. Total bilirubin 6.1, AST 642, ALT 1172, alkaline phosphatase 229. Lipase 169. Blood culture positive for gram-n egative bacilli. Patient is currently covered with Zosyn. He is scheduled for ERCP today. Cardiology has evaluated and cleared patient for procedure. 11/30: Patient underwent ERCP, sphincterotomy and balloon sweep the bile duct of 3 CVD stones. Plan is for cholecystectomy with Dr. Shaikh on Thursday. Discussed case with Dr. Zavaleta for clearance for surgery. The patient states that his abdominal pain is much improved. He denies any nausea vomiting and is hungry. He is requesting a regular diet. This will need to be addressed by general surgery. He has been afebrile, heart rate 96, blood pressure 132/72, pulse ox 93% on room air. CBC 5.3, hemoglobin 12.1, platelet count 135. Sodium 141, potassium 3.7, chloride 115, CO2 21, BUN 16 and creatinine 1.64. Calcium 8.2, total bilirubin 5.9, AST 261, ALT 726, alkaline phosphatase 231. Amylase 111, lipase 245. 12/01: Patient is scheduled for cholecystectomy on Thursday. At this time he is found in the bathroom getting ready to shower. Patient is still slightly jaundiced. He is complaining of some nausea but no vomiting. Patient is ambulatory without any distress. Patient remained afebrile, heart rate 94, respirations 16, blood pressure 134/72 pulse ox 95% on room air. 12/02: Patient is found resting comfortably in bed without any complaints or concerns at this time. Patient's jaundice seems to be improving compared to yesterday. He is scheduled for cholecystectomy on Thursday. He is not complaining of any nausea or vomiting at this time. He is ambulatory without any distress. Patient remains afebrile, pulse rate 95, respirations 16, blood pressure 162/69 pulse ox 96% on room air. 12/03: Patient states that he is scheduled for cholecystectomy this afternoon. He is currently nothing by mouth. He has been afebrile, heart rate 80, blood pressure 139/82, pulse ox 97% on room air. CBC is unremarkable. BUN 13 and creatinine 1.54. Total bilirubin 2.7, AST 83, ALT 336, alkaline phosphatase 382. Blood sugars running between 130 and 282. 12/04: Patient has been afebrile, HR 87, BP 166/75, on room air. CBC is unremarkable. BUN 22 and creatinine 1.72. Blood sugars running between 206 and 342. Total bilirubin 1.9, AST 96, ALT 247, alkaline phosphatase 370. Yesterday, patient underwent robotic cholecystectomy. Yesterday afternoon and this morning he has been able to tolerate a regular diet. He denies any nausea or vomiting. No abdominal pain. Patient is anxious to be discharged home. Patient will be discharged home today in stable condition. ASSESSMENT AND PLAN 1 atypical chest pain and elevated troponins, acute coronary syndrome ruled out. 2 acute pancreatitis: Most likely from common duct gallstone 3 ascending cholangitis with gram-negative bacteremia: Secondary to common duct stone significant dilatation 4 acute cholecystitis and cholelithiasis 5 atherosclerotic heart disease 6 diabetes Type 2 on insulin 7 chronic kidney disease stage III. 8 hypertension 9 BPH 10 mild arrhythmia DISCHARGE PLAN Home Impression and plan of care have been directed as dictated by the signing physician. Whitney Batista nurse practitioner acting as scribe for signing physician. Patient Condition at Discharge: Good Plan - Discharge Summary New Discharge Prescriptions: New Amoxicillin/Potassium Clav [Augmentin 875-125 Tablet] 1 tab PO BID 1 Days #2 tab Amoxicillin/Potassium Clav [Augmentin 875-125 Tablet] 1 each PO Q12HR #10 tab metroNIDAZOLE [Flagyl] 250 mg PO TID #15 tab Acetaminophen [Tylenol] 650 mg PO Q4H #30 tab Continue Multivitamins, Thera [Multivitamin (formulary)] 1 tab PO DAILY Tamsulosin HCl [Flomax] 0.4 mg PO QAM ALPRAZolam [Xanax] 0.25 mg PO DAILY Atorvastatin [Lipitor] 40 mg PO HS #30 tab Aspirin EC [Ecotrin Low Dose] 81 mg PO DAILY #30 tablet. Calcium Carbonate [Calcium] 600 mg PO HS glipiZIDE [Glucotrol] 10 mg PO BID Isosorbide Mononitrate ER [Imdur] 15 mg PO QAM Repaglinide [Prandin] 4 mg PO BID Pantoprazole Sodium [Protonix] 40 mg PO QAM Metoprolol Succinate (ER) [Toprol XL] 50 mg PO QAM Semaglutide [Ozempic] 5 mg SQ MO Zinc 50 mg PO DAILY Ascorbic Acid [Vitamin C] 1,000 mg PO DAILY Cholecalciferol [Vitamin D3 (10 Mcg = 400 Iu)] 1,000 unit PO DAILY Latanoprost/Pf [Latanoprost 0.005% Eye Drop] 1 drop BOTH EYES HS Discharge Medication List ALPRAZolam [Xanax] 0.25 mg PO DAILY 06/08/16 [History] Multivitamins, Thera [Multivitamin (formulary)] 1 tab PO DAILY 06/08/16 [History] Tamsulosin HCl [Flomax] 0.4 mg PO QAM 06/08/16 [History] Aspirin EC [Ecotrin Low Dose] 81 mg PO DAILY #30 tablet. 09/20/17 [Rx] Atorvastatin [Lipitor] 40 mg PO HS #30 tab 09/20/17 [Rx] Calcium Carbonate [Calcium] 600 mg PO HS 11/07/17 [History] glipiZIDE [Glucotrol] 10 mg PO BID 11/27/18 [History] Isosorbide Mononitrate ER [Imdur] 15 mg PO QAM 11/21/19 [History] Pantoprazole Sodium [Protonix] 40 mg PO QAM 10/02/20 [History] Repaglinide [Prandin] 4 mg PO BID 10/02/20 [History] Ascorbic Acid [Vitamin C] 1,000 mg PO DAILY 11/21/20 [History] Cholecalciferol [Vitamin D3 (10 Mcg = 400 Iu)] 1,000 unit PO DAILY 11/21/20 [History] Metoprolol Succinate (ER) [Toprol XL] 50 mg PO QAM 11/21/20 [History] Semaglutide [Ozempic] 5 mg SQ MO 11/21/20 [History] Zinc 50 mg PO DAILY 11/21/20 [History] Latanoprost/Pf [Latanoprost 0.005% Eye Drop] 1 drop BOTH EYES HS 11/28/20 [History] Acetaminophen [Tylenol] 650 mg PO Q4H #30 tab 12/04/20 [Rx] Amoxicillin/Potassium Clav [Augmentin 875-125 Tablet] 1 each PO Q12HR #10 tab 12/04/20 [Rx] Amoxicillin/Potassium Clav [Augmentin 875-125 Tablet] 1 tab PO BID 1 Days #2 tab 12/04/20 [Rx] metroNIDAZOLE [Flagyl] 250 mg PO TID #15 tab 12/04/20 [Rx] Follow up Appointment(s)/Referral(s): Eric Briseno MD [Primary Care Provider] - 1 Week Janelle Shaikh MD [STAFF PHYSICIAN] - 12/11/20 Patient Instructions/Handouts: Low Fat Diet (DC), Laparoscopic Cholecystectomy (DC) Activity/Diet/Wound Care/Special Instructions: Recommend low-fat diet for the next 2 days. No lifting over 10 pounds in 2 weeks until Dec 17. March shower. No bath tub soaks for two weeks until Dec 17. Diet as tolerated. Use Tylenol and ibuprofen or Aleve scheduled for the next 24-48 hours for best pain relief. Use ice along incisions for the today to prevent swelling. Discharge Disposition: HOME SELF-CARE
[2020-12-04 11:46] LABS: Glucose,Whole Blood 229 mg/dL (75-99)
--- NOTE | 2020-12-04 14:04 | P.PN ---
Subjective Progress Note Date: 12/04/20 HISTORY OF PRESENT ILLNESS: Patient is status post cholecystectomy. He denies chest pain or pressure. Denies shortness of breath. Vital signs are stable. He states he is being discharged home today. PHYSICAL EXAM: VITAL SIGNS: Reviewed. GENERAL: Well-developed in no acute distress. NECK: Supple. No JVD or thyromegaly LUNGS: Respirations even and unlabored. Lungs essentially clear to auscultation bilaterally. HEART: Regular rate and rhythm. S1 and S2 heard. EXTREMITIES: Normal range of motion. No clubbing or cyanosis. Peripheral pulses intact. No lower extremity edema ASSESSMENT: Ascending cholangitis Epigastric pain Mildly elevated troponin, suspect type II mechanism from sepsis and cholangitis History of coronary artery disease, status post PCI in 2018 Hypertension Hyperlipidemia Diabetes mellitus PLAN: Continue current cardiac medications Patient is stable for surgery from a cardiac perspective. Will defer to internal medicine. Nurse practitioner note has been reviewed by physician. Signing provider agrees with the documented findings, assessment, and plan of care. Objective - Vital Signs Vital signs: Vital Signs Temp 98 F 12/04/20 08:30 Pulse 87 12/04/20 08:30 Resp 16 12/04/20 08:30 BP 166/75 12/04/20 08:30 Pulse Ox 94 L 12/04/20 08:30 Intake & Output 12/03/20 12/04/20 12/04/20 18:59 06:59 18:59 Intake Total 1999 480 Output Total Balance 1994 480 Weight 75.7 kg Intake: IV 1800 Sodium Chloride 0.9% 1, 1000 000 ml @ 150 mls/hr IV . Q6H40M [facility] Rx#:[id number] Intake, IV Titration 200 Amount Piperacillin-Tazobactam 3 100 .375 gm In Sodium Chloride 0.9% 100 ml @ 25 mls/hr IVPB Q8HR [facility] Rx# :[id number] ceFAZolin 2 gm In Sodium 100 Chloride 0.9% 50 ml @ 100 mls/hr IVPB ONCE PRN Rx# :[id number] Oral 0 480 Output: Estimated Blood Loss 5 Other: # Voids 0 3 2 # Bowel Movements 0 - Labs CBC & Chem 7: 12/04/20 07:32 12/04/20 07:32 Labs: Abnormal Lab Results - Last 24 Hours (Table) 12/03/20 12/03/20 12/04/20 Range/Units 17:46 20:59 06:21 Lymphocytes # (Manual) (1.0-4.8) k/uL BUN (9-20) mg/dL Creatinine (0.66-1.25) mg/dL Glucose (74-99) mg/dL POC Glucose (mg/dL) 185 H 342 H 233 H (75-99) mg/dL Total Bilirubin (0.2-1.3) mg/dL AST (17-59) U/L ALT (4-49) U/L Alkaline Phosphatase (38-126) U/L 12/04/20 12/04/20 12/04/20 Range/Units 07:32 07:32 11:43 Lymphocytes # (Manual) 0.81 L (1.0-4.8) k/uL BUN 22 H (9-20) mg/dL Creatinine 1.72 H (0.66-1.25) mg/dL Glucose 206 H (74-99) mg/dL POC Glucose (mg/dL) 229 H (75-99) mg/dL Total Bilirubin 1.9 H (0.2-1.3) mg/dL AST 96 H (17-59) U/L ALT 247 H (4-49) U/L Alkaline Phosphatase 370 H (38-126) U/L
--- NOTE | 2020-12-07 09:08 | CDI ---
Documentation Clarification Form Date: 12/07/2020 09:07:00 AM From: Kim Adonay Phone: Katie Whitaker, Malt Loader, Salvador Swann Admit Date: 11/28/2020 01:17:00 PM Patient Name: Chelsea Crespo Visit Number: [id number] Discharge Date: 12/04/2020 01:13:00 PM ATTENTION: The Clinical Documentation Specialists (CDI) and [facility] Coding Staff appreciate your assistance in clarifying documentation. Please respond to the clarification below the line at the bottom and electronically sign. The CDI & [facility] Coding staff will review the response and follow-up if needed. Please note: Queries are made part of the Legal Health Record. If you have any questions, please contact the author of this message via ITS. Dr. Eric Briseno Conflicting documentation has been found in the medical record: Consult 11/29, Cardiology PNs document: Mildly elevated troponins, suspect type II mechanism from his sepsis and cholangitis Sinus tachycardia related to cholangitis, sepsis DS, Attending PNs document: ascending cholangitis with gram-negative bacteremia: Secondary to common duct stone significant dilatation patient was started on Zosyn History/Risk Factors: Acute biliary pancreatitis, Acute Cholecystitis w/ calculus ADAMARIS, Acidosis, HTN, DM Clinical Indicators: Tachycardia, Acidosis, Elevated WBC, Elevated Temp Vitals: Temp 100.3, BP 117/69, RR 18, [place] 124. O2 Sat 98 Labs: LA 14.9, WBC 10.9 Treatment: Rocephin 1 gm IV, Kefzol 2 gm IV, Zosyn 3.375 gm IV In your opinion, what is the most clinically appropriate diagnosis for this patient? Bacteremia xxSepsis Other explanation of clinical findings Unable to determine (no explanation for clinical findings) MTDD
--- NOTE | 2020-12-07 09:20 | CDI ---
Documentation Clarification Form Date: 12/07/2020 09:18:00 AM From: Kimoctavio Urias Phone: Katie Whitaker, Medical Lab Tech Instructor, Salvador Swann Admit Date: 11/28/2020 01:17:00 PM Patient Name: Chelsea Crespo Visit Number: [id number] Discharge Date: 12/04/2020 01:13:00 PM ATTENTION: The Clinical Documentation Specialists (CDI) and [facility] Coding Staff appreciate your assistance in clarifying documentation. Please respond to the clarification below the line at the bottom and electronically sign. The CDI & [facility] Coding staff will review the response and follow-up if needed. Please note: Queries are made part of the Legal Health Record. If you have any questions, please contact the author of this message via ITS. Dr. Eric Briseno Patient presented with troponin of: 11/29-12/02 - 0.226, 0.377, 0.114 Cardiology documents: Mildly elevated troponins, suspect type II mechanism from sepsis and cholangitis History of coronary artery disease status post PCI in 2018 Hypertension Patient history/risk factors: HTN, Cardiomyopathy, DM, COPD, CAD. Acute Pancreatitis, Acute cholecystits w/ calculus Clinical indicators: Chest pain Treatment: Heparin 5,000 units SQ Consult: Waqar In your professional opinion, can you please specify the diagnosis, if any, indicated by the above clinical indicators and treatment? Type II [place] xx Elevated Troponin Other, please specify Unable to determine MTDD
--- NOTE | 2020-12-07 09:32 | CDI ---
Documentation Clarification Form Date: 12/07/2020 09:29:00 AM From: Kim Glynndd Phone: Katie Whitaker, Relationship Manager, Salvador Swann Admit Date: 11/28/2020 01:17:00 PM Patient Name: Chelsea Crespo Visit Number: [id number] Discharge Date: 12/04/2020 01:13:00 PM ATTENTION: The Clinical Documentation Specialists (CDI) and [facility] Coding Staff appreciate your assistance in clarifying documentation. Please respond to the clarification below the line at the bottom and electronically sign. The CDI & [facility] Coding staff will review the response and follow-up if needed. Please note: Queries are made part of the Legal Health Record. If you have any questions, please contact the author of this message via ITS. Dr. Eric Briseno CHF is documented in the Procedure, 11/29 Consult. History/Risk Factors: I CMP, HTN, DM, CAD, Regurgitation, CKD, Cholecystitis Clinical Indicators: Heart failure VS/Pulse OX: BP 117/69, RR 18, [place] 124, O2 Sat 98 BNP: 200 Echocardiogram Results: The left ventricular size is normal.There is moderate concentric left ventricular hypertrophy.Overall left ventricular systolic function is mildly impaired with, an EF between 45 - 50 %. The right ventricle is moderate to severely enlarged Chest X Ray: COPD with suspected pulmonary fibrosis.Patchy perihilar interstitial infiltrates noted on today's exam. Treatment: Metoprolol 50 mg PO In your professional opinion, can you please clarify the acuity and type of CHF if known? Systolic Heart Failure: Acute Chronic Acute on Chronic Diastolic Heart Failure: Acute Chronic xx Acute on Chronic Systolic & Diastolic Heart Failure: Acute Chronic Acute on Chronic Heart Failure Unable to Determine Other, please specify MTDD
--- NOTE | 2020-12-07 09:40 | CDI ---
Documentation Clarification Form Date: 12/07/2020 09:38:00 AM From: Kim Urias Phone: Katie Whitaker, Commercial Relationship Manager, Salvador Swann Admit Date: 11/28/2020 01:17:00 PM Patient Name: Chelsea Crespo Visit Number: [id number] Discharge Date: 12/04/2020 01:13:00 PM ATTENTION: The Clinical Documentation Specialists (CDI) and [facility] Coding Staff appreciate your assistance in clarifying documentation. Please respond to the clarification below the line at the bottom and electronically sign. The CDI & [facility] Coding staff will review the response and follow-up if needed. Please note: Queries are made part of the Legal Health Record. If you have any questions, please contact the author of this message via ITS. Dr. Eric Briseno The patient has poorly controlled diabetes, as indicated on procedure note 12/03. History/Risk Factors: Acute pancreatitis, Acute cholecystitis, HTN, CKD, CAD Clinical Indicators: Elevated glucose, Poorly controlled Labs: Glucose 451, 119, 166, 184 Treatment: Insulin Humulin R IV ONCE, Insulin NovoLOG SQ per protocol In order to capture the severity of Illness and necessary documentation specificity, please clarify: xx DM Type 2 uncontrolled with hyperglycemia DM Type 2 poorly controlled Other, please specify Unable to Determine MTDD
== END 2020-12-04 13:13 | disposition home or self-care (01) | DRG 417 ==
LOC: EC 09:51 → 3SCARD 13:17
PROVIDERS: ADMIT Internal Medicine Geriatric Medicine; ATTEND Internal Medicine Geriatric Medicine
PROC: 0FC98ZZ Extirpation of Matter from Common Bile Duct, Via Natural or Artificial Opening Endoscopic (ICD-10-PCS; 2020-11-29)
PROC: BF101ZZ Fluoroscopy of Bile Ducts using Low Osmolar Contrast (ICD-10-PCS; 2020-11-29)
PROC: 0DNW4ZZ Release Peritoneum, Percutaneous Endoscopic Approach (ICD-10-PCS; 2020-12-03)
PROC: 8E0W4CZ Robotic Assisted Procedure of Trunk Region, Percutaneous Endoscopic Approach (ICD-10-PCS; 2020-12-03)
PROC: 0FT44ZZ Resection of Gallbladder, Percutaneous Endoscopic Approach (ICD-10-PCS; principal; 2020-12-03 14:20)
DX: K80.63 Calculus of gallbladder and bile duct with acute cholecystitis with obstruction (principal); K85.10 Biliary acute pancreatitis without necrosis or infection; A41.9 Sepsis, unspecified organism; I50.33 Acute on chronic diastolic (congestive) heart failure; N17.9 Acute kidney failure, unspecified; I13.0 Hypertensive heart and chronic kidney disease with heart failure and stage 1 through stage 4 chronic kidney disease, or unspecified chronic kidney disease; E87.2 Acidosis; D69.6 Thrombocytopenia, unspecified; E11.22 Type 2 diabetes mellitus with diabetic chronic kidney disease; K74.60 Unspecified cirrhosis of liver; I25.10 Atherosclerotic heart disease of native coronary artery without angina pectoris; N18.30 Chronic kidney disease, stage 3 unspecified; J44.9 Chronic obstructive pulmonary disease, unspecified; N40.0 Benign prostatic hyperplasia without lower urinary tract symptoms; R00.0 Tachycardia, unspecified; H90.5 Unspecified sensorineural hearing loss; K21.9 Gastro-esophageal reflux disease without esophagitis; L40.9 Psoriasis, unspecified; M48.061 Spinal stenosis, lumbar region without neurogenic claudication; F41.1 Generalized anxiety disorder; E78.5 Hyperlipidemia, unspecified; R77.8 Other specified abnormalities of plasma proteins; E11.65 Type 2 diabetes mellitus with hyperglycemia; I25.5 Ischemic cardiomyopathy; K66.0 Peritoneal adhesions (postprocedural) (postinfection); Z79.82 Long term (current) use of aspirin; Z79.899 Other long term (current) drug therapy; Z79.84 Long term (current) use of oral hypoglycemic drugs; Z91.81 History of falling; Z95.5 Presence of coronary angioplasty implant and graft; Z85.528 Personal history of other malignant neoplasm of kidney; Z90.5 Acquired absence of kidney; Z86.79 Personal history of other diseases of the circulatory system; Z97.4 Presence of external hearing-aid; Z98.890 Other specified postprocedural states; Z87.891 Personal history of nicotine dependence; Z88.1 Allergy status to other antibiotic agents; Z82.49 Family history of ischemic heart disease and other diseases of the circulatory system; Z82.5 Family history of asthma and other chronic lower respiratory diseases; Z83.3 Family history of diabetes mellitus; Z84.1 Family history of disorders of kidney and ureter
CPT/HCPCS: 36415; 43261; 43262; 43264; 71046; 74330; 76705; 80053; 80074; 82150; 83605; 83690; 83735; 83880; 84484; 85025; 85610; 85730; 86850; 86900; 86901; 87040; 87077; 87186; 87635; 88304; 93005; 93306; 96365; 96366; 96368; 99285

== ENCOUNTER 2021-02-10 07:36 | Emergency (ER) | payer MEDICARE, BC ==
[2021-02-10 07:43] VITALS: RESP 18
[2021-02-10] MEDS ORDERED: SODIUM CHLORIDE 0.9% 1,000 ML IV STA (07:53)
--- NOTE | 2021-02-10 07:58 | ED ---
General Adult HPI - General Chief complaint: Weakness Stated complaint: WEAKNESS Time Seen by Provider: 02/10/21 07:44 Source: patient, family, RN notes reviewed Mode of arrival: wheelchair Limitations: no limitations - History of Present Illness Initial comments: Patient is a pleasant 80-year-old male presenting to the emergency Department with complaints of general weakness. Onset of symptoms was this morning. Patient had a very difficult time getting out of bed. This took them around 1 hour. No history of similar symptoms previously. Patient denies any confusion or isolated area of weakness. No fever. No chest pain or dyspnea. No abdomi nal pain. - Related Data Home Medications Medication Instructions Recorded Confirmed ALPRAZolam [Xanax] 0.25 mg PO DAILY 06/08/16 02/10/21 Multivitamins, Thera [Multivitamin 1 tab PO DAILY 06/08/16 02/10/21 (formulary)] Tamsulosin HCl [Flomax] 0.4 mg PO DAILY 06/08/16 02/10/21 Calcium Carbonate [Calcium] 600 mg PO HS 11/07/17 02/10/21 Isosorbide Mononitrate ER [Imdur] 15 mg PO DAILY 11/21/19 02/10/21 Pantoprazole Sodium [Protonix] 40 mg PO DAILY 10/02/20 02/10/21 Repaglinide [Prandin] 4 mg PO BID 10/02/20 02/10/21 Metoprolol Succinate (ER) [Toprol 50 mg PO DAILY 11/21/20 02/10/21 XL] Semaglutide [Ozempic] 5 mg SQ MO 11/21/20 02/10/21 Latanoprost/Pf [Latanoprost 0.005% 1 drop BOTH EYES HS 11/28/20 02/10/21 Eye Drop] Acetaminophen [Tylenol] 650 mg PO Q4H PRN 02/10/21 02/10/21 Citalopram Hydrobromide [CeleXA] 10 mg PO DAILY 02/10/21 02/10/21 Nitroglycerin Sl Tabs [Nitrostat] 0.4 mg SUBLINGUAL Q5M PRN 02/10/21 02/10/21 glipiZIDE [Glucotrol] 10 mg PO BID 02/10/21 02/10/21 Previous Rx's Medication Instructions Recorded Aspirin EC [Ecotrin Low Dose] 81 mg PO DAILY #30 tablet. 09/20/17 Atorvastatin [Lipitor] 40 mg PO HS #30 tab 09/20/17 Allergies Allergy/AdvReac Type Severity Reaction Status Date / Time clarithromycin [From Biaxin] AdvReac Nausea & Verified 02/10/21 09:20 Vomiting & Diarrhea Review of Systems ROS Statement: Those systems with pertinent positive or pertinent negative responses have been documented in the HPI. ROS Other: All systems not noted in ROS Statement are negative. Constitutional: Denies: fever Eyes: Denies: eye pain ENT: Denies: ear pain Respiratory: Denies: cough, dyspnea Cardiovascular: Denies: chest pain Endocrine: Denies: fatigue Gastrointestinal: Denies: abdominal pain Genitourinary: Denies: dysuria Musculoskeletal: Denies: back pain Skin: Denies: rash Neurological: Reports: as per HPI. Denies: headache, confusion Past Medical History Past Medical History: Cancer, Diabetes Mellitus, GERD/Reflux, Hearing Disorder / Deafness, Skin Disorder Additional Past Medical History / Comment(s): HX RENAL CANCER WITH PART OF KIDNEY REMOVED (2006)., LUMBAR STENOSIS , HX OF AAA WITH REPAIR., ENLARGED PROSTATE., HX OF FALLS., HEARING AIDS, PSORIASIS, DIARRHEA. History of Any Multi-Drug Resistant Organisms: None Reported Past Surgical History: Heart Catheterization With Stent, Hernia Repair Additional Past Surgical History / Comment(s): AAA repair , 1/2 left kidney removed (2006)., CAROTID SURGERY (06/11/16), BACK SURGERY , HX OF HEART CATH WITH STENTS (09/19/17 & 12/08/17) Past Anesthesia/Blood Transfusion Reactions: Previous Problems w/ Anesthesia, Motion Sickness, Postoperative Nausea & Vomiting (PONV) Additional Past Anesthesia/Blood Transfusion Reaction / Comment(s): no hx blood transfusion Date of Last Stent Placement:: 12/08/2017 Past Psychological History: Anxiety Smoking Status: Former smoker Past Alcohol Use History: Rare Past Drug Use History: None Reported - Past Family History Mother Family Medical History: No Reported History Father Family Medical History: COPD, Hypertension Brother(s) Family Medical History: Diabetes Mellitus Sister(s) Family Medical History: Coronary Artery Disease (CAD), Diabetes Mellitus Son(s) Family Medical History: No Reported History Daughter(s) Family Medical History: No Reported History General Exam Limitations: no limitations General appearance: alert, in no apparent distress Head exam: Present: atraumatic Eye exam: Present: normal appearance, PERRL, EOMI. Absent: nystagmus ENT exam: Present: normal oropharynx Neck exam: Present: normal inspection. Absent: tenderness, meningismus Respiratory exam: Present: normal lung sounds bilaterally Cardiovascular Exam: Present: tachycardia Expanded Peripheral pulses: 2+: Radial (R), Radial (L) GI/Abdominal exam: Present: soft. Absent: tenderness Extremities exam: Present: normal inspection. Absent: pedal edema, calf te nderness Neurological exam: Present: alert, oriented X3, CN II-XII intact. Absent: motor sensory deficit Expanded Neurological exam: Present: protecting the airway Patient oriented to: Present: person, place, time Speech: Present: fluid speech Cranial nerves: EOM's Intact: Normal Motor strength exam: RUE: 5, LUE: 5, RLE: 5, LLE: 5 Eye Response: (4) open spontaneously Motor Response: (6) obeys commands Verbal Response: (5) oriented Psychiatric exam: Present: normal affect, normal mood Skin exam: Present: normal color Course Vital Signs 02/10/21 02/10/21 02/10/21 07:39 08:42 09:26 Temperature 98 F 98.0 F Pulse Rate 118 H 108 H Respiratory 18 18 18 Rate Blood Pressure 146/78 124/82 O2 Sat by Pulse 97 98 Oximetry EKG Findings - EKG Comments: EKG Findings:: Sinus tachycardia 119. LA 158. QRS 88. QT 318. QTC 447. Left axis. Normal QRS. No acute ST change. Medical Decision Making - Medical Decision Making Patient reevaluated and resting comfortably in bed. Patient and family updated on results. Patient receptive to receiving bam and discharge. - Lab Data Result diagrams: 02/10/21 07:50 02/10/21 07:50 Lab Results 02/10/21 02/10/21 02/10/21 Range/Units 07:50 07:50 07:50 WBC 4.7 (3.8-10.6) k/uL RBC 4.81 (4.30-5.90) m/uL Hgb 14.5 (13.0-17.5) gm/dL Hct 43.3 (39.0-53.0) % MCV 90.0 (80.0-100.0) fL MCH 30.1 (25.0-35.0) pg MCHC 33.4 (31.0-37.0) g/dL RDW 14.9 (11.5-15.5) % Plt Count 122 L (150-450) k/uL MPV 7.2 Neutrophils % (Manual) 75 % Band Neuts % (Manual) 2 % Lymphocytes % (Manual) 12 % Monocytes % (Manual) 11 % Neutrophils # (Manual) 3.60 (1.3-7.7) k/uL Lymphocytes # (Manual) 0.56 L (1.0-4.8) k/uL Monocytes # (Manual) 0.52 (0-1.0) k/uL Nucleated RBCs 0 (0-0) /100 WBC Manual Slide Review Performed RBC Morphology Normal PT 10.1 (9.0-12.0) sec INR 0.9 (<1.2) APTT 25.2 (22.0-30.0) sec Sodium 137 (137-145) mmol/L Potassium 4.1 (3.5-5.1) mmol/L Chloride 105 (98-107) mmol/L Carbon Dioxide 21 L (22-30) mmol/L Anion Gap 11 mmol/L BUN 26 H (9-20) mg/dL Creatinine 1.67 H (0.66-1.25) mg/dL Est GFR (CKD-EPI)AfAm 44 (>60 ml/min/1.73 sqM) Est GFR (CKD-EPI)NonAf 38 (>60 ml/min/1.73 sqM) Glucose 192 H (74-99) mg/dL Plasma Lactic Acid Sajan (0.7-2.0) mmol/L Calcium 9.6 (8.4-10.2) mg/dL Magnesium 1.7 (1.6-2.3) mg/dL Total Bilirubin 1.4 H (0.2-1.3) mg/dL AST 56 (17-59) U/L ALT 51 H (4-49) U/L Alkaline Phosphatase 111 (38-126) U/L Creatine Kinase 103 (55-170) U/L Troponin I (0.000-0.034) ng/mL Total Protein 6.9 (6.3-8.2) g/dL Albumin 4.3 (3.5-5.0) g/dL TSH 0.506 (0.465-4.680) mIU/L Free T4 0.98 (0.78-2.19) ng/dL Free T3 pg/mL 3.3 (2.8-5.3) pg/ml Urine Color Urine Appearance (Clear) Urine pH (5.0-8.0) Ur Specific [place] (1.001-1.035) Urine Protein (Negative) Urine Glucose (UA) (Negative) Urine Ketones (Negative) Urine Blood (Negative) Urine Nitrite (Negative) Urine Bilirubin (Negative) Urine Urobilinogen (<2.0) mg/dL Ur Leukocyte Esterase (Negative) Urine RBC (0-5) /hpf Urine WBC (0-5) /hpf Hyaline Casts (0-2) /lpf Granular Casts (0) /lpf Urine Mucus (None) /hpf Coronavirus (PCR) (Not Detectd) 02/10/21 02/10/21 02/10/21 Range/Units 07:50 07:50 08:49 WBC (3.8-10.6) k/uL RBC (4.30-5.90) m/uL Hgb (13.0-17.5) gm/dL Hct (39.0-53.0) % MCV (80.0-100.0) fL MCH (25.0-35.0) pg MCHC (31.0-37.0) g/dL RDW (11.5-15.5) % Plt Count (150-450) k/uL MPV Neutrophils % (Manual) % Band Neuts % (Manual) % Lymphocytes % (Manual) % Monocytes % (Manual) % Neutrophils # (Manual) (1.3-7.7) k/uL Lymphocytes # (Manual) (1.0-4.8) k/uL Monocytes # (Manual) (0-1.0) k/uL Nucleated RBCs (0-0) /100 WBC Manual Slide Review RBC Morphology PT (9.0-12.0) sec INR (<1.2) APTT (22.0-30.0) sec Sodium (137-145) mmol/L Potassium (3.5-5.1) mmol/L Chloride (98-107) mmol/L Carbon Dioxide (22-30) mmol/L Anion Gap mmol/L BUN (9-20) mg/dL Creatinine (0.66-1.25) mg/dL Est GFR (CKD-EPI)AfAm (>60 ml/min/1.73 sqM) Est GFR (CKD-EPI)NonAf (>60 ml/min/1.73 sqM) Glucose (74-99) mg/dL Plasma Lactic Acid Sajan 2.1 H* (0.7-2.0) mmol/L Calcium (8.4-10.2) mg/dL Magnesium (1.6-2.3) mg/dL Total Bilirubin (0.2-1.3) mg/dL AST (17-59) U/L ALT (4-49) U/L Alkaline Phosphatase (38-126) U/L Creatine Kinase (55-170) U/L Troponin I <0.012 (0.000-0.034) ng/mL Total Protein (6.3-8.2) g/dL Albumin (3.5-5.0) g/dL TSH (0.465-4.680) mIU/L Free T4 (0.78-2.19) ng/dL Free T3 pg/mL (2.8-5.3) pg/ml Urine Color Yellow Urine Appearance Clear (Clear) Urine pH 5.5 (5.0-8.0) Ur Specific [place] 1.019 (1.001-1.035) Urine Protein 1+ H (Negative) Urine Glucose (UA) Negative (Negative) Urine Ketones Trace H (Negative) Urine Blood Negative (Negative) Urine Nitrite Negative (Negative) Urine Bilirubin Negative (Negative) Urine Urobilinogen <2.0 (<2.0) mg/dL Ur Leukocyte Esterase Negative (Negative) Urine RBC <1 (0-5) /hpf Urine WBC <1 (0-5) /hpf Hyaline Casts 1 (0-2) /lpf Granular Casts 1 (0) /lpf Urine Mucus Rare H (None) /hpf Coronavirus (PCR) (Not Detectd) 02/10/21 Range/Units 08:50 WBC (3.8-10.6) k/uL RBC (4.30-5.90) m/uL Hgb (13.0-17.5) gm/dL Hct (39.0-53.0) % MCV (80.0-100.0) fL MCH (25.0-35.0) pg MCHC (31.0-37.0) g/dL RDW (11.5-15.5) % Plt Count (150-450) k/uL MPV Neutrophils % (Manual) % Band Neuts % (Manual) % Lymphocytes % (Manual) % Monocytes % (Manual) % Neutrophils # (Manual) (1.3-7.7) k/uL Lymphocytes # (Manual) (1.0-4.8) k/uL Monocytes # (Manual) (0-1.0) k/uL Nucleated RBCs (0-0) /100 WBC Manual Slide Review RBC Morphology PT (9.0-12.0) sec INR (<1.2) APTT (22.0-30.0) sec Sodium (137-145) mmol/L Potassium (3.5-5.1) mmol/L Chloride (98-107) mmol/L Carbon Dioxide (22-30) mmol/L Anion Gap mmol/L BUN (9-20) mg/dL Creatinine (0.66-1.25) mg/dL Est GFR (CKD-EPI)AfAm (>60 ml/min/1.73 sqM) Est GFR (CKD-EPI)NonAf (>60 ml/min/1.73 sqM) Glucose (74-99) mg/dL Plasma Lactic Acid Sajan (0.7-2.0) mmol/L Calcium (8.4-10.2) mg/dL Magnesium (1.6-2.3) mg/dL Total Bilirubin (0.2-1.3) mg/dL AST (17-59) U/L ALT (4-49) U/L Alkaline Phosphatase (38-126) U/L Creatine Kinase (55-170) U/L Troponin I (0.000-0.034) ng/mL Total Protein (6.3-8.2) g/dL Albumin (3.5-5.0) g/dL TSH (0.465-4.680) mIU/L Free T4 (0.78-2.19) ng/dL Free T3 pg/mL (2.8-5.3) pg/ml Urine Color Urine Appearance (Clear) Urine pH (5.0-8.0) Ur Specific [place] (1.001-1.035) Urine Protein (Negative) Urine Glucose (UA) (Negative) Urine Ketones (Negative) Urine Blood (Negative) Urine Nitrite (Negative) Urine Bilirubin (Negative) Urine Urobilinogen (<2.0) mg/dL Ur Leukocyte Esterase (Negative) Urine RBC (0-5) /hpf Urine WBC (0-5) /hpf Hyaline Casts (0-2) /lpf Granular Casts (0) /lpf Urine Mucus (None) /hpf Coronavirus (PCR) Detected A (Not Detectd) - Radiology Data Radiology results: report reviewed (Computed tomography scan of the brain reveals atrophy. No acute process.), image reviewed (Chest x-ray shows no acute process.) Disposition Clinical Impression: Coronavirus infection Disposition: HOME SELF-CARE Condition: Stable Instructions (If sedation given, give patient instructions): Fever in Adults (ED), Upper Respiratory Infection (ED) Additional Instructions: Please do follow-up with your primary care physician in the next day or 2 for recheck. [id number] Tylenol as needed for fever or chills or muscle aches or weakness. [id number] vitamin C, vitamin D, and zinc. Return for inability to walk, difficulty breathing, not tolerating oral intake, worsening symptoms or any other concerns. You do need to quarantine yourself from other people for 10 days following onset of symptoms and 24 hours fever free Is patient prescribed a controlled substance at d/c from ED?: No Referrals: Eric Briseno MD [Primary Care Provider] - 1-2 days Time of Disposition: 10:02
[2021-02-10 08:16] LABS: Albumin 4.3 g/dL (3.5-5.0); Calcium 9.6 mg/dL (8.4-10.2); Magnesium 1.7 mg/dL (1.6-2.3); Potassium 4.1 mmol/L (3.5-5.1); Total Bilirubin 1.4 mg/dL (0.2-1.3); Total Protein 6.9 g/dL (6.3-8.2)
[2021-02-10 08:24] LABS: INR 0.9 (<1.2); Partial Thromboplastin Time 25.2 sec (22.0-30.0); Prothrombin Time 10.1 sec (9.0-12.0)
[2021-02-10 08:25] LABS: HCT 43.3 % (39.0-53.0); HGB 14.5 gm/dL (13.0-17.5); MCH 30.1 pg (25.0-35.0); MCHC 33.4 g/dL (31.0-37.0); Mean Platelet Volume 7.2; Platelet Count 122 k/uL (150-450); RBC 4.81 m/uL (4.30-5.90); RDW 14.9 % (11.5-15.5); WBC 4.7 k/uL (3.8-10.6)
[2021-02-10 08:31] LABS: T4, Free (Free Thyroxine) 0.98 ng/dL (0.78-2.19)
--- NOTE | 2021-02-10 08:39 | CT ---
EXAMINATION TYPE: CT brain wo con DATE OF EXAM: 02/10/2021 COMPARISON: 12/15/2019 HISTORY: Weakness, altered CT DLP: 1127.[address] of the brain was performed. The ventricles, basal cisterns and sulci overlying the cerebral convexities demonstrate mild to moder ate enlargement. There is no evidence for intracranial hemorrhage or sulcal effacement. There is decreased attenuation about the periventricular white matter and deep white matter of both c erebral hemispheres, compatible with chronic small vessel ischemia. Differential diagnosis does inclu de demyelination. No mass effects are seen.No midline shift. Osseous calvarium is intact. If symptoms persist consider MRI. IMPRESSION: 1. Age related atrophic and chronic small vessel ischemic change without acute intracranial process s een at this time.
--- NOTE | 2021-02-10 08:39 | XR ---
EXAMINATION TYPE: XR chest 2V DATE OF EXAM: 02/10/2021 COMPARISON: 11/28/2020 HISTORY: Shortness of breath TECHNIQUE: Frontal and lateral views of the chest are obtained. FINDINGS: Scattered senescent parenchymal changes noted. Hyperinflation compatible with COPD. No evidence for infiltrate. No evidence for atelectasis. Heart size is stable. Mediastinal structures are stable and grossly unremarkable. No evidence for hilar prominence. Degenerative changes dorsal spine. IMPRESSION: 1. No evidence for acute pulmonary disease.
[2021-02-10 09:25] LABS: Band Neutrophils % 2 %; Lymphocytes # (M) 0.56 k/uL (1.0-4.8); Monocytes # (M) 0.52 k/uL (0-1.0); Neutrophils % (M) 75 %; Nucleated Red Blood Cells 0 /100 WBC (0-0); Total Cells Counted 100
[2021-02-10 09:46] LABS: Appearance,Urine Clear (Clear); Bilirubin,Urine Negative (Negative); Blood,Urine Negative (Negative); Color,Urine Yellow; Glucose,Urine (UA) Negative (Negative); Granular Casts,Urine 1 /lpf (0); Hyaline Casts,Urine 1 /lpf (0-2); Ketones,Urine Trace (Negative); Leukocyte Esterase,Urine Negative (Negative); Mucus,Urine Rare /hpf; Nitrite,Urine Negative (Negative); PH, Urine 5.5 (5.0-8.0); Protein,Urine 1+ (Negative); RBC,Urine <1 /hpf (0-5); Specific Gravity,Urine 1.019 (1.001-1.035); Urobilinogen,Urine <2.0 mg/dL (<2.0); WBC,Urine <1 /hpf (0-5)
[2021-02-10] MEDS ORDERED: ACETAMINOPHEN TAB 500 MG TAB PO STA (10:00)
[2021-02-10] MEDS ORDERED: BAMLANIVIMAB 700 MG in SODIUM CHLORIDE 0.9% 50 ML IVPB ONE (11:00)
[2021-02-10 11:33] VITALS: PULSE 89; TEMP 97.9
[2021-02-10 13:03] VITALS: BP 135/74
== END 2021-02-10 13:07 | disposition home or self-care (01) ==
LOC: EC 07:36
DX: B34.2 Coronavirus infection, unspecified (principal); F41.9 Anxiety disorder, unspecified; E11.9 Type 2 diabetes mellitus without complications; K21.9 Gastro-esophageal reflux disease without esophagitis; Z87.891 Personal history of nicotine dependence; Z85.528 Personal history of other malignant neoplasm of kidney; Z79.84 Long term (current) use of oral hypoglycemic drugs
CPT/HCPCS: 36415; 93005; 84439; 84481; 80053; 82550; 83605; 83735; 84443; 84484; 85025; 85610; 85730; 81001; 87635; 71046; 70450; 99285; 96374; Q0239

== ENCOUNTER 2021-02-14 10:57 | Inpatient (IN) | payer MEDICARE, BC ==
[2021-02-14] MEDS ORDERED: SODIUM CHLORIDE 0.9% 500 ML 500 ML IV STA (11:12)
--- NOTE | 2021-02-14 11:15 | ED ---
General Adult HPI - General Chief complaint: Weakness Stated complaint: Covid + Time Seen by Provider: 02/14/21 11:00 Source: patient, RN notes reviewed, old records reviewed Mode of arrival: ambulatory Limitations: no limitations - History of Present Illness Initial comments: This is an 80-year-old male who is brought to the emergency department he rec ently was diagnosed with COVID and got monoclonal antibodies on Thursday. called EMS because the patient is continually getting weaker and has fallen a couple of times. Patient denies wanting to come. Patient denies any injury. Patient denies any pain per patient denies any shortness of breath or difficulty breathing. Patient states he doesn't think he needs to be here. Patient states he fell and he did not have any injuries. Patient denies hitting his head patient denies any neck injury. Patient denies chest pain or palpitations. Patient denies abdominal pain patient denies any nausea vomiting diarrhea. - Related Data Home Medications Medication Instructions Recorded Confirmed ALPRAZolam [Xanax] 0.25 mg PO DAILY 06/08/16 02/14/21 Multivitamins, Thera [Multivitamin 1 tab PO DAILY 06/08/16 02/14/21 (formulary)] Tamsulosin HCl [Flomax] 0.4 mg PO DAILY 06/08/16 02/14/21 Calcium Carbonate [Calcium] 600 mg PO HS 11/07/17 02/14/21 Isosorbide Mononitrate ER [Imdur] 15 mg PO DAILY 11/21/19 02/14/21 Pantoprazole Sodium [Protonix] 40 mg PO DAILY 10/02/20 02/14/21 Repaglinide [Prandin] 4 mg PO BID 10/02/20 02/14/21 Metoprolol Succinate (ER) [Toprol 50 mg PO DAILY 11/21/20 02/14/21 XL] Latanoprost/Pf [Latanoprost 0.005% 1 drop BOTH EYES HS 11/28/20 02/14/21 Eye Drop] Acetaminophen [Tylenol] 650 mg PO Q4H PRN 02/10/21 02/14/21 Citalopram Hydrobromide [CeleXA] 10 mg PO DAILY 02/10/21 02/14/21 Nitroglycerin Sl Tabs [Nitrostat] 0.4 mg SL Q5M PRN 02/10/21 02/14/21 glipiZIDE [Glucotrol] 10 mg PO BID 02/10/21 02/14/21 Previous Rx's Medication Instructions Recorded Aspirin EC [Ecotrin Low Dose] 81 mg PO DAILY #30 tablet. 09/20/17 Atorvastatin [Lipitor] 40 mg PO HS #30 tab 09/20/17 Allergies Allergy/AdvReac Type Severity Reaction Status Date / Time clarithromycin [From Biaxin] AdvReac Nausea & Verified 02/14/21 12:30 Vomiting & Diarrhea Review of Systems ROS Statement: Those systems with pertinent positive or pertinent negative responses have been documented in the HPI. ROS Other: All systems not noted in ROS Statement are negative. Past Medical History Past Medical History: Cancer, Diabetes Mellitus, GERD/Reflux, Hearing Disorder / Deafness, Skin Disorder Additional Past Medical History / Comment(s): HX RENAL CANCER WITH PART OF KIDNEY REMOVED (2006)., LUMBAR STENOSIS , HX OF AAA WITH REPAIR., ENLARGED PROSTATE., HX OF FALLS., HEARING AIDS, PSORIASIS, DIARRHEA. History of Any Multi-Drug Resistant Organisms: None Reported Past Surgical History: Heart Catheterization With Stent, Hernia Repair Additional Past Surgical History / Comment(s): AAA repair , 1/2 left kidney removed (2006)., CAROTID SURGERY (06/11/16), BACK SURGERY , HX OF HEART CATH WITH STENTS (09/19/17 & 12/08/17) Past Anesthesia/Blood Transfusion Reactions: Previous Problems w/ Anesthesia, Motion Sickness, Postoperative Nausea & Vomiting (PONV) Additional Past Anesthesia/Blood Transfusion Reaction / Comment(s): no hx blood transfusion Date of Last Stent Placement:: 12/08/2017 Past Psychological History: Anxiety Smoking Status: Former smoker Past Alcohol Use History: Rare Past Drug Use History: None Reported - Past Family History Mother Family Medical History: No Reported History Father Family Medical History: COPD, Hypertension Brother(s) Family Medical History: Diabetes Mellitus Sister(s) Family Medical History: Coronary Artery Disease (CAD), Diabetes Mellitus Son(s) Family Medical History: No Reported History Daughter(s) Family Medical History: No Reported History General Exam - General Exam Comments Initial Comments: GENERAL: Patient is well-developed and well-nourished. Patient is nontoxic and well- hydrated and is in mild distress. ENT: Neck is soft and supple. No significant lymphadenopathy is noted. Oropharynx is clear. Moist mucous membranes. Neck has full range of motion without eliciting any pain. EYES: The sclera were anicteric and conjunctiva were pink and moist. Extraocular movements were intact and pupils were equal round and reactive to light. Eyelids were unremarkable. PULMONARY: Unlabored respirations. Good breath sounds bilaterally. No audible rales rhonchi or wheezing was noted. CARDIOVASCULAR: There is a regular rate and rhythm without any murmurs gallops or rubs. ABDOMEN: Soft and nontender with normal bowel sounds. SKIN: Skin is clear with no lesions or rashes and otherwise unremarkable. NEUROLOGIC: Patient is alert and oriented x3. Cranial nerves II through XII are grossly intact. Motor and sensory are also intact. Normal speech, volume and content. Symmetrical smile. MUSCULOSKELETAL: Normal extremities with adequate strength and full range of motion. No lower extremity swelling or edema. No calf tenderness. LYMPHATICS: No significant lymphadenopathy is noted PSYCHIATRIC: Normal psychiatric evaluation. Limitations: no limitations Course Vital Signs 02/14/21 11:09 Temperature 97.8 F Pulse Rate 94 Respiratory 16 Rate Blood Pressure 121/67 O2 Sat by Pulse 97 Oximetry Medical Decision Making - Medical Decision Making EKG shows normal sinus rhythm at 92 bpm TX interval 260 QRS is 94 QT interval 356 QTC is 440. Patient's EKG shows no ST segment elevation or depression. We attempted to admit the patient he was too weak to do so. Chest x-ray shows no acute abnormality. I spoke with Dr. Tay and she agreed to admit the patient admitted the patient and ordered an echo. - Lab Data Result diagrams: 02/14/21 11:14 02/14/21 11:14 Lab Results 02/14/21 02/14/21 02/14/21 Range/Units 11:14 11:14 11:14 WBC 3.4 L (3.8-10.6) k/uL RBC 4.00 L (4.30-5.90) m/uL Hgb 12.4 L (13.0-17.5) gm/dL Hct 35.8 L (39.0-53.0) % MCV 89.6 (80.0-100.0) fL MCH 31.0 (25.0-35.0) pg MCHC 34.6 (31.0-37.0) g/dL RDW 14.4 (11.5-15.5) % Plt Count 131 L (150-450) k/uL MPV 7.8 Neutrophils % (Manual) 72 % Band Neuts % (Manual) 7 % Lymphocytes % (Manual) 10 % Monocytes % (Manual) 11 % Neutrophils # (Manual) 2.60 (1.3-7.7) k/uL Lymphocytes # (Manual) 0.34 L (1.0-4.8) k/uL Monocytes # (Manual) 0.37 (0-1.0) k/uL Nucleated RBCs 0 (0-0) /100 WBC Manual Slide Review Performed Poikilocytosis Slight PT 10.1 (9.0-12.0) sec INR 0.9 (<1.2) APTT 24.8 (22.0-30.0) sec Sodium 132 L (137-145) mmol/L Potassium 3.9 (3.5-5.1) mmol/L Chloride 101 (98-107) mmol/L Carbon Dioxide 21 L (22-30) mmol/L Anion Gap 10 mmol/L BUN 23 H (9-20) mg/dL Creatinine 1.46 H (0.66-1.25) mg/dL Est GFR (CKD-EPI)AfAm 51 (>60 ml/min/1.73 sqM) Est GFR (CKD-EPI)NonAf 45 (>60 ml/min/1.73 sqM) Glucose 267 H (74-99) mg/dL Plasma Lactic Acid Sajan (0.7-2.0) mmol/L Calcium 8.5 (8.4-10.2) mg/dL Magnesium 1.8 (1.6-2.3) mg/dL Total Bilirubin 1.1 (0.2-1.3) mg/dL AST 106 H (17-59) U/L ALT 60 H (4-49) U/L Alkaline Phosphatase 80 (38-126) U/L Troponin I (0.000-0.034) ng/mL Total Protein 5.8 L (6.3-8.2) g/dL Albumin 3.3 L (3.5-5.0) g/dL Urine Color Urine Appearance (Clear) Urine pH (5.0-8.0) Ur Specific [place] (1.001-1.035) Urine Protein (Negative) Urine Glucose (UA) (Negative) Urine Ketones (Negative) Urine Blood (Negative) Urine Nitrite (Negative) Urine Bilirubin (Negative) Urine Urobilinogen (<2.0) mg/dL Ur Leukocyte Esterase (Negative) Urine RBC (0-5) /hpf Urine WBC (0-5) /hpf Amorphous Sediment (None) /hpf Urine Bacteria (None) /hpf Urine Mucus (None) /hpf 02/14/21 02/14/21 02/14/21 Range/Units 11:14 11:14 11:44 WBC (3.8-10.6) k/uL RBC (4.30-5.90) m/uL Hgb (13.0-17.5) gm/dL Hct (39.0-53.0) % MCV (80.0-100.0) fL MCH (25.0-35.0) pg MCHC (31.0-37.0) g/dL RDW (11.5-15.5) % Plt Count (150-450) k/uL MPV Neutrophils % (Manual) % Band Neuts % (Manual) % Lymphocytes % (Manual) % Monocytes % (Manual) % Neutrophils # (Manual) (1.3-7.7) k/uL Lymphocytes # (Manual) (1.0-4.8) k/uL Monocytes # (Manual) (0-1.0) k/uL Nucleated RBCs (0-0) /100 WBC Manual Slide Review Poikilocytosis PT (9.0-12.0) sec INR (<1.2) APTT (22.0-30.0) sec Sodium (137-145) mmol/L Potassium (3.5-5.1) mmol/L Chloride (98-107) mmol/L Carbon Dioxide (22-30) mmol/L Anion Gap mmol/L BUN (9-20) mg/dL Creatinine (0.66-1.25) mg/dL Est GFR (CKD-EPI)AfAm (>60 ml/min/1.73 sqM) Est GFR (CKD-EPI)NonAf (>60 ml/min/1.73 sqM) Glucose (74-99) mg/dL Plasma Lactic Acid Sajan 2.3 H* (0.7-2.0) mmol/L Calcium (8.4-10.2) mg/dL Magnesium (1.6-2.3) mg/dL Total Bilirubin (0.2-1.3) mg/dL AST (17-59) U/L ALT (4-49) U/L Alkaline Phosphatase (38-126) U/L Troponin I 0.016 (0.000-0.034) ng/mL Total Protein (6.3-8.2) g/dL Albumin (3.5-5.0) g/dL Urine Color Yellow Urine Appearance Cloudy (Clear) Urine pH 5.5 (5.0-8.0) Ur Specific [place] 1.017 (1.001-1.035) Urine Protein 1+ H (Negative) Urine Glucose (UA) 3+ H (Negative) Urine Ketones Negative (Negative) Urine Blood Negative (Negative) Urine Nitrite Negative (Negative) Urine Bilirubin Negative (Negative) Urine Urobilinogen <2.0 (<2.0) mg/dL Ur Leukocyte Esterase Negative (Negative) Urine RBC 3 (0-5) /hpf Urine WBC 1 (0-5) /hpf Amorphous Sediment Rare H (None) /hpf Urine Bacteria Rare H (None) /hpf Urine Mucus Rare H (None) /hpf Disposition Clinical Impression: Multiple falls, Generalized weakness Disposition: ADMITTED IP TO THIS [facility] Referrals: Eric Briseno MD [Primary Care Provider] - 1-2 days Time of Disposition: 13:34
[2021-02-14 11:44] LABS: HCT 35.8 % (39.0-53.0); HGB 12.4 gm/dL (13.0-17.5); MCHC 34.6 g/dL (31.0-37.0); MCV 89.6 fL (80.0-100.0); Mean Platelet Volume 7.8; Platelet Count 131 k/uL (150-450); Poikilocytosis Slight; RDW 14.4 % (11.5-15.5); WBC 3.4 k/uL (3.8-10.6)
[2021-02-14 11:46] LABS: Albumin 3.3 g/dL (3.5-5.0); Calcium 8.5 mg/dL (8.4-10.2); Magnesium 1.8 mg/dL (1.6-2.3); Potassium 3.9 mmol/L (3.5-5.1); Total Bilirubin 1.1 mg/dL (0.2-1.3); Total Protein 5.8 g/dL (6.3-8.2)
[2021-02-14 11:53] LABS: INR 0.9 (<1.2); Partial Thromboplastin Time 24.8 sec (22.0-30.0); Prothrombin Time 10.1 sec (9.0-12.0)
--- NOTE | 2021-02-14 12:32 | XR ---
EXAMINATION TYPE: XR chest 2V DATE OF EXAM: 02/14/2021 COMPARISON: 02/10/2021 HISTORY: Shortness of breath TECHNIQUE: Frontal and lateral views of the chest are obtained. FINDINGS: Scattered senescent parenchymal changes noted. Hyperinflation compatible with COPD. No evidence for infiltrate. No evidence for atelectasis. Heart size is stable. Mediastinal structures are stable and grossly unremarkable. No evidence for hilar prominence. Degenerative changes dorsal spine. IMPRESSION: 1. No evidence for acute pulmonary disease.
[2021-02-14 12:41] LABS: Amorphous Sediment,Urine Rare /hpf; Appearance,Urine Cloudy (Clear); Bacteria,Urine Rare /hpf; Bilirubin,Urine Negative (Negative); Blood,Urine Negative (Negative); Color,Urine Yellow; Glucose,Urine (UA) 3+ (Negative); Ketones,Urine Negative (Negative); Leukocyte Esterase,Urine Negative (Negative); Mucus,Urine Rare /hpf; Nitrite,Urine Negative (Negative); PH, Urine 5.5 (5.0-8.0); Protein,Urine 1+ (Negative); RBC,Urine 3 /hpf (0-5); Specific Gravity,Urine 1.017 (1.001-1.035); Urobilinogen,Urine <2.0 mg/dL (<2.0); WBC,Urine 1 /hpf (0-5)
[2021-02-14 12:47] LABS: Band Neutrophils % 7 %; Lymphocytes # (M) 0.34 k/uL (1.0-4.8); Monocytes # (M) 0.37 k/uL (0-1.0); Neutrophils % (M) 72 %; Nucleated Red Blood Cells 0 /100 WBC (0-0); Total Cells Counted 100
[2021-02-14] MEDS ORDERED: SODIUM CHLORIDE 0.9% 1,000 ML IV ONE (13:34)
[2021-02-14] MEDS ORDERED: NITROGLYCERIN SL TABS 0.4 MG TAB SUBLINGUAL PRN (21:47)
[2021-02-14] MEDS: CALCIUM CARBONATE 500 MG CHEWABLE PO SCH (22:24)
[2021-02-14] MEDS: ATORVASTATIN 40 MG TAB PO SCH (22:24)
[2021-02-15] MEDS: LATANOPROST 0.005% OPHTH DROPS 2.5 ML BTL BOTH EYES SCH ×2 (05:01→21:42)
[2021-02-15] MEDS: ALPRAZolam 0.25 MG TAB PO SCH (08:55)
[2021-02-15] MEDS: ASPIRIN 81 MG PO SCH (08:56)
[2021-02-15] MEDS: ISOSORBIDE MONONITRATE ER 30 MG TAB.ER.24H PO SCH (08:58)
[2021-02-15] MEDS: METOPROLOL SUCCINATE (ER) 50 MG TAB.ER.24H PO SCH (08:58)
[2021-02-15] MEDS: MULTIVITAMINS, THERA 1 EACH TAB PO SCH (08:59)
[2021-02-15] MEDS: REPAGLINIDE 1 MG TAB PO SCH ×2 (08:59→21:42)
[2021-02-15] MEDS: PANTOPRAZOLE 40 MG TABLET PO SCH (08:59)
[2021-02-15] MEDS: TAMSULOSIN 0.4 MG CAP.ER.24H PO SCH (09:00)
[2021-02-15] MEDS: ACETAMINOPHEN TAB 325 MG TAB PO PRN ×2 (09:00→17:56)
[2021-02-15 09:16] LABS: Glucose,Whole Blood 155 mg/dL (75-99)
[2021-02-15] MEDS: glipiZIDE 5 MG TAB PO SCH ×2 (10:42→21:41)
[2021-02-15] MEDS: CITALOPRAM HYDROBROMIDE 10 MG TAB PO SCH (10:42)
--- NOTE | 2021-02-15 13:59 | P.HPIM ---
History of Present Illness H&P Date: 02/15/21 HISTORY OF PRESENT ILLNESS This is an 80-year-old male patient of Dr. Briseno with past medical history of diabetes mellitus type 2, history of renal cancer status post partial resection in 2006, abdominal aortic aneurysm status post repair, lumbar stenosis, benign prostatic hypertrophy, psoriasis, gastroesophageal reflux disease, peripheral vascular disease status post carotid surgery, coronary artery disease status post stents, remote history of tobacco use. Patient presented to the emergency center on February 10 with complaints of generalized weakness, no fever. He underwent a chest x-ray that showed no acute pulmonary disease, CAT scan of the brain revealed age-related atrophy and chronic small vessel ischemic change without acute intracranial process. Patient was diagnosed with COVID-19, treated with Bamlanivimab and was discharged home with instructions to quarantine and follow-up with his PCP. Patient return to the emergency center yesterday due to worsening weakness and several falls. No apparent injury. No abdominal pain, nausea, vomiting or diarrhea. Patient was found to be afebrile, heart rate 94, blood pressure 121/67, pulse ox 97% on room air. EKG was in normal sinus rhythm with [address] changes. WBC 3.4, hemoglobin 12.4, platelet count 131. Sodium 132, potassium 3.9, chloride 101, CO2 21, BUN 23 and creatinine 1.46, blood sugar 267. Liver function tests were elevated with AST of 106, ALT 60, alkaline phosphatase 80. Lactic acid 2.3. Troponin negative. Urinalysis cloudy with nitrate and leukoesterase negative. Chest x-ray reveals no evidence of acute pulmonary disease. REVIEW OF SYSTEMS Constitutional: No fever, no chills, no night sweats. No weight change. Reports weakness, Reports fatigue Reports lethargy. No daytime sleepiness. EENT: No headache. No blurred vision or double vision, no loss of vision. No loss of Hearing, no ringing in the ears, no dizziness. No nasal drainage or congestion. No epistaxis. No sore throat. Lungs: No shortness of breath, cough, no sputum production. No wheezing. Cardiovascular: No chest pain, no lower extremity edema. No palpitations. No paroxysmal nocturnal dyspnea. No orthopnea. No lightheadedness or dizziness. No syncopal episodes. Abdominal: No abdominal pain. No nausea, vomiting. No diarrhea. No constipation. No bloody or tarry stools. Reports loss of appetite. Genitourinary: No dysuria, no increased frequency, no urgency. No urinary retention. Musculoskeletal: No myalgias. Reports muscle weakness, Reports gait dysfunction, Reports frequent falls. No back pain. No neck pain. Integumentary: No wounds, no lesions. No rash or pruritus. No unusual bruising. No change in hair or nails. Neurologic: No aphasia. No facial droop. Noted change in mentation. No head injury. No headache. No paralysis. No paresthesia. Psychiatric: No depression. No anxiety. Endocrine: No abnormal blood sugars. No weight change. SOCIAL HISTORY Patient quit smoking in 2010 he started smoking at age 12 with total smoking history of from 50 years, rare alcohol use, no marijuana use. FAMILY HISTORY Positive for coronary artery disease, diabetes, chronic kidney disease. PHYSICAL EXAMINATION Gen: This is an 80-year-old male. He is resting in bed appears to be comfortable. Mild confusion noted. HEENT: Head is atraumatic, normocephalic. Pupils equal, round. Sclerae is anicteric. NECK: Supple. No JVD. No lymphadenopathy. No thyromegaly. LUNGS: Clear to auscultation. No wheezes or rhonchi. No intercostal retractions. HEART: Regular rate and rhythm. No murmur. ABDOMEN: Soft. Bowel sounds are present. No masses. No tenderness. EXTREMITIES: No pedal edema. No calf tenderness. NEUROLOGICAL: Patient is awake, alert and oriented to person. Generalized weakness. ASSESSMENT AND PLAN 1. Covid 19 infection status post Bamlanivimab on February 10. Patient started on Lovenox, vitamin C, vitamin D and zinc, IV fluids 0.9 normal saline at 75 mL per hour. Continue Tylenol as needed for fever. Patient is not appropriate for dexamethasone. Consult with Dr. Arreaga. Patient is not currently requiring oxygen therapy. Inflammatory markers ordered for morning, check TSH and free T4, vitamin B12 level. 2. Metabolic encephalopathy secondary to Covid 19 infection. Continue supportive care. 3. Lactic acidosis secondary to Covid 19. Patient is status post 1 L of IV fluids. Continue IV fluids at 75 mL per hour. 4. Pancytopenia secondary to Covid 19. Continue to monitor. Recheck CBC in the morning. 5. Sepsis with mental status changes, leukopenia secondary to Covid 19. 6. Hyponatremia secondary to dehydration. Continue IV fluids, repeat lab work in the morning. 7. Chronic kidney disease stage III. 8. Diabetes mellitus type 2. Continue glipizide 10 mg twice daily, Prandin 4 mg twice daily, NovoLog scale before meals and at bedtime. 9. History of coronary artery disease status post stents. Continue aspirin 81 mg daily, Lipitor 40 mg at bedtime, Imdur 15 mg daily, Toprol-XL 50 mg daily. 10. Hypertension. Continue metoprolol. 11. Benign prostatic hypertrophy. Continue tamsulosin 0.4 mg daily, monitor for urinary retention 12. Gastroesophageal reflux disease and GI prophylaxis. Continue Protonix. 13. DVT prophylaxis. Lovenox. Patient will be admitted to the hospital for a minimum of 2 night stay. Prognosis guarded DISCHARGE PLAN TBD. Impression and plan of care have been directed as dictated by the signing physician. Whitney Batista nurse practitioner acting as scribe for signing physician. Past Medical History Past Medical History: Cancer, Diabetes Mellitus, GERD/Reflux, Hearing Disorder / Deafness, Skin Disorder Additional Past Medical History / Comment(s): HX RENAL CANCER WITH PART OF KIDNEY REMOVED (2006)., LUMBAR STENOSIS , HX OF AAA WITH REPAIR., ENLARGED PROSTATE., HX OF FALLS., HEARING AIDS, PSORIASIS, DIARRHEA. History of Any Multi-Drug Resistant Organisms: None Reported Past Surgical History: Heart Catheterization With Stent, Hernia Repair Additional Past Surgical History / Comment(s): AAA repair , 1/2 left kidney removed (2006)., CAROTID SURGERY (06/11/16), BACK SURGERY , HX OF HEART CATH WITH STENTS (09/19/17 & 12/08/17) Past Anesthesia/Blood Transfusion Reactions: Previous Problems w/ Anesthesia, Motion Sickness, Postoperative Nausea & Vomiting (PONV) Additional Past Anesthesia/Blood Transfusion Reaction / Comment(s): no hx blood transfusion Date of Last Stent Placement:: 12/08/2017 Past Psychological History: Anxiety Smoking Status: Former smoker Past Alcohol Use History: Rare Past Drug Use History: None Reported - Past Family History Mother Family Medical History: No Reported History Father Family Medical History: COPD, Hypertension Brother(s) Family Medical History: Diabetes Mellitus Sister(s) Family Medical History: Coronary Artery Disease (CAD), Diabetes Mellitus Son(s) Family Medical History: No Reported History Daughter(s) Family Medical History: No Reported History Medications and Allergies Home Medications Medication Instructions Recorded Confirmed Type ALPRAZolam [Xanax] 0.25 mg PO DAILY 06/08/16 02/14/21 History Multivitamins, Thera [Multivitamin 1 tab PO DAILY 06/08/16 02/14/21 History (formulary)] Tamsulosin HCl [Flomax] 0.4 mg PO DAILY 06/08/16 02/14/21 History Aspirin EC [Ecotrin Low Dose] 81 mg PO DAILY #30 tablet. 09/20/17 02/14/21 Rx Atorvastatin [Lipitor] 40 mg PO HS #30 tab 09/20/17 02/14/21 Rx Calcium Carbonate [Calcium] 600 mg PO HS 11/07/17 02/14/21 History Isosorbide Mononitrate ER [Imdur] 15 mg PO DAILY 11/21/19 02/14/21 History Pantoprazole Sodium [Protonix] 40 mg PO DAILY 10/02/20 02/14/21 History Repaglinide [Prandin] 4 mg PO BID 10/02/20 02/14/21 History Metoprolol Succinate (ER) [Toprol 50 mg PO DAILY 11/21/20 02/14/21 History XL] Latanoprost/Pf [Latanoprost 0.005% 1 drop BOTH EYES HS 11/28/20 02/14/21 History Eye Drop] Acetaminophen [Tylenol] 650 mg PO Q4H PRN 02/10/21 02/14/21 History Citalopram Hydrobromide [CeleXA] 10 mg PO DAILY 02/10/21 02/14/21 History Nitroglycerin Sl Tabs [Nitrostat] 0.4 mg SL Q5M PRN 02/10/21 02/14/21 History glipiZIDE [Glucotrol] 10 mg PO BID 02/10/21 02/14/21 History Allergies Allergy/AdvReac Type Severity Reaction Status Date / Time clarithromycin [From Biaxin] AdvReac Nausea & Verified 02/14/21 12:30 Vomiting & Diarrhea Physical Exam Vitals: Vital Signs Temp Pulse Pulse Resp BP BP Pulse Ox 02/15/21 08:17 99.8 F H 82 18 124/71 96 02/15/21 05:48 99.4 F 87 16 154/67 96 02/15/21 02:00 96 02/14/21 20:59 98.0 F 85 16 138/61 98 02/14/21 17:54 85 16 125/70 98 02/14/21 14:52 80 16 125/63 96 02/14/21 11:09 97.8 F 94 16 121/67 97 Intake and Output 02/14/21 02/15/21 02/15/21 22:59 06:59 14:59 Other: Voiding Method Diaper Incontinent # Voids 1 1 Results CBC & Chem 7: 02/14/21 11:14 02/14/21 11:14 Labs: Abnormal Lab Results - Last 24 Hours (Table) 02/14/21 02/14/21 02/14/21 Range/Units 11:14 11:14 11:14 WBC 3.4 L (3.8-10.6) k/uL RBC 4.00 L (4.30-5.90) m/uL Hgb 12.4 L (13.0-17.5) gm/dL Hct 35.8 L (39.0-53.0) % Plt Count 131 L (150-450) k/uL Lymphocytes # (Manual) 0.34 L (1.0-4.8) k/uL Sodium 132 L (137-145) mmol/L Carbon Dioxide 21 L (22-30) mmol/L BUN 23 H (9-20) mg/dL Creatinine 1.46 H (0.66-1.25) mg/dL Glucose 267 H (74-99) mg/dL POC Glucose (mg/dL) (75-99) mg/dL Plasma Lactic Acid Sajan 2.3 H* (0.7-2.0) mmol/L AST 106 H (17-59) U/L ALT 60 H (4-49) U/L Total Protein 5.8 L (6.3-8.2) g/dL Albumin 3.3 L (3.5-5.0) g/dL Urine Protein (Negative) Urine Glucose (UA) (Negative) Amorphous Sediment (None) /hpf Urine Bacteria (None) /hpf Urine Mucus (None) /hpf 02/14/21 02/15/21 Range/Units 11:44 09:06 WBC (3.8-10.6) k/uL RBC (4.30-5.90) m/uL Hgb (13.0-17.5) gm/dL Hct (39.0-53.0) % Plt Count (150-450) k/uL Lymphocytes # (Manual) (1.0-4.8) k/uL Sodium (137-145) mmol/L Carbon Dioxide (22-30) mmol/L BUN (9-20) mg/dL Creatinine (0.66-1.25) mg/dL Glucose (74-99) mg/dL POC Glucose (mg/dL) 155 H (75-99) mg/dL Plasma Lactic Acid Sajan (0.7-2.0) mmol/L AST (17-59) U/L ALT (4-49) U/L Total Protein (6.3-8.2) g/dL Albumin (3.5-5.0) g/dL Urine Protein 1+ H (Negative) Urine Glucose (UA) 3+ H (Negative) Amorphous Sediment Rare H (None) /hpf Urine Bacteria Rare H (None) /hpf Urine Mucus Rare H (None) /hpf
[2021-02-15] MEDS: SODIUM CHLORIDE 0.9% 1,000 ML IV SCH ×2 (15:28→15:29)
[2021-02-15 17:10] LABS: Glucose,Whole Blood 133 mg/dL (75-99)
[2021-02-15] MEDS: INSULIN ASPART (NovoLOG) 100 UNIT/ML VIAL SQ SCH ×2 (17:24→21:41)
[2021-02-15 20:39] LABS: Glucose,Whole Blood 260 mg/dL (75-99)
[2021-02-15] MEDS: CALCIUM CARBONATE 500 MG CHEWABLE PO SCH (21:41)
[2021-02-15] MEDS: ATORVASTATIN 40 MG TAB PO SCH (21:41)
[2021-02-16] MEDS: SODIUM CHLORIDE 0.9% 1,000 ML IV SCH ×2 (04:36→14:25)
--- NOTE | 2021-02-16 06:43 | CONS ---
CONSULTATION DATE OF SERVICE: 02/15/2021 REASON FOR CONSULTATION: COVID-19 infection. HISTORY OF PRESENT ILLNESS: The patient is an 80-year-old male with multiple comorbidities, presenting initially to the [facility] ER on 02/11/2021 with complaints of generalized weakness, no energy. No fever. The patient at that time was diagnosed with COVID-19 infection. Chest x-ray was negative. The patient was given monoclonal antibodies and subsequently discharged home. The patient has now been brought back to the ER yesterday after apparently the patient did have a fall. The patient denies any loss of consciousness or focal weakness. Has been complaining of generalized weakness. No fever, no chills. No chest pain, shortness of breath or cough. No nausea, no vomiting. No abdominal pain or any diarrhea. With these symptoms, the patient has been evaluated by the ER physician. On arrival to the ER the patient has been afebrile. Since he did have a low-grade fever of 99.8, currently saturating 97% on room air. The patient did have mild leukopenia as well as lymphopenia. D-dimer was not done. Did have elevated BUN and creatinine. Lactic acid was 2.3. Liver enzymes are elevated. Other inflammatory markers have not been checked. Urine was negative. The patient did have a chest x-ray with no evidence of acute pulmonary disease. Patient has been admitted to the the hospital for observation. Infectious Disease was consulted for further management. REVIEW OF SYSTEMS: Positive points have been mentioned in HPI. Rest of systems are negative. PAST MEDICAL HISTORY: Renal cancer, diabetes mellitus, gastroesophageal reflux disease, and difficulty hearing. PAST SURGICAL HISTORY: Partial nephrectomy, triple abdomen aortic aneurysm repair, PTCA with stent. SOCIAL HISTORY: Remote history of smoking. Rarely drinks. No drug use. FAMILY HISTORY: Father had COPD and hypertension. ALLERGIES: CLARITHROMYCIN. MEDICATIONS: The patient is currently on Tylenol, Xanax, vitamin C, aspirin, Lipitor, Tums, vitamin D3, Celexa, Lovenox, Glucotrol, Imdur, Toprol XL, Theragran, Nitrostat, Protonix, Prandin, Flomax, zinc. PHYSICAL EXAMINATION: VITAL SIGNS: Blood pressure 138/67 with a pulse of 84, temperature 96.9, he is 96% on 2 L nasal cannula. GENERAL DESCRIPTION: Patient is an elderly male lying in bed in no distress. No tachypnea or accessory muscles of respiration use. HEENT: Examination shows slight pallor, no scleral icterus. Oral mucous membrane is dry. NECK: Trachea central, no thyromegaly. LUNGS: Unlabored breathing, decreased intensity of breath sounds. No wheeze. HEART: S1-S2, regular rate and rhythm. ABDOMEN: Soft, no tenderness. No guarding or rigidity. EXTREMITIES: No edema of the feet. SKIN: No rash or mass palpable. NEUROLOGICAL: Patient is awake, alert, oriented times two. Mood and affect normal. LABS: Hemoglobin is 12.4, white count 3.4, BUN of 23, creatinine 1.46. Electrolytes have been normal. Lactic acid and liver enzymes are mildly elevated. Urine is negative. Chest x- ray was negative for any acute infiltrate. DIAGNOSTIC IMPRESSION: Patient admitted to the hospital with generalized weakness, no energy, multiple falls, more likely prerenal and dehydration. Clinically doubt any worsening infection or pneumonia as the chest x-ray was negative for any infiltrate and did not have significant hypoxemia. PLAN: 1. Agree with not starting a steroid at this point, in patient with no evidence of any pneumonia on the chest x-ray. 2. Patient to continue Lovenox, zinc, ascorbic acid. 3. Check his oxygen saturations on room air. 4. We will follow on clinical condition and check inflammatory markers in the a.m. and continue supportive care. AUDRA / SONALI: [id number] /
[2021-02-16 07:09] LABS: Glucose,Whole Blood 106 mg/dL (75-99)
[2021-02-16] MEDS: INSULIN ASPART (NovoLOG) 100 UNIT/ML VIAL SQ SCH ×4 (07:27→22:16)
[2021-02-16] MEDS: ASPIRIN 81 MG PO SCH (08:23)
[2021-02-16] MEDS: ISOSORBIDE MONONITRATE ER 30 MG TAB.ER.24H PO SCH (08:23)
[2021-02-16] MEDS: REPAGLINIDE 1 MG TAB PO SCH ×2 (08:23→22:18)
[2021-02-16] MEDS: TAMSULOSIN 0.4 MG CAP.ER.24H PO SCH (08:23)
[2021-02-16] MEDS: MULTIVITAMINS, THERA 1 EACH TAB PO SCH (08:23)
[2021-02-16] MEDS: METOPROLOL SUCCINATE (ER) 50 MG TAB.ER.24H PO SCH (08:24)
[2021-02-16] MEDS: ASCORBIC ACID 500 MG TAB PO SCH (08:25)
[2021-02-16] MEDS: glipiZIDE 5 MG TAB PO SCH ×2 (08:25→22:17)
[2021-02-16] MEDS: CITALOPRAM HYDROBROMIDE 10 MG TAB PO SCH (08:25)
[2021-02-16] MEDS: ZINC SULFATE 220 MG CAP PO SCH (08:25)
[2021-02-16] MEDS: PANTOPRAZOLE 40 MG TABLET PO SCH (08:25)
[2021-02-16] MEDS: CHOLECALCIFEROL 25 MCG (1000 IU) TABLET PO SCH (08:25)
[2021-02-16] MEDS: ALPRAZolam 0.25 MG TAB PO SCH (08:25)
[2021-02-16] MEDS: ENOXAPARIN 40 MG/0.4 ML SYRINGE SQ SCH (08:25)
[2021-02-16 09:07] LABS: ALT 62 U/L (4-49); AST 92 U/L (17-59); African American GFR (CKD) 52 (>60 ml/min/1.73 sqM); Albumin 3.3 g/dL (3.5-5.0); Albumin/Globulin Ratio 1.3; Alkaline Phosphatase 79 U/L (38-126); Anion Gap 10 mmol/L; Blood Urea Nitrogen 21 mg/dL (9-20); C Reactive Protein 49.7 mg/L (<10.0); Calcium 8.4 mg/dL (8.4-10.2); Carbon Dioxide 21 mmol/L (22-30); Chloride 105 mmol/L (98-107); Globulin 2.6 g/dL; Glucose 112 mg/dL (74-99); LDH 913 U/L (313-618); Non-African American GFR(CKD) 45 (>60 ml/min/1.73 sqM); Potassium 4.2 mmol/L (3.5-5.1); Sodium 136 mmol/L (137-145); Total Bilirubin 1.1 mg/dL (0.2-1.3); Total Protein 5.9 g/dL (6.3-8.2)
[2021-02-16 10:32] LABS: T4, Free (Free Thyroxine) 1.34 ng/dL (0.78-2.19)
[2021-02-16 11:14] LABS: Glucose,Whole Blood 182 mg/dL (75-99)
[2021-02-16 11:22] LABS: Basophils # (A) 0 X 10*3/uL (0.00-0.10); Basophils % (A) 0 %; Eosinophils # (A) 0 X 10*3/uL (0.04-0.35); Eosinophils % (A) 0 %; HCT 39.6 % (39.6-50.0); HGB 12.6 g/dL (13.0-17.0); MCH 29.6 pg (27.0-32.0); MCHC 31.8 g/dL (32.0-37.0); Mean Platelet Volume 9.8 fL (9.5-12.2); Monocytes # (A) 0.25 X 10*3/uL (0.20-1.00); Neutrophils # (A) 2.35 X 10*3/uL (1.80-7.70); Platelet Count 135 X 10*3/uL (140-440); RBC 4.26 X 10*6/uL (4.40-5.60); WBC 3.13 X 10*3/uL (4.50-10.00)
[2021-02-16 16:35] LABS: Glucose,Whole Blood 107 mg/dL (75-99)
[2021-02-16 17:49] LABS: Ferritin 3217.8 ng/mL (22.0-322.0)
[2021-02-16 21:10] LABS: Glucose,Whole Blood 95 mg/dL (75-99)
--- NOTE | 2021-02-16 21:32 | PN ---
PROGRESS NOTE DATE OF SERVICE: 02/16/2021. REASON FOR FOLLOW UP VISIT: Covid 19 pneumonia. INTERVAL COURSE: The patient is currently afebrile. Patient is breathing comfortably. He is requiring 2 L nasal cannula though. No vomiting, diarrhea has been reported by nursing staff. Patient himself is not a very good historian, so did not provide any reliable history. PHYSICAL EXAMINATION: Blood pressure 125/75, pulse of 84. Temperature is 97.6. He is 93% on 2 L nasal cannula. General description is an elderly male lying in bed in no distress. Respiratory system: Unlabored breathing, decreased intensity of breath sounds. No wheeze. HEART: S1, S2. Regular rate and rhythm. Abdomen soft, no tenderness. LABS: Hemoglobin is 12.7, hematocrit 3.13, BUN of 21, creatinine 1.45. DIAGNOSTIC IMPRESSION AND PLAN: Patient with COVID-19 infection diagnosed on February 10, at which point the patient received monoclonal antibodies, subsequently presented to the hospital with weakness and fall. The patient x-ray was negative for any acute infiltrate. Has been treated with Lovenox, Vitamin C and zinc, now with evidence of slight hypoxemia, need for supplemental oxygen. We will repeat a chest x-ray, inflammatory markers and may need to adjust medication further. Continue supportive care. MMODL / IJN: [id number] /
--- NOTE | 2021-02-16 22:05 | P.PN ---
Subjective Progress Note Date: 02/16/21 HISTORY OF PRESENT ILLNESS This is an 80-year-old male patient of Dr. Briseno with past medical history of diabetes mellitus type 2, history of renal cancer status post partial resection in 2006, abdominal aortic aneurysm status post repair, lumbar stenosis, benign prostatic hypertrophy, psoriasis, gastroesophageal reflux disease, peripheral vascular disease status post carotid surgery, coronary artery disease status post stents, remote history of tobacco use. Patient presented to the emergency center on February 10 with complaints of generalized weakness, no fever. He underwent a chest x-ray that showed no acute pulmonary disease, CAT scan of the brain revealed age-related atrophy and chronic small vessel ischemic change without acute intracranial process. Patient was diagnosed with COVID-19, treated with Bamlanivimab and was discharged home with instructions to quarantine and follow-up with his PCP. Patient return to the emergency center yesterday due to worsening weakness and several falls. No apparent injury. No abdominal pain, nausea, vomiting or diarrhea. Patient was found to be afebrile, heart rate 94, blood pressure 121/67, pulse ox 97% on room air. EKG was in normal sinus rhythm with [address] changes. WBC 3.4, hemoglobin 12.4, platelet count 131. Sodium 132, potassium 3.9, chloride 101, CO2 21, BUN 23 and creatinine 1.46, blood sugar 267. Liver function tests were elevated with AST of 106, ALT 60, alkaline phosphatase 80. Lactic acid 2.3. Troponin negative. Urinalysis cloudy with nitrate and leukoesterase negative. Chest x-ray reveals no evidence of acute pulmonary disease. 02/16: Patient is slightly but better today still required 2 L of nasal cannula O2, he is afebrile, slightly but confused with mild change mental status otherwise no high fever his marker remain slightly bit up with d-dimer at 1.41 his kidney function still off his ferritin level was 3200. Patient still seen infectious disease will consult pulmonary as well. REVIEW OF SYSTEMS Constitutional: No fever, no chills, no night sweats. No weight change. Reports weakness, Reports fatigue Reports lethargy. No daytime sleepiness. EENT: No headache. No blurred vision or double vision, no loss of vision. No loss of Hearing, no ringing in the ears, no dizziness. No nasal drainage or congestion. No epistaxis. No sore throat. Lungs: No shortness of breath, cough, no sputum production. No wheezing. Cardiovascular: No chest pain, no lower extremity edema. No palpitations. No paroxysmal nocturnal dyspnea. No orthopnea. No lightheadedness or dizziness. No syncopal episodes. Abdominal: No abdominal pain. No nausea, vomiting. No diarrhea. No constipation. No bloody or tarry stools. Reports loss of appetite. Genitourinary: No dysuria, no increased frequency, no urgency. No urinary retention. Musculoskeletal: No myalgias. Reports muscle weakness, Reports gait dysfunction, Reports frequent falls. No back pain. No neck pain. Integumentary: No wounds, no lesions. No rash or pruritus. No unusual bruising. No change in hair or nails. Neurologic: No aphasia. No facial droop. Noted change in mentation. No head injury. No headache. No paralysis. No paresthesia. Psychiatric: No depression. No anxiety. Endocrine: No abnormal blood sugars. No weight change. PHYSICAL EXAMINATION Gen: This is an 80-year-old male. He is resting in bed appears to be comfortable. Mild confusion noted. HEENT: Head is atraumatic, normocephalic. Pupils equal, round. Sclerae is anicteric. NECK: Supple. No JVD. No lymphadenopathy. No thyromegaly. LUNGS: Clear to auscultation. No wheezes or rhonchi. No intercostal retractions. HEART: Regular rate and rhythm. No murmur. ABDOMEN: Soft. Bowel sounds are present. No masses. No tenderness. EXTREMITIES: No pedal edema. No calf tenderness. NEUROLOGICAL: Patient is awake, alert and oriented to person. Generalized w eakness. ASSESSMENT AND PLAN 1. Covid 19 infection status post Bamlanivimab on February 10. Patient started on Lovenox, vitamin C, vitamin D and zinc, IV fluids 0.9 normal saline at 75 mL per hour. Continue Tylenol as needed for fever. Patient is not appropriate for dexamethasone. Consult with Dr. Arreaga. Patient is not currently requiring oxygen therapy. Inflammatory markers ordered for morning, check TSH and free T4, vitamin B12 level. 2. Metabolic encephalopathy secondary to Covid 19 infection. Continue supportive care. Is not better so far. 3. Lactic acidosis secondary to Covid 19. Patient is status post 1 L of IV fluids. Continue IV fluids at 75 mL per hour. With improvement compared to yesterday. 4. Pancytopenia secondary to Covid 19. Continue to monitor. Recheck CBC in the morning. 5. Sepsis with mental status changes, leukopenia secondary to Covid 19. 6. Hyponatremia secondary to dehydration. Daily electrolytes been done. 7. Chronic kidney disease stage III. No need for dialysis repeat BUN/creatinine tomorrow 8. Diabetes mellitus type 2. Continue glipizide 10 mg twice daily, Prandin 4 mg twice daily, NovoLog scale before meals and at bedtime. 9. History of coronary artery disease status post stents. Continue aspirin 81 mg daily, Lipitor 40 mg at bedtime, Imdur 15 mg daily, Toprol-XL 50 mg daily. 10. Hypertension. Continue metoprolol. 11. Benign prostatic hypertrophy. Continue tamsulosin 0.4 mg daily, monitor for urinary retention 12. Gastroesophageal reflux disease and GI prophylaxis. Continue Protonix. 13. DVT prophylaxis. Lovenox. CODE STATUS: Full code Prognosis guarded Objective - Vital Signs Vital signs: Vital Signs Temp 98.5 F 02/16/21 06:07 Pulse 84 02/16/21 06:07 Resp 16 02/16/21 06:07 BP 148/54 02/16/21 06:07 Pulse Ox 98 02/16/21 06:07 Intake & Output 02/15/21 02/15/21 02/16/21 06:59 18:59 06:59 Weight 81.647 kg Other: Voiding Method Diaper Diaper Incontinent Incontinent External Catheter # Voids 1 1 # Bowel Movements 1 - Labs CBC & Chem 7: 02/16/21 08:16 02/16/21 08:16 Labs: Abnormal Lab Results - Last 24 Hours (Table) 02/15/21 02/15/21 02/15/21 Range/Units 09:06 17:08 20:37 POC Glucose (mg/dL) 155 H 133 H 260 H (75-99) mg/dL
[2021-02-16] MEDS: CALCIUM CARBONATE 500 MG CHEWABLE PO SCH (22:18)
[2021-02-16] MEDS: ATORVASTATIN 40 MG TAB PO SCH (22:18)
[2021-02-16] MEDS: LATANOPROST 0.005% OPHTH DROPS 2.5 ML BTL BOTH EYES SCH (22:18)
[2021-02-17 06:52] LABS: Glucose,Whole Blood 85 mg/dL (75-99)
[2021-02-17] MEDS: SODIUM CHLORIDE 0.9% 1,000 ML IV SCH ×2 (06:56→17:31)
[2021-02-17] MEDS: INSULIN ASPART (NovoLOG) 100 UNIT/ML VIAL SQ SCH ×4 (07:00→21:04)
[2021-02-17] MEDS: ZINC SULFATE 220 MG CAP PO SCH (08:03)
[2021-02-17] MEDS: CITALOPRAM HYDROBROMIDE 10 MG TAB PO SCH (08:03)
[2021-02-17] MEDS: MULTIVITAMINS, THERA 1 EACH TAB PO SCH (08:03)
[2021-02-17] MEDS: TAMSULOSIN 0.4 MG CAP.ER.24H PO SCH (08:03)
[2021-02-17] MEDS: PANTOPRAZOLE 40 MG TABLET PO SCH (08:03)
[2021-02-17] MEDS: glipiZIDE 5 MG TAB PO SCH ×2 (08:03→20:12)
[2021-02-17] MEDS: REPAGLINIDE 1 MG TAB PO SCH ×2 (08:03→20:21)
[2021-02-17] MEDS: METOPROLOL SUCCINATE (ER) 50 MG TAB.ER.24H PO SCH (08:03)
[2021-02-17] MEDS: ISOSORBIDE MONONITRATE ER 30 MG TAB.ER.24H PO SCH (08:03)
[2021-02-17] MEDS: ENOXAPARIN 40 MG/0.4 ML SYRINGE SQ SCH (08:04)
[2021-02-17] MEDS: CHOLECALCIFEROL 25 MCG (1000 IU) TABLET PO SCH (08:04)
[2021-02-17] MEDS: ALPRAZolam 0.25 MG TAB PO SCH (08:05)
[2021-02-17] MEDS: ASPIRIN 81 MG PO SCH (08:05)
[2021-02-17] MEDS: ASCORBIC ACID 500 MG TAB PO SCH (08:05)
--- NOTE | 2021-02-17 08:39 | XR ---
EXAMINATION TYPE: XR chest 1V portable DATE OF EXAM: 02/17/2021 COMPARISON: 02/14/2021. HISTORY: Follow-up pneumonia TECHNIQUE: Single frontal view of the chest is obtained. FINDINGS: There is increased moderate opacities in the bilateral mid to lower lungs. No pleural effu jonathan, or pneumothorax seen. The cardiac silhouette size is within normal limits. The osseous struc tures are intact. IMPRESSION: Interval bibasilar infiltrates.
[2021-02-17 09:11] LABS: HCT 36.9 % (39.6-50.0); HGB 11.7 g/dL (13.0-17.0); MCH 29.3 pg (27.0-32.0); MCHC 31.7 g/dL (32.0-37.0); MCV 92.5 fL (80.0-97.0); Mean Platelet Volume 9.1 fL (9.5-12.2); Platelet Count 155 X 10*3/uL (140-440); RBC 3.99 X 10*6/uL (4.40-5.60); RDW 14.9 % (11.5-14.5)
[2021-02-17 10:25] LABS: African American GFR (CKD) 59.3 (60.0-200.0); Albumin 3.5 g/dL (3.80-4.90); Albumin/Globulin Ratio 2.19 (1.60-3.17); BUN/Creat Ratio 16.15 Ratio (12.00-20.00); Globulin 1.6 g/dL (1.6-3.3); Non-African American GFR(CKD) 51.2 (60.0-200.0); Potassium 3.3 mmol/L (3.5-5.5); Total Bilirubin 0.8 mg/dL (0.2-1.2); Total Protein 5.1 g/dL (6.2-8.2)
--- NOTE | 2021-02-17 10:39 | P.PN ---
Subjective Progress Note Date: 02/17/21 HISTORY OF PRESENT ILLNESS This is an 80-year-old male patient of Dr. Briseno with past medical history of diabetes mellitus type 2, history of renal cancer status post partial resection in 2006, abdominal aortic aneurysm status post repair, lumbar stenosis, benign prostatic hypertrophy, psoriasis, gastroesophageal reflux disease, peripheral vascular disease status post carotid surgery, coronary artery disease status post stents, remote history of tobacco use. Patient presented to the emergency center on February 10 with complaints of generalized weakness, no fever. He underwent a chest x-ray that showed no acute pulmonary disease, CAT scan of the brain revealed age-related atrophy and chronic small vessel ischemic change without acute intracranial process. Patient was diagnosed with COVID-19, treated with Bamlanivimab and was discharged home with instructions to quarantine and follow-up with his PCP. Patient return to the emergency center yesterday due to worsening weakness and several falls. No apparent injury. No abdominal pain, nausea, vomiting or diarrhea. Patient was found to be afebrile, heart rate 94, blood pressure 121/67, pulse ox 97% on room air. EKG was in normal sinus rhythm with [address] changes. WBC 3.4, hemoglobin 12.4, platelet count 131. Sodium 132, potassium 3.9, chloride 101, CO2 21, BUN 23 and creatinine 1.46, blood sugar 267. Liver function tests were elevated with AST of 106, ALT 60, alkaline phosphatase 80. Lactic acid 2.3. Troponin negative. Urinalysis cloudy with nitrate and leukoesterase negative. Chest x-ray reveals no evidence of acute pulmonary disease. 4/3: Patient is slightly but better today still required 2 L of nasal cannula O2, he is afebrile, slightly but confused with mild change mental status otherwise no high fever his marker remain slightly bit up with d-dimer at 1.41 his kidney function still off his ferritin level was 3200. Patient still seen infectious disease will consult pulmonary as well. 4/4: Patient is doing slightly better this confused temperature has improved so far. Patient mobility still limited to almost addressed at this point. Had mild leukopenia and mild anemia his marker still quite bit elevated this point. Chest x-ray has slight improvement. Irritation oxygen level Will allow patient might be able to go to subacute rehab sometime this week. REVIEW OF SYSTEMS Constitutional: No fever, no chills, no night sweats. No weight change. Reports weakness, Reports fatigue Reports lethargy. No daytime sleepiness. EENT: No headache. No blurred vision or double vision, no loss of vision. No loss of Hearing, no ringing in the ears, no dizziness. No nasal drainage or congestion. No epistaxis. No sore throat. Lungs: No shortness of breath, cough, no sputum production. No wheezing. Cardiovascular: No chest pain, no lower extremity edema. No palpitations. No paroxysmal nocturnal dyspnea. No orthopnea. No lightheadedness or dizziness. No syncopal episodes. Abdominal: No abdominal pain. No nausea, vomiting. No diarrhea. No constipation. No bloody or tarry stools. Reports loss of appetite. Genitourinary: No dysuria, no increased frequency, no urgency. No urinary retention. Musculoskeletal: No myalgias. Reports muscle weakness, Reports gait dysfunction, Reports frequent falls. No back pain. No neck pain. Integumentary: No wounds, no lesions. No rash or pruritus. No unusual bruising. No change in hair or nails. Neurologic: No aphasia. No facial droop. Noted change in mentation. No head injury. No headache. No paralysis. No paresthesia. Psychiatric: No depression. No anxiety. Endocrine: No abnormal blood sugars. No weight change. PHYSICAL EXAMINATION Gen: This is an 80-year-old male. He is resting in bed appears to be comfortable. Mild confusion noted. HEENT: Head is atraumatic, normocephalic. Pupils equal, round. Sclerae is anicteric. NECK: Supple. No JVD. No lymphadenopathy. No thyromegaly. LUNGS: Clear to auscultation. No wheezes or rhonchi. No intercostal retractions. HEART: Regular rate and rhythm. No murmur. ABDOMEN: Soft. Bowel sounds are present. No masses. No tenderness. EXTREMITIES: No pedal edema. No calf tenderness. NEUROLOGICAL: Patient is awake, alert and oriented to person. Generalized weakness. ASSESSMENT AND PLAN 1. Covid 19 infection status post Bamlanivimab on February 10. Patient started on Lovenox, vitamin C, vitamin D and zinc, IV fluids 0.9 normal saline at 75 mL per hour. Continue Tylenol as needed for fever. Patient is not appropriate for dexamethasone. Consult with Dr. Arreaga. Patient is not currently requiring oxygen therapy. Inflammatory markers ordered for morning, check TSH and free T4, vitamin B12 level. We'll consult pulmonary continue current management repeat chest x-ray tomorrow. 2. Metabolic encephalopathy secondary to Covid 19 infection. Continue supportive care. He is much better so far. 3. Lactic acidosis secondary to Covid 19. Patient is status post 1 L of IV fluids. Continue IV fluids at 75 mL per hour. With improvement compared to yesterday. 4. Pancytopenia secondary to Covid 19. Continue to monitor. Recheck CBC in the morning. 5. Sepsis with mental status changes, leukopenia secondary to Covid 19. 6. Hyponatremia : Sodium is up to 114 doing better 7. Chronic kidney disease stage III. Creatinine is down to 1.3 with GFR at 51.2 8. Diabetes mellitus type 2. Continue glipizide 10 mg twice daily, Prandin 4 mg twice daily, NovoLog scale before meals and at bedtime. 9. History of coronary artery disease status post stents. Continue aspirin 81 mg daily, Lipitor 40 mg at bedtime, Imdur 15 mg daily, Toprol-XL 50 mg daily. 10. Hypertension. Continue metoprolol. 11. Benign prostatic hypertrophy. Continue tamsulosin 0.4 mg daily, monitor for urinary retention 12. Gastroesophageal reflux disease and GI prophylaxis. Continue Protonix. 13. DVT prophylaxis. Lovenox. CODE STATUS: Full code Prognosis guarded Discharge planning IV able to go to rehab sometime in the next 48 hours Objective - Vital Signs Vital signs: Vital Signs Temp 97.7 F 02/17/21 03:05 Pulse 87 02/17/21 03:05 Resp 21 02/17/21 03:05 BP 122/64 02/17/21 03:05 Pulse Ox 91 L 02/17/21 03:05 Intake & Output 02/16/21 02/16/21 02/17/21 06:59 18:59 06:59 Intake Total 600 Balance 600 Intake: Intake, IV Titration 600 Amount Sodium Chloride 0.9% 1, 600 000 ml @ 75 mls/hr IV . [id number] [facility] Rx#:[id number] Other: Voiding Method Diaper Diaper Diaper Incontinent Incontinent Incontinent External Catheter # Voids 4 # Bowel Movements 2 - Labs CBC & Chem 7: 02/17/21 06:27 02/17/21 06:27 Labs: Abnormal Lab Results - Last 24 Hours (Table) 02/16/21 02/16/21 02/16/21 Range/Units 07:08 08:16 08:16 WBC (4.50-10.00) X 10*3/uL RBC (4.40-5.60) X 10*6/uL Hgb (13.0-17.0) g/dL MCHC (32.0-37.0) g/dL RDW (11.5-14.5) % Plt Count (140-440) X 10*3/uL Lymphocytes # (0.90-5.00) X 10*3/uL Eosinophils # (0.04-0.35) X 10*3/uL D-Dimer 1.41 H (<0.60) mg/L FEU Sodium 136 L (137-145) mmol/L Carbon Dioxide 21 L (22-30) mmol/L BUN 21 H (9-20) mg/dL Creatinine 1.45 H (0.66-1.25) mg/dL Glucose 112 H (74-99) mg/dL POC Glucose (mg/dL) 106 H (75-99) mg/dL Ferritin 3217.8 H (22.0-322.0) ng/mL AST 92 H (17-59) U/L ALT 62 H (4-49) U/L Lactate Dehydrogenase 913 H (313-618) U/L C-Reactive Protein 49.7 H (<10.0) mg/L Total Protein 5.9 L (6.3-8.2) g/dL Albumin 3.3 L (3.5-5.0) g/dL Procalcitonin (0.02-0.09) ng/mL TSH 0.398 L (0.465-4.680) mIU/L 02/16/21 02/16/21 02/16/21 Range/Units 08:16 08:16 11:13 WBC 3.13 L (4.50-10.00) X 10*3/uL RBC 4.26 L (4.40-5.60) X 10*6/uL Hgb 12.6 L (13.0-17.0) g/dL MCHC 31.8 L (32.0-37.0) g/dL RDW 15.0 H (11.5-14.5) % Plt Count 135 L (140-440) X 10*3/uL Lymphocytes # 0.50 L (0.90-5.00) X 10*3/uL Eosinophils # 0 L (0.04-0.35) X 10*3/uL D-Dimer (<0.60) mg/L FEU Sodium (137-145) mmol/L Carbon Dioxide (22-30) mmol/L BUN (9-20) mg/dL Creatinine (0.66-1.25) mg/dL Glucose (74-99) mg/dL POC Glucose (mg/dL) 182 H (75-99) mg/dL Ferritin (22.0-322.0) ng/mL AST (17-59) U/L ALT (4-49) U/L Lactate Dehydrogenase (313-618) U/L C-Reactive Protein (<10.0) mg/L Total Protein (6.3-8.2) g/dL Albumin (3.5-5.0) g/dL Procalcitonin 0.20 H (0.02-0.09) ng/mL TSH (0.465-4.680) mIU/L 02/16/21 Range/Units 16:34 WBC (4.50-10.00) X 10*3/uL RBC (4.40-5.60) X 10*6/uL Hgb (13.0-17.0) g/dL MCHC (32.0-37.0) g/dL RDW (11.5-14.5) % Plt Count (140-440) X 10*3/uL Lymphocytes # (0.90-5.00) X 10*3/uL Eosinophils # (0.04-0.35) X 10*3/uL D-Dimer (<0.60) mg/L FEU Sodium (137-145) mmol/L Carbon Dioxide (22-30) mmol/L BUN (9-20) mg/dL Creatinine (0.66-1.25) mg/dL Glucose (74-99) mg/dL POC Glucose (mg/dL) 107 H (75-99) mg/dL Ferritin (22.0-322.0) ng/mL AST (17-59) U/L ALT (4-49) U/L Lactate Dehydrogenase (313-618) U/L C-Reactive Protein (<10.0) mg/L Total Protein (6.3-8.2) g/dL Albumin (3.5-5.0) g/dL Procalcitonin (0.02-0.09) ng/mL TSH (0.465-4.680) mIU/L
[2021-02-17 10:41] LABS: C Reactive Protein 4.2 mg/dL (0.0-0.8); Ferritin 2923.6 ng/mL (22.0-322.0)
[2021-02-17 11:14] LABS: Erythrocyte Sedimentation Rate 3 mm/Hr (0-20)
[2021-02-17] MEDS: POTASSIUM CHLORIDE 10 MEQ in WATER FOR INJECTION 1 100ML.BAG IVPB SCH ×4 (11:18→14:46)
[2021-02-17 11:28] LABS: Glucose,Whole Blood 127 mg/dL (75-99)
[2021-02-17 12:16] LABS: Anion Gap 11.7 mmol/L (4.00-12.00); Carbon Dioxide 19.3 mmol/L (21.6-31.8)
[2021-02-17 13:15] LABS: Hepatitis A Antibody IgM Non-Reactive (Non-Reactive); Hepatitis B Core IgM Non-Reactive (Non-Reactive); Hepatitis B Surface Antigen Non-Reactive (Non-Reactive); Hepatitis C IgG Antibody Non-Reactive (Non-Reactive)
--- NOTE | 2021-02-17 14:58 | P.CNPUL ---
History of Present Illness Consult date: 02/17/21 Requesting physician: Eric Briseno Reason for consult: dyspnea, abnormal CXR/CT Chief complaint: Shortness of breath History of present illness: This is a pleasant 80-year-old gentleman who follows with Dr. Briseno as his primary care provider with a history of diabetes mellitus, gastroesophageal r eflux disease, hearing disorder, renal cancer with partial nephrectomy, psoriasis coronary artery disease with previous stent placement, anxiety, former smoker. He was brought into the emergency room back on 02/14/2021 after having progressive weakness and falls at home. He had previously tested positive for CoVID and received monoclonal antibodies on 02/10/2021. No noted injuries from his falls. X-ray revealed no acute pulmonary process. He was however admitted for CoVID 19 infection in regards to metabolic encephalopathy. Today's chest x- ray revealed some interval bibasilar infiltrates and we are consulted for the same. The patient is a poor historian. Oriented times one. He is seen in consultation on the regular medical floor. Currently resting comfortably in bed. Awake and alert in no acute distress. Maintaining O2 saturations in the 90s on 2 L/m per nasal cannula. He does admit to some shortness of breath and a dry nonproductive cough. He is outside the window for Remdesivir. Does not qualify for Tocilizumab or convalescent plasma at this point. Review of Systems ROS unobtainable: due to mental status Past Medical History Past Medical History: Cancer, Dementia, Diabetes Mellitus, GERD/Reflux, Hearing Disorder / Deafness, Memory Impairment, Osteoarthritis (OA), Prostate Disorder, Renal Disease, Skin Disorder, Vascular Disorder Additional Past Medical History / Comment(s): 2006 L renal cell carcinoma with partial nephrectomy, NIDDM type II-recently taken off Ozempic d/t diarrhea, CKD stage III but per past medical hx but spouse unaware, hiatal hernia, lumbar stenosis with chronic low back pain, PVD/L caratid endartectomy/AAA repair, psoriasis, BPH, FALLS. History of Any Multi-Drug Resistant Organisms: None Reported Past Surgical History: Back Surgery, Cholecystectomy, Heart Catheterization With Stent, Hernia Repair Additional Past Surgical History / Comment(s): PCI with stents 2016/2017, L partial nephrectomy, AAA repair, L caratid endartectomy, L inguinal hernia repa ir, low back surgery, EGD, colonoscopy, bilateral cataracts removed with lens implants. Past Anesthesia/Blood Transfusion Reactions: Previous Problems w/ Anesthesia, Motion Sickness, Postoperative Nausea & Vomiting (PONV) Additional Past Anesthesia/Blood Transfusion Reaction / Comment(s): no hx blood transfusion Date of Last Stent Placement:: 12/08/2017 Smoking Status: Former smoker - Past Family History Mother Family Medical History: Diabetes Mellitus Father Family Medical History: COPD, Hypertension Brother(s) Family Medical History: Diabetes Mellitus Sister(s) Family Medical History: Coronary Artery Disease (CAD), Diabetes Mellitus Son(s) Family Medical History: No Reported History Daughter(s) Family Medical History: No Reported History Medications and Allergies Home Medications Medication Instructions Recorded Confirmed Type ALPRAZolam [Xanax] 0.25 mg PO DAILY 06/08/16 02/14/21 History Multivitamins, Thera [Multivitamin 1 tab PO DAILY 06/08/16 02/14/21 History (formulary)] Tamsulosin HCl [Flomax] 0.4 mg PO DAILY 06/08/16 02/14/21 History Aspirin EC [Ecotrin Low Dose] 81 mg PO DAILY #30 tablet. 09/20/17 02/14/21 Rx Atorvastatin [Lipitor] 40 mg PO HS #30 tab 09/20/17 02/14/21 Rx Calcium Carbonate [Calcium] 600 mg PO HS 11/07/17 02/14/21 History Isosorbide Mononitrate ER [Imdur] 15 mg PO DAILY 11/21/19 02/14/21 History Pantoprazole Sodium [Protonix] 40 mg PO DAILY 10/02/20 02/14/21 History Repaglinide [Prandin] 4 mg PO BID 10/02/20 02/14/21 History Metoprolol Succinate (ER) [Toprol 50 mg PO DAILY 11/21/20 02/14/21 History XL] Latanoprost/Pf [Latanoprost 0.005% 1 drop BOTH EYES HS 11/28/20 02/14/21 History Eye Drop] Acetaminophen [Tylenol] 650 mg PO Q4H PRN 02/10/21 02/14/21 History Citalopram Hydrobromide [CeleXA] 10 mg PO DAILY 02/10/21 02/14/21 History Nitroglycerin Sl Tabs [Nitrostat] 0.4 mg SL Q5M PRN 02/10/21 02/14/21 History glipiZIDE [Glucotrol] 10 mg PO BID 02/10/21 02/14/21 History Allergies Allergy/AdvReac Type Severity Reaction Status Date / Time clarithromycin [From Biaxin] AdvReac Nausea & Verified 02/14/21 12:30 Vomiting & Diarrhea Physical Exam Vitals: Vital Signs Temp Pulse Resp BP Pulse Ox 02/17/21 14:00 98.2 F 90 30 H 152/72 90 L 02/17/21 10:00 97 F L 81 31 H 128/63 91 L 02/17/21 06:05 97.5 F L 56 L 17 110/64 96 02/17/21 03:05 97.7 F 87 21 122/64 91 L 02/16/21 20:00 20 02/16/21 17:00 97.6 F 84 20 125/65 93 L 02/16/21 16:41 92 L Intake and Output 02/16/21 02/17/21 02/17/21 22:59 06:59 14:59 Intake Total 600 600 Balance 600 600 Intake: Intake, IV Titration 600 600 Amount Sodium Chloride 0.9% 1, 600 600 000 ml @ 75 mls/hr IV . [id number] [facility] Rx#:[id number] Other: Voiding Method Diaper Diaper Incontinent Incontinent # Voids 1 2 # Bowel Movements 1 GENERAL EXAM: Alert, rate times one, 80-year-old male patient, on 2 L nasal cannula comfortable in no apparent distress. HEAD: Normocephalic. EYES: Normal reaction of pupils, equal size. NOSE: Clear with pink turbinates. THROAT: No erythema or exudates. NECK: No masses, no JVD. CHEST: No chest wall deformity. LUNGS: Equal air entry with faint crackles in the bilateral bases CVS: S1 and S2 normal with no audible murmur, regular rhythm. ABDOMEN: No hepatosplenomegaly, normal bowel sounds, no guarding or rigidity. SPINE: No scoliosis or deformity SKIN: No rashes CENTRAL NERVOUS SYSTEM: No focal deficits, tone is normal in all 4 extremities. EXTREMITIES: There is no peripheral edema. No clubbing, no cyanosis. Peripheral pulses are intact. Results - Laboratory Findings CBC and BMP: 02/17/21 06:27 02/17/21 06:27 PT/INR, D-dimer PT 10.1 sec (9.0-12.0) 02/14/21 11:14 INR 0.9 (<1.2) 02/14/21 11:14 D-Dimer 1.14 mg/L FEU (<0.60) H 02/17/21 06:27 Abnormal lab findings: Abnormal Labs 02/14/21 02/14/21 02/14/21 11:14 11:14 11:14 WBC 3.4 L RBC 4.00 L Hgb 12.4 L Hct 35.8 L MCHC RDW Plt Count 131 L MPV Lymphocytes # Lymphocytes # (Manual) 0.34 L Eosinophils # D-Dimer Sodium 132 L Potassium Carbon Dioxide 21 L BUN 23 H Creatinine 1.46 H Est GFR (CKD-EPI)AfAm Est GFR (CKD-EPI)NonAf Glucose 267 H POC Glucose (mg/dL) Plasma Lactic Acid Sajan 2.3 H* Calcium Ferritin AST 106 H ALT 60 H Lactate Dehydrogenase C-Reactive Protein Total Protein 5.8 L Albumin 3.3 L Procalcitonin TSH Urine Protein Urine Glucose (UA) Amorphous Sediment Urine Bacteria Urine Mucus 02/14/21 02/15/21 02/15/21 11:44 09:06 17:08 WBC RBC Hgb Hct MCHC RDW Plt Count MPV Lymphocytes # Lymphocytes # (Manual) Eosinophils # D-Dimer Sodium Potassium Carbon Dioxide BUN Creatinine Est GFR (CKD-EPI)AfAm Est GFR (CKD-EPI)NonAf Glucose POC Glucose (mg/dL) 155 H 133 H Plasma Lactic Acid Sajan Calcium Ferritin AST ALT Lactate Dehydrogenase C-Reactive Protein Total Protein Albumin Procalcitonin TSH Urine Protein 1+ H Urine Glucose (UA) 3+ H Amorphous Sediment Rare H Urine Bacteria Rare H Urine Mucus Rare H 02/15/21 02/16/21 02/16/21 20:37 07:08 08:16 WBC RBC Hgb Hct MCHC RDW Plt Count MPV Lymphocytes # Lymphocytes # (Manual) Eosinophils # D-Dimer Sodium 136 L Potassium Carbon Dioxide 21 L BUN 21 H Creatinine 1.45 H Est GFR (CKD-EPI)AfAm Est GFR (CKD-EPI)NonAf Glucose 112 H POC Glucose (mg/dL) 260 H 106 H Plasma Lactic Acid Sajan Calcium Ferritin 3217.8 H AST 92 H ALT 62 H Lactate Dehydrogenase 913 H C-Reactive Protein 49.7 H Total Protein 5.9 L Albumin 3.3 L Procalcitonin TSH 0.398 L Urine Protein Urine Glucose (UA) Amorphous Sediment Urine Bacteria Urine Mucus 02/16/21 02/16/21 02/16/21 08:16 08:16 08:16 WBC 3.13 L RBC 4.26 L Hgb 12.6 L Hct MCHC 31.8 L RDW 15.0 H Plt Count 135 L MPV Lymphocytes # 0.50 L Lymphocytes # (Manual) Eosinophils # 0 L D-Dimer 1.41 H Sodium Potassium Carbon Dioxide BUN Creatinine Est GFR (CKD-EPI)AfAm Est GFR (CKD-EPI)NonAf Glucose POC Glucose (mg/dL) Plasma Lactic Acid Sajan Calcium Ferritin AST ALT Lactate Dehydrogenase C-Reactive Protein Total Protein Albumin Procalcitonin 0.20 H TSH Urine Protein Urine Glucose (UA) Amorphous Sediment Urine Bacteria Urine Mucus 02/16/21 02/16/21 02/17/21 11:13 16:34 06:27 WBC RBC Hgb Hct MCHC RDW Plt Count MPV Lymphocytes # Lymphocytes # (Manual) Eosinophils # D-Dimer Sodium Potassium Carbon Dioxide BUN Creatinine Est GFR (CKD-EPI)AfAm Est GFR (CKD-EPI)NonAf Glucose POC Glucose (mg/dL) 182 H 107 H Plasma Lactic Acid Sajna Calcium Ferritin AST ALT Lactate Dehydrogenase C-Reactive Protein Total Protein Albumin Procalcitonin 0.18 H TSH Urine Protein Urine Glucose (UA) Amorphous Sediment Urine Bacteria Urine Mucus 02/17/21 02/17/21 02/17/21 06:27 06:27 06:27 WBC 3.10 L RBC 3.99 L Hgb 11.7 L Hct 36.9 L MCHC 31.7 L RDW 14.9 H Plt Count MPV 9.1 L Lymphocytes # Lymphocytes # (Manual) Eosinophils # D-Dimer 1.14 H Sodium Potassium 3.3 L Carbon Dioxide 19.3 L BUN Creatinine Est GFR (CKD-EPI)AfAm 59.3 L Est GFR (CKD-EPI)NonAf 51.2 L Glucose POC Glucose (mg/dL) Plasma Lactic Acid Sajan Calcium 8.0 L Ferritin 2923.6 H AST 88 H ALT 67 H Lactate Dehydrogenase 390 H C-Reactive Protein 4.2 H Total Protein 5.1 L Albumin 3.50 L Procalcitonin TSH Urine Protein Urine Glucose (UA) Amorphous Sediment Urine Bacteria Urine Mucus 02/17/21 11:26 WBC RBC Hgb Hct MCHC RDW Plt Count MPV Lymphocytes # Lymphocytes # (Manual) Eosinophils # D-Dimer Sodium Potassium Carbon Dioxide BUN Creatinine Est GFR (CKD-EPI)AfAm Est GFR (CKD-EPI)NonAf Glucose POC Glucose (mg/dL) 127 H Plasma Lactic Acid Sajan Calcium Ferritin AST ALT Lactate Dehydrogenase C-Reactive Protein Total Protein Albumin Procalcitonin TSH Urine Protein Urine Glucose (UA) Amorphous Sediment Urine Bacteria Urine Mucus - Diagnostic Findings Chest x-ray: image reviewed Assessment and Plan Assessment: 1 CoVID 19 infection with minimal pulmonary infiltrates at this point, currently on 2 L. Outside the window for Remdesivir. Not a candidate for Tocilizumab or convalescent plasma at this point 2 Recent CoVID 19 diagnosis status post monoclonal antibody therapy on 02/10/2021 3 Frequent falls and progressive weakness secondary to above 4 chronic kidney disease stage III 5 Diabetes mellitus. 6 History of coronary disease with previous stent placement 9 Hypertension 8 BPH 10 Gastroesophageal reflux disease Plan: The patient was seen and evaluated by Dr. Zuluaga Chest x-ray and labs reviewed Minimal pulmonary issues related to CoVID 19 infection at this time Outside the window for Remdesivir Not a candidate for tocilizumab or convalescent plasma at this point Titrate down the FiO2 as tolerated Continue Lovenox, vitamin supplements We'll continue to follow and make further recommendations based on his clinical status I, the cosigning physician, performed a history & physical examination of the patient. Lungs sounds with faint basilar crackles. Maintaining good O2 satur ations in the 90s on 2 L/m per nasal cannula. I discussed the assessment and plan of care with my nurse practitioner, Antoinette Mcmahon. I attest to the above note as dictated by her.
[2021-02-17 17:06] LABS: Glucose,Whole Blood 304 mg/dL (75-99)
--- NOTE | 2021-02-17 19:54 | PN ---
PROGRESS NOTE DATE OF SERVICE: 02/17/2021 REASON FOR FOLLOWUP: COVID-19 infection. INTERVAL HISTORY: Patient is currently afebrile. The patient is slightly more awake and alert. The patient is currently requiring high-flow nasal oxygen. Denies any chest pain. No cough. No abdominal pain. No diarrhea. EXAMINATION: Blood pressure 137/58 with a pulse of 91, temperature 97.6. He is 88% on 6 L nasal cannula. General description is an elderly male lying in bed in no distress. Respiratory system: Unlabored breathing, decreased coarse breath sounds bilaterally. No wheeze. ABDOMEN: Soft. No tenderness. EXTREMITIES: No edema of the feet. LABS: Hemoglobin 11.1, white count 3.1. BUN of 21, creatinine 1.3. DIAGNOSTIC IMPRESSION AND PLAN: Patient with acute COVID-19 infection in this patient who did have worsening respiratory status now requiring supplemental oxygen. Pulmonary has seen the patient, now recommending Actemra, which may have helped this patient. We will add dexamethasone. Continue Lovenox, zinc and ascorbic acid. Monitor clinical course closely. MMODL / IJN: [id number] /
[2021-02-17] MEDS: DEXAMETHASONE SOD PHOSPHATE 10 MG/ML 1 ML VIAL IV SCH (20:11)
[2021-02-17] MEDS: ATORVASTATIN 40 MG TAB PO SCH (20:12)
[2021-02-17] MEDS: LATANOPROST 0.005% OPHTH DROPS 2.5 ML BTL BOTH EYES SCH (20:12)
[2021-02-17] MEDS: CALCIUM CARBONATE 500 MG CHEWABLE PO SCH (20:12)
[2021-02-17 20:54] LABS: Glucose,Whole Blood 247 mg/dL (75-99)
[2021-02-18] MEDS: ACETAMINOPHEN TAB 325 MG TAB PO PRN (04:02)
[2021-02-18 07:15] LABS: Glucose,Whole Blood 166 mg/dL (75-99)
[2021-02-18] MEDS: SODIUM CHLORIDE 0.9% 1,000 ML IV SCH (07:52)
[2021-02-18] MEDS: CITALOPRAM HYDROBROMIDE 10 MG TAB PO SCH (07:53)
[2021-02-18] MEDS: ASPIRIN 81 MG PO SCH (07:53)
[2021-02-18] MEDS: ASCORBIC ACID 500 MG TAB PO SCH (07:53)
[2021-02-18] MEDS: PANTOPRAZOLE 40 MG TABLET PO SCH (07:53)
[2021-02-18] MEDS: ALPRAZolam 0.25 MG TAB PO SCH (07:53)
[2021-02-18] MEDS: DEXAMETHASONE SOD PHOSPHATE 10 MG/ML 1 ML VIAL IV SCH (07:53)
[2021-02-18] MEDS: MULTIVITAMINS, THERA 1 EACH TAB PO SCH (07:53)
[2021-02-18] MEDS: ENOXAPARIN 40 MG/0.4 ML SYRINGE SQ SCH (07:53)
[2021-02-18] MEDS: glipiZIDE 5 MG TAB PO SCH ×2 (07:54→20:34)
[2021-02-18] MEDS: ISOSORBIDE MONONITRATE ER 30 MG TAB.ER.24H PO SCH (07:54)
[2021-02-18] MEDS: ZINC SULFATE 220 MG CAP PO SCH (07:54)
[2021-02-18] MEDS: INSULIN ASPART (NovoLOG) 100 UNIT/ML VIAL SQ SCH ×4 (07:55→20:33)
[2021-02-18] MEDS: METOPROLOL SUCCINATE (ER) 50 MG TAB.ER.24H PO SCH (07:55)
[2021-02-18] MEDS: TAMSULOSIN 0.4 MG CAP.ER.24H PO SCH (07:55)
[2021-02-18] MEDS: CHOLECALCIFEROL 25 MCG (1000 IU) TABLET PO SCH (07:55)
[2021-02-18] MEDS ORDERED: FUROSEMIDE 10 MG/ML 4 ML VIAL IV STA (09:51)
[2021-02-18] MEDS: REPAGLINIDE 1 MG TAB PO SCH ×2 (09:59→20:34)
[2021-02-18 11:03] LABS: HCT 33.8 % (39.6-50.0); MCH 29.7 pg (27.0-32.0); MCHC 32.5 g/dL (32.0-37.0); MCV 91.4 fL (80.0-97.0); Mean Platelet Volume 9.6 fL (9.5-12.2); Platelet Count 157 X 10*3/uL (140-440); RDW 14.8 % (11.5-14.5); WBC 4.76 X 10*3/uL (4.50-10.00)
[2021-02-18 11:30] LABS: Glucose,Whole Blood 258 mg/dL (75-99)
--- NOTE | 2021-02-18 12:13 | P.PN ---
Subjective Progress Note Date: 02/18/21 HISTORY OF PRESENT ILLNESS This is an 80-year-old male patient of Dr. Briseno with past medical history of diabetes mellitus type 2, history of renal cancer status post partial resection in 2006, abdominal aortic aneurysm status post repair, lumbar stenosis, benign prostatic hypertrophy, psoriasis, gastroesophageal reflux disease, peripheral vascular disease status post carotid surgery, coronary artery disease status post stents, remote history of tobacco use. Patient presented to the emergency center on February 10 with complaints of generalized weakness, no fever. He underwent a chest x-ray that showed no acute pulmonary disease, CAT scan of the brain revealed age-related atrophy and chronic small vessel ischemic change without acute intracranial process. Patient was diagnosed with COVID-19, treated with Bamlanivimab and was discharged home with instructions to quarantine and follow-up with his PCP. Patient return to the emergency center yesterday due to worsening weakness and several falls. No apparent injury. No abdominal pain, nausea, vomiting or diarrhea. Patient was found to be afebrile, heart rate 94, blood pressure 121/67, pulse ox 97% on room air. EKG was in normal sinus rhythm with [address] changes. WBC 3.4, hemoglobin 12.4, platelet count 131. Sodium 132, potassium 3.9, chloride 101, CO2 21, BUN 23 and creatinine 1.46, blood sugar 267. Liver function tests were elevated with AST of 106, ALT 60, alkaline phosphatase 80. Lactic acid 2.3. Troponin negative. Urinalysis cloudy with nitrate and leukoesterase negative. Chest x-ray reveals no evidence of acute pulmonary disease. 4/3: Patient is slightly but better today still required 2 L of nasal cannula O2, he is afebrile, slightly but confused with mild change mental status otherwise no high fever his marker remain slightly bit up with d-dimer at 1.41 his kidney function still off his ferritin level was 3200. Patient still seen infectious disease will consult pulmonary as well. 02/17: Patient is doing slightly better this confused temperature has improved so far. Patient mobility still limited to almost addressed at this point. Had mild leukopenia and mild anemia his marker still quite bit elevated this point. Chest x-ray has slight improvement. Irritation oxygen level Will allow patient might be able to go to subacute rehab sometime this week. 5: Patient had fever of 102 this morning.heart rate 77, blood pressure 122/63, pulse ox 89-93% on nonrebreather. repeat d-dimer is 1.12. Blood sugar 166-247. Patient is followed by pulmonary medicine and infectious disease. Patient is seen today on the [facility] floor. He is reaching 1000 ml on incentive spirometry. Repeat blood work reveals WBC 4.7, hemoglobin 11, platelet count 157. D-dimer 1 .12. TSH 0.398 and free T4 normal at 1.34. Vitamin B12 level is 573. Patient is continued on dexamethasone and Lovenox. The patient is seen on nasal cannula which was placed so he could eat breakfast. Otherwise patient has been maintained on nonrebreather. Pulse ox on high flow nasal cannula is 88%. IV fluids will be discontinued and one dose of IV Lasix this morning. REVIEW OF SYSTEMS Constitutional: No fever, no chills, no night sweats. No weight change. Report s weakness, Reports fatigue Reports lethargy. No daytime sleepiness. EENT: No headache. No blurred vision or double vision, no loss of vision. No loss of Hearing, no ringing in the ears, no dizziness. No nasal drainage or congestion. No epistaxis. No sore throat. Lungs: Reports shortness of breath, reports cough, no sputum production. No wheezing. Cardiovascular: No chest pain, no lower extremity edema. No palpitations. No paroxysmal nocturnal dyspnea. No orthopnea. No lightheadedness or dizziness. No syncopal episodes. Abdominal: No abdominal pain. No nausea, vomiting. No diarrhea. No constipation. No bloody or tarry stools. Reports loss of appetite. Genitourinary: No dysuria, no increased frequency, no urgency. No urinary retention. Musculoskeletal: No myalgias. Reports muscle weakness, Reports gait dysfunction, Reports frequent falls. No back pain. No neck pain. Integumentary: No wounds, no lesions. No rash or pruritus. No unusual bruising. No change in hair or nails. Neurologic: No aphasia. No facial droop. Noted change in mentation. No head injury. No headache. No paralysis. No paresthesia. Psychiatric: No depression. No anxiety. Endocrine: No abnormal blood sugars. No weight change. PHYSICAL EXAMINATION Gen: This is an 80-year-old male. He is resting in bed appears to be comfortable. Mild confusion noted. HEENT: Head is atraumatic, normocephalic. Pupils equal, round. Sclerae is anicteric. NECK: Supple. No JVD. No lymphadenopathy. No thyromegaly. LUNGS: Scattered rhonchi. No intercostal retractions. HEART: Regular rate and rhythm. No murmur. ABDOMEN: Soft. Bowel sounds are present. No masses. No tenderness. EXTREMITIES: No pedal edema. No calf tenderness. NEUROLOGICAL: Patient is awake, alert and oriented to person. Generalized weakness. ASSESSMENT AND PLAN 1. Covid 19 infection status post Bamlanivimab on February 10. Patient started on Lovenox, vitamin C, vitamin D and zinc. Continue Tylenol as needed for fever. Patient is not appropriate for dexamethasone. Consult with Dr. Arreaga. Continue oxygen therapy. IV fluids discontinued and Lasix IV 1 ordered for fluid overload. Pulmonary medicine consult appreciated. 2. Metabolic encephalopathy secondary to Covid 19 infection. Continue supportive care. He is much better so far. 3. Lactic acidosis secondary to Covid 19. Patient is status post 1 L of IV fluids. 4. Pancytopenia secondary to Covid 19. Continue to monitor. Recheck CBC in the morning. 5. Sepsis with mental status changes, leukopenia secondary to Covid 19. 6. Hyponatremia : Sodium is up to 114 doing better 7. Acute hypoxic respiratory failure requiring nonrebreather/high flow nasal cannula. Continue current management per pulmonary medicine. 8. Chronic kidney disease stage III. Creatinine is down to 1.3 with GFR at 51.2 9. Diabetes mellitus type 2. Continue glipizide 10 mg twice daily, Prandin 4 mg twice daily, NovoLog scale before meals and at bedtime. 10. History of coronary artery disease status post stents. Continue aspirin 81 mg daily, Lipitor 40 mg at bedtime, Imdur 15 mg daily, Toprol-XL 50 mg daily. 11. Hypertension. Continue metoprolol. 12. Benign prostatic hypertrophy. Continue tamsulosin 0.4 mg daily, monitor for urinary retention 13. Gastroesophageal reflux disease and GI prophylaxis. Continue Protonix. 14. DVT prophylaxis. Lovenox. CODE STATUS: Full code Prognosis guarded DISCHARGE PLAN Subacute rehab sometime in the next 48 hours Impression and plan of care have been directed as dictated by the signing physician. Whitney Batista nurse practitioner acting as scribe for signing physician. Objective - Vital Signs Vital signs: Vital Signs Temp 98.6 F 02/18/21 06:12 Pulse 77 02/18/21 06:12 Resp 20 02/18/21 06:12 BP 122/63 02/18/21 06:12 Pulse Ox 89 L 02/18/21 06:25 Intake & Output 02/17/21 02/18/21 02/18/21 18:59 06:59 18:59 Intake Total 600 Output Total 60 Balance 600 -60 Intake: Intake, IV Titration 600 Amount Sodium Chloride 0.9% 1, 600 000 ml @ 75 mls/hr IV . [id number] [facility]LEY Rx#:[id number] Output: Urine 60 Other: Voiding Method Diaper Diaper Incontinent Incontinent # Voids 2 1 4 # Bowel Movements 1 1 1 - Labs CBC & Chem 7: 02/18/21 06:58 02/17/21 06:27 Labs: Abnormal Lab Results - Last 24 Hours (Table) 02/17/21 02/17/21 02/17/21 Range/Units 06:27 06:27 06:27 WBC 3.10 L (4.50-10.00) X 10*3/uL RBC 3.99 L (4.40-5.60) X 10*6/uL Hgb 11.7 L (13.0-17.0) g/dL Hct 36.9 L (39.6-50.0) % MCHC 31.7 L (32.0-37.0) g/dL RDW 14.9 H (11.5-14.5) % MPV 9.1 L (9.5-12.2) fL D-Dimer (<0.60) mg/L FEU Potassium 3.3 L (3.5-5.5) mmol/L Carbon Dioxide 19.3 L (21.6-31.8) mmol/L Est GFR (CKD-EPI)AfAm 59.3 L (60.0-200.0) Est GFR (CKD-EPI)NonAf 51.2 L (60.0-200.0) POC Glucose (mg/dL) (75-99) mg/dL Calcium 8.0 L (8.7-10.3) mg/dL Ferritin 2923.6 H (22.0-322.0) ng/mL AST 88 H (14-35) U/L ALT 67 H (10-49) U/L Lactate Dehydrogenase 390 H (120-246) U/L C-Reactive Protein 4.2 H (0.0-0.8) mg/dL Total Protein 5.1 L (6.2-8.2) g/dL Albumin 3.50 L (3.80-4.90) g/dL Procalcitonin 0.18 H (0.02-0.09) ng/mL 02/17/21 02/17/21 02/17/21 Range/Units 11:26 17:05 20:52 WBC (4.50-10.00) X 10*3/uL RBC (4.40-5.60) X 10*6/uL Hgb (13.0-17.0) g/dL Hct (39.6-50.0) % MCHC (32.0-37.0) g/dL RDW (11.5-14.5) % MPV (9.5-12.2) fL D-Dimer (<0.60) mg/L FEU Potassium (3.5-5.5) mmol/L Carbon Dioxide (21.6-31.8) mmol/L Est GFR (CKD-EPI)AfAm (60.0-200.0) Est GFR (CKD-EPI)NonAf (60.0-200.0) POC Glucose (mg/dL) 127 H 304 H 247 H (75-99) mg/dL Calcium (8.7-10.3) mg/dL Ferritin (22.0-322.0) ng/mL AST (14-35) U/L ALT (10-49) U/L Lactate Dehydrogenase (120-246) U/L C-Reactive Protein (0.0-0.8) mg/dL Total Protein (6.2-8.2) g/dL Albumin (3.80-4.90) g/dL Procalcitonin (0.02-0.09) ng/mL 02/18/21 02/18/21 Range/Units 06:58 07:13 WBC (4.50-10.00) X 10*3/uL RBC (4.40-5.60) X 10*6/uL Hgb (13.0-17.0) g/dL Hct (39.6-50.0) % MCHC (32.0-37.0) g/dL RDW (11.5-14.5) % MPV (9.5-12.2) fL D-Dimer 1.12 H (<0.60) mg/L FEU Potassium (3.5-5.5) mmol/L Carbon Dioxide (21.6-31.8) mmol/L Est GFR (CKD-EPI)AfAm (60.0-200.0) Est GFR (CKD-EPI)NonAf (60.0-200.0) POC Glucose (mg/dL) 166 H (75-99) mg/dL Calcium (8.7-10.3) mg/dL Ferritin (22.0-322.0) ng/mL AST (14-35) U/L ALT (10-49) U/L Lactate Dehydrogenase (120-246) U/L C-Reactive Protein (0.0-0.8) mg/dL Total Protein (6.2-8.2) g/dL Albumin (3.80-4.90) g/dL Procalcitonin (0.02-0.09) ng/mL
[2021-02-18 16:51] LABS: Glucose,Whole Blood 271 mg/dL (75-99)
--- NOTE | 2021-02-18 19:32 | P.PN ---
Subjective Progress Note Date: 02/18/21 Principal diagnosis: Generalized weakness. This is a pleasant 80-year-old gentleman who follows with Dr. Briseno as his primary care provider with a history of diabetes mellitus, gastroesophageal reflux disease, hearing disorder, renal cancer with partial nephrectomy, psoriasis coronary artery disease with previous stent placement, anxiety, former smoker. He was brought into the emergency room back on 02/14/2021 after having progressive weakness and falls at home. He had previously tested positive for CoVID and received monoclonal antibodies on 02/10/2021. No noted injuries from his falls. X-ray revealed no acute pulmonary process. He was however admitted for CoVID 19 infection in regards to metabolic encephalopathy. Today's chest x- ray revealed some interval bibasilar infiltrates and we are consulted for the same. The patient is a poor historian. Oriented times one. He is seen in consultation on the regular medical floor. Currently resting comfortably in b ed. Awake and alert in no acute distress. Maintaining O2 saturations in the 90s on 2 L/m per nasal cannula. He does admit to some shortness of breath and a dry nonproductive cough. He is outside the window for Remdesivir. Does not qualify for Tocilizumab or convalescent plasma at this point. Progress note dated 02/18/2021. 80-year-old male seen by my partner yesterday in consultation. The patient tested positive for coronavirus, and he received monoclonal antibody on February 10. Currently, the patient is on 15 L high flow oxygen, with saturations of 91%. Previously, he was only on 2 L. The patient was outside the window for REM. Currently, he appears very weak and frail. His temperature is 98.2. His respiratory rate is 18. He does not appear to be in a great deal of distress. He has a history of diabetes, GERD, deafness, renal cancer with partial nephrectomy, psoriasis, coronary artery disease with previous stent placement, anxiety, and is a former smoker. White count is 4.76, hemoglobin 11, hematocrit 33.8, and platelet count 157,000. D-dimer is 1.12. Chest x-ray does show bilateral infiltrates. Objective - Vital Signs Vital signs: Vital Signs Temp 98.2 F 02/18/21 17:25 Pulse 67 02/18/21 17:25 Resp 18 02/18/21 17:25 BP 119/62 02/18/21 17:25 Pulse Ox 91 L 02/18/21 17:25 Intake & Output 02/18/21 02/18/21 02/19/21 06:59 18:59 06:59 Intake Total 225 Output Total 60 Balance -60 225 Intake: Intake, IV Titration 225 Amount Sodium Chloride 0.9% 1, 225 000 ml @ 75 mls/hr IV . [id number] [facility] Rx#:[id number] Output: Urine 60 Other: Voiding Method Diaper External Catheter Incontinent # Voids 1 4 # Bowel Movements 1 3 - Exam No acute distress. High flow nasal cannula at 15 L/m. Patient without conversational dyspnea or use of accessory muscles. HEENT examination is grossly unremarkable. Neck supple. Full range of motion. No adenopathy thyromegaly or neck vein distention. Cardiovascular examination reveals regular rhythm rate. S1-S2 normal. No S3 or S4. No discernible murmur noted. Heart sounds are distant and heart rate is 67 bpm. Lungs reveal bilateral crackles and rhonchi. Breath sounds equal. He is not taking deep breaths. No wheezes are appreciated. Abdomen soft bowel sounds are heard. No masses or tenderness. Extremities are intact. No cyanosis clubbing or edema. Skin is without rash or lesion. Neurologic examination is brief but nonfocal. - Labs CBC & Chem 7: 02/18/21 06:58 02/17/21 06:27 Labs: Abnormal Lab Results - Last 24 Hours (Table) 02/17/21 02/18/21 02/18/21 Range/Units 20:52 06:58 06:58 RBC 3.70 L (4.40-5.60) X 10*6/uL Hgb 11.0 L (13.0-17.0) g/dL Hct 33.8 L (39.6-50.0) % RDW 14.8 H (11.5-14.5) % D-Dimer 1.12 H (<0.60) mg/L FEU POC Glucose (mg/dL) 247 H (75-99) mg/dL Ferritin (22.0-322.0) ng/mL 02/18/21 02/18/21 02/18/21 Range/Units 06:58 07:13 11:28 RBC (4.40-5.60) X 10*6/uL Hgb (13.0-17.0) g/dL Hct (39.6-50.0) % RDW (11.5-14.5) % D-Dimer (<0.60) mg/L FEU POC Glucose (mg/dL) 166 H 258 H (75-99) mg/dL Ferritin 3464.0 H (22.0-322.0) ng/mL 02/18/21 Range/Units 16:49 RBC (4.40-5.60) X 10*6/uL Hgb (13.0-17.0) g/dL Hct (39.6-50.0) % RDW (11.5-14.5) % D-Dimer (<0.60) mg/L FEU POC Glucose (mg/dL) 271 H (75-99) mg/dL Ferritin (22.0-322.0) ng/mL Assessment and Plan Assessment: Acute hypoxemic respiratory failure, secondary to COVID 19 pneumonitis, with recent worsening of the patient's oxygenation. Status post monoclonal antibody therapy for COVID 19 infection, February 10. Progressive weakness and frequent falls secondary to coronavirus infection. Chronic kidney disease, stage III. Diabetes mellitus. CAD with previous stent placement. History of essential hypertension. History of BPH. History of gastroesophageal reflux disease. Plan: Plan dated 02/18/2021. The patient's labs, x-rays, medications are reviewed. He is clearly outside the window for REM. He might be a candidate for TOCI, although, the hospital has exhausted his supply. The patient would also be a candidate for CP, but again, the supply has been exhausted. The patient will continue on the usual medications including vitamins, Lovenox, and Decadron. Follow. Prognosis is guarded. Time with Patient: Less than 30
[2021-02-18 20:32] LABS: Glucose,Whole Blood 252 mg/dL (75-99)
[2021-02-18] MEDS: LATANOPROST 0.005% OPHTH DROPS 2.5 ML BTL BOTH EYES SCH (20:33)
[2021-02-18] MEDS: CALCIUM CARBONATE 500 MG CHEWABLE PO SCH (20:34)
[2021-02-18] MEDS: ATORVASTATIN 40 MG TAB PO SCH (20:34)
[2021-02-18 21:37] LABS: African American GFR (CKD) 54.2 (60.0-200.0); Albumin 3.4 g/dL (3.80-4.90); Albumin/Globulin Ratio 2.27 (1.60-3.17); Anion Gap 8.9 mmol/L (4.00-12.00); BUN/Creat Ratio 18.57 Ratio (12.00-20.00); Calcium 7.8 mg/dL (8.7-10.3); Carbon Dioxide 19.1 mmol/L (21.6-31.8); Globulin 1.5 g/dL (1.6-3.3); Non-African American GFR(CKD) 46.8 (60.0-200.0); Potassium 3.4 mmol/L (3.5-5.5); Total Bilirubin 0.9 mg/dL (0.3-1.2); Total Protein 4.9 g/dL (6.2-8.2)
--- NOTE | 2021-02-19 00:42 | PN ---
PROGRESS NOTE DATE OF SERVICE: 02/18/2021 REASON FOR FOLLOWUP: Covid 19 pneumonia. INTERVAL HISTORY: Patient did spike a fever of 102 degrees Fahrenheit this morning. The patient is afebrile since then. The patient was slightly sleepy, lethargic and unable to provide any history. No vomiting or diarrhea has been reported. PHYSICAL EXAMINATION: Blood pressure 119/62 with a pulse of 67, temperature 98.2. T-max 102. He is 91% on 15 L high-flow oxygen. General description is an elderly male lying in bed in no distress. Respiratory system: Unlabored breathing. Decreased intense breath sounds. No wheeze. Heart S1, S2. Regular rate and rhythm. ABDOMEN: Soft, no tenderness. LABS: BUN of 26, creatinine is 1.4. Hemoglobin is 11.9, white count 4.7. DIAGNOSTIC IMPRESSION AND PLAN: Patient with acute COVID-19 infection in this patient with evidence of new fever. X- ray will be repeated for the a.m. Also recheck his inflammatory markers, more likely related to his COVID-19 infection and is currently on dexamethasone, Lovenox, zinc and ascorbic acid and monitor clinical course closely. MMODL / IJN: [id number] /
[2021-02-19 07:08] LABS: Glucose,Whole Blood 141 mg/dL (75-99)
--- NOTE | 2021-02-19 08:28 | XR ---
EXAMINATION TYPE: XR chest 1V portable DATE OF EXAM: 02/19/2021 COMPARISON: 02/17/2021 HISTORY: Cough TECHNIQUE: Single frontal view of the chest is obtained. FINDINGS: Patchy predominantly interstitial areas of infiltrate noted. Confluent densities in the pe rihilar regions. Underlying COPD noted. Chronic deformity of the right shoulder bilateral arthropathy . No Max. Sizable pleural effusion. IMPRESSION: Patchy predominantly interstitial infiltrates stable correlate for interstitial pneumoni a.
[2021-02-19] MEDS: DEXAMETHASONE SOD PHOSPHATE 10 MG/ML 1 ML VIAL IV SCH (08:41)
[2021-02-19] MEDS: ALPRAZolam 0.25 MG TAB PO SCH (08:41)
[2021-02-19] MEDS: glipiZIDE 5 MG TAB PO SCH ×2 (08:41→20:20)
[2021-02-19] MEDS: ASCORBIC ACID 500 MG TAB PO SCH (08:42)
[2021-02-19] MEDS: ASPIRIN 81 MG PO SCH (08:42)
[2021-02-19] MEDS: METOPROLOL SUCCINATE (ER) 50 MG TAB.ER.24H PO SCH (08:42)
[2021-02-19] MEDS: TAMSULOSIN 0.4 MG CAP.ER.24H PO SCH (08:42)
[2021-02-19] MEDS: MULTIVITAMINS, THERA 1 EACH TAB PO SCH (08:42)
[2021-02-19] MEDS: ZINC SULFATE 220 MG CAP PO SCH (08:42)
[2021-02-19] MEDS: CHOLECALCIFEROL 25 MCG (1000 IU) TABLET PO SCH (08:42)
[2021-02-19] MEDS: PANTOPRAZOLE 40 MG TABLET PO SCH (08:42)
[2021-02-19] MEDS: ISOSORBIDE MONONITRATE ER 30 MG TAB.ER.24H PO SCH (08:42)
[2021-02-19] MEDS: INSULIN ASPART (NovoLOG) 100 UNIT/ML VIAL SQ SCH ×4 (08:43→20:20)
[2021-02-19] MEDS: CITALOPRAM HYDROBROMIDE 10 MG TAB PO SCH (08:43)
[2021-02-19] MEDS: REPAGLINIDE 1 MG TAB PO SCH ×2 (08:43→20:20)
[2021-02-19] MEDS: ENOXAPARIN 40 MG/0.4 ML SYRINGE SQ SCH (08:44)
[2021-02-19 11:28] LABS: Glucose,Whole Blood 312 mg/dL (75-99)
--- NOTE | 2021-02-19 11:58 | P.PN ---
Subjective Progress Note Date: 02/19/21 HISTORY OF PRESENT ILLNESS This is an 80-year-old male patient of Dr. Briseno with past medical history of diabetes mellitus type 2, history of renal cancer status post partial resection in 2006, abdominal aortic aneurysm status post repair, lumbar stenosis, benign prostatic hypertrophy, psoriasis, gastroesophageal reflux disease, peripheral vascular disease status post carotid surgery, coronary artery disease status post stents, remote history of tobacco use. Patient presented to the emergency center on February 10 with complaints of generalized weakness, no fever. He underwent a chest x-ray that showed no acute pulmonary disease, CAT scan of the brain revealed age-related atrophy and chronic small vessel ischemic change without acute intracranial process. Patient was diagnosed with COVID-19, treated with Bamlanivimab and was discharged home with instructions to quarantine and follow-up with his PCP. Patient return to the emergency center yesterday due to worsening weakness and several falls. No apparent injury. No abdominal pain, nausea, vomiting or diarrhea. Patient was found to be afebrile, heart rate 94, blood pressure 121/67, pulse ox 97% on room air. EKG was in normal sinus rhythm with [address] changes. WBC 3.4, hemoglobin 12.4, platelet count 131. Sodium 132, potassium 3.9, chloride 101, CO2 21, BUN 23 and creatinine 1.46, blood sugar 267. Liver function tests were elevated with AST of 106, ALT 60, alkaline phosphatase 80. Lactic acid 2.3. Troponin negative. Urinalysis cloudy with nitrate and leukoesterase negative. Chest x-ray reveals no evidence of acute pulmonary disease. 4/3: Patient is slightly but better today still required 2 L of nasal cannula O2, he is afebrile, slightly but confused with mild change mental status otherwise no high fever his marker remain slightly bit up with d-dimer at 1.41 his kidney function still off his ferritin level was 3200. Patient still seen infectious disease will consult pulmonary as well. 02/17: Patient is doing slightly better this confused temperature has improved so far. Patient mobility still limited to almost addressed at this point. Had mild leukopenia and mild anemia his marker still quite bit elevated this point. Chest x-ray has slight improvement. Irritation oxygen level Will allow patient might be able to go to subacute rehab sometime this week. 5: Patient had fever of 102 this morning.heart rate 77, blood pressure 122/63, pulse ox 89-93% on nonrebreather. repeat d-dimer is 1.12. Blood sugar 166-247. Patient is followed by pulmonary medicine and infectious disease. Patient is seen today on the [facility] floor. He is reaching 1000 ml on incentive spirometry. Repeat blood work reveals WBC 4.7, hemoglobin 11, platelet count 157. D-dimer 1 .12. TSH 0.398 and free T4 normal at 1.34. Vitamin B12 level is 573. Patient is continued on dexamethasone and Lovenox. The patient is seen on nasal cannula which was placed so he could eat breakfast. Otherwise patient has been maintained on nonrebreather. Pulse ox on high flow nasal cannula is 88%. IV fluids will be discontinued and one dose of IV Lasix this morning. 02/19: Patient has been afebrile for the past 24 hours. Heart rate 97, blood pressure 164/70, pulse ox 88% on 15 L high flow nasal cannula. Blood sugars are running between 141 and 271. Patient is only reaching 500 on incentive spirometry. Repeat inflammatory markers reveal C-reactive protein 62, d-dimer 1.64. Repeat chest x-ray reveals patchy predominantly interstitial infiltrates stable correlate for interstitial pneumonia. Discharge planning to be determined. Patient is hoping to go home but too early to determine safe discharge plan. REVIEW OF SYSTEMS Constitutional: No fever in 24 hours, no chills, no night sweats. No weight change. Reports weakness, Reports fatigue Reports lethargy. No daytime sleepiness. EENT: No headache. No blurred vision or double vision, no loss of vision. No loss of Hearing, no ringing in the ears, no dizziness. No nasal drainage or congestion. No epistaxis. No sore throat. Lungs: Reports shortness of breath, reports cough, no sputum production. No wheezing. Cardiovascular: No chest pain, no lower extremity edema. No palpitations. No paroxysmal nocturnal dyspnea. No orthopnea. No lightheadedness or dizziness. No syncopal episodes. Abdominal: No abdominal pain. No nausea, vomiting. No diarrhea. No constipation. No bloody or tarry stools. Reports loss of appetite. Genitourinary: No dysuria, no increased frequency, no urgency. No urinary retention. Musculoskeletal: No myalgias. Reports muscle weakness, Reports gait dysfunc tion, Reports frequent falls. No back pain. No neck pain. Integumentary: No wounds, no lesions. No rash or pruritus. No unusual bruising. No change in hair or nails. Neurologic: No aphasia. No facial droop. Noted change in mentation. No head injury. No headache. No paralysis. No paresthesia. Psychiatric: No depression. No anxiety. Endocrine: No abnormal blood sugars. No weight change. PHYSICAL EXAMINATION Gen: This is an 80-year-old male. He is resting in bed appears to be comfortable. HEENT: Head is atraumatic, normocephalic. Pupils equal, round. Sclerae is anicteric. NECK: Supple. No JVD. No lymphadenopathy. No thyromegaly. LUNGS: Scattered rhonchi. No intercostal retractions. HEART: Regular rate and rhythm. No murmur. ABDOMEN: Soft. Bowel sounds are present. No masses. No tenderness. EXTREMITIES: No pedal edema. No calf tenderness. NEUROLOGICAL: Patient is awake, alert and oriented to person. Generalized weakness. ASSESSMENT AND PLAN 1. Covid 19 infection status post Bamlanivimab on February 10. Continue Lovenox, vitamin C, vitamin D and zinc. Continue Tylenol as needed for fever. Patient is not appropriate for dexamethasone. Consult with Dr. Arreaga appreciated. Continue oxygen therapy. IV fluids discontinued and Lasix IV 1 ordered for fluid overload. Pulmonary medicine consult appreciated. 2. Metabolic encephalopathy secondary to Covid 19 infection. Continue supportive care. He is much better so far. 3. Lactic acidosis secondary to Covid 19. Patient is status post 1 L of IV fluids. 4. Pancytopenia secondary to Covid 19. Continue to monitor. Recheck CBC in the morning. 5. Sepsis with mental status changes, leukopenia secondary to Covid 19. 6. Hyponatremia : Sodium is up to 114 doing better 7. Acute hypoxic respiratory failure requiring nonrebreather/high flow nasal cannula. Continue current management per pulmonary medicine. 8. Chronic kidney disease stage III. Creatinine is down to 1.3 with GFR at 51.2 9. Diabetes mellitus type 2. Continue glipizide 10 mg twice daily, Prandin 4 mg twice daily, NovoLog scale before meals and at bedtime. 10. History of coronary artery disease status post stents. Continue aspirin 81 mg daily, Lipitor 40 mg at bedtime, Imdur 15 mg daily, Toprol-XL 50 mg daily. 11. Hypertension. Continue metoprolol. 12. Benign prostatic hypertrophy. Continue tamsulosin 0.4 mg daily, monitor for urinary retention 13. Gastroesophageal reflux disease and GI prophylaxis. Continue Protonix. 14. DVT prophylaxis. Lovenox. CODE STATUS: Full code Prognosis guarded DISCHARGE PLAN TBD Impression and plan of care have been directed as dictated by the signing physician. Whitney Batista nurse practitioner acting as scribe for signing physician. Objective - Vital Signs Vital signs: Vital Signs Temp 98.9 F 02/19/21 05:43 Pulse 97 02/19/21 05:43 Resp 22 02/19/21 05:43 BP 164/70 02/19/21 05:43 Pulse Ox 88 L 02/19/21 05:43 Intake & Output 02/18/21 02/19/21 02/19/21 18:59 06:59 18:59 Intake Total 225 Balance 225 Intake: Intake, IV Titration 225 Amount Sodium Chloride 0.9% 1, 225 000 ml @ 75 mls/hr IV . [id number] [facility] Rx#:[id number] Other: Voiding Method External Catheter External Catheter # Voids 4 4 # Bowel Movements 3 1 - Labs CBC & Chem 7: 02/18/21 06:58 02/18/21 06:58 Labs: Abnormal Lab Results - Last 24 Hours (Table) 02/18/21 02/18/21 02/18/21 Range/Units 06:58 06:58 06:58 RBC 3.70 L (4.40-5.60) X 10*6/uL Hgb 11.0 L (13.0-17.0) g/dL Hct 33.8 L (39.6-50.0) % RDW 14.8 H (11.5-14.5) % D-Dimer 1.12 H (<0.60) mg/L FEU Potassium 3.4 L (3.5-5.5) mmol/L Carbon Dioxide 19.1 L (21.6-31.8) mmol/L Est GFR (CKD-EPI)AfAm 54.2 L (60.0-200.0) Est GFR (CKD-EPI)NonAf 46.8 L (60.0-200.0) Glucose 155 H (70-110) mg/dL POC Glucose (mg/dL) (75-99) mg/dL Calcium 7.8 L (8.7-10.3) mg/dL Ferritin 3464.0 H (22.0-322.0) ng/mL AST 81 H (14-35) U/L ALT 64 H (10-49) U/L Lactate Dehydrogenase 448 H (120-246) U/L Total Protein 4.9 L (6.2-8.2) g/dL Albumin 3.40 L (3.80-4.90) g/dL Globulin 1.5 L (1.6-3.3) g/dL 02/18/21 02/18/21 02/18/21 Range/Units 11:28 16:49 20:30 RBC (4.40-5.60) X 10*6/uL Hgb (13.0-17.0) g/dL Hct (39.6-50.0) % RDW (11.5-14.5) % D-Dimer (<0.60) mg/L FEU Potassium (3.5-5.5) mmol/L Carbon Dioxide (21.6-31.8) mmol/L Est GFR (CKD-EPI)AfAm (60.0-200.0) Est GFR (CKD-EPI)NonAf (60.0-200.0) Glucose (70-110) mg/dL POC Glucose (mg/dL) 258 H 271 H 252 H (75-99) mg/dL Calcium (8.7-10.3) mg/dL Ferritin (22.0-322.0) ng/mL AST (14-35) U/L ALT (10-49) U/L Lactate Dehydrogenase (120-246) U/L Total Protein (6.2-8.2) g/dL Albumin (3.80-4.90) g/dL Globulin (1.6-3.3) g/dL 02/19/21 Range/Units 07:06 RBC (4.40-5.60) X 10*6/uL Hgb (13.0-17.0) g/dL Hct (39.6-50.0) % RDW (11.5-14.5) % D-Dimer (<0.60) mg/L FEU Potassium (3.5-5.5) mmol/L Carbon Dioxide (21.6-31.8) mmol/L Est GFR (CKD-EPI)AfAm (60.0-200.0) Est GFR (CKD-EPI)NonAf (60.0-200.0) Glucose (70-110) mg/dL POC Glucose (mg/dL) 141 H (75-99) mg/dL Calcium (8.7-10.3) mg/dL Ferritin (22.0-322.0) ng/mL AST (14-35) U/L ALT (10-49) U/L Lactate Dehydrogenase (120-246) U/L Total Protein (6.2-8.2) g/dL Albumin (3.80-4.90) g/dL Globulin (1.6-3.3) g/dL
[2021-02-19] MEDS ORDERED: HEPARIN SODIUM 1,000 UN/ML (10ML VL) IV ONE (15:34)
[2021-02-19] MEDS ORDERED: HEPARIN SODIUM 1,000 UN/ML (10ML VL) IV PRN (15:34)
--- NOTE | 2021-02-19 15:34 | P.PN ---
Subjective Progress Note Date: 02/19/21 Principal diagnosis: Acute hypoxic respiratory failure secondary to acute covid 19 pneumonia This is a pleasant 80-year-old gentleman who follows with Dr. Briseno as his primary care provider with a history of diabetes mellitus, gastroesophageal reflux disease, hearing disorder, renal cancer with partial nephrectomy, psoriasis coronary artery disease with previous stent placement, anxiety, former smoker. He was brought into the emergency room back on 02/14/2021 after having progressive weakness and falls at home. He had previously tested positive for CoVID and received monoclonal antibodies on 02/10/2021. No noted injuries from his falls. X-ray revealed no acute pulmonary process. He was however admitted for CoVID 19 infection in regards to metabolic encephalopathy. Today's chest x- ray revealed some interval bibasilar infiltrates and we are consulted for the same. The patient is a poor historian. Oriented times one. He is seen in consultation on the regular medical floor. Currently resting comfortably in bed. Awake and alert in no acute distress. Maintaining O2 saturations in the 90s on 2 L/m per nasal cannula. He does admit to some shortness of breath and a dry nonproductive cough. He is outside the window for Remdesivir. Does not qualify for Tocilizumab or convalescent plasma at this point. Progress note dated 02/18/2021. 80-year-old male seen by my partner yesterday in consultation. The patient tested positive for coronavirus, and he received monoclonal antibody on February 10. Currently, the patient is on 15 L high flow oxygen, with saturations of 91%. Previously, he was only on 2 L. The patient was outside the window for REM. Currently, he appears very weak and frail. His temperature is 98.2. His respiratory rate is 18. He does not appear to be in a great deal of distress. He has a history of diabetes, GERD, deafness, renal cancer with partial nephrectomy, psoriasis, coronary artery disease with previous stent placement, anxiety, and is a former smoker. White count is 4.76, hemoglobin 11, hematocrit 33.8, and platelet count 157,000. D-dimer is 1.12. Chest x-ray does show bilateral infiltrates. Patient was reevaluated today on 02/19/2021, patient remains marginal at best. Continues to require significant amount of oxygen, patient did not tolerate non- rebreather hence we had to switch him back to BiPAP, and his O2 saturation is in the 90s on BiPAP. Surprisingly the patient does not complain of significant shortness of breath, although he is noted to be dyspneic on a nonrebreather mask. Reviewed his chest x-ray today, continues to show significant patchy infiltrates bilaterally more so in the left midlung. Objective - Vital Signs Vital signs: Vital Signs Temp 99.2 F 02/19/21 14:00 Pulse 145 H 02/19/21 14:00 Resp 32 H 02/19/21 14:00 BP 127/82 02/19/21 14:00 Pulse Ox 75 L 02/19/21 14:00 Intake & Output 02/18/21 02/19/21 02/19/21 18:59 06:59 18:59 Intake Total 225 Output Total 500 Balance 225 -500 Intake: Intake, IV Titration 225 Amount Sodium Chloride 0.9% 1, 225 000 ml @ 75 mls/hr IV . [id number] [facility] Rx#:[id number] Output: Urine 500 Other: Voiding Method External Catheter External Catheter # Voids 4 4 # Bowel Movements 3 1 1 - Exam Physical Exam: Revealed 80-year-old white male in mild distress, on nonrebreather mask, transition to BiPAP. Head: Atraumatic, normocephalic. HEENT:[Neck is supple.] [No neck masses.] [No thyromegaly.] [No JVD.] Chest: [Symmetrical chest expansion, bilateral crackles and rhonchi at the bases. No wheezing. Cardiac Exam: [Normal S1 and S2, no S3 gallop, no murmur.] Abdomen: [Soft, nontender, no megaly, no rebound, no guarding, normal bowel sounds.] Extremities: [No clubbing, no edema, no cyanosis.] Neurological Exam: [No focal neurologic deficit.] Skin: No rashes. Psychiatric: Normal mood, affect, and normal mental status. - Labs CBC & Chem 7: 02/18/21 06:58 02/18/21 06:58 Labs: Abnormal Lab Results - Last 24 Hours (Table) 02/18/21 02/18/21 02/18/21 Range/Units 06:58 16:49 20:30 D-Dimer (<0.60) mg/L FEU Potassium 3.4 L (3.5-5.5) mmol/L Carbon Dioxide 19.1 L (21.6-31.8) mmol/L Est GFR (CKD-EPI)AfAm 54.2 L (60.0-200.0) Est GFR (CKD-EPI)NonAf 46.8 L (60.0-200.0) Glucose 155 H (70-110) mg/dL POC Glucose (mg/dL) 271 H 252 H (75-99) mg/dL Calcium 7.8 L (8.7-10.3) mg/dL Ferritin 3464.0 H (22.0-322.0) ng/mL AST 81 H (14-35) U/L ALT 64 H (10-49) U/L Lactate Dehydrogenase 448 H (120-246) U/L C-Reactive Protein (<10.0) mg/L Total Protein 4.9 L (6.2-8.2) g/dL Albumin 3.40 L (3.80-4.90) g/dL Globulin 1.5 L (1.6-3.3) g/dL 02/19/21 02/19/21 02/19/21 Range/Units 06:54 06:54 07:06 D-Dimer 1.64 H (<0.60) mg/L FEU Potassium (3.5-5.5) mmol/L Carbon Dioxide (21.6-31.8) mmol/L Est GFR (CKD-EPI)AfAm (60.0-200.0) Est GFR (CKD-EPI)NonAf (60.0-200.0) Glucose (70-110) mg/dL POC Glucose (mg/dL) 141 H (75-99) mg/dL Calcium (8.7-10.3) mg/dL Ferritin (22.0-322.0) ng/mL AST (14-35) U/L ALT (10-49) U/L Lactate Dehydrogenase (120-246) U/L C-Reactive Protein 62.0 H (<10.0) mg/L Total Protein (6.2-8.2) g/dL Albumin (3.80-4.90) g/dL Globulin (1.6-3.3) g/dL 04/06/21 Range/Units 11:26 D-Dimer (<0.60) mg/L FEU Potassium (3.5-5.5) mmol/L Carbon Dioxide (21.6-31.8) mmol/L Est GFR (CKD-EPI)AfAm (60.0-200.0) Est GFR (CKD-EPI)NonAf (60.0-200.0) Glucose (70-110) mg/dL POC Glucose (mg/dL) 312 H (75-99) mg/dL Calcium (8.7-10.3) mg/dL Ferritin (22.0-322.0) ng/mL AST (14-35) U/L ALT (10-49) U/L Lactate Dehydrogenase (120-246) U/L C-Reactive Protein (<10.0) mg/L Total Protein (6.2-8.2) g/dL Albumin (3.80-4.90) g/dL Globulin (1.6-3.3) g/dL Assessment and Plan Assessment: Impression: Acute Hypoxic Respiratory Failure secondary to covid 19 pneumonitis, still requiring significant amount of oxygen. Status post monoclonal antibody therapy on February 10. Chronic kidney disease stage III Coronary artery disease and previous stent placement Type 2 diabetes. Generalized weakness secondary to coronary virus infection. Recommendation: Continue present treatment plan. Patient was outside the window for REM. Will recommend convalescent plasma and actemra for this patient if available. Prognosis is extremely poor and guarded. Continue the Covid 19 cocktails Time with Patient: Less than 30
[2021-02-19] MEDS: METOPROLOL TARTRATE 50 MG TAB PO SCH ×2 (16:09→20:22)
[2021-02-19] MEDS: HEPARIN SOD,PORK IN 0.45% NACL 25,000 UNIT in 0.45% NACL 1 250ML.BAG IV SCH (16:14)
[2021-02-19 16:44] LABS: Glucose,Whole Blood 380 mg/dL (75-99)
[2021-02-19] MEDS ORDERED: TOCILIZUMAB 640 MG in SODIUM CHLORIDE 0.9% 68 ML IV ONE (17:00)
[2021-02-19 17:01] LABS: HCT 35.9 % (39.0-53.0); HGB 12.3 gm/dL (13.0-17.5); MCH 30.4 pg (25.0-35.0); MCHC 34.3 g/dL (31.0-37.0); MCV 88.6 fL (80.0-100.0); Mean Platelet Volume 7.5; Platelet Count 232 k/uL (150-450); Poikilocytosis Slight; RBC 4.05 m/uL (4.30-5.90); RDW 14.1 % (11.5-15.5); WBC 9.7 k/uL (3.8-10.6)
[2021-02-19 17:02] LABS: Partial Thromboplastin Time 31.1 sec (22.0-30.0); Prothrombin Time 10.3 sec (9.0-12.0)
[2021-02-19 17:27] LABS: Band Neutrophils % 7 %; Lymphocytes # (M) 0.39 k/uL (1.0-4.8); Monocytes # (M) 0.39 k/uL (0-1.0); Neutrophils % (M) 85 %; Nucleated Red Blood Cells 0 /100 WBC (0-0); Total Cells Counted 100
[2021-02-19 20:20] LABS: Glucose,Whole Blood 288 mg/dL (75-99)
[2021-02-19] MEDS: ATORVASTATIN 40 MG TAB PO SCH (20:20)
[2021-02-19] MEDS: LATANOPROST 0.005% OPHTH DROPS 2.5 ML BTL BOTH EYES SCH (20:20)
[2021-02-19] MEDS: CALCIUM CARBONATE 500 MG CHEWABLE PO SCH (20:20)
[2021-02-20] MEDS: ALPRAZolam 0.25 MG TAB PO SCH (05:43)
--- NOTE | 2021-02-20 06:38 | PN ---
PROGRESS NOTE DATE OF SERVICE: 02/19/2021 REASON FOR FOLLOWUP: Pneumonia. INTERVAL HISTORY: The patient is currently afebrile. He was seen on rounds this morning. The patient was breathing comfortably. Denies having any chest pain or cough. No abdominal pain or diarrhea. PHYSICAL EXAMINATION: Blood pressure 113/67, pulse 84, temperature 98.5. He is 92% on BiPAP. General description is an elderly male lying in bed in no distress. Respiratory system: Unlabored breathing with decreased intensity of breath sounds. No wheeze. HEART: S1, S2. Regular rate and rhythm. ABDOMEN: Soft, no tenderness. LABS: Hemoglobin is 12.3, white count 9.7. DIAGNOSTIC IMPRESSION AND PLAN: Patient with acute COVID-19 infection in this patient with minimal clinical improvement, though still requiring BiPAP to support his respiratory status. The patient is covered with Decadron, heparin, ascorbic acid and zinc to continue along with respiratory support and monitor clinical course closely. MMODL / IJN: [id number] /
[2021-02-20 07:06] LABS: Glucose,Whole Blood 240 mg/dL (75-99)
[2021-02-20] MEDS: ISOSORBIDE MONONITRATE ER 30 MG TAB.ER.24H PO SCH (08:58)
[2021-02-20] MEDS: ASCORBIC ACID 500 MG TAB PO SCH (08:58)
[2021-02-20] MEDS: DEXAMETHASONE SOD PHOSPHATE 10 MG/ML 1 ML VIAL IV SCH (08:58)
[2021-02-20] MEDS: PANTOPRAZOLE 40 MG TABLET PO SCH (08:58)
[2021-02-20] MEDS: TAMSULOSIN 0.4 MG CAP.ER.24H PO SCH (08:58)
[2021-02-20] MEDS: METOPROLOL TARTRATE 50 MG TAB PO SCH (08:59)
[2021-02-20] MEDS: INSULIN ASPART (NovoLOG) 100 UNIT/ML VIAL SQ SCH ×3 (08:59→17:04)
[2021-02-20] MEDS: CHOLECALCIFEROL 25 MCG (1000 IU) TABLET PO SCH (08:59)
[2021-02-20] MEDS: ZINC SULFATE 220 MG CAP PO SCH (08:59)
[2021-02-20] MEDS: MULTIVITAMINS, THERA 1 EACH TAB PO SCH (08:59)
[2021-02-20] MEDS: glipiZIDE 5 MG TAB PO SCH (08:59)
[2021-02-20] MEDS: ASPIRIN 81 MG PO SCH (08:59)
[2021-02-20] MEDS: REPAGLINIDE 1 MG TAB PO SCH (09:00)
[2021-02-20] MEDS: CITALOPRAM HYDROBROMIDE 10 MG TAB PO SCH (09:01)
[2021-02-20 10:34] LABS: HCT 39.3 % (39.6-50.0); HGB 12.8 g/dL (13.0-17.0); MCH 29.4 pg (27.0-32.0); MCHC 32.6 g/dL (32.0-37.0); MCV 90.3 fL (80.0-97.0); Mean Platelet Volume 9.2 fL (9.5-12.2); Platelet Count 239 X 10*3/uL (140-440); RBC 4.35 X 10*6/uL (4.40-5.60); RDW 14.6 % (11.5-14.5); WBC 10.28 X 10*3/uL (4.50-10.00)
--- NOTE | 2021-02-20 11:48 | P.PN ---
Subjective Progress Note Date: 02/20/21 HISTORY OF PRESENT ILLNESS This is an 80-year-old male patient of Dr. Briseno with past medical history of diabetes mellitus type 2, history of renal cancer status post partial resection in 2006, abdominal aortic aneurysm status post repair, lumbar stenosis, benign prostatic hypertrophy, psoriasis, gastroesophageal reflux disease, peripheral vascular disease status post carotid surgery, coronary artery disease status post stents, remote history of tobacco use. Patient presented to the emergency center on February 10 with complaints of generalized weakness, no fever. He underwent a chest x-ray that showed no acute pulmonary disease, CAT scan of the brain revealed age-related atrophy and chronic small vessel ischemic change without acute intracranial process. Patient was diagnosed with COVID-19, treated with Bamlanivimab and was discharged home with instructions to quarantine and follow-up with his PCP. Patient return to the emergency center yesterday due to worsening weakness and several falls. No apparent injury. No abdominal pain, nausea, vomiting or diarrhea. Patient was found to be afebrile, heart rate 94, blood pressure 121/67, pulse ox 97% on room air. EKG was in normal sinus rhythm with [address] changes. WBC 3.4, hemoglobin 12.4, platelet count 131. Sodium 132, potassium 3.9, chloride 101, CO2 21, BUN 23 and creatinine 1.46, blood sugar 267. Liver function tests were elevated with AST of 106, ALT 60, alkaline phosphatase 80. Lactic acid 2.3. Troponin negative. Urinalysis cloudy with nitrate and leukoesterase negative. Chest x-ray reveals no evidence of acute pulmonary disease. 4/3: Patient is slightly but better today still required 2 L of nasal cannula O2, he is afebrile, slightly but confused with mild change mental status otherwise no high fever his marker remain slightly bit up with d-dimer at 1.41 his kidney function still off his ferritin level was 3200. Patient still seen infectious disease will consult pulmonary as well. 02/17: Patient is doing slightly better this confused temperature has improved so far. Patient mobility still limited to almost addressed at this point. Had mild leukopenia and mild anemia his marker still quite bit elevated this point. Chest x-ray has slight improvement. Irritation oxygen level Will allow patient might be able to go to subacute rehab sometime this week. 5: Patient had fever of 102 this morning.heart rate 77, blood pressure 122/63, pulse ox 89-93% on nonrebreather. repeat d-dimer is 1.12. Blood sugar 166-247. Patient is followed by pulmonary medicine and infectious disease. [facility]. He is reaching 1000 ml on incentive spirometry. Repeat blood work reveals WBC 4.7, hemoglobin 11, platelet count 157. D-dimer 1 .12. TSH 0.398 and free T4 normal at 1.34. Vitamin B12 level is 573. Patient is continued on dexamethasone and Lovenox. The patient is seen on nasal cannula which was placed so he could eat breakfast. Otherwise patient has been maintained on nonrebreather. Pulse ox on high flow nasal cannula is 88%. IV fluids will be discontinued and one dose of IV Lasix this morning. 02/19: Patient has been afebrile for the past 24 hours. Heart rate 97, blood pressure 164/70, pulse ox 88% on 15 L high flow nasal cannula. Blood sugars are running between 141 and 271. Patient is only reaching 500 on incentive spirometry. Repeat inflammatory markers reveal C-reactive protein 62, d-dimer 1.64. Repeat chest x-ray reveals patchy predominantly interstitial infiltrates stable correlate for interstitial pneumonia. Discharge planning to be determined. Patient is hoping to go home but too early to determine safe discharge plan. 02/20: Patient had a drop in his pulse ox yesterday afternoon and went from high flow nasal cannula to nonrebreather and then to BiPAP. He is currently on BiPAP pulse ox 86-89%. Patient has been afebrile, heart rate 96, tachypnea, blood pressure 133/72. Patient is status post Tocilizumab 1 dose. Convalescent plasma was ordered and not given. Patient also went into A. fib with RVR, a flutter and cardiology consult was requested. He was transitioned from Toprol- XL at 50 mg to Lopressor 100 mg twice daily and heparin drip was started. Patient has also been made no CODE STATUS. Patient's is planning to come in to see him today and possibly make him comfort care. She was updated over the phone by Dr. Briseno. Prognosis is guarded. REVIEW OF SYSTEMS Constitutional: No fever , no chills, no night sweats. No weight change. Reports weakness, Reports fatigue Reports lethargy. No daytime sleepiness. EENT: No headache. No blurred vision or double vision, no loss of vision. No loss of Hearing, no ringing in the ears, no dizziness. No nasal drainage or congestion. No epistaxis. No sore throat. Lungs: Reports shortness of breath, reports cough, no sputum production. No wheezing. Cardiovascular: No chest pain, no lower extremity edema. Reports palpitations. No paroxysmal nocturnal dyspnea. No orthopnea. No lightheadedness or dizziness. No syncopal episodes. Abdominal: No abdominal pain. No nausea, vomiting. No diarrhea. No constipation. No bloody or tarry stools. Reports loss of appetite. Genitourinary: No dysuria, no increased frequency, no urgency. No urinary retention. Musculoskeletal: No myalgias. Reports muscle weakness, Reports gait dysfunction, Reports frequent falls. No back pain. No neck pain. Integumentary: No wounds, no lesions. No rash or pruritus. No unusual bruising. No change in hair or nails. Neurologic: No aphasia. No facial droop. Noted change in mentation. No head injury. No headache. No paralysis. No paresthesia. Psychiatric: No depression. No anxiety. Endocrine: No abnormal blood sugars. No weight change. PHYSICAL EXAMINATION Gen: This is an 80-year-old male. He is resting in bed appears to be comfortable. HEENT: Head is atraumatic, normocephalic. Pupils equal, round. Sclerae is anicteric. NECK: Supple. No JVD. No lymphadenopathy. No thyromegaly. LUNGS: Scattered rhonchi. No intercostal retractions. HEART: Regular rate and rhythm. No murmur. ABDOMEN: Soft. Bowel sounds are present. No masses. No tenderness. EXTREMITIES: No pedal edema. No calf tenderness. NEUROLOGICAL: Patient is awake, alert and oriented to person. Generalized weakness. ASSESSMENT AND PLAN 1. Covid 19 infection status post Bamlanivimab on February 10. Continue Lovenox, vitamin C, vitamin D and zinc. Continue Tylenol as needed for fever. Patient is not appropriate for dexamethasone. Consult with Dr. Arreaga appreciated. Continue oxygen therapy. IV fluids discontinued and Lasix IV 1 ordered for fluid overload. Pulmonary medicine consult appreciated. 2. Metabolic encephalopathy secondary to Covid 19 infection. Continue supportive care. He is much better so far. 3. Lactic acidosis secondary to Covid 19. Patient is status post 1 L of IV fluids. 4. Pancytopenia secondary to Covid 19. Continue to monitor. Recheck CBC in the morning. 5. Sepsis with mental status changes, leukopenia secondary to Covid 19. 6. Hyponatremia : Sodium is up to 114 doing better 7. Acute hypoxic respiratory failure requiring nonrebreather/high flow nasal cannula. Continue current management per pulmonary medicine. 8. New onset A. fib with RVR, paroxysmal atrial fibrillation. Metoprolol changed to Lopressor 100 mg twice daily, heparin drip started. Cardiology consult appreciated. 9. Chronic kidney disease stage III. Creatinine is down to 1.3 with GFR at 51.2 10. Diabetes mellitus type 2. Continue glipizide 10 mg twice daily, Prandin 4 mg twice daily, NovoLog scale before meals and at bedtime. 11. History of coronary artery disease status post stents. Continue aspirin 81 mg daily, Lipitor 40 mg at bedtime, Imdur 15 mg daily, Toprol-XL 50 mg daily. 12. Hypertension. Continue metoprolol. 13. Benign prostatic hypertrophy. Continue tamsulosin 0.4 mg daily, monitor for urinary retention 14. Gastroesophageal reflux disease and GI prophylaxis. Continue Protonix. 15. DVT prophylaxis. Lovenox. CODE STATUS: No code Prognosis guarded. will be coming in today and may make patient comfort care. DISCHARGE PLAN TBD Impression and plan of care have been directed as dictated by the signing physician. Whitney Batista nurse practitioner acting as scribe for signing physician. Objective - Vital Signs Vital signs: Vital Signs Temp 98.4 F 02/20/21 05:33 Pulse 96 02/20/21 05:33 Resp 42 H 02/20/21 05:33 BP 133/72 02/20/21 05:33 Pulse Ox 86 L 02/20/21 05:33 Intake & Output 02/19/21 02/20/21 02/20/21 18:59 06:59 18:59 Intake Total 77.078 Output Total 500 Balance -500 77.078 Intake: Intake, IV Titration 77.078 Amount Heparin Sod,Pork in 0.45% 77.078 NaCl 25,000 unit In 0.45 % NaCl 1 250ml.bag @ 12 UNITS/KG/HR 9.798 mls/hr IV .Q24H [facility] Rx#: [id number] Output: Urine 500 Other: Voiding Method External Catheter # Voids 3 # Bowel Movements 1 - Labs CBC & Chem 7: 02/20/21 07:50 02/18/21 06:58 Labs: Abnormal Lab Results - Last 24 Hours (Table) 02/19/21 02/19/21 02/19/21 Range/Units 06:54 11:26 16:15 RBC 4.05 L (4.30-5.90) m/uL Hgb 12.3 L (13.0-17.5) gm/dL Hct 35.9 L (39.0-53.0) % Neutrophils # (Manual) 8.90 H (1.3-7.7) k/uL Lymphocytes # (Manual) 0.39 L (1.0-4.8) k/uL APTT (22.0-30.0) sec POC Glucose (mg/dL) 312 H (75-99) mg/dL Procalcitonin 0.25 H (0.02-0.09) ng/mL 02/19/21 02/19/21 02/19/21 Range/Units 16:15 16:43 20:16 RBC (4.30-5.90) m/uL Hgb (13.0-17.5) gm/dL Hct (39.0-53.0) % Neutrophils # (Manual) (1.3-7.7) k/uL Lymphocytes # (Manual) (1.0-4.8) k/uL APTT 31.1 H (22.0-30.0) sec POC Glucose (mg/dL) 380 H 288 H (75-99) mg/dL Procalcitonin (0.02-0.09) ng/mL 02/19/21 02/20/21 Range/Units 22:23 07:04 RBC (4.30-5.90) m/uL Hgb (13.0-17.5) gm/dL Hct (39.0-53.0) % Neutrophils # (Manual) (1.3-7.7) k/uL Lymphocytes # (Manual) (1.0-4.8) k/uL APTT >200.0 H* (22.0-30.0) sec POC Glucose (mg/dL) 240 H (75-99) mg/dL Procalcitonin (0.02-0.09) ng/mL
--- NOTE | 2021-02-20 11:58 | P.PN ---
Subjective Progress Note Date: 02/20/21 Principal diagnosis: Acute hypoxic respiratory failure secondary to acute covid 19 pneumonia This is a pleasant 80-year-old gentleman who follows with Dr. Briseno as his primary care provider with a history of diabetes mellitus, gastroesophageal reflux disease, hearing disorder, renal cancer with partial nephrectomy, psoriasis coronary artery disease with previous stent placement, anxiety, former smoker. He was brought into the emergency room back on 02/14/2021 after having progressive weakness and falls at home. He had previously tested positive for CoVID and received monoclonal antibodies on 02/10/2021. No noted injuries from his falls. X-ray revealed no acute pulmonary process. He was however admitted for CoVID 19 infection in regards to metabolic encephalopathy. Today's chest x- ray revealed some interval bibasilar infiltrates and we are consulted for the same. The patient is a poor historian. Oriented times one. He is seen in consultation on the regular medical floor. Currently resting comfortably in bed. Awake and alert in no acute distress. Maintaining O2 saturations in the 90s on 2 L/m per nasal cannula. He does admit to some shortness of breath and a dry nonproductive cough. He is outside the window for Remdesivir. Does not qualify for Tocilizumab or convalescent plasma at this point. Progress note dated 02/18/2021. 80-year-old male seen by my partner yesterday in consultation. The patient tested positive for coronavirus, and he received monoclonal antibody on February 10. Currently, the patient is on 15 L high flow oxygen, with saturations of 91%. Previously, he was only on 2 L. The patient was outside the window for REM. Currently, he appears very weak and frail. His temperature is 98.2. His respiratory rate is 18. He does not appear to be in a great deal of distress. He has a history of diabetes, GERD, deafness, renal cancer with partial nephrectomy, psoriasis, coronary artery disease with previous stent placement, anxiety, and is a former smoker. White count is 4.76, hemoglobin 11, hematocrit 33.8, and platelet count 157,000. D-dimer is 1.12. Chest x-ray does show bilateral infiltrates. Patient was reevaluated today on 02/19/2021, patient remains marginal at best. Continues to require significant amount of oxygen, patient did not tolerate non- rebreather hence we had to switch him back to BiPAP, and his O2 saturation is in the 90s on BiPAP. Surprisingly the patient does not complain of significant shortness of breath, although he is noted to be dyspneic on a nonrebreather mask. Reviewed his chest x-ray today, continues to show significant patchy infiltrates bilaterally more so in the left midlung. Patient was reevaluated today on 02/20/2021, his is at bedside, patient is a bit confused, he is on BiPAP, and his pulse oximetry is in the range of 86-90% at best. Patient is noted tachypnea, he is afebrile. Blood pressure is stable, patient received 1 dose of actemra, ordered a dose of convalescent plasma but it is not given yet. Obviously is not available. WBC count is 10.28 hemoglobin is 12.8 PTT is 80.6 blood sugar is 240. Last pro-calcitonin was 0.25, not clinically significant, C-reactive protein is up to 62.0. Objective - Vital Signs Vital signs: Vital Signs Temp 97.9 F 02/20/21 09:45 Pulse 83 02/20/21 09:45 Resp 18 02/20/21 09:45 BP 121/72 02/20/21 09:45 Pulse Ox 90 L 02/20/21 09:45 Intake & Output 02/19/21 02/20/21 02/20/21 18:59 06:59 18:59 Intake Total 77.078 33.877 Output Total 500 Balance -500 77.078 33.877 Intake: Intake, IV Titration 77.078 33.877 Amount Heparin Sod,Pork in 0.45% 77.078 33.877 NaCl 25,000 unit In 0.45 % NaCl 1 250ml.bag @ 12 UNITS/KG/HR 9.798 mls/hr IV .Q24H [facility] Rx#: [id number] Output: Urine 500 Other: Voiding Method External Catheter # Voids 3 # Bowel Movements 1 - Exam Physical Exam: Revealed 80-year-old white male in mild distress, on on BiPAP., is at bedside. Head: Atraumatic, normocephalic. HEENT:[Neck is supple.] [No neck masses.] [No thyromegaly.] [No JVD.] Chest: [Symmetrical chest expansion, bilateral crackles and rhonchi at the bases. No wheezing. Cardiac Exam: [Normal S1 and S2, no S3 gallop, no murmur.] Abdomen: [Soft, nontender, no megaly, no rebound, no guarding, normal bowel sounds.] Extremities: [No clubbing, no edema, no cyanosis.] Neurological Exam: [No focal neurologic deficit.] Skin: No rashes. Psychiatric: Normal mood, affect, slightly confused. - Labs CBC & Chem 7: 02/20/21 07:50 02/18/21 06:58 Labs: Abnormal Lab Results - Last 24 Hours (Table) 02/19/21 02/19/21 02/19/21 Range/Units 06:54 16:15 16:15 WBC (4.50-10.00) X 10*3/uL RBC 4.05 L (4.30-5.90) m/uL Hgb 12.3 L (13.0-17.5) gm/dL Hct 35.9 L (39.0-53.0) % RDW (11.5-14.5) % MPV (9.5-12.2) fL Neutrophils # (Manual) 8.90 H (1.3-7.7) k/uL Lymphocytes # (Manual) 0.39 L (1.0-4.8) k/uL APTT 31.1 H (22.0-30.0) sec POC Glucose (mg/dL) (75-99) mg/dL Procalcitonin 0.25 H (0.02-0.09) ng/mL 02/19/21 02/19/21 02/19/21 Range/Units 16:43 20:16 22:23 WBC (4.50-10.00) X 10*3/uL RBC (4.30-5.90) m/uL Hgb (13.0-17.5) gm/dL Hct (39.0-53.0) % RDW (11.5-14.5) % MPV (9.5-12.2) fL Neutrophils # (Manual) (1.3-7.7) k/uL Lymphocytes # (Manual) (1.0-4.8) k/uL APTT >200.0 H* (22.0-30.0) sec POC Glucose (mg/dL) 380 H 288 H (75-99) mg/dL Procalcitonin (0.02-0.09) ng/mL 02/20/21 02/20/21 02/20/21 Range/Units 07:04 07:50 07:50 WBC 10.28 H (4.50-10.00) X 10*3/uL RBC 4.35 L (4.30-5.90) m/uL Hgb 12.8 L (13.0-17.5) gm/dL Hct 39.3 L (39.0-53.0) % RDW 14.6 H (11.5-14.5) % MPV 9.2 L (9.5-12.2) fL Neutrophils # (Manual) (1.3-7.7) k/uL Lymphocytes # (Manual) (1.0-4.8) k/uL APTT 80.6 H (22.0-30.0) sec POC Glucose (mg/dL) 240 H (75-99) mg/dL Procalcitonin (0.02-0.09) ng/mL Assessment and Plan Assessment: Impression: Acute Hypoxic Respiratory Failure secondary to covid 19 pneumonitis, presently on BiPAP. Status post monoclonal antibody therapy on February 10. Chronic kidney disease stage III Coronary artery disease and previous stent placement Type 2 diabetes. Generalized weakness secondary to coronary virus infection. Recommendation: Continue present treatment plan. Patient was outside the window for REM. Patient received 1 dose toci, ordered a unit of convalescent plasma but not available yet. Prognosis is extremely poor and guarded. Continue the Covid 19 cocktail.Discussed his condition with his at bedside, and explained to her that his condition may deteriorate and he may require intubation and mechanical ventilation, the stated that if he goes on mechanical ventilation and his condition gets any worse or becomes hopeless she wouldn't like to prolonged mechanical ventilation. CODE STATUS remains full at this point Time with Patient: Less than 30
[2021-02-20 12:13] LABS: Glucose,Whole Blood 258 mg/dL (75-99)
[2021-02-20 13:27] LABS: Basophils # (A) 0 X 10*3/uL (0.00-0.10); Basophils % (A) 0 %; Eosinophils # (A) 0 X 10*3/uL (0.04-0.35); Eosinophils % (A) 0 %; Lymphocytes # (A) 0.45 X 10*3/uL (0.90-5.00); Lymphocytes % (A) 4.4 %; Monocytes # (A) 0.29 X 10*3/uL (0.20-1.00); Monocytes % (A) 2.8 %; Neutrophils % (A) 91.4 %
[2021-02-20 13:49] VITALS: BMI 25.8
[2021-02-20] MEDS: HEPARIN SOD,PORK IN 0.45% NACL 25,000 UNIT in 0.45% NACL 1 250ML.BAG IV SCH (15:18)
--- NOTE | 2021-02-20 15:55 | P.CRDCN ---
History of Present Illness Consult date: 02/20/21 History of present illness: CHIEF COMPLAINT: A. fib with RVR HISTORY OF PRESENT ILLNESS: This is a 80-year-old male with a past medical history significant for coronary artery disease, hypertension, chronic kidney disease, diabetes mellitus, and GERD. Patient apparently presented to the emergency room with a chief complaint of increased weakness and several falls at home. Patient was found to be positive for Covid 19. Patient went into afib with RVR yesterday and cardiology was consulted for further evaluation. Patient was placed on a heparin drip and his metoprolol was increased to 100mg BID. Blood pressure 11/63. He is on a bipap with oxygen saturations around 87%. The patient has been made a DO NOT RESUSCITATE and is possibly going to be made comfort care in the near future. DIAGNOSTICS: EKG reveals A. fib with RVR. Telemetry reveals sinus mechanism. Chest xray patchy predominantly interstitial infiltrates stable. Correlate for interstitial pneumonia Laboratory data: WBC 10.28. Hemoglobin 12.8. Platelet count 239. Sodium 137. Potassium 3.4. BUN 26. Creatinine 1.4. TSH 0.398. Free T4 1.34. Current home cardiac medications include metoprolol succinate 50 mg daily, Imdur 15 mg daily, Lipitor 40 mg daily, aspirin 81 mg daily REVIEW OF SYSTEMS: Thorough review of systems not completed secondary to limited evaluation/examination and due to Covid19 PHYSICAL EXAM: Thorough physical exam not completed secondary to limited evaluation/examination and due to Covid19 ASSESSMENT: Covid 19 Acute hypoxic respiratory failure New-onset paroxysmal atrial fibrillation with RVR, currently maintaining sinus mechanism Coronary artery disease with previous PCI Hypertension Diabetes mellitus Chronic kidney disease Frequent falls PLAN: Obtain EKG now that patient has converted to SR Continue telemetry monitoring Continue beta-melissa at current dose Continue IV heparin for now. Due to patients frequent falls, patient is not a candidate for long term care social worker anticoagulation. Further recommendations pending patient course Nurse practitioner note has been reviewed by physician. Signing provider agrees with the documented findings, assessment, and plan of care. Past Medical History Past Medical History: Cancer, Dementia, Diabetes Mellitus, GERD/Reflux, Hearing Disorder / Deafness, Memory Impairment, Osteoarthritis (OA), Prostate Disorder, Renal Disease, Skin Disorder, Vascular Disorder Additional Past Medical History / Comment(s): 2006 L renal cell carcinoma with partial nephrectomy, NIDDM type II-recently taken off Ozempic d/t diarrhea, CKD stage III but per past medical hx but spouse unaware, hiatal hernia, lumbar stenosis with chronic low back pain, PVD/L caratid endartectomy/AAA repair, p soriasis, BPH, FALLS. History of Any Multi-Drug Resistant Organisms: None Reported Past Surgical History: Back Surgery, Cholecystectomy, Heart Catheterization With Stent, Hernia Repair Additional Past Surgical History / Comment(s): PCI with stents 2016/2017, L partial nephrectomy, AAA repair, L caratid endartectomy, L inguinal hernia repair, low back surgery, EGD, colonoscopy, bilateral cataracts removed with lens implants. Past Anesthesia/Blood Transfusion Reactions: Previous Problems w/ Anesthesia, Motion Sickness, Postoperative Nausea & Vomiting (PONV) Additional Past Anesthesia/Blood Transfusion Reaction / Comment(s): no hx blood transfusion Date of Last Stent Placement:: 12/08/2017 Smoking Status: Former smoker - Past Family History Mother Family Medical History: Diabetes Mellitus Father Family Medical History: COPD, Hypertension Brother(s) Family Medical History: Diabetes Mellitus Sister(s) Family Medical History: Coronary Artery Disease (CAD), Diabetes Mellitus Son(s) Family Medical History: No Reported History Daughter(s) Family Medical History: No Reported History Medications and Allergies Home Medications Medication Instructions Recorded Confirmed Type ALPRAZolam [Xanax] 0.25 mg PO DAILY 06/08/16 02/14/21 History Multivitamins, Thera [Multivitamin 1 tab PO DAILY 06/08/16 02/14/21 History (formulary)] Tamsulosin HCl [Flomax] 0.4 mg PO DAILY 06/08/16 02/14/21 History Aspirin EC [Ecotrin Low Dose] 81 mg PO DAILY #30 tablet. 09/20/17 02/14/21 Rx Atorvastatin [Lipitor] 40 mg PO HS #30 tab 09/20/17 02/14/21 Rx Calcium Carbonate [Calcium] 600 mg PO HS 11/07/17 02/14/21 History Isosorbide Mononitrate ER [Imdur] 15 mg PO DAILY 11/21/19 02/14/21 History Pantoprazole Sodium [Protonix] 40 mg PO DAILY 10/02/20 02/14/21 History Repaglinide [Prandin] 4 mg PO BID 10/02/20 02/14/21 History Metoprolol Succinate (ER) [Toprol 50 mg PO DAILY 11/21/20 02/14/21 History XL] Latanoprost/Pf [Latanoprost 0.005% 1 drop BOTH EYES HS 11/28/20 02/14/21 History Eye Drop] Acetaminophen [Tylenol] 650 mg PO Q4H PRN 02/10/21 02/14/21 History Citalopram Hydrobromide [CeleXA] 10 mg PO DAILY 02/10/21 02/14/21 History Nitroglycerin Sl Tabs [Nitrostat] 0.4 mg SL Q5M PRN 02/10/21 02/14/21 History glipiZIDE [Glucotrol] 10 mg PO BID 02/10/21 02/14/21 History Apixaban [Eliquis] 5 mg PO BID #60 tab 02/20/21 Rx Allergies Allergy/AdvReac Type Severity Reaction Status Date / Time clarithromycin [From Biaxin] AdvReac Nausea & Verified 02/14/21 12:30 Vomiting & Diarrhea Physical Exam Vitals: Vital Signs Temp Pulse Resp BP Pulse Ox 02/20/21 14:57 97.5 F L 82 18 111/63 87 L 02/20/21 09:45 97.9 F 83 18 121/72 90 L 02/20/21 05:33 98.4 F 96 42 H 133/72 86 L 02/20/21 02:35 97.4 F L 86 22 113/71 89 L 02/19/21 22:24 98.5 F 84 19 113/67 92 L 02/19/21 17:51 99.3 F 82 38 H 102/63 90 L Intake and Output 02/20/21 02/20/21 02/20/21 06:59 14:59 22:59 Intake Total 77.078 33.877 Balance 77.078 33.877 Intake: Intake, IV Titration 77.078 33.877 Amount Heparin Sod,Pork in 0.45% 77.078 33.877 NaCl 25,000 unit In 0.45 % NaCl 1 250ml.bag @ 12 UNITS/KG/HR 9.798 mls/hr IV .Q24H [facility] Rx#: [id number] Other: Weight 81.647 kg Results 02/20/21 07:50 02/18/21 06:58 Coagulation 02/19/21 02/19/21 02/20/21 Range/Units 16:15 22:23 07:50 PT 10.3 (9.0-12.0) sec APTT 31.1 H >200.0 H* 80.6 H (22.0-30.0) sec 02/20/21 Range/Units 14:47 PT (9.0-12.0) sec APTT 62.9 H (22.0-30.0) sec CBC 02/19/21 02/20/21 Range/Units 16:15 07:50 WBC 9.7 10.28 H (3.8-10.6) k/uL RBC 4.05 L 4.35 L (4.30-5.90) m/uL Hgb 12.3 L 12.8 L (13.0-17.5) gm/dL Hct 35.9 L 39.3 L (39.0-53.0) % Plt Count 232 239 (150-450) k/uL Current Medications Generic Name Dose Route Start Last Admin Trade Name Freq PRN Reason Stop Dose Admin Acetaminophen 650 mg 02/14/21 21:47 02/18/21 04:02 Acetaminophen Tab 325 Mg Tab PO 650 mg Q4H PRN Administration Pain Alprazolam 0.25 mg 02/15/21 09:00 02/20/21 05:43 Alprazolam 0.25 Mg Tab PO 0.25 mg DAILY [facility] Administration Ascorbic Acid 1,000 mg 02/16/21 09:00 02/20/21 08:58 Ascorbic Acid 500 Mg Tab PO 1,000 mg DAILY [facility] Administration Aspirin 81 mg 02/15/21 09:00 02/20/21 08:59 Aspirin 81 Mg PO 81 mg DAILY [facility] Administration Atorvastatin Calcium 40 mg 02/14/21 22:00 02/19/21 20:20 Atorvastatin 40 Mg Tab PO 40 mg HS [facility] Administration Calcium Carbonate/Glycine 500 mg 02/14/21 22:00 02/19/21 20:20 Calcium Carbonate 500 Mg Chewable PO 500 mg HS [facility] Administration Cholecalciferol 50 mcg 02/16/21 09:00 02/20/21 08:59 Cholecalciferol 25 Mcg (1000 Iu) Tablet PO 50 mcg DAILY [facility] Administration Citalopram Hydrobromide 10 mg 02/15/21 09:00 02/20/21 09:01 Citalopram Hydrobromide 10 Mg Tab PO 10 mg DAILY [facility] Administration Dexamethasone Sodium Phosphate 6 mg 02/17/21 18:30 02/20/21 08:58 Dexamethasone Sod Phosphate 10 Mg/Ml 1 Ml Vial IV 6 mg DAILY [facility] Administration Glipizide 10 mg 02/15/21 09:00 02/20/21 08:59 Glipizide 5 Mg Tab PO 10 mg BID [facility] Administration Heparin Sodium (Porcine) 0 unit 02/19/21 15:34 Heparin Sodium 1,000 Un/Ml (10ml Vl) IV PER PROTOCOL PRN Low PTT Protocol Heparin Sodium/Sodium Chloride 250 mls @ 9.798 mls/hr 02/19/21 15:45 02/20/21 15:18 25,000 unit/ Sodium Chloride IV Not Given .Q24H [facility] Protocol 12 UNITS/KG/HR Insulin Aspart 0 unit 02/15/21 17:30 02/20/21 12:55 Insulin Aspart (Novolog) 100 Unit/Ml Vial SQ 4 unit ACHS [facility] Administration Protocol Isosorbide Mononitrate 15 mg 02/15/21 09:00 02/20/21 08:58 Isosorbide Mononitrate Er 30 Mg Tab.Er.24h PO 15 mg DAILY [facility] Administration Latanoprost 1 drops 02/14/21 22:30 02/19/21 20:20 Latanoprost 0.005% Ophth Drops 2.5 Ml Btl BOTH EYES 1 drops HS [facility] Administration Metoprolol Tartrate 100 mg 02/19/21 15:34 02/20/21 08:59 Metoprolol Tartrate 50 Mg Tab PO 100 mg BID [facility] Administration Multivitamins 1 each 02/15/21 09:00 02/20/21 08:59 Multivitamins, Thera 1 Each Tab PO 1 each DAILY [facility] Administration Nitroglycerin 0.4 mg 02/14/21 21:47 Nitroglycerin Sl Tabs 0.4 Mg Tab SUBLINGUAL Q5M PRN Chest Pain Pantoprazole Sodium 40 mg 02/15/21 09:00 02/20/21 08:58 Pantoprazole 40 Mg Tablet PO 40 mg DAILY [facility] Administration Repaglinide 4 mg 02/15/21 09:00 02/20/21 09:00 Repaglinide 1 Mg Tab PO 4 mg BID [facility] Administration Tamsulosin HCl 0.4 mg 02/15/21 09:00 02/20/21 08:58 Tamsulosin 0.4 Mg Cap.Er.24h PO 0.4 mg DAILY [facility] Administration Zinc Sulfate 220 mg 02/16/21 09:00 02/20/21 08:59 Zinc Sulfate 220 Mg Cap PO 220 mg DAILY [facility] Administration Intake and Output 02/20/21 02/20/21 02/20/21 06:59 14:59 22:59 Intake Total 77.078 33.877 Balance 77.078 33.877 Intake: Intake, IV Titration 77.078 33.877 Amount Heparin Sod,Pork in 0.45% 77.078 33.877 NaCl 25,000 unit In 0.45 % NaCl 1 250ml.bag @ 12 UNITS/KG/HR 9.798 mls/hr IV .Q24H [facility] Rx#: [id number] Other: Weight 81.647 kg Patient Weight 02/21/21 06:59 Weight 81.647 kg 02/20/21 07:50 02/18/21 06:58
[2021-02-20 16:36] LABS: Glucose,Whole Blood 297 mg/dL (75-99)
[2021-02-20 19:50] VITALS: BP 148/82; RESP 20; TEMP 97.9
[2021-02-20 20:36] VITALS: PULSE 102
--- NOTE | 2021-02-20 23:05 | PN ---
PROGRESS NOTE DATE OF SERVICE: 02/20/2021 REASON FOR FOLLOWUP: COVID-19 pneumonia. INTERVAL HISTORY: The patient is currently afebrile. The patient remains to be lethargic and sleepy. Unable to provide any history. No vomiting or diarrhea has been reported. Patient denies any abdominal pain. EXAMINATION: Blood pressure 142/82 with a pulse of 100, temperature 97.9. He is 90% on BiPAP. General description is an elderly male lying in bed in no distress. RESPIRATORY SYSTEM: Unlabored breathing with decreased intense of breath sounds. No wheeze. HEART: S1, S2. Regular rate and rhythm. ABDOMEN: Soft, no tenderness. LABS: Hemoglobin 12.1, white count 10.28. DIAGNOSTIC IMPRESSION AND PLAN: Patient with COVID-19 infection. The patient is currently on dexamethasone, heparin, zinc and ascorbic acid to continue along with respiratory support and monitor clinical course closely. MMODL / IJN: [id number] /
--- NOTE | 2021-02-21 14:00 | P.DS ---
Providers Date of admission: 02/14/21 13:34 Expected date of discharge: 02/21/21 Attending physician: Akanksha Tay MD Consults: 02/15/21 13:42 Consult Physician Routine Consulting Provider: Mariposa Arreaga Consult Reason/Comments: COVID Do you want consulting provider notified?: Yes 02/16/21 22:00 Consult Physician Routine Consulting Provider: Silva Zuluaga Consult Reason/Comments: COVID 19 Pneumonitis Do you want consulting provider notified?: Yes 02/19/21 15:17 Consult Physician Routine Consulting Provider: [facility] Consult Reason/Comments: A fib rvr Do you want consulting provider notified?: Already Contacted Primary care physician: [facility] Course: HISTORY OF PRESENT ILLNESS This is an 80-year-old male patient of Dr. Briseno with past medical history of diabetes mellitus type 2, history of renal cancer status post partial resection in 2006, abdominal aortic aneurysm status post repair, lumbar sten osis, benign prostatic hypertrophy, psoriasis, gastroesophageal reflux disease, peripheral vascular disease status post carotid surgery, coronary artery disease status post stents, remote history of tobacco use. Patient presented to the emergency center on February 10 with complaints of generalized weakness, no fever. He underwent a chest x-ray that showed no acute pulmonary disease, CAT scan of the brain revealed age-related atrophy and chronic small vessel ischemic change without acute intracranial process. Patient was diagnosed with COVID-19, treated with Bamlanivimab and was discharged home with instructions to quarantine and follow-up with his PCP. Patient return to the emergency center yesterday due to worsening weakness and several falls. No apparent injury. No abdominal pain, nausea, vomiting or diarrhea. Patient was found to be afebrile, heart rate 94, blood pressure 121/67, pulse ox 97% on room air. EKG was in normal sinus rhythm with [address] changes. WBC 3.4, hemoglobin 12.4, platelet count 131. Sodium 132, potassium 3.9, chloride 101, CO2 21, BUN 23 and creatinine 1.46, blood sugar 267. Liver function tests were elevated with AST of 106, ALT 60, alkaline phosphatase 80. Lactic acid 2.3. Troponin negative. Urinalysis cloudy with nitrate and leukoesterase negative. Chest x-ray reveals no evidence of acute pulmonary disease. 02/16: Patient is slightly but better today still required 2 L of nasal cannula O2, he is afebrile, slightly but confused with mild change mental status otherwise no high fever his marker remain slightly bit up with d-dimer at 1.41 his kidney function still off his ferritin level was 3200. Patient still seen infectious disease will consult pulmonary as well. 02/17: Patient is doing slightly better this confused temperature has improved so far. Patient mobility still limited to almost addressed at this point. Had mild leukopenia and mild anemia his marker still quite bit elevated this point. Chest x-ray has slight improvement. Irritation oxygen level Will allow patient might be able to go to subacute rehab sometime this week. 02/18: Patient had fever of 102 this morning.heart rate 77, blood pressure 122/63, pulse ox 89-93% on nonrebreather. repeat d-dimer is 1.12. Blood sugar 166-247. Patient is followed by pulmonary medicine and infectious disease. Patient is seen today on the [facility] floor. He is reaching 1000 ml on incentive spirometry. Repeat blood work reveals WBC 4.7, hemoglobin 11, platelet count 157. D-dimer 1.12. TSH 0.398 and free T4 normal at 1.34. Vitamin B12 level is 573. Patient is continued on dexamethasone and Lovenox. The patient is seen on nasal cannula which was placed so he could eat breakfast. Otherwise patient has been maintained on nonrebreather. Pulse ox on high flow nasal cannula is 88%. IV fluids will be discontinued and one dose of IV Lasix this morning. 02/19: Patient has been afebrile for the past 24 hours. Heart rate 97, blood pressure 164/70, pulse ox 88% on 15 L high flow nasal cannula. Blood sugars are running between 141 and 271. Patient is only reaching 500 on incentive spirometry. Repeat inflammatory markers reveal C-reactive protein 62, d-dimer 1.64. Repeat chest x-ray reveals patchy predominantly interstitial infiltrates stable correlate for interstitial pneumonia. Discharge planning to be determined. Patient is hoping to go home but too early to determine safe discharge plan. 02/20: Patient had a drop in his pulse ox yesterday afternoon and went from high flow nasal cannula to nonrebreather and then to BiPAP. He is currently on BiPAP pulse ox 86-89%. Patient has been afebrile, heart rate 96, tachypnea, blood pressure 133/72. Patient is status post Tocilizumab 1 dose. Convalescent plasma was ordered and not given. Patient also went into A. fib with RVR, a flutter and cardiology consult was requested. He was transitioned from Toprol- XL at 50 mg to Lopressor 100 mg twice daily and heparin drip was started. Patient has also been made no CODE STATUS. Patient's is planning to come in to see him today and possibly make him comfort care. She was updated over the phone by Dr. Briseno. Prognosis is guarded. Patient on the evening of February 20. Please see nursing documentation for detail. ASSESSMENT AND PLAN 1. Covid 19 pneumonia status post Bamlanivimab on February 10. 2. Metabolic encephalopathy secondary to Covid 19 infection. 3. Lactic acidosis secondary to Covid 19. 4. Pancytopenia secondary to Covid 19. 5. Sepsis with mental status changes, leukopenia secondary to Covid 19. 6. Hyponatremia 7. Acute hypoxic respiratory failure requiring nonrebreather/high flow nasal cannula. 8. New onset A. fib with RVR, paroxysmal atrial fibrillation. 9. Chronic kidney disease stage III. 10. Diabetes mellitus type 2. 11. History of coronary artery disease status post stents. 12. Hypertension. 13. Benign prostatic hypertrophy. 14. Gastroesophageal reflux disease Impression and plan of care have been directed as dictated by the signing physician. Whitney Batista nurse practitioner acting as scribe for signing physician. Patient Condition at Discharge: Undetermined Plan - Discharge Summary Discharge Rx Participant: No New Discharge Prescriptions: No Action Multivitamins, Thera [Multivitamin (formulary)] 1 tab PO DAILY Tamsulosin HCl [Flomax] 0.4 mg PO DAILY ALPRAZolam [Xanax] 0.25 mg PO DAILY Atorvastatin [Lipitor] 40 mg PO HS #30 tab Aspirin EC [Ecotrin Low Dose] 81 mg PO DAILY #30 tablet.dr Calcium Carbonate [Calcium] 600 mg PO HS Isosorbide Mononitrate ER [Imdur] 15 mg PO DAILY Repaglinide [Prandin] 4 mg PO BID Pantoprazole Sodium [Protonix] 40 mg PO DAILY Metoprolol Succinate (ER) [Toprol XL] 50 mg PO DAILY Latanoprost/Pf [Latanoprost 0.005% Eye Drop] 1 drop BOTH EYES HS Acetaminophen [Tylenol] 650 mg PO Q4H PRN PRN Reason: Pain Nitroglycerin Sl Tabs [Nitrostat] 0.4 mg SL Q5M PRN PRN Reason: Chest Pain Citalopram Hydrobromide [CeleXA] 10 mg PO DAILY glipiZIDE [Glucotrol] 10 mg PO BID Discharge Medication List ALPRAZolam [Xanax] 0.25 mg PO DAILY 06/08/16 [History] Multivitamins, Thera [Multivitamin (formulary)] 1 tab PO DAILY 06/08/16 [History] Tamsulosin HCl [Flomax] 0.4 mg PO DAILY 06/08/16 [History] Aspirin EC [Ecotrin Low Dose] 81 mg PO DAILY #30 tablet. 09/20/17 [Rx] Atorvastatin [Lipitor] 40 mg PO HS #30 tab 09/20/17 [Rx] Calcium Carbonate [Calcium] 600 mg PO HS 11/07/17 [History] Isosorbide Mononitrate ER [Imdur] 15 mg PO DAILY 11/21/19 [History] Pantoprazole Sodium [Protonix] 40 mg PO DAILY 10/02/20 [History] Repaglinide [Prandin] 4 mg PO BID 10/02/20 [History] Metoprolol Succinate (ER) [Toprol XL] 50 mg PO DAILY 11/21/20 [History] Latanoprost/Pf [Latanoprost 0.005% Eye Drop] 1 drop BOTH EYES HS 11/28/20 [History] Acetaminophen [Tylenol] 650 mg PO Q4H PRN 02/10/21 [History] Citalopram Hydrobromide [CeleXA] 10 mg PO DAILY 02/10/21 [History] Nitroglycerin Sl Tabs [Nitrostat] 0.4 mg SL Q5M PRN 02/10/21 [History] glipiZIDE [Glucotrol] 10 mg PO BID 02/10/21 [History] Follow up Appointment(s)/Referral(s): Eric Briseno MD [Primary Care Provider] - 1-2 days [facility], [NON-STAFF] - Activity/Diet/Wound Care/Special Instructions: [facility]. Pharmacy will fill with coupon. First month free and additional months will cost $10/mo. Discharge Disposition: - Preliminary Cause of Preliminary Cause of : Covid 19 pneumonia
== END 2021-02-20 23:28 | disposition expired | DRG 871 ==
LOC: EC 10:57 → 1SOBS 13:34 → 4SSUR 15:50 → 1SOBS 02-15 08:11 → 4SSUR 02-15 18:12
PROVIDERS: ADMIT Internal Medicine; ATTEND Internal Medicine
PROC: 5A0945A Assistance with Respiratory Ventilation, 24-96 Consecutive Hours, High Flow/Velocity Cannula (ICD-10-PCS; 2021-02-17)
PROC: XW033H5 Introduction of Tocilizumab into Peripheral Vein, Percutaneous Approach, New Technology Group 5 (ICD-10-PCS; principal; 2021-02-19)
PROC: 5A09457 Assistance with Respiratory Ventilation, 24-96 Consecutive Hours, Continuous Positive Airway Pressure (ICD-10-PCS; 2021-02-19)
PROC: XW13325 Transfusion of Convalescent Plasma (Nonautologous) into Peripheral Vein, Percutaneous Approach, New Technology Group 5 (ICD-10-PCS; 2021-02-20)
DX: A41.89 Other specified sepsis (principal); U07.1 COVID-19; G93.41 Metabolic encephalopathy; J12.82 Pneumonia due to coronavirus disease 2019; J96.01 Acute respiratory failure with hypoxia; E87.2 Acidosis; D61.818 Other pancytopenia; E87.1 Hypo-osmolality and hyponatremia; I48.0 Paroxysmal atrial fibrillation; E86.0 Dehydration; E11.51 Type 2 diabetes mellitus with diabetic peripheral angiopathy without gangrene; F03.90 Unspecified dementia, unspecified severity, without behavioral disturbance, psychotic disturbance, mood disturbance, and anxiety; E11.22 Type 2 diabetes mellitus with diabetic chronic kidney disease; I25.10 Atherosclerotic heart disease of native coronary artery without angina pectoris; N18.30 Chronic kidney disease, stage 3 unspecified; Z66 Do not resuscitate; E87.70 Fluid overload, unspecified; I12.9 Hypertensive chronic kidney disease with stage 1 through stage 4 chronic kidney disease, or unspecified chronic kidney disease; N40.0 Benign prostatic hyperplasia without lower urinary tract symptoms; M48.061 Spinal stenosis, lumbar region without neurogenic claudication; F41.9 Anxiety disorder, unspecified; K21.9 Gastro-esophageal reflux disease without esophagitis; K44.9 Diaphragmatic hernia without obstruction or gangrene; G89.29 Other chronic pain; M54.5 Low back pain; M19.90 Unspecified osteoarthritis, unspecified site; L40.9 Psoriasis, unspecified; R32 Unspecified urinary incontinence; R29.6 Repeated falls; H91.90 Unspecified hearing loss, unspecified ear; Z79.82 Long term (current) use of aspirin; Z79.84 Long term (current) use of oral hypoglycemic drugs; Z79.899 Other long term (current) drug therapy; Z91.81 History of falling; Z87.891 Personal history of nicotine dependence; Z85.528 Personal history of other malignant neoplasm of kidney; Z97.4 Presence of external hearing-aid; Z95.828 Presence of other vascular implants and grafts; Z95.5 Presence of coronary angioplasty implant and graft; Z87.19 Personal history of other diseases of the digestive system; Z86.79 Personal history of other diseases of the circulatory system; Z90.5 Acquired absence of kidney; Z98.42 Cataract extraction status, left eye; Z98.41 Cataract extraction status, right eye; Z96.1 Presence of intraocular lens; Z90.49 Acquired absence of other specified parts of digestive tract; Z98.890 Other specified postprocedural states; Z88.8 Allergy status to other drugs, medicaments and biological substances; Z82.5 Family history of asthma and other chronic lower respiratory diseases; Z82.49 Family history of ischemic heart disease and other diseases of the circulatory system; Z83.3 Family history of diabetes mellitus
CPT/HCPCS: 36415; 71045; 71046; 80053; 80074; 81001; 82607; 82728; 83605; 83615; 83735; 84145; 84439; 84443; 84484; 85025; 85027; 85379; 85610; 85652; 85730; 86140; 86850; 86900; 86901; 93005; 94660; 94760; 96360; 96361; 99285